=== PATIENT | female | born 1950 | race Caucasian/White ===

== ENCOUNTER → 2019-04-11 13:41 | Outpatient (BNVA) | payer MEDICARE, SELFPAY | PROVIDERS: Family Provider Internal Medicine; PCP Internal Medicine; Visit Provider Internal Medicine Cardiovascular Disease | DX: Z95.2 Presence of prosthetic heart valve (principal); R06.02 Shortness of breath; I50.9 Heart failure, unspecified; I25.10 Atherosclerotic heart disease of native coronary artery without angina pectoris; I11.0 Hypertensive heart disease with heart failure | CPT/HCPCS: 80048; 83880; 85610 ==

== ENCOUNTER → 2019-04-19 13:50 | Outpatient (BNVA) | payer MEDICARE, SELFPAY | PROVIDERS: Family Provider Internal Medicine; PCP Internal Medicine; Visit Provider Nurse Practitioner Family | DX: Z95.2 Presence of prosthetic heart valve (principal); R06.02 Shortness of breath; I50.20 Unspecified systolic (congestive) heart failure | CPT/HCPCS: 80048 ==

== ENCOUNTER 2020-08-15 08:21 | Emergency (ER) | payer MEDICARE, SELFPAY ==
--- NOTE | 2020-08-15 08:29 | ED_ITS ---
HPI - Abdominal Pain General: Chief Complaint: Skin/Abscess/Foreign Body Stated Complaint: LOW ABD PAIN Time Seen by Provider: 08/15/20 08:24 History of Present Illness: HPI narrative: 69-year-old female who is presents complaining of pelvic pain. She has a right swollen labia minora. She has had problems in the past with infectious cyst that she has drained some on her own at home she has another one at the gluteal fold inferior on the left. She denies fever sweats or chills. Associated Symptoms: Denies bloating, chills, coffee ground emesis, constipation, diarrhea, dysuria, fever(s), hematochezia, hematemesis, melena, nausea and vomiting Review of Systems Const: Denies: fever(s), chills, body aches, change in appetite, fatigue or malaise Card: Denies: chest pain, edema, dyspnea on exertion or orthopnea Resp: Denies: dyspnea, productive cough or non-productive cough GI: Denies: abdominal pain, nausea, vomiting, hematemesis, coffee ground emesis, diarrhea, constipation, bloating, hematochezia or melena : Denies: flank pain, difficulty voiding, dysuria, urinary frequency or urinary urgency Skin/Breast: Denies: rash or pruritus PFSH ED PFSH: Medical History CAD (coronary artery disease) stent to mid LAD 11/02/2018 CHF (congestive heart failure) Last echocardiogram 10/06/18: LVEF 35-40% Diabetes mellitus diagnosed in 2017 HTN (hypertension) with goal to be determined Hypothyroidism Osteoporosis Surgical History Mitral valve replaced S/P cholecystectomy S/P hysterectomy S/P mitral valve replacement [place] valve by Dr. Wilder [place] 2006 Family History Father CAD (coronary artery disease) Stroke Mother CAD (coronary artery disease) Diabetes Hypertension Sister CAD (coronary artery disease) Hypertension Lung disease Psychiatric illness Son Lung disease Denies family history of Clotting disorder Dementia Hyperlipidemia Chronic kidney disease (CKD) Suicide Anesthesia complication Bleeding disorder Family history of premature coronary artery disease Cancer Social History (Reviewed 08/15/20 @ 11:07 by SERGIO Urbina Smoking and tobacco status: never smoked Second hand smoke exposure: Yes Alcohol intake: never Physical Exam Const: COMMON NORMALS: no acute distress GENERAL APPEARANCE: cooperative and comfortable ORIENTATION/CONSCIOUSNESS: Yes awake, Yes oriented to person, Yes oriented to place and Yes oriented to time HENMT: COMMON NORMALS: normocephalic, atraumatic, hearing grossly normal bilaterally and external ears normal HEAD & SCALP: normocephalic and atraumatic EXTERNAL EAR: Yes external ears normal Neck/C-Spine: COMMON NORMALS: no JVD Resp: COMMON NORMALS: normal respiratory effort, No retractions, No use of accessory muscles and clear to auscultation bilaterally AUSCULTATION: clear to auscultation bilaterally Cardio: COMMON NORMALS: no JVD, regular rate, regular rhythm and No murmurs present (Cardio) RATE: regular rate RHYTHM: regular rhythm GI: COMMON NORMALS: Soft to palpation and No hepatosplenomegaly present AUSCULTATION: Yes normoactive bowel sounds PALPATION: Yes Soft to palpation, No Tenderness to palpation present (GI), No Guarding due to palpation present (GI) and Yes No hepatosplenomegaly present Extremity: COMMON NORMALS: normal to inspection, capillary refill normal, no clubbing, cyanosis or edema, no calf tenderness and no pedal edema Neuro: SENSORIUM/ORIENTATION: Yes oriented to person, Yes oriented to place and Yes oriented to time Skin: COMMON NORMALS: no rashes or lesions noted GENERAL SKIN EXAM: no rashes or lesions noted Procedures Abscess I/D Side (if applicable): left (Gluteal fold) and right (Labia minora) Sedation/analgesia: other (Morphine) Local Anesthetic: lidocaine 1% Amount of anesthesia used (mL): 7 Technique: incised with #11 blade Amount of fluid expressed (mL): 3 Irrigation: No Packing used?: none Course Vital Signs: Vital signs: Vital Signs Temperature 98.0 F 08/15/20 08:36 Pulse Rate 80 08/15/20 10:20 Respiratory Rate 18 08/15/20 08:36 Blood Pressure 146/87 08/15/20 08:36 Pulse Oximetry 96 08/15/20 10:20 MDM - Abdominal Pain MDM Narrative: Medical decision making narrative: Incision and drainage of the abscesses on the right labia minora and a smaller abscess in the left gluteal fold. Both were anesthetized with 1% lidocaine locally and then incised with an 11 blade expressed fluid and debris from both. The left gluteal fold abscess was removed in its entirety with a capsule intact. The right labial minora lesion was expressed a small amount of purulent fluid which was cultured. There is a large amount of swelling but the abscess itself is actually quite small not amenable to any packing. I did probe with a cotton swab to break up any septations. Overall patient tolerated well discharge home on clindamycin since she is alrea dy on Coumadin, Bactrim would exacerbate her INRs. Follow-up with her primary care doctor early next week return if has problems did advise the patient to expect some oozing from the incision sites due to her Coumadin. Lab Data: Labs: Lab Results 08/15/20 08/15/20 08/15/20 Range/Units 08:50 08:50 08:50 WBC 9.5 (4.0-10.0) 10^3/ uL RBC 4.15 (4.1-5.3) 10^6/u L Hgb 13.8 (11.5-15.3) g/dL Hct 39.8 (37.0-47.0) % MCV 95.9 (81-99) fL MCH 33.3 (28.0-34.0) pg MCHC 34.7 (30.0-36.0) g/dL RDW 11.4 L (12.1-15.1) % Plt Count 219 (130-400) 10^3/c mm MPV 9.6 (7.4-10.4) fL Neut % (Auto) 65.2 % Lymph % (Auto) 23.1 % Stanley % (Auto) 8.0 % Eos % (Auto) 3.1 % Baso % (Auto) 0.4 % Neut # (Auto) 6.17 (1.8-7.7) 10^3/u L Lymph # (Auto) 2.2 (0.8-4.8) 10^3/u L Stanley # (Auto) 0.8 (0.2-0.9) 10^3/u L Eos # (Auto) 0.3 (0.0-0.8) 10^3/u L Baso # (Auto) 0.0 (0.0-0.1) 10^3/u L Nucleated RBC % (a uto) 0 % Nucleated RBCs # 0.0 /100WBC PT 30.40 H (12.1-14.9) SECO NDS INR 2.85 H (0.8-1.2) Sodium 141 (136-145) mmol/L Potassium 4.4 (3.5-5.1) mmol/L Chloride 101 (98-107) mmol/L Carbon Dioxide 30 H (22-29) mmol/L Anion Gap 14.4 (5-19) BUN 18 (8-23) mg/dL Creatinine 0.8 (0.5-0.9) mg/dL GFR Calculation 70.9 L (90-130) mL/min Glucose 121 H (65-115) mg/dL Calculated Osmolal ity 295 (285-295) mOsm/k g Calcium 9.5 (8.5-10.5) mg/dL Total Bilirubin 0.6 (0.15-1.2) mg/dL AST 21 (0-32) U/L ALT 14 (0-33) U/L Alkaline Phosphata se 96 (35-105) IU/L Total Protein 8.0 (6.6-8.7) g/dL Albumin 4.9 (3.5-5.2) g/dL Globulin 3.1 (1.3-4.6) g/dL Discharge Plan Discharge Patient Disposition: Home Clinical Impression: Abscess of skin or subcutaneous tissue Condition: Stable Prescriptions: New clindamycin HCl 300 mg capsule 300 mg PO Q8H 7 Days Qty: 21 RF: 0 No Action clonidine HCl 0.1 mg tablet 0.1 mg PO Q6H PRNRF: 0 multivitamin Tablet 1 tab PO QAM RF: 0 acetaminophen [Tylenol] 325 mg tablet 325 mg PO ONCE PRNRF: 0 albuterol sulfate [Ventolin HFA] 90 mcg/actuation HFA aerosol inhaler 2 puff INHALATION Q6H PRNRF: 0 cholecalciferol (vitamin D3) 2,000 unit tablet 2,000 unit PO QDAY RF: 0 tizanidine 4 mg tablet 4 mg PO DAILY PRN (Reason: muscle spasticity) RF: 0 rosuvastatin 20 mg tablet 20 mg PO DAILY RF: 0 lorazepam 0.5 mg tablet 0.5 mg PO .hs RF: 0 spironolactone 25 mg tablet 25 mg PO DAILY Qty: 90 RF: 3 furosemide 40 mg tablet 40 mg PO DAILY RF: 0 potassium chloride 20 mEq tablet extended release 20 meq PO DAILY RF: 0 pantoprazole 40 mg tablet,delayed release (DR/EC) 40 mg PO DAILY RF: 0 trazodone 50 mg tablet 50 mg PO DAILY RF: 0 warfarin 10 mg tablet 5 mg PO DAILY RF: 0 metoprolol succinate [Toprol XL] 100 mg tablet extended release 24 hr 100 mg PO QDAY Qty: 90 RF: 3 warfarin 10 mg tablet 10 mg PO DIRECTED Qty: 90 RF: 1 warfarin 2 mg tablet 2 mg PO DIRECTED Qty: 90 RF: 1 nitroglycerin [Nitrostat] 0.4 mg tablet, sublingual 0.4 mg SUBLINGUAL DIRECTED Qty: 1 RF: 3 lisinopril 40 mg tablet 40 mg PO DAILY Qty: 90 RF: 3 clopidogrel [Plavix] 75 mg tablet 75 mg PO QDAY Qty: 90 RF: 3 Discharge Orders: Discharge ED (Routine); Ordered 08/15/20 Ordered By: Lalo Ribera Referrals: Amador Cherry DO [Primary Care Provider] - Discharge Diet: Usual diet Discharge Activity: Resume usual activity Patient Instructions: Opioid Safety Activity Restrictions/Additional Instructions: Follow-up with your primary care doctor in the next 3 to 4 days return to the ER if you have further problems Coding Level of Care Code ED Cigarette Making Machine Catcher for Kaila Fwd Exam Comprehensive
[2020-08-15 08:36] VITALS: BP 146/87; PULSE 63; RESP 18; TEMP 36.7; O2SAT 96; BMI 26.1
[2020-08-15 08:44] VITALS: O2SAT 97
[2020-08-15 09:08] LABS: Basophils % 0.4 %; Eosinophils # 0.3 10^3/uL (0.0-0.8); Eosinophils % 3.1 %; Hematocrit 39.8 % (37.0-47.0); Hemoglobin 13.8 g/dL (11.5-15.3); Lymphocytes # 2.2 10^3/uL (0.8-4.8); Lymphocytes % 23.1 %; Mean Corpuscular HGB Conc 34.7 g/dL (30.0-36.0); Mean Corpuscular Hemoglobin 33.3 pg (28.0-34.0); Mean Corpuscular Volume 95.9 fL (81-99); Mean Platelet Volume 9.6 fL (7.4-10.4); Monocytes # 0.8 10^3/uL (0.2-0.9); Neutrophils # 6.17 10^3/uL (1.8-7.7); Neutrophils % 65.2 %; Nucleated Red Blood Cells % 0 %; Platelet Count 219 10^3/cmm (130-400); Red Blood Count 4.15 10^6/uL (4.1-5.3); Red Cell Distribution Width 11.4 % (12.1-15.1); White Blood Count 9.5 10^3/uL (4.0-10.0)
[2020-08-15] MEDS: lidocaine 1% INJ 20 mL INJECTION (09:17)
[2020-08-15] MEDS: morphine 4 mg/mL SDV 1 mL IVP (09:17)
[2020-08-15] MEDS: sodium chloride 0.9% 500 ML 999 ML IV (09:17)
[2020-08-15 09:24] LABS: INR 2.85 (0.8-1.2)
[2020-08-15 09:28] LABS: Alanine Aminotransferase 14 U/L (0-33); Albumin Level 4.9 g/dL (3.5-5.2); Alkaline Phosphatase 96 IU/L (35-105); Anion Gap 14.4 (5-19); Aspartate Amino Transferase 21 U/L (0-32); Blood Urea Nitrogen 18 mg/dL (8-23); Calcium 9.5 mg/dL (8.5-10.5); Carbon Dioxide 30 mmol/L (22-29); Chloride 101 mmol/L (98-107); Creatinine Clr Calc Pharmacy 62.3907; Globulin 3.1 g/dL (1.3-4.6); Glomerular Filtration Rate 70.9 mL/min (90-130); Glucose 121 mg/dL (65-115); Osmolality Calculated 295 mOsm/kg (285-295); Potassium 4.4 mmol/L (3.5-5.1); Sodium 141 mmol/L (136-145); Total Bilirubin 0.6 mg/dL (0.15-1.2)
[2020-08-15 10:20] VITALS: PULSE 80; O2SAT 96
== END 2020-08-15 10:25 | disposition home or self-care (01) ==
PROVIDERS: Emergency Provider Family Medicine; PCP Internal Medicine
DX: N76.4 Abscess of vulva (principal); L02.31 Cutaneous abscess of buttock; Z79.01 Long term (current) use of anticoagulants; Z79.02 Long term (current) use of antithrombotics/antiplatelets; I25.10 Atherosclerotic heart disease of native coronary artery without angina pectoris; I11.0 Hypertensive heart disease with heart failure; I50.9 Heart failure, unspecified; E11.9 Type 2 diabetes mellitus without complications; Z77.22 Contact with and (suspected) exposure to environmental tobacco smoke (acute) (chronic)
CPT/HCPCS: 10060; 56405; 80053; 85025; 85610; 87070; 87075; 87205; 96374; 99284; J2270; J7040

== ENCOUNTER 2021-01-19 12:57 | Outpatient (CLI) | payer MEDICARE, SELFPAY ==
--- NOTE | 2021-01-19 13:11 | MM_ITS ---
WS: [id number] BILATERAL SCREENING DIGITAL MAMMOGRAM WITH CAD HISTORY: SCREENING COMPARISON: 12/22/2017 and 12/21/2016 Bilateral CC and MLO views submitted. Computer aided detection analyzed. Breast composition: There are scattered areas of fibroglandular density. No suspicious masses, microc alcifications or architectural distortion. Benign vascular calcifications. MM/[place] [id number] IMPRESSION: BI-RADS: 2-Benign FOLLOW UP: 1 Year Follow-up
--- NOTE | 2021-01-19 13:34 | XR_ITS ---
WS: [id number] SCREENING DEXA SCAN [employer] CLINICAL INFORMATION: POSTMENOPAUSAL COMPARISON: December 22, 2017 FINDINGS: The L1-L4 bone mineral density measures 0.856 g/cm2. This corresponds to a T score score of -2.7 and Z score of -1.1. Left femoral neck bone mineral density measures 0.965 g/cm2. This corresponds to a T score of -0.3 an d Z score of 1.1. Right femoral neck bone mineral density measures 0.965 g/cm2. This corresponds to a T score -0.3of an d Z score of 1.1. Mean femoral neck bone mineral density measures 0.965 g/cm2. This corresponds to a T score of -0.3 an d Z score of 1.1. XR/XR DEXA axial skeleton* [id number] IMPRESSION: Osteoporosis lumbar spine. Normal bone mineralization femoral necks. Patient's FRAX calculated 10 year probability for major osteoporotic fracture i s 14.1 % and osteoporotic hip fracture is 1.4%.
== END 2021-01-19 12:58 | disposition home or self-care (01) ==
LOC: RADSHAW 13:00
PROVIDERS: PCP Internal Medicine; Visit Provider Nurse Practitioner
DX: Z12.31 Encounter for screening mammogram for malignant neoplasm of breast (principal); Z78.0 Asymptomatic menopausal state; M81.0 Age-related osteoporosis without current pathological fracture
CPT/HCPCS: 77067; 77080

== ENCOUNTER → 2021-05-21 09:07 | Outpatient (BNVA) | payer MEDICARE, SELFPAY | PROVIDERS: PCP Internal Medicine; Visit Provider Internal Medicine Cardiovascular Disease | DX: Z79.01 Long term (current) use of anticoagulants (principal) ==

== ENCOUNTER → 2021-05-27 13:07 | Outpatient (BNVA) | payer MEDICARE, SELFPAY | PROVIDERS: PCP Internal Medicine; Visit Provider Internal Medicine Cardiovascular Disease | DX: Z79.01 Long term (current) use of anticoagulants (principal) ==

== ENCOUNTER → 2021-06-05 08:55 | Outpatient (BNVA) | payer MEDICARE, SELFPAY | PROVIDERS: PCP Internal Medicine; Visit Provider Internal Medicine Cardiovascular Disease | DX: Z79.01 Long term (current) use of anticoagulants (principal) ==

== ENCOUNTER → 2021-06-12 13:23 | Outpatient (BNVA) | payer MEDICARE, SELFPAY | PROVIDERS: PCP Internal Medicine; Visit Provider Internal Medicine Cardiovascular Disease | DX: I35.9 Nonrheumatic aortic valve disorder, unspecified (principal); Z95.2 Presence of prosthetic heart valve; Z79.01 Long term (current) use of anticoagulants ==

== ENCOUNTER → 2021-06-19 11:01 | Outpatient (BNVA) | payer MEDICARE, SELFPAY | PROVIDERS: PCP Internal Medicine; Visit Provider Internal Medicine Cardiovascular Disease | DX: I11.0 Hypertensive heart disease with heart failure (principal); I50.22 Chronic systolic (congestive) heart failure; I25.10 Atherosclerotic heart disease of native coronary artery without angina pectoris; Z95.2 Presence of prosthetic heart valve; E11.9 Type 2 diabetes mellitus without complications | CPT/HCPCS: 99214 ==

== ENCOUNTER → 2021-06-26 13:22 | Outpatient (BNVA) | payer MEDICARE, SELFPAY | PROVIDERS: PCP Internal Medicine; Visit Provider Internal Medicine Cardiovascular Disease | DX: Z79.01 Long term (current) use of anticoagulants (principal) ==

== ENCOUNTER → 2021-07-01 12:43 | Outpatient (BNVA) | payer MEDICARE, SELFPAY | PROVIDERS: PCP Internal Medicine; Visit Provider Internal Medicine Cardiovascular Disease | DX: Z79.01 Long term (current) use of anticoagulants (principal) ==

== ENCOUNTER 2021-07-05 22:01 | Emergency (ER) | payer MEDICARE, SELFPAY ==
[2021-07-05 22:16] VITALS: BP 136/80; PULSE 97; RESP 16; TEMP 36.9; O2SAT 96
[2021-07-05 22:17] VITALS: BMI 26.1
--- NOTE | 2021-07-05 22:37 | ECG_ITS ---
[facility] Test Date: 2021-07-05 Pat Name: Jocelin Mcginnis Department: Room: Gender: Female [employer]: : 1950 Requested By: Jose Ortiz Order Number: [id number] Jyoti MD: Jacques Parks M.D. Measurements Intervals Bowman Rate: 96 P: 79 MN: 139 QRS: 43 QRSD: 118 T: 157 QT: 363 QTc: 461 Interpretive Statements SINUS RHYTHM SEPTAL MYOCARDIAL INFARCTION , OF INDETERMINATE AGE [40+ ms Q WAVE IN V1/V2] MODERATE T-WAVE ABNORMALITY, CONSIDER LATERAL ISCHEMIA [-0.1+ mV T-WAVE IN I/aVL/V5/V6] Compared to ECG 01/08/2019 12:38:45 No significant changes Electronically Signed On 07-06-2021 22:10:16 CDT by Jacques Parks M.D. [id number]
--- NOTE | 2021-07-05 22:41 | ED_ITS ---
Documented by User: KIM Granados 07/06/21 00:25 HPI - Nausea/Vomiting/Diarrhea General: Chief complaint: Nausea/Vomiting/Diarrhea Stated complaint: N/V Time Seen by Provider: 07/05/21 22:36 History of Present Illness: She states she got sick about 8:00 tonight. This was after eating some redd mushrooms that her cousin picked. Patient denies any chest pain shortness of breath. Has felt nauseated this evening. She said maybe last 2 to 3 days she has been feeling good either. Denies any fever or chills. Associated nausea: Yes (Sick after eating some redd mushrooms tonight) Associated symtoms: Reports nausea (Sick after eating some redd mushrooms tonight); Denies chest pain or headache(s) Review of Systems Const: Denies: fever(s), chills or body aches Eyes: Denies: eye discomfort ENMT: Denies: throat pain Card: Denies: chest pain Resp: Denies: dyspnea GI: Reports: nausea (Sick after eating some redd mushrooms tonight) and vomiting; Denies: abdominal pain or diarrhea Skin/Breast: Denies: rash Neuro: Denies: headache(s) Psych: Denies: depression or suicidal ideation PFS ED PFSH: Medical History (Updated 07/05/21 @ 23:51 by KIM Granados) CAD (coronary artery disease) stent to mid LAD 11/02/2018 CHF (congestive heart failure) Last echocardiogram 10/06/18: LVEF 35-40% Diabetes mellitus diagnosed in 2017 HTN (hypertension) with goal to be determined Hypothyroidism Osteoporosis Surgical History Mitral valve replaced S/P cholecystectomy S/P hysterectomy S/P mitral valve replacement [facility] [place] valve by Dr. Wilder [place] 2006 Family History Father CAD (coronary artery disease) Stroke Mother CAD (coronary artery disease) Diabetes Hypertension Sister CAD (coronary artery disease) Hypertension Lung disease Psychiatric illness Son Lung disease Denies family history of Clotting disorder Dementia Hyperlipidemia Chronic kidney disease (CKD) Suicide Anesthesia complication Bleeding disorder Family history of premature coronary artery disease Cancer Social History Smoking and tobacco status: never smoked Second hand smoke exposure: Yes Alcohol intake: never Physical Exam Const: COMMON NORMALS: no acute distress, patient oriented x3 and alert HENMT: COMMON NORMALS: normocephalic and external ears normal HEAD & SCALP: normocephalic EXTERNAL EAR: Yes external ears normal Eye: COMMON NORMALS: EOMs intact bilaterally Neck/C-Spine: COMMON NORMALS: no JVD Resp: COMMON NORMALS: normal respiratory effort and No use of accessory muscles Cardio: COMMON NORMALS: no JVD GI: INSPECTION: Yes normal to inspection Extremity: COMMON NORMALS: normal to inspection and full ROM Neuro: COMMON NORMALS: patient oriented x3 SENSORIUM/ORIENTATION: Yes alert Psych: COMMON NORMALS: mental status grossly normal Skin: COMMON NORMALS: no rashes or lesions noted GENERAL SKIN EXAM: no kathy hes or lesions noted Course Vital Signs: Vital signs: Vital Signs Temperature 98.4 F 07/05/21 23:48 Pulse Rate 92 07/06/21 00:06 Respiratory Rate 16 07/06/21 00:06 Blood Pressure 114/74 07/06/21 00:06 Pulse Oximetry 95 07/06/21 00:06 MDM - Nausea/Vomiting/Diarrhea Medical Decision Making Patient presents with nausea and vomiting after eating redd mushroom this evening. Patient was given Zofran and that calmed her down remarkably. Laboratory studies are negative except slightly elevated LDH. White count 11.7. No fever chills no diarrhea. Patient without any abdominal pain or cramping. Patient encouraged away from redd mushrooms prescription was provided to her and to follow-up here or primary care if any worsening symptoms. Lab Data : 07/05/21 22:40 07/05/21 22:40 Laboratory Results WBC 11.7 10^3/uL (4.0-10.0) H 07/05/21 22:40 RBC 4.21 10^6/uL (4.1-5.3) 07/05/21 22:40 Hgb 14.1 g/dL (11.5-15.3) 07/05/21 22:40 Hct 39.5 % (37.0-47.0) 07/05/21 22:40 MCV 93.8 fl (81-99) 07/05/21 22:40 MCH 33.5 pg (28.0-34.0) 07/05/21 22:40 MCHC 35.7 g/dL (30.0-36.0) 07/05/21 22:40 RDW 11.6 % (12.1-15.1) L 07/05/21 22:40 Plt Count 227 10^3/cmm (130-400) 07/05/21 22:40 MPV 9.2 fL (7.4-10.4) 07/05/21 22:40 Neut % (Auto) 88.3 % 07/05/21 22:40 Lymph % (Auto) 5.6 % 07/05/21 22:40 [place] % (Auto) 5.2 % 07/05/21 22:40 Eos % (Auto) 0.3 % 07/05/21 22:40 Baso % (Auto) 0.3 % 07/05/21 22:40 Neut # (Auto) 10.31 10^3/uL (1.8-7.7) H 07/05/21 22:40 Lymph # (Auto) 0.7 10^3/uL (0.8-4.8) L 07/05/21 22:40 [place] # (Auto) 0.6 10^3/uL (0.2-0.9) 07/05/21 22:40 Eos # (Auto) 0.0 10^3/uL (0.0-0.8) 07/05/21 22:40 Baso # (Auto) 0.0 10^3/uL (0.0-0.1) 07/05/21 22:40 Nucleated RBC % (auto) 0 % 07/05/21 22:40 Nucleated RBCs # 0.0 /100WBC 07/05/21 22:40 Sodium 139 mmol/L (136-145) 07/05/21 22:40 Potassium 3.6 mmol/L (3.5-5.1) 07/05/21 22:40 Chloride 97 mmol/L (98-107) L 07/05/21 22:40 Carbon Dioxide 27 mmol/L (22-29) 07/05/21 22:40 Anion Gap 18.6 (5-19) 07/05/21 22:40 BUN 22 mg/dL (8-23) 07/05/21 22:40 Creatinine 1.1 mg/dL (0.5-0.9) H 07/05/21 22:40 GFR Calculation Not Reportable 07/05/21 22:40 Glucose 136 mg/dL (65-115) H 07/05/21 22:40 Calculated Osmolality 293 mOsm/kg (285-295) 07/05/21 22:40 Calcium 9.1 mg/dL (8.5-10.5) 07/05/21 22:40 GGT 36 U/L (5-36) 07/05/21 22:40 AST 26 U/L (0-32) 07/05/21 22:40 ALT < 5 U/L (0-33) 07/05/21 22:40 Lactate Dehydrogenase 368 U/L (135-214) H 07/05/21 22:40 Discharge Plan Discharge Patient Disposition: Home Clinical Impression: Mushrooms causing toxic effect, Elevated LDH Condition: Stable Prescriptions: New ondansetron HCl 4 mg tablet 4 mg PO TID PRN (Reason: nausea and vomiting) 3 Days Qty: 9 0RF No Action clonidine HCl 0.1 mg tablet 0.1 mg PO Q6H PRN0RF acetaminophen [Tylenol] 325 mg tablet 325 mg PO ONCE PRN0RF albuterol sulfate [Ventolin HFA] 90 mcg/actuation HFA aerosol inhaler 2 puff INHALATION Q6H PRN0RF cholecalciferol (vitamin D3) 2,000 unit tablet 2,000 unit PO QDAY 0RF tizanidine 4 mg tablet 4 mg PO DAILY PRN (Reason: muscle spasticity) 0RF rosuvastatin 20 mg tablet 20 mg PO DAILY 0RF metoprolol succinate 50 mg tablet extended release 24 hr 50 mg PO QDAY Qty: 90 3RF Rx Instructions: Strength change spironolactone 50 mg tablet 50 mg PO DAILY Qty: 90 3RF Rx Instructions: Dose change potassium chloride 20 mEq tablet extended release 20 meq PO DAILY Qty: 90 3RF trazodone 50 mg tablet 50 mg PO DAILY 0RF omeprazole 20 mg capsule,delayed release(DR/EC) 20 mg PO DAILY 0RF warfarin 10 mg tablet 5 mg PO DAILY 0RF Protocol: Dose Management Condition: Tuesday Dose/Route: 4 mg Instruction: 2 x 2 mg tablets Condition: Tuesday Dose/Route: 5 mg Instruction: 1 x 1 mg tablet, 2 x 2 mg tablets Condition: Tuesday Dose/Route: 0 mg Instruction: 0 tablets Condition: Tuesday Dose/Route: 4 mg Instruction: 2 x 2 mg tablets Condition: Dose/Route: 4 mg Instruction: 2 x 2 mg tablets Condition: Tuesday Dose/Route: 4 mg Instruction: 2 x 2 mg tablets Condition: Tuesday Dose/Route: 4 mg Instruction: 2 x 2 mg tablets Protocol Text: Adjustment Start Date: Tuesday07/01/21 INR Value: 4.5 INR Date: 06/30/21 Recheck Date: 07/08/21 nitroglycerin [Nitrostat] 0.4 mg tablet, sublingual 0.4 mg SUBLINGUAL DIRECTED Qty: 1 3RF clopidogrel [Plavix] 75 mg tablet 75 mg PO QDAY Qty: 90 3RF warfarin 1 mg tablet 1 mg PO DIRECTED 0RF Protocol: Dose Management Condition: Tuesday Dose/Route: 4 mg Instruction: 2 x 2 mg tablets Condition: Tuesday Dose/Route: 5 mg Instruction: 1 x 1 mg tablet, 2 x 2 mg tablets Condition: Tuesday Dose/Route: 0 mg Instruction: 0 tablets Condition: Tuesday Dose/Route: 4 mg Instruction: 2 x 2 mg tablets Condition: Dose/Route: 4 mg Instruction: 2 x 2 mg tablets Condition: Tuesday Dose/Route: 4 mg Instruction: 2 x 2 mg tablets Condition: Tuesday Dose/Route: 4 mg Instruction: 2 x 2 mg tablets Protocol Text: Adjustment Start Date: Tuesday07/01/21 INR Value: 4.5 INR Date: 06/30/21 Recheck Date: 07/08/21 warfarin 10 mg tablet 10 mg PO DIRECTED Qty: 90 1RF Protocol: Dose Management Condition: Tuesday Dose/Route: 4 mg Instruction: 2 x 2 mg tablets Condition: Tuesday Dose/Route: 5 mg Instruction: 1 x 1 mg tablet, 2 x 2 mg tablets Condition: Tuesday Dose/Route: 0 mg Instruction: 0 tablets Condition: Tuesday Dose/Route: 4 mg Instruction: 2 x 2 mg tablets Condition: Dose/Route: 4 mg Instruction: 2 x 2 mg tablets Condition: Tuesday Dose/Route: 4 mg Instruction: 2 x 2 mg tablets Condition: Tuesday Dose/Route: 4 mg Instruction: 2 x 2 mg tablets Protocol Text: Adjustment Start Date: Tuesday07/01/21 INR Value: 4.5 INR Date: 06/30/21 Recheck Date: 07/08/21 Rx Instructions: Take 1 tablet by mouth as directed; based on INR results furosemide 40 mg tablet 40 mg PO BID Qty: 180 3RF warfarin 2 mg tablet 2 mg PO DIRECTED Qty: 90 1RF Protocol: Dose Management Condition: Tuesday Dose/Route: 4 mg Instruction: 2 x 2 mg tablets Condition: Tuesday Dose/Route: 5 mg Instruction: 1 x 1 mg tablet, 2 x 2 mg tablets Condition: Tuesday Dose/Route: 0 mg Instruction: 0 tablets Condition: Tuesday Dose/Route: 4 mg Instruction: 2 x 2 mg tablets Condition: Dose/Route: 4 mg Instruction: 2 x 2 mg tablets Condition: Tuesday Dose/Route: 4 mg Instruction: 2 x 2 mg tablets Condition: Tuesday Dose/Route: 4 mg Instruction: 2 x 2 mg tablets Protocol Text: Adjustment Start Date: Tuesday07/01/21 INR Value: 4.5 INR Date: 06/30/21 Recheck Date: 07/08/21 Rx Instructions: Take 1 tablet by mouth as directed; based on INR results Discharge Orders: Discharge ED (Routine); Ordered 07/05/21 Ordered By: Jose Ortiz Referrals: Amador Cherry DO [Primary Care Provider] - Discharge Diet: As Directed Discharge Activity: Increase activity as tolerated Patient Instructions: Vomiting - Adult Activity Restrictions/Additional Instructions: Take medication as directed. Return here to the ER or follow-up your primary care provider if symptoms do not improve. Clear liquids next 24 hours. Coding Level of Care Code ED Robot Designer for Chg Fwd Exam Comprehensive Documented by User: Jefe Perdomo DO 07/06/21 01:26 HPI - Nausea/Vomiting/Diarrhea General: Chief complaint: Nausea/Vomiting/Diarrhea Stated complaint: N/V Time Seen by Provider: 07/05/21 22:36 PFSH ED PFSH: Medical History (Updated 07/05/21 @ 23:51 by KIM Granados) CAD (coronary artery disease) stent to mid LAD 11/02/2018 CHF (congestive heart failure) Last echocardiogram 10/06/18: LVEF 35-40% Diabetes mellitus diagnosed in 2017 HTN (hypertension) with goal to be determined Hypothyroidism Osteoporosis Surgical History Mitral valve replaced S/P cholecystectomy S/P hysterectomy S/[facility] Family [facility] Father CAD (coronary artery disease) Stroke Mother CAD (coronary artery disease) Diabetes Hypertension Sister CAD (coronary artery disease) Hypertension Lung disease Psychiatric illness Son Lung disease Denies family history of Clotting disorder Dementia Hyperlipidemia Chronic kidney disease (CKD) Suicide Anesthesia complication Bleeding disorder Family history of premature coronary artery disease Cancer Social History Smoking and tobacco status: never smoked Second hand smoke exposure: Yes Alcohol intake: never Course Vital Signs: Vital signs: Vital Signs Temperature 98.4 F 07/05/21 23:48 Pulse Rate 92 07/06/21 00:06 Respiratory Rate 16 07/06/21 00:06 Blood Pressure 114/74 07/06/21 00:06 Pulse Oximetry 95 07/06/21 00:06 MDM - Nausea/Vomiting/Diarrhea Medical Decision Making Patient presents with nausea and vomiting after eating redd mushroom this evening. Patient was given Zofran and that calmed her down remarkably. Laboratory studies are negative except slightly elevated LDH. White count 11.7. No fever chills no diarrhea. Patient without any abdominal pain or cramping. Patient encouraged away from redd mushrooms prescription was provided to her and to follow-up here or primary care if any worsening symptoms. This patient was originally seen by KIM Roman.? I agree with his history, evaluation, and treatment. Lab Data : 07/05/21 22:40 07/05/21 22:40 Laboratory Results WBC 11.7 10^3/uL (4.0-10.0) H 07/05/21 22:40 RBC 4.21 10^6/uL (4.1-5.3) 07/05/21 22:40 Hgb 14.1 g/dL (11.5-15.3) 07/05/21 22:40 Hct 39.5 % (37.0-47.0) 07/05/21 22:40 MCV 93.8 fl (81-99) 07/05/21 22:40 MCH 33.5 pg (28.0-34.0) 07/05/21:40 MCHC 35.7 g/dL (30.0-36.0) 07/05/21 22:40 RDW 11.6 % (12.1-15.1) L 07/05/21:40 Plt Count 227 10^3/cmm (130-400) 07/05/21:40 MPV 9.2 fL (7.4-10.4) 07/05/21 22:40 Neut % (Auto) 88.3 % 07/05/21 22:40 Lymph % (Auto) 5.6 % 07/05/21:40 [place] % (Auto) 5.2 % 07/05/21 22:40 Eos % (Auto) 0.3 % 07/05/21 22:40 Baso % (Auto) 0.3 % 07/05/21:40 Neut # (Auto) 10.31 10^3/uL (1.8-7.7) H 07/05/21:40 Lymph # (Auto) 0.7 10^3/uL (0.8-4.8) L 07/05/21:40 [place] # (Auto) 0.6 10^3/uL (0.2-0.9) 07/05/21 22:40 Eos # (Auto) 0.0 10^3/uL (0.0-0.8) 07/05/21 22:40 Baso # (Auto) 0.0 10^3/uL (0.0-0.1) 07/05/21:40 Nucleated RBC % (auto) 0 % 07/05/21:40 Nucleated RBCs # 0.0 /100WBC 07/05/21 22:40 Sodium 139 mmol/L (136-145) 07/05/21 22:40 Potassium 3.6 mmol/L (3.5-5.1) 07/05/21 22:40 Chloride 97 mmol/L (98-107) L 07/05/21 22:40 Carbon Dioxide 27 mmol/L (22-29) 07/05/21 22:40 Anion Gap 18.6 (5-19) 07/05/21 22:40 BUN 22 mg/dL (8-23) 07/05/21 22:40 Creatinine 1.1 mg/dL (0.5-0.9) H 07/05/21 22:40 GFR Calculation Not Reportable 07/05/21 22:40 Glucose 136 mg/dL (65-115) H 07/05/21 22:40 Calculated Osmolality 293 mOsm/kg (285-295) 07/05/21 22:40 Calcium 9.1 mg/dL (8.5-10.5) 07/05/21 22:40 GGT 36 U/L (5-36) 07/05/21 22:40 AST 26 U/L (0-32) 07/05/21 22:40 ALT < 5 U/L (0-33) 07/05/21 22:40 Lactate Dehydrogenase 368 U/L (135-214) H 07/05/21 22:40 Discharge Plan Discharge Patient Disposition: Home Clinical Impression: Mushrooms causing toxic effect, Elevated LDH Condition: Stable Prescriptions: New ondansetron HCl 4 mg tablet 4 mg PO TID PRN (Reason: nausea and vomiting) 3 Days Qty: 9 0RF No Action clonidine HCl 0.1 mg tablet 0.1 mg PO Q6H PRN0RF acetaminophen [Tylenol] 325 mg tablet 325 mg PO ONCE PRN0RF albuterol sulfate [Ventolin HFA] 90 mcg/actuation HFA aerosol inhaler 2 puff INHALATION Q6H PRN0RF cholecalciferol (vitamin D3) 2,000 unit tablet 2,000 unit PO QDAY 0RF tizanidine 4 mg tablet 4 mg PO DAILY PRN (Reason: muscle spasticity) 0RF rosuvastatin 20 mg tablet 20 mg PO DAILY 0RF metoprolol succinate 50 mg tablet extended release 24 hr 50 mg PO QDAY Qty: 90 3RF Rx Instructions: Strength change spironolactone 50 mg tablet 50 mg PO DAILY Qty: 90 3RF Rx Instructions: Dose change potassium chloride 20 mEq tablet extended release 20 meq PO DAILY Qty: 90 3RF trazodone 50 mg tablet 50 mg PO DAILY 0RF omeprazole 20 mg capsule,delayed release(DR/EC) 20 mg PO DAILY 0RF warfarin 10 mg tablet 5 mg PO DAILY 0RF Protocol: Dose Management Condition: Tuesday Dose/Route: 4 mg Instruction: 2 x 2 mg tablets Condition: Tuesday Dose/Route: 5 mg Instruction: 1 x 1 mg tablet, 2 x 2 mg tablets Condition: Tuesday Dose/Route: 0 mg Instruction: 0 tablets Condition: Tuesday Dose/Route: 4 mg Instruction: 2 x 2 mg tablets Condition: Dose/Route: 4 mg Instruction: 2 x 2 mg tablets Condition: Tuesday Dose/Route: 4 mg Instruction: 2 x 2 mg tablets Condition: Tuesday Dose/Route: 4 mg Instruction: 2 x 2 mg tablets Protocol Text: Adjustment Start Date: Tuesday07/01/21 INR Value: 4.5 INR Date: 06/30/21 Recheck Date: 07/08/21 nitroglycerin [Nitrostat] 0.4 mg tablet, sublingual 0.4 mg SUBLINGUAL DIRECTED Qty: 1 3RF clopidogrel [Plavix] 75 mg tablet 75 mg PO QDAY Qty: 90 3RF warfarin 1 mg tablet 1 mg PO DIRECTED 0RF Protocol: Dose Management Condition: Tuesday Dose/Route: 4 mg Instruction: 2 x 2 mg tablets Condition: Tuesday Dose/Route: 5 mg Instruction: 1 x 1 mg tablet, 2 x 2 mg tablets Condition: Tuesday Dose/Route: 0 mg Instruction: 0 tablets Condition: Tuesday Dose/Route: 4 mg Instruction: 2 x 2 mg tablets Condition: Dose/Route: 4 mg Instruction: 2 x 2 mg tablets Condition: Tuesday Dose/Route: 4 mg Instruction: 2 x 2 mg tablets Condition: Tuesday Dose/Route: 4 mg Instruction: 2 x 2 mg tablets Protocol Text: Adjustment Start Date: Tuesday07/01/21 INR Value: 4.5 INR Date: 06/30/21 Recheck Date: 07/08/21 warfarin 10 mg tablet 10 mg PO DIRECTED Qty: 90 1RF Protocol: Dose Management Condition: Tuesday Dose/Route: 4 mg Instruction: 2 x 2 mg tablets Condition: Tuesday Dose/Route: 5 mg Instruction: 1 x 1 mg tablet, 2 x 2 mg tablets Condition: Tuesday Dose/Route: 0 mg Instruction: 0 tablets Condition: Tuesday Dose/Route: 4 mg Instruction: 2 x 2 mg tablets Condition: Dose/Route: 4 mg Instruction: 2 x 2 mg tablets Condition: Tuesday Dose/Route: 4 mg Instruction: 2 x 2 mg tablets Condition: Tuesday Dose/Route: 4 mg Instruction: 2 x 2 mg tablets Protocol Text: Adjustment Start Date: Tuesday07/01/21 INR Value: 4.5 INR Date: 06/30/21 Recheck Date: 07/08/21 Rx Instructions: Take 1 tablet by mouth as directed; based on INR results furosemide 40 mg tablet 40 mg PO BID Qty: 180 3RF warfarin 2 mg tablet 2 mg PO DIRECTED Qty: 90 1RF Protocol: Dose Management Condition: Tuesday Dose/Route: 4 mg Instruction: 2 x 2 mg tablets Condition: Tuesday Dose/Route: 5 mg Instruction: 1 x 1 mg tablet, 2 x 2 mg tablets Condition: Tuesday Dose/Route: 0 mg Instruction: 0 tablets Condition: Tuesday Dose/Route: 4 mg Instruction: 2 x 2 mg tablets Condition: Dose/Route: 4 mg Instruction: 2 x 2 mg tablets Condition: Tuesday Dose/Route: 4 mg Instruction: 2 x 2 mg tablets Condition: Tuesday Dose/Route: 4 mg Instruction: 2 x 2 mg tablets Protocol Text: Adjustment Start Date: Tuesday07/01/21 INR Value: 4.5 INR Date: 06/30/21 Recheck Date: 07/08/21 Rx Instructions: Take 1 tablet by mouth as directed; based on INR results Discharge Orders: Discharge ED (Routine); Ordered 07/05/21 Ordered By: Jose Ortiz Referrals: Amador Cherry DO [Primary Care Provider] - Discharge Diet: As Directed Discharge Activity: Increase activity as tolerated Patient Instructions: Vomiting - Adult Activity Restrictions/Additional Instructions: Take medication as directed. Return here to the ER or follow-up your primary care provider if symptoms do not improve. Clear liquids next 24 hours. Coding Level of Care Code ED Robot Designer for Kaila Fwd Exam Comprehensive
[2021-07-05 22:45] LABS: Basophils % 0.3 %; Eosinophils % 0.3 %; Hematocrit 39.5 % (37.0-47.0); Hemoglobin 14.1 g/dL (11.5-15.3); Lymphocytes # 0.7 10^3/uL (0.8-4.8); Lymphocytes % 5.6 %; Mean Corpuscular HGB Conc 35.7 g/dL (30.0-36.0); Mean Corpuscular Hemoglobin 33.5 pg (28.0-34.0); Mean Corpuscular Volume 93.8 fl (81-99); Mean Platelet Volume 9.2 fL (7.4-10.4); Monocytes # 0.6 10^3/uL (0.2-0.9); Monocytes % 5.2 %; Neutrophils # 10.31 10^3/uL (1.8-7.7); Neutrophils % 88.3 %; Nucleated Red Blood Cells % 0 %; Platelet Count 227 10^3/cmm (130-400); Red Blood Count 4.21 10^6/uL (4.1-5.3); Red Cell Distribution Width 11.6 % (12.1-15.1); White Blood Count 11.7 10^3/uL (4.0-10.0)
[2021-07-05 23:01] LABS: Alanine Aminotransferase < 5 U/L (0-33); Anion Gap 18.6 (5-19); Aspartate Amino Transferase 26 U/L (0-32); Blood Urea Nitrogen 22 mg/dL (8-23); Calcium 9.1 mg/dL (8.5-10.5); Carbon Dioxide 27 mmol/L (22-29); Chloride 97 mmol/L (98-107); Glucose 136 mg/dL (65-115); Lactate Dehydrogenase 368 U/L (135-214); Osmolality Calculated 293 mOsm/kg (285-295); Potassium 3.6 mmol/L (3.5-5.1); Sodium 139 mmol/L (136-145)
[2021-07-05] MEDS: ondansetron 2 mg/ML SDV 2 mL 4 MG IVP (23:25)
[2021-07-05 23:38] LABS: Gamma Glutamyl Transferase 36 U/L (5-36)
[2021-07-05 23:48] VITALS: BP 111/72; PULSE 85; RESP 16; TEMP 36.9; O2SAT 95
[2021-07-06 00:06] VITALS: BP 114/74; PULSE 92; RESP 16; O2SAT 95
[2021-07-06] MEDS: ondansetron 4 MG Tablet PO (00:06)
== END 2021-07-06 00:09 | disposition home or self-care (01) ==
PROVIDERS: Emergency Provider Nurse Practitioner Family; PCP Internal Medicine
DX: T62.0X1A Toxic effect of ingested mushrooms, accidental (unintentional), initial encounter (principal); R11.2 Nausea with vomiting, unspecified; R74.02 Elevation of levels of lactic acid dehydrogenase [LDH]; Z79.51 Long term (current) use of inhaled steroids; Z79.01 Long term (current) use of anticoagulants; Z79.891 Long term (current) use of opiate analgesic
CPT/HCPCS: 80048; 82977; 83615; 84450; 84460; 85025; 93005; 96374; 99283; J2405; Q0162

== ENCOUNTER → 2021-07-09 16:02 | Outpatient (BNVA) | payer MEDICARE, SELFPAY | PROVIDERS: PCP Internal Medicine; Visit Provider Internal Medicine Cardiovascular Disease | DX: Z79.01 Long term (current) use of anticoagulants (principal) ==

== ENCOUNTER → 2021-07-17 10:58 | Outpatient (BNVA) | payer MEDICARE, SELFPAY | PROVIDERS: PCP Internal Medicine; Visit Provider Internal Medicine Cardiovascular Disease | DX: Z79.01 Long term (current) use of anticoagulants (principal) ==

== ENCOUNTER → 2021-07-24 13:03 | Outpatient (BNVA) | payer MEDICARE, SELFPAY | PROVIDERS: PCP Internal Medicine; Visit Provider Internal Medicine Cardiovascular Disease | DX: Z79.01 Long term (current) use of anticoagulants (principal) ==

== ENCOUNTER → 2021-08-06 15:41 | Outpatient (BNVA) | payer MEDICARE, SELFPAY | PROVIDERS: PCP Internal Medicine; Visit Provider Internal Medicine Cardiovascular Disease | DX: Z79.01 Long term (current) use of anticoagulants (principal) ==

== ENCOUNTER → 2021-08-14 10:25 | Outpatient (BNVA) | payer MEDICARE, SELFPAY | PROVIDERS: PCP Internal Medicine; Visit Provider Internal Medicine Cardiovascular Disease | DX: Z79.01 Long term (current) use of anticoagulants (principal) ==

== ENCOUNTER → 2021-08-21 11:22 | Outpatient (BNVA) | payer MEDICARE, SELFPAY | PROVIDERS: PCP Internal Medicine; Visit Provider Internal Medicine Cardiovascular Disease | DX: Z79.01 Long term (current) use of anticoagulants (principal) ==

== ENCOUNTER → 2021-08-27 09:09 | Outpatient (BNVA) | payer MEDICARE, SELFPAY | PROVIDERS: PCP Internal Medicine; Visit Provider Internal Medicine Cardiovascular Disease | DX: Z79.01 Long term (current) use of anticoagulants (principal) ==

== ENCOUNTER 2021-09-11 07:44 | Outpatient (CLI) | payer MEDICARE, SELFPAY ==
--- NOTE | 2021-09-11 08:00 | USCV_ITS ---
Jocelin Mcginnis Age: 71 Gender: F : 1950 Exam Date: 09/11/2021 07:57 Ordering Phys: Sarahi Montes MD ([email or web address]) Technologist: Exam Location: [facility] – [place] Indication: mitral valve prostisis BP: 130 / 90 HR: 79 Rhythm: Sinus Technical Quality: Adequate MEASUREMENTS (Male / Female) Normal Values 2D ECHO LV Diastolic Diameter PLAX 4.6 cm 4.2 - 5.9 / 3.9 - 5.3 cm LV Systolic Diameter PLAX 3.3 cm IVS Diastolic Thickness 1.1 cm 0.6 - 1.0 / 0.6 - 0.9 cm IVS Systolic Thickness 1.2 cm LVPW Diastolic Thickness 1.3 cm 0.6 - 1.0 / 0.6 - 0.9 cm LVPW Systolic Thickness 1.1 cm LVOT Diameter 2.0 cm LV Ejection Fraction 2D Teich 54.4 % LA Diameter 3.5 cm IVC Diameter 1.2 cm M-MODE Aortic Annulus Diameter 3.0 cm LA Ao Ratio MM 1.2 DOPPLER AV Peak Velocity 147.0 cm/s LVOT Peak Velocity 103.0 cm/s AV Area Cont Eq vti 2.2 cm squared AV Area Cont Eq pk 2.3 cm squared MV Area PHT 5.0 cm squared Mitral E to A Ratio 1.0 MV E' Velocity 94.0 cm/s Mitral E to MV E' Ratio 20.6 Mitral E to LV E' Lateral Ratio 16.0 Mitral E to LV E' Septal Ratio 29.5 TR Peak Velocity 345.0 cm/s TR Peak Gradient 47.6 mmHg TV Peak E Velocity 187.0 cm/s Right Atrial Pressure 3.0 mmHg Pulmonary Artery Systolic Pressu 50.6 mmHg PV Peak Velocity 80.0 cm/s FINDINGS Left Ventricle Mildly increased left ventricular cavity size. Moderately to severely decreased left ventricular systolic function. Left ventricular ejection fraction is estimated at 30 %. Severe global hypokinesis. Abnormal diastolic function. Abnormal (paradoxical) septal motion consistent with postoperative status. Right Ventricle Normal right ventricular size and systolic function. Right ventricular systolic pressure 50.6 mmHg. Right Atrium Normal right atrial size. Left Atrium Left atrium not well visualized. Moderately increased left atrial size. Mitral Valve Mechanical mitral valve well seated and normally functioning. Mitral valve mean gradient 4 mm Hg. Mild mitral valve regurgitation. Aortic Valve Aortic valve not well visualized. Tricuspid Valve Structurally normal tricuspid valve. No tricuspid valve stenosis. Mild tricuspid valve regurgitation. Pulmonic Valve Pulmonic valve not well visualized. Pericardium No pericardial effusion. Aorta Normal size aortic root and proximal ascending aorta. IVC Normal IVC dimension with >50% respiratory change of the inferior vena cava. CONCLUSIONS 1. Mildly increased left ventricular cavity size. Moderately to severely decreased left ventricular systolic function. Left ventricular ejection fraction is estimated at 30 %. Severe global hypokinesis. Abnormal diastolic function. 2. Mechanical mitral valve well seated and normally functioning. Mitral valve mean gradient 4 mm Hg. Mild mitral valve regurgitation. 3. When compared to study dated 10/06/2018, left ventricular systolic function may have decreased slightly. Sarahi Montes MD (Electronically Signed) Final Date: 15 September 2021 10:19 S
== END 2021-09-11 07:45 | disposition home or self-care (01) ==
LOC: RAD 07:46
PROVIDERS: PCP Internal Medicine; Visit Provider Internal Medicine Cardiovascular Disease
DX: I50.22 Chronic systolic (congestive) heart failure (principal); Z95.2 Presence of prosthetic heart valve
CPT/HCPCS: C8929

== ENCOUNTER → 2021-10-01 10:08 | Outpatient (BNVA) | payer MEDICARE, SELFPAY | PROVIDERS: PCP Internal Medicine; Visit Provider Internal Medicine Cardiovascular Disease | DX: Z79.01 Long term (current) use of anticoagulants (principal) ==

== ENCOUNTER → 2021-10-06 10:12 | Outpatient (BNVA) | payer MEDICARE, SELFPAY | PROVIDERS: PCP Internal Medicine; Visit Provider Internal Medicine Cardiovascular Disease | DX: Z79.01 Long term (current) use of anticoagulants (principal) ==

== ENCOUNTER 2021-10-12 10:26 | Outpatient (CLI) | payer MEDICARE, SELFPAY ==
[2021-10-12 10:54] LABS: Basophils % 0.5 %; Eosinophils # 0.1 10^3/uL (0.0-0.8); Eosinophils % 2.5 %; Hematocrit 36.3 % (37.0-47.0); Hemoglobin 12.6 g/dL (11.5-15.3); Lymphocytes # 1.5 10^3/uL (0.8-4.8); Lymphocytes % 27.6 %; Mean Corpuscular HGB Conc 34.7 g/dL (30.0-36.0); Mean Platelet Volume 9.1 fL (7.4-10.4); Monocytes # 0.4 10^3/uL (0.2-0.9); Monocytes % 7.9 %; Neutrophils # 3.39 10^3/uL (1.8-7.7); Neutrophils % 61.3 %; Nucleated Red Blood Cells % 0 %; Platelet Count 195 10^3/cmm (130-400); Red Blood Count 3.82 10^6/uL (4.1-5.3); Red Cell Distribution Width 12.8 % (12.1-15.1); White Blood Count 5.5 10^3/uL (4.0-10.0)
[2021-10-12 11:25] LABS: Alanine Aminotransferase 36 U/L (0-33); Albumin Level 4.9 g/dL (3.5-5.2); Alkaline Phosphatase 113 IU/L (35-105); Aspartate Amino Transferase 27 U/L (0-32); Blood Urea Nitrogen 12 mg/dL (8-23); Calcium 9.8 mg/dL (8.5-10.5); Carbon Dioxide 29 mmol/L (22-29); Chloride 102 mmol/L (98-107); Chol HDL Ratio 2.19 mg/dL (0.0-4.40); Cholesterol 125 mg/dL (0-200); Globulin 2.7 g/dL (1.3-4.6); Glucose 124 mg/dL (65-115); HDL Cholesterol 57 mg/dL (60-100); LDL Cholesterol Calculated 29 mg/dL (50-129); LDL HDL Ratio 0.51 RATIO (0.00-3.22); Magnesium 2.1 mg/dL (1.7-2.3); NT Pro B Type Natriuretic Pept 1714 pg/mL (0-125); Osmolality Calculated 289 mOsm/kg (285-295); Sodium 139 mmol/L (136-145); Total Bilirubin 0.7 mg/dL (0.15-1.2); Total Protein 7.6 g/dL (6.6-8.7); Triglycerides 196 mg/dL (0-150)
[2021-10-12 11:46] LABS: Estmated Average Glucose 105; Hemoglobin A1C 5.3 % (4.0-6.0)
== END 2021-10-12 10:27 | disposition home or self-care (01) ==
LOC: LAB 10:28
PROVIDERS: PCP Internal Medicine; Visit Provider Internal Medicine Cardiovascular Disease
DX: E11.9 Type 2 diabetes mellitus without complications (principal); I10 Essential (primary) hypertension; I25.10 Atherosclerotic heart disease of native coronary artery without angina pectoris; I50.22 Chronic systolic (congestive) heart failure
CPT/HCPCS: 36415; 80053; 80061; 83036; 83735; 83880; 85025

== ENCOUNTER → 2021-12-21 15:06 | Outpatient (BNVA) | payer MEDICARE, SELFPAY | PROVIDERS: PCP Internal Medicine; Visit Provider Internal Medicine Cardiovascular Disease | DX: I48.91 Unspecified atrial fibrillation (principal); Z79.01 Long term (current) use of anticoagulants; I11.0 Hypertensive heart disease with heart failure; I50.22 Chronic systolic (congestive) heart failure; Z95.2 Presence of prosthetic heart valve; I25.10 Atherosclerotic heart disease of native coronary artery without angina pectoris; E11.9 Type 2 diabetes mellitus without complications; Z79.84 Long term (current) use of oral hypoglycemic drugs; R94.31 Abnormal electrocardiogram [ECG] [EKG] | CPT/HCPCS: 93005; 99214 ==

== ENCOUNTER 2021-12-29 10:34 | Outpatient (CLI) | payer MEDICARE, SELFPAY ==
[2021-12-29 11:59] LABS: Blood Urea Nitrogen 16 mg/dL (8-23); Calcium 10.3 mg/dL (8.5-10.5); Carbon Dioxide 28 mmol/L (22-29); Chloride 98 mmol/L (98-107); Glucose 96 mg/dL (65-115); Magnesium 2.2 mg/dL (1.7-2.3); NT Pro B Type Natriuretic Pept 1450 pg/mL (0-125); Osmolality Calculated 283 mOsm/kg (285-295); Sodium 136 mmol/L (136-145)
== END 2021-12-29 10:35 | disposition home or self-care (01) ==
PROVIDERS: PCP Internal Medicine; Visit Provider Internal Medicine Cardiovascular Disease
DX: I25.10 Atherosclerotic heart disease of native coronary artery without angina pectoris (principal); I50.22 Chronic systolic (congestive) heart failure
CPT/HCPCS: 36415; 80048; 83735; 83880

== ENCOUNTER → 2022-02-03 13:20 | Outpatient (BNVA) | payer MEDICARE, SELFPAY | PROVIDERS: PCP Internal Medicine; Visit Provider Nurse Practitioner Family | DX: I25.10 Atherosclerotic heart disease of native coronary artery without angina pectoris (principal); I11.0 Hypertensive heart disease with heart failure; I50.22 Chronic systolic (congestive) heart failure; I48.91 Unspecified atrial fibrillation; Z79.01 Long term (current) use of anticoagulants | CPT/HCPCS: 99214 ==

== ENCOUNTER 2022-03-21 09:12 | Inpatient (IN) | payer MEDICARE, SELFPAY ==
[2022-03-21] VITALS (15 sets, daily range): BP systolic 113–140; BP diastolic 62–91; PULSE 81–103; RESP 16–31; TEMP 36.8–39.1; O2SAT 95–98; BMI 24.9
--- NOTE | 2022-03-21 09:15 | ED_ITS ---
HPI - Arrhythmia/Palpitations General: Chief Complaint: Shortness of Breath/Dyspnea Stated Complaint: Afib Time Seen by Provider: 03/21/22 09:14 Source: patient Mode of arrival: ambulatory History of Present Illness: 69-year-old female presents emergency room with complaint of rapid heart rate. Patient has a known history of atrial fibrillation is currently on Coumadin as well as metoprolol 75 p.o. daily recently increased to the 75 it seemed to be doing well with last couple of days heart rates been racing is getting worse now. Patient has a prosthetic mitral valve, mechanical [place] valve. She has some mild chest discomfort and shortness of breath has not noted any swelling. MD complaint: rapid heart beat and heart racing Onset (ago): day(s) Duration: constant Severity: moderate Context: occurred during rest Arrhythmia history: atrial fibrillation Associated symptoms: Reports anxiety, diaphoresis, nausea and short of breath; Deny cough, muscle cramps, paresthesias, pre-syncope, sense of impending doom, syncope or vomiting Treatments prior to arrival: beta-roosevelt Review of Systems Const: Reports: fatigue, malaise and diaphoresis; Denies: fever(s) or chills ENMT: Denies: throat pain, ear or mastoid pain, nasal discharge or nasal congestion Card: Reports: chest pain, palpitations, irregular heart rhythm, dyspnea on exertion and orthopnea; Denies: edema, swelling of feet/ankles, syncope or pre-syncope Resp: Denies: dyspnea, productive cough or non-productive cough GI: Reports: nausea; Denies: abdominal pain or vomiting : Denies: flank pain, difficulty voiding, dysuria, urinary frequency or urinary urgency Musc: Denies: muscle cramps Skin/Breast: Denies: rash or pruritus Psych: Reports: anxiety PFSH ED PFSH: Medical History (Updated 03/21/22 @ 13:15 by Lalo Ribera DO) CAD (coronary artery disease) stent to mid LAD 11/02/2018 CHF (congestive heart failure) Last echocardiogram 10/06/18: LVEF 35-40% Diabetes mellitus diagnosed in 2017 HTN (hypertension) with goal to be determined Hypothyroidism Osteoporosis Surgical History (Updated 03/21/22 @ 13:15 by Lalo iRbera DO) Mitral valve replaced S/P cholecystectomy S/P hysterectomy S/P mitral valve replacement [place] Eran valve by Dr. Wilder [place] 2006 Family History Father CAD (coronary artery disease) Stroke Mother CAD (coronary artery disease) Diabetes Hypertension Sister CAD (coronary artery disease) Hypertension Lung disease Psychiatric illness Son Lung disease Denies family history of Clotting disorder Dementia Hyperlipidemia Chronic kidney disease (CKD) Suicide Anesthesia complication Bleeding disorder Family history of premature coronary artery disease Cancer Social History Smoking and tobacco status: never smoked Second hand smoke exposure: Yes Alcohol intake: never Physical Exam Const: GENERAL APPEARANCE: cooperative and comfortable ORIENTATION/CONSCIOUSNESS: Yes awake, Yes oriented to person, Yes oriented to place and Yes oriented to time HENMT: COMMON NORMALS: normocephalic and atraumatic HEAD & SCALP: normocephalic and atraumatic Resp: COMMON NORMALS: normal respiratory effort, No retractions, No use of accessory muscles and clear to auscultation bilaterally AUSCULTATION: clear to auscultation bilaterally Cardio: RATE: tachycardic RHYTHM: abnormal rhythm irregularly irregular HEART SOUNDS: Murmur heart sound present diastolic (Mechanical diastolic murmur heard at the apex) GI: COMMON NORMALS: Soft to palpation and No hepatosplenomegaly present AUSCULTATION: Yes normoactive bowel sounds PALPATION: Yes Soft to palpation, No Tenderness to palpation present (GI), No Guarding due to palpation present (GI) and Yes No hepatosplenomegaly present Extremity: COMMON NORMALS: normal to inspection, capillary refill normal, no clubbing, cyanosis or edema, no calf tenderness and no pedal edema Neuro: SENSORIUM/ORIENTATION: Yes oriented to person, Yes oriented to place and Yes oriented to time Skin: COMMON NORMALS: no rashes or lesions noted GENERAL SKIN EXAM: no rashes or lesions noted Course Vital Signs: Vital signs: Vital Signs Temperature 98.3 F 03/21/22 12:35 Pulse Rate 83 03/21/22 13:30 Respiratory Rate 16 03/21/22 13:30 Blood Pressure 132/79 03/21/22 13:30 Pulse Oximetry 98 03/21/22 13:30 Oxygen Delivery Me thod 03/21/22 13:30 MDM - Arrhythmia/Palpitations Medical Decision Making Initial EKG showed A. fib with RVR there are some lateral ST wave inversion and ST depression was thought to be rate related compared to old EKGs this was new she had lateral ST depression previously but not the T wave inversion when her rate was controlled repeat EKG was done continues to show an intraventricular conduction delay with T wave inversion that is new from June 2021. Previous echocardiogram showed ischemic cardiomyopathy with an EF of 30% in September 2021. Despite nitro and correction of rate she continues to have chest discomfort discussed Dr. Blank she recommends observation and reevaluation of her cardiomyopathy. She had been scheduled for a cardiac stress test later this month. She may require angiography again. Medical Records I reviewed the patient's medical records. Lab Data I reviewed the patient's lab results. 03/21/22 09:35 03/21/22 09:35 Radiology Impressions Chest X-Ray 03/21/22 12:56 IMPRESSION: 1. Hazy opacity at the medial aspect of the left lung base is nonspecific. Differential includes pneumonia. 2. Cardiomegaly. 3. Nodular densities at the left perihilar region appear mildly more prominent when compared to the prior study. Laboratory Results WBC 14.3 10^3/uL (4.0-10.0) H 03/21/22 09:35 RBC 2.93 10^6/uL (4.1-5.3) L 03/21/22 09:35 Hgb 9.8 g/dL (11.5-15.3) L 03/21/22 09:35 Hct 29.3 % (37.0-47.0) L 03/21/22 09:35 MCV 100.0 fl (81-99) H 03/21/22 09:35 MCH 33.4 pg (28.0-34.0) 03/21/22 09:35 MCHC 33.4 g/dL (30.0-36.0) 03/21/22 09:35 RDW 13.3 % (12.1-15.1) 03/21/22 09:35 Plt Count 259 10^3/cmm (130-400) 03/21/22 09:35 MPV 9.4 fL (7.4-10.4) 03/21/22 09:35 Neut % (Auto) 87.2 % 03/21/22 09:35 Lymph % (Auto) 6.2 % 03/21/22 09:35 [place] % (Auto) 5.6 % 03/21/22 09:35 Eos % (Auto) 0.3 % 03/21/22 09:35 Baso % (Auto) 0.3 % 03/21/22 09:35 Neut # (Auto) 12.44 10^3/uL (1.8-7.7) H 03/21/22 09:35 Lymph # (Auto) 0.9 10^3/uL (0.8-4.8) 03/21/22 09:35 [place] # (Auto) 0.8 10^3/uL (0.2-0.9) 03/21/22 09:35 Eos # (Auto) 0.0 10^3/uL (0.0-0.8) 03/21/22 09:35 Baso # (Auto) 0.0 10^3/uL (0.0-0.1) 03/21/22 09:35 Nucleated RBC % (auto) 0 % 03/21/22 09:35 Nucleated RBCs # 0.0 /100WBC 03/21/22 09:35 Sodium 135 mmol/L (136-145) L 03/21/22 09:35 Potassium 4.1 mmol/L (3.5-5.1) 03/21/22 09:35 Chloride 103 mmol/L (98-107) 03/21/22 09:35 Carbon Dioxide 20 mmol/L (22-29) L 03/21/22 09:35 Anion Gap 16.1 (5-19) 03/21/22 09:35 BUN 15 mg/dL (8-23) 03/21/22 09:35 Creatinine 0.9 mg/dL (0.5-0.9) 03/21/22 09:35 GFR Calculation Not Reportable 03/21/22 09:35 Glucose 158 mg/dL (65-115) H 03/21/22 09:35 Calculated Osmolality 284 mOsm/kg (285-295) L 03/21/22 09:35 Calcium 8.9 mg/dL (8.5-10.5) 03/21/22 09:35 Total Bilirubin 0.9 mg/dL (0.15-1.2) 03/21/22 09:35 AST 20 U/L (0-32) 03/21/22 09:35 ALT 17 U/L (0-33) 03/21/22 09:35 Alkaline Phosphatase 81 U/L (35-105) 03/21/22 09:35 Troponin T Baseline 24 ng/L (0-10) H 03/21/22 09:35 Troponin T 120 Minute 20.56 ng/L (0-10) H 03/21/22 11:42 Delta Troponin T -3.44 ABS# (0-10) L 03/21/22 11:42 Total Protein 7.4 g/dL (6.6-8.7) 03/21/22 09:35 Albumin 4.7 g/dL (3.5-5.2) 03/21/22 09:35 Globulin 2.7 g/dL (1.3-4.6) 03/21/22 09:35 Discharge Plan Discharge Patient Disposition: Placed in Observation Admit Provider: Michael Quintana Clinical Impression: Atrial fibrillation, S/P mitral valve replacement, CAD (coronary artery disease), CHF (congestive heart failure), Cardiomyopathy, ischemic, Acute electrocardiogram changes Coding Level of Care Code ED Bookkeeping Machine Mechanic for Tarshag Fwd Exam Detailed
--- NOTE | 2022-03-21 09:24 | ECG_ITS ---
[facility] Test Date: 2022-03-21 Pat Name: Jocelin Mcginnis Department: Room: Gender: Female Utility Arborist: : 1950 Requested By: Lalo Hughes Order Number: [id number] Jyoti MD: Trent Blank M.D. Measurements Intervals [place] Rate: 109 P: 0 IA: 0 QRS: 66 QRSD: 117 T: 202 QT: 326 QTc: 440 Interpretive Statements ATRIAL FIBRILLATION WITH RAPID VENTRICULAR RESPONSE WITH ABERRANT CONDUCTION OR VENTRICULAR PREMATURE COMPLEXES MODERATE INTRAVENTRICULAR CONDUCTION DELAY [105+ ms QRS DURATION, 80+ ms Q/S IN V1/V2, NO Q AND 60+ ms R IN I/aVL/V5/V6] ST DEVIATION AND MODERATE T-WAVE ABNORMALITY, CONSIDER LATERAL ISCHEMIA [-0.1+ mV T-WAVE IN I/aVL/V5/V6] ST DEVIATION AND MODERATE T-WAVE ABNORMALITY, CONSIDER INFERIOR ISCHEMIA [-0.1+ mV T-WAVE IN II/aVF] Compared to ECG 07/05/2021 22:25:10 Aberrant conduction of supraventricular beat(s) now present.Ventricular premature complex(es) now present.Intraventricular conduction delay now present Sinus rhythm no longer present.Myocardial infarct finding no longer present T-wave abnormality still present.Possible ischemia still present Electronically Signed On 03-21-2022 20:03:19 NEEDLE PROCESS FELT GOODS SUPERVISOR by Trent Blank M.D. [id number]
[2022-03-21] MEDS: metoprolol succinate ER (24 HR) 50 mg Tablet 75 MG PO (09:41)
[2022-03-21] MEDS: metoprolol tartrate 1 mg/1 mL SDV 5 mL 2.5 MG IVP (09:42)
[2022-03-21 09:44] LABS: Basophils % 0.3 %; Eosinophils % 0.3 %; Hematocrit 29.3 % (37.0-47.0); Hemoglobin 9.8 g/dL (11.5-15.3); Lymphocytes # 0.9 10^3/uL (0.8-4.8); Lymphocytes % 6.2 %; Mean Corpuscular HGB Conc 33.4 g/dL (30.0-36.0); Mean Corpuscular Hemoglobin 33.4 pg (28.0-34.0); Mean Platelet Volume 9.4 fL (7.4-10.4); Monocytes # 0.8 10^3/uL (0.2-0.9); Monocytes % 5.6 %; Neutrophils # 12.44 10^3/uL (1.8-7.7); Neutrophils % 87.2 %; Nucleated Red Blood Cells % 0 %; Platelet Count 259 10^3/cmm (130-400); Red Blood Count 2.93 10^6/uL (4.1-5.3); Red Cell Distribution Width 13.3 % (12.1-15.1); White Blood Count 14.3 10^3/uL (4.0-10.0)
[2022-03-21 10:07] LABS: Alanine Aminotransferase 17 U/L (0-33); Albumin Level 4.7 g/dL (3.5-5.2); Alkaline Phosphatase 81 U/L (35-105); Anion Gap 16.1 (5-19); Aspartate Amino Transferase 20 U/L (0-32); Blood Urea Nitrogen 15 mg/dL (8-23); Calcium 8.9 mg/dL (8.5-10.5); Carbon Dioxide 20 mmol/L (22-29); Chloride 103 mmol/L (98-107); Globulin 2.7 g/dL (1.3-4.6); Glucose 158 mg/dL (65-115); Osmolality Calculated 284 mOsm/kg (285-295); Potassium 4.1 mmol/L (3.5-5.1); Sodium 135 mmol/L (136-145); Total Bilirubin 0.9 mg/dL (0.15-1.2); Total Protein 7.4 g/dL (6.6-8.7)
--- NOTE | 2022-03-21 10:37 | ECG_ITS ---
[facility] Test Date: 2022-03-21 Pat Name: Jocelin Mcginnis Department: Room: Gender: Female Emergency Care Attendant: : 1950 Requested By: Lalo Hughes Order Number: [id number] Jyoti MD: Trent Blank M.D. Measurements Intervals [place] Rate: 88 P: 0 NC: 0 QRS: 68 QRSD: 117 T: 189 QT: 387 QTc: 469 Interpretive Statements ATRIAL FIBRILLATION MODERATE INTRAVENTRICULAR CONDUCTION DELAY [105+ ms QRS DURATION, 80+ ms Q/S IN V1/V2, NO Q AND 60+ ms R IN I/aVL/V5/V6] ST DEVIATION AND MODERATE T-WAVE ABNORMALITY, CONSIDER LATERAL ISCHEMIA [-0.1+ mV T-WAVE IN I/aVL/V5/V6] Compared to ECG 03/21/2022 09:24:18 Aberrant conduction of supraventricular beat(s) no longer present Ventricular premature complex(es) no longer present T-wave abnormality still present Possible ischemia still present Electronically Signed On 03-21-2022 20:03:31 MANAGER OF SECURITY by Trent Blank M.D. [id number]
[2022-03-21] MEDS: nitroglycerin 1 gm/inch oint Pkt 1 INCH TOPICAL (11:01)
[2022-03-21 11:12] LABS: Troponin(5th) Baseline 24 ng/L (0-10)
[2022-03-21 12:21] LABS: Troponin 5 2HR 20.56 ng/L (0-10)
[2022-03-21 12:31] LABS: Troponin 5 2HR Delta -3.44 ABS# (0-10)
--- NOTE | 2022-03-21 12:46 | ECG_ITS ---
[facility] Test Date: 2022-03-21 Pat Name: Jocelin Mcginnis Department: Room: Gender: Female Media Specialist: : 1950 Requested By: Lalo Hughes Order Number: [id number] Jyoti MD: Trent Blank M.D. Measurements Intervals [place] Rate: 86 P: 0 ME: 0 QRS: 69 QRSD: 117 T: 160 QT: 391 QTc: 468 Interpretive Statements ATRIAL FIBRILLATION MODERATE INTRAVENTRICULAR CONDUCTION DELAY [105+ ms QRS DURATION, 80+ ms Q/S IN V1/V2, NO Q AND 60+ ms R IN I/aVL/V5/V6] ST DEVIATION AND MODERATE T-WAVE ABNORMALITY, CONSIDER LATERAL ISCHEMIA [-0.1+ mV T-WAVE IN I/aVL/V5/V6] Compared to ECG 03/21/2022 10:37:08 No significant changes Electronically Signed On 03-21-2022 20:23:17 OFFICE LEAD by Trent Blank M.D. [id number]
--- NOTE | 2022-03-21 12:56 | XRR_ITS ---
PROCEDURE INFORMATION: Exam: XR Chest Exam date and time: 03/21/2022 12:59 PM Age: 71 years old Clinical indication: Cough and dyspnea; Prior surgery; Additional info: Dyspnea/cough TECHNIQUE: Imaging protocol: Radiologic exam of the chest. Views: 1 view. COMPARISON: CR XR chest 2V* [id number] 06/12/2020 11:58 AM FINDINGS: Lungs: There are nodular densities at the left perihilar region appear mildly more prominent when compared to the prior study. There is hazy opacity at the medial aspect of the left lung base. Pleural spaces: Unremarkable. No pleural effusion. No pneumothorax. Heart/Mediastinum: Cardiomegaly. Bones/joints: Unremarkable. Other findings: There are post-sternotomy changes and postoperative changes overlying the mediastinum. XR/XR chest 1V portable [id number] IMPRESSION: 1. Hazy opacity at the medial aspect of the left lung base is nonspecific. Differential includes pneumonia. 2. Cardiomegaly. 3. Nodular densities at the left perihilar region appear mildly more prominent when compared to the prior study.
--- NOTE | 2022-03-21 14:35 | P.HP_ITS ---
Providers/Chief Complaint Admitting Physician: Michael Quintana MD Primary Care Provider: Amador Cherry DO Chief Complaint: Afib History of Present Illness Jocelin Mcginnis is a 71 year old female with past medical history of coronary artery status post PCI, atrial fibrillation, mechanical mitral valve, on warfarin at home, HFReF , came in with chief complaint of generalized we akness, she was also complaining of palpitation going on for quite some time which bothers her a lot, whenever she has these episodes, she feels a lot of anxiety ,weakness, today she came in after experiencing similar episodes, of palpitations, but today it was also accompanied with left-sided chest pain pressure-like radiating to the neck, upon arrival in the ER she was found to be in A. fib with RVR, she responded well to metoprolol IV as well as p.o. metoprolol, heart rate is better controlled, but still continued to complain of chest tightness, radiating to her neck. Putting imaging study done in the ER: Has shown X-ray chest: Hazy opacity at the medial aspect of the left lung base, suspicious for pneumonia. Labs: WBC 14.3, H&H 9.8/ , PLT : 259 , serum sodium 135 , serum potassium 4.1 , BUN and serum creatinine 15 and 0.9, troponin trend: Cardiology was consulted by ER, for possible stress test//CAG , Nitropaste was also applied in the ER Review of Systems General: Reports: 10 or more systems reviewed and unremarkable except in HPI and below Const: Denies: fever(s), chills, body aches, change in appetite or diaphoresis Card: Reports: palpitations; Denies: edema, swelling of feet/ankles or dyspnea on exertion Resp: Reports: dyspnea; Denies: productive cough, wheezing or pain on inspiration GI: Denies: abdominal pain, nausea, vomiting, diarrhea or constipation : Denies: flank pain Musc: Denies: back pain, extremity pain or extremity swelling Neuro: Denies: headache(s), difficulty walking or confusion Medications/Allergies Home Medications Medication Instructions Recorded Confirmed Last Taken Type warfarin 10 mg tablet 5 mg PO DAILY 03/19/19 03/19/22 Unknown History acetaminophen 325 mg tablet 325 mg PO ONCE PRN 04/11/19 02/03/22 Unknown History (Tylenol) cholecalciferol (vitamin D3) 50 2,000 unit PO QDAY 04/11/19 02/03/22 Unknown History mcg (2,000 unit) tablet clonidine HCl 0.1 mg tablet 0.1 mg PO Q6H PRN 04/11/19 02/03/22 Unknown History rosuvastatin 20 mg tablet 20 mg PO DAILY 10/09/19 02/03/22 Unknown History tizanidine 4 mg tablet 4 mg PO DAILY PRN muscle spasticity 10/09/19 02/03/22 Unknown History trazodone 50 mg tablet 50 mg PO DAILY 05/15/20 02/03/22 Unknown History nitroglycerin 0.4 mg sublingual 0.4 mg sublingual DIRECTED #1 06/13/20 02/03/22 Unknown Rx tablet (Nitrostat) pkg omeprazole 20 mg capsule,delayed 20 mg PO DAILY 11/20/20 02/03/22 Unknown History release warfarin 2 mg tablet 2 mg PO DIRECTED #90 tabs 05/11/21 03/19/22 Unknown Rx warfarin 1 mg tablet 1 mg PO DIRECTED #30 tabs 09/03/21 03/19/22 Unknown Rx clopidogrel 75 mg tablet (Plavix) 75 mg PO QDAY #90 tabs 09/10/21 02/03/22 Unknown Rx furosemide 40 mg tablet 40 mg PO DAILY #90 tabs 10/06/21 02/03/22 Unknown Rx valsartan 160 mg tablet 160 mg PO DAILY #90 tabs 10/06/21 02/03/22 Unknown Rx warfarin 10 mg tablet 10 mg PO DIRECTED #90 tabs 12/11/21 03/19/22 Unknown Rx spironolactone 50 mg tablet 50 mg PO DAILY #90 tabs 02/01/22 02/03/22 Unknown Rx lisinopril 40 mg tablet 40 mg PO DAILY 02/03/22 02/03/22 Unknown History metoprolol succinate 50 mg 75 mg PO QDAY #135 tabs 02/12/22 Unknown Rx tablet,extended release 24 hr Allergies Allergy/AdvReac Type Severity Reaction Status Date / Time Iodine and Iodide Containing Allergy rash Verified 02/03/22 12:50 Produc latex Allergy rash Verified 02/03/22 12:50 PFSH Acute PFSH: Medical History (Updated 03/21/22 @ 20:39 by Michael Quintana MD) CAD (coronary artery disease) stent to mid LAD 11/02/2018 CHF (congestive heart failure) Last echocardiogram 10/06/18: LVEF 35-40% Diabetes mellitus diagnosed in 2017 HTN (hypertension) with goal to be determined Hypothyroidism Osteoporosis Surgical History Mitral valve replaced S/P cholecystectomy S/P hysterectomy S/P mitral valve replacement [place] Eran valve by Dr. Wilder [place] 2006 Family History Father CAD (coronary artery disease) Stroke Mother CAD (coronary artery disease) Diabetes Hypertension Sister CAD (coronary artery disease) Hypertension Lung disease Psychiatric illness Son Lung disease Denies family history of Clotting disorder Dementia Hyperlipidemia Chronic kidney disease (CKD) Suicide Anesthesia complication Bleeding disorder Family history of premature coronary artery disease Cancer Social History Smoking and tobacco status: never smoked Second hand smoke exposure: Yes Alcohol intake: never Vitals/I&O/Wt Last Vital Signs Temp 98.3 F 03/21/22 12:35 Pulse 83 03/21/22 13:30 Resp 16 03/21/22 13:30 BP 132/79 03/21/22 13:30 Pulse Ox 98 03/21/22 13:30 O2 Del Method 03/21/22 13:30 Weight last 48 hrs Weight 65.771 kg Physical Exam Const: COMMON NORMALS: patient oriented x3 Resp: COMMON NORMALS: clear to auscultation bilaterally EFFORT & INSPECTION: Yes symmetric chest movement AUSCULTATION: clear to auscultation bilaterally Cardio: COMMON NORMALS: Peripheral pulses 2+ throughout PERIPHERAL PULSES: Peripheral pulses 2+ throughout OTHER: Irregularly irregular rhythm, S1-S2 variable intensity GI: COMMON NORMALS: Normal to inspection, nondistended, normoactive bowel sounds present, Soft to palpation, non-tender, No hepatosplenomegaly present and no masses AUSCULTATION: Yes normoactive bowel sounds PALPATION: Yes Soft to palpation and Yes No hepatosplenomegaly present RECTAL EXAM: deferred Extremity: COMMON NORMALS: no clubbing, cyanosis or edema and no pedal edema Neuro: COMMON NORMALS: patient oriented x3 Data 03/21/22 09:35 03/21/22 09:35 A&P Assessment and plan (1) Atrial fibrillation: (2) HTN (hypertension) with goal to be determined: (3) CHF (congestive heart failure): (4) CAD (coronary artery disease): (5) S/P mitral valve replacement: (6) Chest pain: (7) Fever: (8) Pneumonia: Plan 71 year old female with past medical history of coronary artery status post PCI, atrial fibrillation, mechanical mitral valve, on warfarin at home, HFReF , came in with chief complaint of generalized weakness, she was also complaining of palpitation going on for quite some time which bothers her a lot, whenever she has these episodes, she feels a lot of anxiety ,weakness, today she came in after experiencing similar episodes, of palpitations, but today it was also accompanied with left-sided chest pain pressure-like radiating to the neck, upon arrival in the ER she was found to be in A. fib with RVR, she responded well to metoprolol IV as well as p.o. metoprolol, heart rate is better controlled, but still continued to complain of chest tightness, radiating to her neck. Assessment: Atrial fibrillation with RVR Chest pain Fever Possible pneumonia Coronary artery disease s/p PCI S/p mechanical mitral valve Heart failure with reduced ejection fraction Plan: 2D echo done in September/2021: Has shown: Mildly increased left ventricular cavity size.? Moderately to ?severely decreased left ventricular systolic function. Left ?ventricular ejection fraction is estimated at 30 %. Severe ?global hypokinesis. Abnormal diastolic function. Follow blood culture Urine culture Sputum gram stain and culture Respiratory viral panel Continue metoprolol Lasix 40 IV daily Continue Plavix, statin Continue lisinopril: Cardiology intent to switch to Entresto: Will have to wait for lisinopril washout.period, if stopped. Can be done as outpatient Continue spironolactone On therapeutic anticoagulation Monitor intake output charting Monitor daily weight Cardiology on board: For nuclear stress test possible coronary angiogram Continue ceftriaxone azithromycin for now CODE STATUS: Full Code DVT prophylaxis not needed on therapeutic anticoagulation Attestations Medical Necessity Statement*: Patient needs to be in hospital for management of A. fib with RVR , fever. Anticipated length of stay greater than 2 midnights Time Spent in Patient Care: Greater than 35 minutes (>than 50% of time spent in counselling and/or direct pt care on unit) . Coding Level of Care Code Acute Extractor Puller for Chg Fwd Diagnoses Atrial fibrillation I48.91 HTN (hypertension) with goal to be determined I10 CHF (congestive heart failure) I50.9 CAD (coronary artery disease) I25.10 S/P mitral valve replacement Z95.2 Chest pain R07.9 Fever R50.9 Pneumonia J18.9
[2022-03-21] MEDS: clopidogrel 75 mg Tablet PO (15:14)
[2022-03-21 15:59] LABS: Troponin 5 6HR 22.79 ng/L (0-10)
[2022-03-21 16:00] LABS: Troponin 5 6HR Delta -1.21 ng/L (0-12)
--- NOTE | 2022-03-21 16:46 | ECG_ITS ---
[facility] Test Date: 2022-03-21 Pat Name: Jocelin Mcginnis Department: Room: 105 Gender: Female Tromper: : 1950 Requested By: Lalo Hughes Order Number: [id number] Jyoti MD: Trent Blank M.D. Measurements Intervals [place] Rate: 110 P: 0 TN: 0 QRS: 71 QRSD: 114 T: 205 QT: 343 QTc: 465 Interpretive Statements ATRIAL FIBRILLATION WITH RAPID VENTRICULAR RESPONSE MODERATE INTRAVENTRICULAR CONDUCTION DELAY [105+ ms QRS DURATION, 80+ ms Q/S IN V1/V2, NO Q AND 60+ ms R IN I/aVL/V5/V6] ST DEVIATION AND MODERATE T-WAVE ABNORMALITY, CONSIDER LATERAL ISCHEMIA [-0.1+ mV T-WAVE IN I/aVL/V5/V6] Compared to ECG 03/21/2022 12:33:28 No significant changes Electronically Signed On 03-21-2022 20:23:38 SPORTS ACTIVITIES FOUL JUDGE by Trent Blank M.D. [id number]
--- NOTE | 2022-03-21 18:12 | P.CONIM_ITS ---
Providers/Reason For Consult Consulting Physician/Specialty*: HAWK Blank MD/cardiology Reason for Consult*: Patient with chest pain/new EKG changes/atrial fibrillation Requesting Physician: Dr. Quintana Attending Physician: Michael Quintana MD Primary Care Provider: Amador Cherry DO History of Present Illness History of Present Illness Jocelin Mcginnis is a 71 year old female, is admitted to the hospital through the emergency room where she presented with complaints of increasing shortness of breath, generalized weakness, palpitations and chest pain. Patient is known to have coronary artery disease, previous PCI, mitral valve replacement, intermittent atrial fibrillation and multiple other medical problems. She apparently has a baseline history of shortness of breath. Her for the last week or so, this has been getting worse. She has been noticing some swelling of the lower extremities. She also has been having palpitations for the last 2 days. It was making her uncomfortable to lie down in the night. This morning, she had a prolonged episode of palpitation with left-sided chest pain. She describes the pain as crushing type in the left inframammary region, radiating to the back and also to the shoulder blades. Intensity of the pain was moderate. She had associated shortness of breath. No palpitations, dizziness, nausea or vomiting. No other associated symptoms or radiation of pain. The initial episode might have lasted for half an hour or so. She has been having some chest discomfort with the palpitations. But the chest endings are more severe today. She came to the hospital because of the worsening of the symptoms. No fever, chills or cough. No other specific complaints. Patient is being followed by Dr. Montes at the cardiology clinic. She has a history of mitral valve disease and underwent mitral valve repair by Dr. Carmine Rodriguez in [place] in 2002.? Apparently the surgery was unsuccessful and she had to undergo mitral valve replacement with a mechanical valve at the [facility] in [facility] in 2006. She had a cardiac catheterization followed by PCI of the left anterior descending artery in [address] Phillip. She is known to have intermittent atrial fibrillation and is on long-term oral anticoagulation. She also is known to have cardiomyopathy with an LV ejection fraction of 30% based on echocardiogram in September of last year. There were some discussion about defibrillator but there was no final decision on this. She is scheduled for a Myocardial perfusion imaging on the 17th of this month. She also is known to have high blood pressure, type 2 diabetes and dyslipidemia. Review of Systems Narrative: CONSTITUTIONAL: Patient has been having some generalized weakness/fatigue for some time. EYES: No blurring of vision or other visual disturbances lately. ENT: No hoarseness of voice, auditory disturbances or sore throat. CARDIOVASCULAR: As mentioned above. RESPIRATORY: Shortness of breath as mentioned above. GASTROINTESTINAL: Has been having some stomach discomfort recently. GENITOURINARY: No dysuria or hematuria. INTEGUMENTARY: No skin rashes or history of skin cancer. NEURO: No transient ischemic attacks or amaurosis. PSYCHIATRIC: No history of psychosis or major depression. HEMATOLOGIC: No bleeding disorders or significant anemia. ENDOCRINE: No history of polyuria or polydipsia. MUSCULOSKELETAL: No recent joint pain or swelling. ALLERGY/IMMUNOLOGY: As mentioned above. Medications/Allergies Home Medications Medication Instructions Recorded Confirmed Last Taken Type warfarin 10 mg tablet 5 mg PO DAILY 03/19/19 03/19/22 Unknown History acetaminophen 325 mg tablet 325 mg PO ONCE PRN 04/11/19 02/03/22 Unknown History (Tylenol) cholecalciferol (vitamin D3) 50 2,000 unit PO QDAY 04/11/19 02/03/22 Unknown History mcg (2,000 unit) tablet clonidine HCl 0.1 mg tablet 0.1 mg PO Q6H PRN 04/11/19 02/03/22 Unknown History rosuvastatin 20 mg tablet 20 mg PO DAILY 10/09/19 02/03/22 Unknown History tizanidine 4 mg tablet 4 mg PO DAILY PRN muscle spasticity 10/09/19 02/03/22 Unknown History trazodone 50 mg tablet 50 mg PO DAILY 05/15/20 02/03/22 Unknown History nitroglycerin 0.4 mg sublingual 0.4 mg sublingual DIRECTED #1 06/13/20 1 04/05/21 Unknown Rx tablet (Nitrostat) pkg omeprazole 20 mg capsule,delayed 20 mg PO DAILY 11/20/20 02/03/22 Unknown History release warfarin 2 mg tablet 2 mg PO DIRECTED #90 tabs 05/11/21 03/19/22 Unknown Rx warfarin 1 mg tablet 1 mg PO DIRECTED #30 tabs 09/03/21 03/19/22 Unknown Rx clopidogrel 75 mg tablet (Plavix) 75 mg PO QDAY #90 tabs 09/10/21 02/03/22 Unknown Rx furosemide 40 mg tablet 40 mg PO DAILY #90 tabs 10/06/21 02/03/22 Unknown Rx valsartan 160 mg tablet 160 mg PO DAILY #90 tabs 10/06/21 02/03/22 Unknown Rx warfarin 10 mg tablet 10 mg PO DIRECTED #90 tabs 12/11/21 03/19/22 Unknown Rx spironolactone 50 mg tablet 50 mg PO DAILY #90 tabs 02/01/22 02/03/22 Unknown Rx lisinopril 40 mg tablet 40 mg PO DAILY 02/03/22 02/03/22 Unknown History metoprolol succinate 50 mg 75 mg PO QDAY #135 tabs 02/12/22 Unknown Rx tablet,extended release 24 hr Allergies Allergy/AdvReac Type Severity Reaction Status Date / Time Iodine and Iodide Containing Allergy rash Verified 02/03/22 12:50 Produc latex Allergy rash Verified 02/03/22 12:50 Current Medications Generic Name Dose Route Start Last Admin Trade Name Sridhar PRN Reason Stop Dose Admin Clopidogrel Bisulfate 75 mg 03/21/22 14:30 03/21/22 15:14 Clopidogrel 75 Mg Tablet PO 75 mg DAILY ANATOLY Administration Metoprolol Succinate 75 mg 03/21/22 14:30 03/21/22 15:11 Metoprolol Succinate Er (24 Hr) 50 Mg Tablet PO Not Given DAILY ANATOLY PFSH Acute PFSH: Medical History (Updated 03/21/22 @ 19:22 by Trent Blank MD) CAD (coronary artery disease) stent to mid LAD 11/02/2018 CHF (congestive heart failure) Last echocardiogram 10/06/18: LVEF 35-40% Diabetes mellitus diagnosed in 2017 HTN (hypertension) with goal to be determined Hypothyroidism Osteoporosis Surgical History Mitral valve replaced S/P cholecystectomy S/P hysterectomy S/P mitral valve replacement [place] valve by Dr. Wilder [place] 2006 Family History Father CAD (coronary artery disease) Stroke Mother CAD (coronary artery disease) Diabetes Hypertension Sister CAD (coronary artery disease) Hypertension Lung disease Psychiatric illness Son Lung disease Denies family history of Clotting disorder Dementia Hyperlipidemia Chronic kidney disease (CKD) Suicide Anesthesia complication Bleeding disorder Family history of premature coronary artery disease Cancer Social History Smoking and tobacco status: never smoked Second hand smoke exposure: Yes Alcohol intake: never Vitals/I&O/Wt Last Vital Signs Temp 98.3 F 03/21/22 12:35 Pulse 93 03/21/22 15:00 Resp 22 H 03/21/22 15:00 BP 132/71 03/21/22 15:00 Pulse Ox 98 03/21/22 15:00 O2 Del Method 03/21/22 15:00 Weight last 48 hrs Weight 145 lb Physical Exam Narrative: GENERAL: The patient is alert and oriented times three. Not in any acute distress. HEENT: No significant pallor, icterus or lymphadenopathy.Oral cavity: There are no mucous membrane lesions. NECK: Trachea appears to be central. No masses noted. No JVD or thyromegaly appreciated. RESPIRATORY: Chest is symmetrical. No intercostals muscle retraction or any accessory muscle activation. There is no chest wall tenderness. Breath sounds are heard bilaterally. Few fine rales at the bases. The breath sounds are diminished at the bases BREASTS: Deferred. HEART: The first heart sound is variable. Second heart sound is normal. The mitral valve opening and closing sounds are normal. No S3 or S4. Short systolic murmur at the left sternal border. No diastolic murmurs. No pericardial rub ABDOMEN: No vessel pulsations or distention. No tenderness. No organomegaly appreciated. Bowel sounds are normally heard. : Deferred. RECTAL: Deferred. LYMPHATIC: No lymphadenopathy noted in the neck. EXTREMITIES: 1+ edema with no cyanosis. Peripheral pulses are palpable and fairly good volume and amplitude. MUSCULOSKELETAL: No acute joint deformities or swelling SKIN: There are no significant rashes or ecchymosis NEUROPSYCHIATRIC: The patient is alert and oriented x3. Appears to be in a good mood. No tremors or rigidity noted. Data 03/21/22 09:35 03/21/22 09:35 Other Labs: Laboratory Last Values WBC 14.3 10^3/uL (4.0-10.0) H 03/21/22 09:35 RBC 2.93 10^6/uL (4.1-5.3) L 03/21/22 09:35 Hgb 9.8 g/dL (11.5-15.3) L 03/21/22 09:35 Hct 29.3 % (37.0-47.0) L 03/21/22 09:35 MCV 100.0 fl (81-99) H 03/21/22 09:35 MCH 33.4 pg (28.0-34.0) 03/21/22 09:35 MCHC 33.4 g/dL (30.0-36.0) 03/21/22 09:35 RDW 13.3 % (12.1-15.1) 03/21/22 09:35 Plt Count 259 10^3/cmm (130-400) 03/21/22 09:35 MPV 9.4 fL (7.4-10.4) 03/21/22 09:35 Neut % (Auto) 87.2 % 03/21/22 09:35 Lymph % (Auto) 6.2 % 03/21/22 09:35 [place] % (Auto) 5.6 % 03/21/22 09:35 Eos % (Auto) 0.3 % 03/21/22 09:35 Baso % (Auto) 0.3 % 03/21/22 09:35 Neut # (Auto) 12.44 10^3/uL (1.8-7.7) H 03/21/22 09:35 Lymph # (Auto) 0.9 10^3/uL (0.8-4.8) 03/21/22 09:35 [place] # (Auto) 0.8 10^3/uL (0.2-0.9) 03/21/22 09:35 Eos # (Auto) 0.0 10^3/uL (0.0-0.8) 03/21/22 09:35 Baso # (Auto) 0.0 10^3/uL (0.0-0.1) 03/21/22 09:35 Nucleated RBC % (auto) 0 % 03/21/22 09:35 Nucleated RBCs # 0.0 /100WBC 03/21/22 09:35 Sodium 135 mmol/L (136-145) L 03/21/22 09:35 Potassium 4.1 mmol/L (3.5-5.1) 03/21/22 09:35 Chloride 103 mmol/L (98-107) 03/21/22 09:35 Carbon Dioxide 20 mmol/L (22-29) L 03/21/22 09:35 Anion Gap 16.1 (5-19) 03/21/22 09:35 BUN 15 mg/dL (8-23) 03/21/22 09:35 Creatinine 0.9 mg/dL (0.5-0.9) 03/21/22 09:35 GFR Calculation Not Reportable 03/21/22 09:35 Glucose 158 mg/dL (65-115) H 03/21/22 09:35 Calculated Osmolality 284 mOsm/kg (285-295) L 03/21/22 09:35 Calcium 8.9 mg/dL (8.5-10.5) 03/21/22 09:35 Total Bilirubin 0.9 mg/dL (0.15-1.2) 03/21/22 09:35 AST 20 U/L (0-32) 03/21/22 09:35 ALT 17 U/L (0-33) 03/21/22 09:35 Alkaline Phosphatase 81 U/L (35-105) 03/21/22 09:35 Troponin T Baseline 24 ng/L (0-10) H 03/21/22 09:35 Troponin T 120 Minute 20.56 ng/L (0-10) H 03/21/22 11:42 Delta Troponin T -3.44 ABS# (0-10) L 03/21/22 11:42 Troponin T Hi Sens 6Hr 22.79 ng/L (0-10) H 03/21/22 15:13 Troponin T Hi Sens 6Hr Delta -1.21 ng/L (0-12) L 03/21/22 15:13 Total Protein 7.4 g/dL (6.6-8.7) 03/21/22 09:35 Albumin 4.7 g/dL (3.5-5.2) 03/21/22 09:35 Globulin 2.7 g/dL (1.3-4.6) 03/21/22 09:35 Echo: My impression: Echocardiogram in September 2021 ?1. Mildly increased left ventricular cavity size.? Moderately to ?severely decreased left ventricular systolic function. Left ?ventricular ejection fraction is estimated at 30 %. Severe ?global hypokinesis. Abnormal diastolic function. ?2. Mechanical mitral valve well seated and normally functioning. ?Mitral valve mean gradient 4 mm Hg. Mild mitral valve ?regurgitation. ?3. When compared to study dated 10/06/2018, left ventricular ?systolic function may have decreased slightly. EKG 1: My Interpretation: Atrial fibrillation with rapid ventricular rate. Nonspecific ST-T changes in the inferior and anterolateral leads. Nonspecific IVCD. A&P Assessment and plan (1) Atherosclerotic heart disease of [place] coronary artery with other forms of angina pectoris: Patient seems to have chest pain along with atrial fibrillation. Possibility of underlying coronary ischemia causing this is a consideration. For further evaluation of the symptoms, a Myocardial perfusion imaging may be a appropriate. She has no evidence of any medical injury so far. (2) CHF (congestive heart failure): (3) Intermittent atrial fibrillation: The heart rate seems to be under control. I may increase the metoprolol to 100 mg p.o. daily, for better control of the heart rate. (4) Cardiomyopathy, ischemic: LV ejection fraction was around 30% by echocardiogram in September. Patient may benefit from Entresto, if she has not been tried on this. Since she is on lisinopril, we may hold off on this for the time being. (5) S/P mitral valve replacement: The valve function appears to be appropriate. May continue the anticoagulation. (6) Diabetes mellitus: May continue on the current management. (7) HTN (hypertension) with goal to be determined: The blood pressure seems to be fairly under control. May continue on the current medications. Plan The other problems are Generalized weakness, etiology? Anemia Chronic pain ? I may go ahead and schedule her for a Lexiscan/sestamibi/sestamibi stress test in the morning, if there is no evidence of myocardial injury. Based on the results of the above tests and the patient's clinical progress, further recommendations will be made. Thank you for the opportunity to evaluate this patient and make these recommendations Consult Attestations Medical Necessity Statement: Patient requires continued hospital stay for close monitoring and further management Coding Level of Care Code Acute [facility] Facility [employer] for [employer] History Expanded Problem Focused Exam Detailed Medical Decision Making High Complexity Diagnoses Atherosclerotic heart disease of [place] coronary artery with other forms of angina pectoris I25.118 CHF (congestive heart failure) I50.9 Intermittent atrial fibrillation I48.0 Cardiomyopathy, ischemic I25.5 S/P mitral valve replacement Z95.2 Diabetes mellitus E11.9 HTN (hypertension) with goal to be determined I10
[2022-03-21] MEDS: enoxaparin 80 mg/0.8 mL Syringe 70 MG SUBCUT (18:36)
[2022-03-21] MEDS: FUROsemide 10 mg/mL SDV 4mL 40 MG IVP (19:58)
[2022-03-21] MEDS: acetaminophen 325 mg Tablet 650 MG PO (19:58)
--- NOTE | 2022-03-21 20:11 | PC.NURSE ---
Spoke with regarding patient running fever, was being treated for UTI outpt on Macrbid. Dr Ward to put in orders.
[2022-03-21 21:05] LABS: Procalcitonin 0.09 ng/mL (0-0.5)
[2022-03-21] MEDS: azithromycin 500 MG in sodium chloride 0.9% 250 ML 250 MG IV (21:12)
[2022-03-21 21:16] LABS: Glucose Point of Care 168 mg/dL (70-110)
[2022-03-21] MEDS: pneumococcal (23 valent) SDV 0.5 mL IM (21:16)
[2022-03-21 21:20] LABS: Specific Gravity, Urine 1.005 (1.005-1.030); Urine Appearance Clear (CLEAR); Urine Color Yellow (Yellow); pH Urine 7 (5-7)
[2022-03-21 21:21] LABS: Bilirubin Urine Neg (Negative); Blood Urine 3+ (Negative); Glucose Urine UA Trace (Normal); Ketones Urine Negative (Negative); Leukocyte Esterase Urine Trace (Negative); Nitrate Urine Negative (Negative); Protein Urine Neg (Negative); Urobilinogen Urine Neg (Negative)
[2022-03-21 21:25] LABS: RBC Urine 25-40 /hpf (0-2)
[2022-03-21 21:26] LABS: Add Urine Culture? No; Bacteria Urine 1+ /hpf; Mucus Urine TRACE /hpf; Renal Epithelial Cells Urine 0-4 /hpf
[2022-03-21] MEDS: cefTRIAXone 1,000 MG in sodium chloride 0.9% (plus) 50 ML 100 MG IV (22:24)
[2022-03-22] VITALS (161 sets, daily range): BP systolic 76–136; BP diastolic 41–66; PULSE 77–115; RESP 12–39; TEMP 36.8–37.7; O2SAT 89–100
[2022-03-22 04:03] LABS: Basophils # 0.1 10^3/uL (0.0-0.1); Basophils % 0.5 %; Eosinophils # 0.3 10^3/uL (0.0-0.8); Eosinophils % 3.1 %; Hematocrit 28.7 % (37.0-47.0); Hemoglobin 9.5 g/dL (11.5-15.3); Lymphocytes # 1.1 10^3/uL (0.8-4.8); Lymphocytes % 10.6 %; Mean Corpuscular HGB Conc 33.1 g/dL (30.0-36.0); Mean Corpuscular Hemoglobin 33.7 pg (28.0-34.0); Mean Corpuscular Volume 101.8 fl (81-99); Mean Platelet Volume 9.6 fL (7.4-10.4); Monocytes # 0.7 10^3/uL (0.2-0.9); Monocytes % 6.9 %; Neutrophils # 8.08 10^3/uL (1.8-7.7); Neutrophils % 78.5 %; Nucleated Red Blood Cells % 0 %; Platelet Count 203 10^3/cmm (130-400); Red Blood Count 2.82 10^6/uL (4.1-5.3); Red Cell Distribution Width 13.6 % (12.1-15.1); White Blood Count 10.3 10^3/uL (4.0-10.0)
[2022-03-22] MEDS: acetaminophen 325 mg Tablet 650 MG PO (04:10)
[2022-03-22 04:47] LABS: NT Pro B Type Natriuretic Pept 4364 pg/mL (0-125); Procalcitonin 0.13 ng/mL (0-0.5)
[2022-03-22 04:58] LABS: Alanine Aminotransferase 15 U/L (0-33); Albumin Level 4.4 g/dL (3.5-5.2); Alkaline Phosphatase 75 U/L (35-105); Aspartate Amino Transferase 22 U/L (0-32); Blood Urea Nitrogen 13 mg/dL (8-23); Calcium 9.4 mg/dL (8.5-10.5); Carbon Dioxide 24 mmol/L (22-29); Chloride 103 mmol/L (98-107); Globulin 2.5 g/dL (1.3-4.6); Glucose 125 mg/dL (65-115); Osmolality Calculated 290 mOsm/kg (285-295); Sodium 139 mmol/L (136-145); Total Bilirubin 0.9 mg/dL (0.15-1.2); Total Protein 6.9 g/dL (6.6-8.7)
[2022-03-22] MEDS: enoxaparin 80 mg/0.8 mL Syringe 70 MG SUBCUT (05:34)
[2022-03-22 06:27] LABS: Glucose Point of Care 128 mg/dL (70-110)
[2022-03-22 08:07] LABS: Adenovirus Not Detected (NOT DETECT); Chlamydia Pneumoniae Not Detected (NOT DETECT); Coronavirus 229E,HKU1,NL63,OC4 Not Detected (NOT DETECT); Human Metapneumovirus Not Detected (NOT DETECT); Human Rhinovirus/Enterovirus Not Detected (NOT DETECT); Influenza A Not Detected (NOT DETECT); Influenza A H1 Not Detected (NOT DETECT); Influenza A H1-2009 Not Detected (NOT DETECT); Influenza A H3 Not Detected (NOT DETECT); Influenza B Not Detected (NOT DETECT); Mycoplasma Pneumoniae Not Detected (NOT DETECT); Parainfluenza Virus Type 1 Not Detected (NOT DETECT); Parainfluenza Virus Type 2 Not Detected (NOT DETECT); Parainfluenza Virus Type 3 Not Detected (NOT DETECT); Parainfluenza Virus Type 4 Not Detected (NOT DETECT); Respiratory Syncytial Virus A Not Detected (NOT DETECT); Respiratory Syncytial Virus B Not Detected (NOT DETECT); SARS-COV-2 Not Detected (NOT DETECT)
--- NOTE | 2022-03-22 09:05 | P.PN_ITS ---
Subjective Subjective: Patient has no more chest pain. Telemetry shows atrial fibrillation with a controlled ventricular response rate. She has a low-grade fever. She was found to have vaginal abscess Medications: Medication Review Details: Current Medications Acetaminophen (Acetaminophen 325 Mg Tablet) 650 mg PO Q6H PRN PRN Reason: Mild/Mod Pain Or Temp >/= 101 Last Admin: 03/22/22 04:10 Dose: 650 mg Atorvastatin Calcium (Atorvastatin 40 Mg Tablet) 80 mg PO DAILY [facility] Bisacodyl (Bisacodyl 5 Mg Tablet) 10 mg PO DAILY PRN; Protocol PRN Reason: Constipation (see protocol) Clopidogrel Bisulfate (Clopidogrel 75 Mg Tablet) 75 mg PO DAILY [facility] Last Admin: 03/21/22 15:14 Dose: 75 mg Enoxaparin Sodium (Enoxaparin 80 Mg/0.8 Ml Syringe) 70 mg SUBCUT Q12H [facility] Last Admin: 03/22/22 05:34 Dose: 70 mg Furosemide (Furosemide 10 Mg/Ml Sdv 4ml) 40 mg IVP Q24H [facility] Last Admin: 03/21/22 19:58 Dose: 40 mg Ceftriaxone Sodium 1,000 mg/ (Sodium Chloride) 50 mls @ 100 mls/hr IV Q24H [facility]; Protocol Last Infusion: 03/21/22 23:17 Dose: Infused Azithromycin 500 mg/ Sodium (Chloride) 250 mls @ 250 mls/hr IV Q24H [facility]; Protocol Last Infusion: 03/21/22 22:25 Dose: Infused Ipratropium [place] (Ipratropium 0.5 Mg/2.5 Ml Neb) 0.5 mg INHALATION Q6H [facility] Levalbuterol HCl (Levalbuterol 1.25 Mg/3 Ml Neb) 1.25 mg INHALATION Q6H.RESP [facility] Lisinopril (Lisinopril 20 Mg Tablet) 40 mg PO DAILY [facility] Metoprolol Succinate (Metoprolol Succinate Er (24 Hr) 50 Mg Tablet) 75 mg PO DAILY [facility] Last Admin: 03/21/22 15:11 Dose: Not Given Naloxone HCl (Naloxone 0.4 Mg/Ml Sdv) 0.1 mg IVP Q2M PRN PRN Reason: OPIATERV Ondansetron HCl (Ondansetron 2 Mg/Ml Sdv 2 Ml) 4 mg IVP Q8H PRN PRN Reason: vomiting, or N/V if npo Ondansetron HCl (Ondansetron 2 Mg/Ml Sdv 2 Ml) 4 mg IVP Q6H PRN PRN Reason: NAUSEA AND VOMITING Oxycodone/Acetaminophen (Oxycodone-Apap 5-325 Mg Tablet) 1 tab PO Q4H PRN PRN Reason: SEVERE PAIN Pantoprazole Sodium (Pantoprazole Dr 40 Mg Tablet) 40 mg PO DAILY [facility] Spironolactone (Spironolactone 25 Mg Tablet) 50 mg PO DAILY [facility] Temazepam (Temazepam 15 Mg Capsule) 15 mg PO BEDTIME PRN PRN Reason: INSOMNIA Vitals/I&O/Wt Last Vital Signs Temp 99.8 F H 03/22/22 08:00 Pulse 89 03/22/22 08:35 Resp 22 H 03/22/22 08:35 BP 116/65 03/22/22 08:35 Pulse Ox 95 03/22/22 08:35 O2 Del Method 03/21/22 21:13 03/21/22 03/22/22 03/22/22 22:59 06:59 14:59 Intake Total 450 / 450 730 / 1180 Output Total 900 / 900 300 / 1200 Balance -450 / -450 430 / -20 Weight last 48 hrs Weight 155 lb Weight 145 lb Physical Exam Narrative: GENERAL: The patient is alert and oriented times three. Not in any acute distress. HEENT: No significant pallor, icterus or lymphadenopathy.Oral cavity: There are no mucous membrane lesions. NECK: Trachea appears to be central. No masses noted. No JVD or thyromegaly appreciated. RESPIRATORY: Chest is symmetrical. No intercostals muscle retraction or any accessory muscle activation. There is no chest wall tenderness. Breath sounds are heard bilaterally. Few fine rales at the bases. The breath sounds are diminished at the bases BREASTS: Deferred. HEART: The first heart sound is variable. Second heart sound is normal. The mitral valve opening and closing sounds are normal. No S3 or S4. Short systolic murmur at the left sternal border. No diastolic murmurs. No pericardial rub ABDOMEN: No vessel pulsations or distention. No tenderness. No organomegaly appreciated. Bowel sounds are normally heard. : Deferred. RECTAL: Deferred. LYMPHATIC: No lymphadenopathy noted in the neck. EXTREMITIES: Trace edema with no cyanosis MUSCULOSKELETAL: No acute joint deformities or swelling SKIN: There are no significant rashes or ecchymosis NEUROPSYCHIATRIC: The patient is alert and oriented x3. Appears to be in a good mood. No tremors or rigidity noted. Data 03/22/22 03:41 03/22/22 03:41 Other Labs: Laboratory Last Values WBC 10.3 10^3/uL (4.0-10.0) H 03/22/22 03:41 RBC 2.82 10^6/uL (4.1-5.3) L 03/22/22 03:41 Hgb 9.5 g/dL (11.5-15.3) L 03/22/22 03:41 Hct 28.7 % (37.0-47.0) L 03/22/22 03:41 MCV 101.8 fl (81-99) H 03/22/22 03:41 MCH 33.7 pg (28.0-34.0) 03/22/22 03:41 MCHC 33.1 g/dL (30.0-36.0) 03/22/22 03:41 RDW 13.6 % (12.1-15.1) 03/22/22 03:41 Plt Count 203 10^3/cmm (130-400) 03/22/22 03:41 MPV 9.6 fL (7.4-10.4) 03/22/22 03:41 Neut % (Auto) 78.5 % 03/22/22 03:41 Lymph % (Auto) 10.6 % 03/22/22 03:41 [place] % (Auto) 6.9 % 03/22/22 03:41 Eos % (Auto) 3.1 % 03/22/22 03:41 Baso % (Auto) 0.5 % 03/22/22 03:41 Neut # (Auto) 8.08 10^3/uL (1.8-7.7) H 03/22/22 03:41 Lymph # (Auto) 1.1 10^3/uL (0.8-4.8) 03/22/22 03:41 [place] # (Auto) 0.7 10^3/uL (0.2-0.9) 03/22/22 03:41 Eos # (Auto) 0.3 10^3/uL (0.0-0.8) 03/22/22 03:41 Baso # (Auto) 0.1 10^3/uL (0.0-0.1) 03/22/22 03:41 Nucleated RBC % (auto) 0 % 03/22/22 03:41 Nucleated RBCs # 0.0 /100WBC 03/22/22 03:41 Sodium 139 mmol/L (136-145) 03/22/22 03:41 Potassium 4.0 mmol/L (3.5-5.1) 03/22/22 03:41 Chloride 103 mmol/L (98-107) 03/22/22 03:41 Carbon Dioxide 24 mmol/L (22-29) 03/22/22 03:41 Anion Gap 16.0 (5-19) 03/22/22 03:41 BUN 13 mg/dL (8-23) 03/22/22 03:41 Creatinine 0.9 mg/dL (0.5-0.9) 03/22/22 03:41 GFR Calculation Not Reportable 03/22/22 03:41 Glucose 125 mg/dL (65-115) H 03/22/22 03:41 POC Glucose 128 mg/dL (70-110) H 03/22/22 06:18 Calculated Osmolality 290 mOsm/kg (285-295) 03/22/22 03:41 Lactate 1.0 mmol/L (0.5-2.2) 03/22/22 03:41 Calcium 9.4 mg/dL (8.5-10.5) 03/22/22 03:41 Magnesium 2.0 mg/dL (1.7-2.3) 03/22/22 03:41 Total Bilirubin 0.9 mg/dL (0.15-1.2) 03/22/22 03:41 AST 22 U/L (0-32) 03/22/22 03:41 ALT 15 U/L (0-33) 03/22/22 03:41 Alkaline Phosphatase 75 U/L (35-105) 03/22/22 03:41 Troponin T Baseline 24 ng/L (0-10) H 03/21/22 09:35 Troponin T 120 Minute 20.56 ng/L (0-10) H 03/21/22 11:42 Delta Troponin T -3.44 ABS# (0-10) L 03/21/22 11:42 Troponin T Hi Sens 6Hr 22.79 ng/L (0-10) H 03/21/22 15:13 Troponin T Hi Sens 6Hr Delta -1.21 ng/L (0-12) L 03/21/22 15:13 NT-Pro-B Natriuret Pep 4364 pg/mL (0-125) H 03/22/22 03:41 Total Protein 6.9 g/dL (6.6-8.7) 03/22/22 03:41 Albumin 4.4 g/dL (3.5-5.2) 03/22/22 03:41 Globulin 2.5 g/dL (1.3-4.6) 03/22/22 03:41 Procalcitonin 0.13 ng/mL (0-0.5) 03/22/22 03:41 Urine Color Cancelled 03/21/22 20:40 Urine Color Yellow (Yellow) 03/21/22 20:40 Urine Appearance Cancelled 03/21/22 20:40 Urine Appearance Clear (CLEAR) 03/21/22 20:40 Urine pH 7 (5-7) 03/21/22 20:40 Urine pH Cancelled 03/21/22 20:40 Ur Specific [place] 1.005 (1.005-1.030) 03/21/22 20:40 Ur Specific [place] Cancelled 03/21/22 20:40 Urine Protein Cancelled 03/21/22 20:40 Urine Protein Neg (Negative) 03/21/22 20:40 Urine Glucose (UA) Cancelled 03/21/22 20:40 Urine Glucose (UA) Trace (Normal) H 03/21/22 20:40 Urine Ketones Cancelled 03/21/22 20:40 Urine Ketones Negative (Negative) 03/21/22 20:40 Urine Blood 3+ (Negative) H 03/21/22 20:40 Urine Blood Cancelled 03/21/22 20:40 Urine Nitrate Cancelled 03/21/22 20:40 Urine Nitrate Negative (Negative) 03/21/22 20:40 Urine Bilirubin Cancelled 03/21/22 20:40 Urine Bilirubin Neg (Negative) 03/21/22 20:40 Prot Sulfosalicylic Acd Cancelled 03/21/22 20:40 Urine Urobilinogen Cancelled 03/21/22 20:40 Urine Urobilinogen Neg mg/dL (Negative) 03/21/22 20:40 Ur Leukocyte Esterase Cancelled 03/21/22 20:40 Ur Leukocyte Esterase Trace (Negative) H 03/21/22 20:40 Urine RBC 25-40 /hpf (0-2) H 03/21/22 20:40 Urine WBC 10-15 /hpf (0-5) H 03/21/22 20:40 Ur Squamous Epith Cells 5-10 /hpf (0-5) H 03/21/22 20:40 Ur Renal Epithelial Cell 0-4 /hpf 03/21/22 20:40 Amorphous Sediment Not Reportable 03/21/22 20:40 Urine Bacteria 1+ /hpf (NONE) H 03/21/22 20:40 Urine Mucus Trace /hpf 03/21/22 20:40 Nasal Influ A H1 2009 PCR Not detected (NOT DETECT) 03/21/22 05:45 Adenovirus (PCR) Not detected (NOT DETECT) 03/21/22 05:45 C. pneumoniae DNA (PCR) Not detected (NOT DETECT) 03/21/22 05:45 Coronavirus 229E (PCR) Not detected (NOT DETECT) 03/21/22 05:45 Human Metapneumovir PCR Not detected (NOT DETECT) 03/21/22 05:45 Influenza A (H1) PCR Not detected (NOT DETECT) 03/21/22 05:45 Influenza A (H3) PCR Not detected (NOT DETECT) 03/21/22 05:45 Influenza Type A (PCR) Not detected (NOT DETECT) 03/21/22 05:45 Influenza Type B (PCR) Not detected (NOT DETECT) 03/21/22 05:45 M. pneumoniae (PCR) Not detected (NOT DETECT) 03/21/22 05:45 Parainfluenza 1 (PCR) Not detected (NOT DETECT) 03/21/22 05:45 Parainfluenza 2 (PCR) Not detected (NOT DETECT) 03/21/22 05:45 Parainfluenza 3 (PCR) Not detected (NOT DETECT) 03/21/22 05:45 Parainfluenza 4 (PCR) Not detected (NOT DETECT) 03/21/22 05:45 RSV Type A (PCR) Not detected (NOT DETECT) 03/21/22 05:45 RSV Type B (PCR) Not detected (NOT DETECT) 03/21/22 05:45 Entero/Rhino (PCR) Not detected (NOT DETECT) 03/21/22 05:45 SARS-CoV-2 (PCR) Not detected (NOT DETECT) 03/21/22 05:45 Micro: Microbiology 03/21/22 20:40 Legionella Urinary Antigen - Final Urine,Voided Bacterial Antigens - Final 03/21/22 20:44 Blood Culture - Preliminary Blood SPECIMEN COLLECTED 03/21/22 20:49 Blood Culture - Preliminary Blood SPECIMEN COLLECTED A&P Assessment and plan (1) Atherosclerotic heart disease of [place] coronary artery with other forms of angina pectoris: Patient chest pain is currently resolved. We may consider doing a Myocardial p erfusion imaging, once her infection is appropriately treated. (2) CHF (congestive heart failure): IV Lasix on a as needed basis. (3) Intermittent atrial fibrillation: The heart rate seems to be under control. I may increase the metoprolol to 100 mg p.o. daily, for better control of the heart rate. (4) Cardiomyopathy, ischemic: LV ejection fraction was around 30% by echocardiogram in September. Patient may benefit from Entresto, if she has not been tried on this. Since she is on lisinopril, we may hold off on this for the time being. (5) S/P mitral valve replacement: The valve function appears to be appropriate. May continue the anticoagulation. Because of the mechanical valve, she needs to be on IV heparin (6) Diabetes mellitus: May continue on the current management. (7) HTN (hypertension) with goal to be determined: The blood pressure seems to be fairly under control. May continue on the current medications. Plan The other problems are Generalized weakness, etiology? Anemia Chronic pain ? I may hold off on the stress test at this point. Continue on the other current medications. Based on the clinical progress, further recommendations will be made We will do an INR in the morning Attestations Medical Necessity Statement*: Patient requires continued hospital stay for close monitoring and further management Coding Level of Care Code Acute Seo Expert for [place] History Expanded Problem Focused Exam Expanded Problem Focused Medical Decision Making Moderate Complexity Diagnoses Atherosclerotic heart disease of [place] coronary artery with other forms of angina pectoris I25.118 CHF (congestive heart failure) I50.9 Intermittent atrial fibrillation I48.0 Cardiomyopathy, ischemic I25.5 S/P mitral valve replacement Z95.2 Diabetes mellitus E11.9 HTN (hypertension) with goal to be determined I10
[2022-03-22] MEDS: lisinopril 20 mg Tablet 40 MG PO (09:19)
[2022-03-22] MEDS: metoprolol succinate ER (24 HR) 50 mg Tablet 75 MG PO (09:19)
[2022-03-22] MEDS: atorvastatin 40 mg Tablet 80 MG PO (09:19)
[2022-03-22] MEDS: pantoprazole DR 40 mg Tablet PO (09:20)
[2022-03-22] MEDS: clopidogrel 75 mg Tablet PO (09:20)
[2022-03-22] MEDS: spironolactone 25 mg Tablet 50 MG PO (09:20)
--- NOTE | 2022-03-22 09:55 | PC.PHAR ---
pt states she takes care of her own medications-pt states she still takes lasix 40mg qam (ext med history shows last filled 10/22/21 90d/s) lisinopril 40mg qam (ext med history shows last filled 10/19/21 30d/s)-pt states she has clonidine 0.1mg prn but hasnt taken for a long time ext doesnt show when last filled -pt states she hasnt had any trazodone 50mg hs for a while ext med history shows last filled 11/30/21 7d/s-notes are made in the pharmacy comments
[2022-03-22] MEDS: ipratropium 0.5 mg/2.5 mL Neb INHALATION ×3 (10:07→21:17)
[2022-03-22] MEDS: levalbuterol 1.25 mg/3 mL Neb INHALATION ×3 (10:07→21:16)
[2022-03-22 11:21] LABS: Glucose Point of Care 229 mg/dL (70-110)
--- NOTE | 2022-03-22 11:51 | PC.CHAP ---
Pastoral Care Encounter/Spiritual Assessment Type of Contact [] Declined hyperbaric technologist visit [] Patient/Family/Request visit [] Outpatient visit [] Follow-up visit [] Physician referral [] Code/Alert [x] Routine visit [] Staff referral [] Actively dying [] Patient sleeping [] Family support [] [] Out of room [] Palliative care [] [] Receiving care in room [] Pre-surgical visit [] Trauma [] Long length of stay [] ICU visit [] Other: Relational/Emotional Strength [x] Patient feels connected with others/family/visitors/staff [] Distress [] Loneliness/isolation [] Abandonment Spirituality of Patient x] Person of Melinda [] Attends Advent of their Melinda [x] Believes in Prayer [] Reads Bible or Hoahaoism materials [] There are Spiritual issues to be addressed Bed Setter Interventions [x] Prayer [x] Active listening [x] Non-anxious presence [x] Spiritual/emotional support [] Crisis/trauma care [] Spiritual counseling [] Bereavement support [] Provided bereavement packet [] Provided Bible/devotional materials [] Provided toy/stuffed animal, coloring book to patient or family member [] Provided Communion [] Anointing/[place] [] Salvation [x] Completed spiritual assessment [] Other: Impact on Illness or Injury [] Angry [] Fearful [] Anxious [] Often cries [] Exhaustion [] Unable to work [] Unable to attend taoism [] Unable to walk/stand [] Unable to read [] Unable to drive [] Unable to eat/drink [] Unable to sleep [] Unable to be with family [] Patient intubated [] Other: Summary Time spent with patient 10 min
--- NOTE | 2022-03-22 12:41 | CTR_ITS ---
PROCEDURE INFORMATION: Exam: CT Abdomen And Pelvis Without Contrast Exam date and time: 03/22/2022 3:46 PM Age: 71 years old Clinical indication: Fever and other: Chills; Additional info: Pelvic abscess, C/O fever, chills, pus like vaginal discharge, pain at TECHNIQUE: Imaging protocol: Computed tomography of the abdomen and pelvis without contrast. Radiation optimization: All CT scans at this facility use at least one of these dose optimization techniques: automated exposure control; mA and/or kV adjustment per patient size (includes targeted exams where dose is matched to clinical indication); or iterative reconstruction. COMPARISON: US abdomen limited [id number] 01/08/2019 10:42 AM RADIATION DOSE METRICS: Total DLP (mGy-cm): 573.53 FINDINGS: Lungs: Minimal lingular and RML atelectasis or scarring. Heart: There is LV cardiac apex dense calcification, potentially due to old infarction. Diaphragm: Small hiatal hernia. Liver: Unremarkable. No discrete mass. Gallbladder and bile ducts: Absent gallbladder. Pancreas: Unremarkable with no suspicious mass. No ductal dilation. Spleen: The spleen is not enlarged. No suspicious mass is noted. Adrenal glands: Normal. No mass. Kidneys and ureters: A tiny 1 mm right lower kidney stone is possible but not definite. The kidneys show no solid mass or hydronephrosis. Stomach and bowel: Moderate sigmoid diverticulosis. No small bowel obstruction, intraperitoneal abscess or free air. Appendix: No evidence of appendicitis. Intraperitoneal space: See Stomach and bowel finding. Vasculature: Advanced diffuse vascular calcification noted. No evidence of AAA. Lymph nodes: No enlarged lymph nodes. There are small nonspecific mesenteric root and adjacent retroperitoneal nodes present. These are of doubtful significance. These may be followed in 1 year. Urinary bladder: Unremarkable as visualized. Reproductive: The left lateral vaginal wall area on series 3, image 82 shows a possible fluid collection measuring up to about 2.5 cm, rounded. This is difficult to assess without IV contrast and technique. The vaginal wall is full throughout. This could also involve the adjacent anal area. Absent uterus. Bones/joints: No acute fracture. Soft tissues: Small fat umbilical hernia. Right lower quadrant abdominal wall skin thickening and subcutaneous fat stranding with a few air foci. On the left as well. CT/CT abdomen pelvis wo con [id number] IMPRESSION: 1. There is vaginal wall fullness present, and there may be a left lateral vaginal wall 2.5 cm abscess. This could also involve the adjacent anal area. These findings may be due to infection or neoplasm. See details above. 2. Absent uterus with no bladder air present. 3. Right anterior abdominal wall skin thickening and subcutaneous fat stranding. A cellulitis is possible. This is probably at an injection site. This requires correlation. 4. Small hiatal hernia, extensive atherosclerosis, and other chronic findings above.
--- NOTE | 2022-03-22 13:15 | PC.NURSE ---
Spoke with provider with concerns of patients blood pressure instructions to watch patient for 30min if patient remains Asymptomatic hold all meds that may affect blood pressure
--- NOTE | 2022-03-22 13:49 | P.PN_ITS ---
Subjective Subjective: pateint had fever 102F overnight, BP ranging systolic 80s but asymptomatic. C/o vaginal discharge since for which she had visited with her PCP and had script for abx. (macrobid)- states that she was told she has a vaginal abscess Medications: Medication Review Details: Current Medications Acetaminophen (Acetaminophen 325 Mg Tablet) 650 mg PO Q6H PRN PRN Reason: Mild/Mod Pain Or Temp >/= 101 Last Admin: 03/22/22 04:10 Dose: 650 mg Atorvastatin Calcium (Atorvastatin 40 Mg Tablet) 80 mg PO DAILY [facility] Bisacodyl (Bisacodyl 5 Mg Tablet) 10 mg PO DAILY PRN; Protocol PRN Reason: Constipation (see protocol) Clopidogrel Bisulfate (Clopidogrel 75 Mg Tablet) 75 mg PO DAILY [facility] Last Admin: 03/21/22 15:14 Dose: 75 mg Enoxaparin Sodium (Enoxaparin 80 Mg/0.8 Ml Syringe) 70 mg SUBCUT Q12H [facility] Last Admin: 03/22/22 05:34 Dose: 70 mg Furosemide (Furosemide 10 Mg/Ml Sdv 4ml) 40 mg IVP Q24H [facility] Last Admin: 03/21/22 19:58 Dose: 40 mg Ceftriaxone Sodium 1,000 mg/ (Sodium Chloride) 50 mls @ 100 mls/hr IV Q24H [facility]; Protocol Last Infusion: 03/21/22 23:17 Dose: Infused Azithromycin 500 mg/ Sodium (Chloride) 250 mls @ 250 mls/hr IV Q24H [facility]; Protocol Last Infusion: 03/21/22 22:25 Dose: Infused Ipratropium [place] (Ipratropium 0.5 Mg/2.5 Ml Neb) 0.5 mg INHALATION Q6H [facility] Levalbuterol HCl (Levalbuterol 1.25 Mg/3 Ml Neb) 1.25 mg INHALATION Q6H.RESP [facility] Lisinopril (Lisinopril 20 Mg Tablet) 40 mg PO DAILY [facility] Metoprolol Succinate (Metoprolol Succinate Er (24 Hr) 50 Mg Tablet) 75 mg PO DAILY [facility] Last Admin: 03/21/22 15:11 Dose: Not Given Naloxone HCl (Naloxone 0.4 Mg/Ml Sdv) 0.1 mg IVP Q2M PRN PRN Reason: OPIATERV Ondansetron HCl (Ondansetron 2 Mg/Ml Sdv 2 Ml) 4 mg IVP Q8H PRN PRN Reason: vomiting, or N/V if npo Ondansetron HCl (Ondansetron 2 Mg/Ml Sdv 2 Ml) 4 mg IVP Q6H PRN PRN Reason: NAUSEA AND VOMITING Oxycodone/Acetaminophen (Oxycodone-Apap 5-325 Mg Tablet) 1 tab PO Q4H PRN PRN Reason: SEVERE PAIN Pantoprazole Sodium (Pantoprazole Dr 40 Mg Tablet) 40 mg PO DAILY [facility] Spironolactone (Spironolactone 25 Mg Tablet) 50 mg PO DAILY [facility] Temazepam (Temazepam 15 Mg Capsule) 15 mg PO BEDTIME PRN PRN Reason: INSOMNIA Vitals/I&O/Wt Last Vital Signs Temp 98.6 F 03/22/22 12:00 Pulse 80 03/22/22 13:20 Resp 12 03/22/22 13:20 BP 80/52 03/22/22 13:20 Pulse Ox 100 03/22/22 13:20 O2 Del Method 03/22/22 10:15 03/21/22 03/22/22 03/22/22 22:59 06:59 14:59 Intake Total 450 / 450 730 / 1180 356 / 356 Output Total 900 / 900 300 / 1200 200 / 200 Balance -450 / -450 430 / -20 156 / 156 Weight last 48 hrs Weight 70.307 kg Weight 65.771 kg Physical Exam Narrative: General: No acute distress, AO x3 HEENT: PERRLA, pupils bilaterally equal and reactive, pallors not present Chest: Normal vesicular breath sounds, no added sounds, equal good air entry bilaterally CVS: S1-S2 regular, no murmurs, no tachycardia, no gallops, no rubs Abdomen: Soft, nontender, no organomegaly, bowel sounds present Neuro: No focal deficits, no facial deformity, AO x3, power 5/5 in all limbs GENitilia: no abscess extrenally Data 03/22/22 03:41 03/22/22 03:41 Micro: Microbiology 03/21/22 20:40 Legionella Urinary Antigen - Final Urine,Voided Bacterial Antigens - Final 03/21/22 20:44 Blood Culture - Preliminary Blood SPECIMEN COLLECTED 03/21/22 20:49 Blood Culture - Preliminary Blood SPECIMEN COLLECTED A&P Assessment and plan (1) Atrial fibrillation: (2) HTN (hypertension) with goal to be determined: (3) CHF (congestive heart failure): (4) CAD (coronary artery disease): (5) S/P mitral valve replacement: (6) Chest pain: (7) Fever: (8) Pneumonia: Plan 71 year old female with past medical history of coronary artery status post PCI, atrial fibrillation, mechanical mitral valve, on warfarin at home, HFReF , came in with chief complaint of generalized weakness, she was also complaining of palpitation going on for quite some time which bothers her a lot, whenever she has these episodes, she feels a lot of anxiety ,weakness, today she came in aft er experiencing similar episodes, of palpitations, but today it was also accompanied with left-sided chest pain pressure-like radiating to the neck, upon arrival in the ER she was found to be in A. fib with RVR, she responded well to metoprolol IV as well as p.o. metoprolol, heart rate is better controlled, but still continued to complain of chest tightness, radiating to her neck. Assessment: Atrial fibrillation with RVR Chest pain Fever Possible pneumonia Coronary artery disease s/p PCI S/p mechanical mitral valve Heart failure with reduced ejection fraction Plan: 2D echo done in September/2021: Has shown: Mildly increased left ventricular cavity size.? Moderately to ?severely decreased left ventricular systolic function. Left ?ventricular ejection fraction is estimated at 30 %. Severe ?global hypokinesis. Abnormal diastolic function. Follow blood culture Urine culture Sputum gram stain and culture Respiratory viral panel Continue metoprolol Lasix 40 IV daily Continue Plavix, statin Continue lisinopril: Cardiology intent to switch to Entresto: Will have to wait for lisinopril washout.period, if stopped. Can be done as outpatient Continue spironolactone On therapeutic anticoagulation Monitor intake output charting Monitor daily weight Cardiology on board: For nuclear stress test possible coronary angiogram Continue ceftriaxone azithromycin for now CODE STATUS: Full Code DVT prophylaxis not needed on therapeutic anticoagulation Plan for today: Patient with fever up to 102F overnight. Recently diagnosed with vaginal abscess as outpatient. Only on macrobid it seems. This may be the source of her fever. no abscess seen externally. Will obtain CT abd/pelvis to evaluate for pelvic abscess and then likely HUMAN RESOURCE STATISTICIAN exam. D/c CTX and azithromycin. start Zosyn. Likely HUMAN RESOURCE STATISTICIAN consult post CT. Soft systolics today, asymptomatic, hold aldactone. Attestations Medical Necessity Statement*: fever, source evaluation. stress test once fever resolves Coding Level of Care Code Acute Thermal Surfacing Machine Operator for Chg Fwd Diagnoses Atrial fibrillation I48.91 HTN (hypertension) with goal to be determined I10 CHF (congestive heart failure) I50.9 CAD (coronary artery disease) I25.10 S/P mitral valve replacement Z95.2 Chest pain R07.9 Fever R50.9 Pneumonia J18.9
[2022-03-22] MEDS: piperacillin-tazobactam 3.375 GM in sodium chloride 0.9% (plus) 50 ML IV ×2 (14:08→21:44)
[2022-03-22 17:41] LABS: Glucose Point of Care 195 mg/dL (70-110)
[2022-03-22] MEDS: midodrine 5 mg TABLET PO ×2 (17:47→21:44)
--- NOTE | 2022-03-22 18:07 | PC.NURSE ---
Holding lasix dose per MD due to low BP.
--- NOTE | 2022-03-22 18:09 | PC.NURSE ---
Spoke with dr. Rios regarding blood pressure. She said to continue to monitor and she ordered Midodrine. New order for Heparin drip per wt based protocol.
[2022-03-22] MEDS: heparin drip 25,000 UNIT/500 ML PREMIX 20 UNIT IV (18:21)
[2022-03-22] MEDS: vancomycin 1,000 MG in sodium chloride 0.9% 250 ML 250 MG IV (19:18)
[2022-03-23] VITALS (17 sets, daily range): BP systolic 85–118; BP diastolic 50–84; PULSE 79–108; RESP 13–24; TEMP 36.7–37.2; O2SAT 93–99
[2022-03-23 01:05] LABS: Partial Thromboplastin Time 201.7 SECONDS (23.9-36.7)
--- NOTE | 2022-03-23 01:11 | PC.NURSE ---
PTT is 201.7. Informed Dr Colindres received instruction to hold heparin drip for 4 hours and recheck PTT. RBVO
[2022-03-23] MEDS: piperacillin-tazobactam 3.375 GM in sodium chloride 0.9% (plus) 50 ML IV ×3 (04:03→20:36)
[2022-03-23 05:48] LABS: Basophils % 0.4 %; Eosinophils # 0.4 10^3/uL (0.0-0.8); Eosinophils % 3.8 %; Hemoglobin 8.8 g/dL (11.5-15.3); Lymphocytes # 1.6 10^3/uL (0.8-4.8); Lymphocytes % 15.5 %; Mean Corpuscular HGB Conc 32.6 g/dL (30.0-36.0); Mean Corpuscular Hemoglobin 33.7 pg (28.0-34.0); Mean Corpuscular Volume 103.4 fl (81-99); Mean Platelet Volume 9.8 fL (7.4-10.4); Monocytes # 0.7 10^3/uL (0.2-0.9); Monocytes % 6.8 %; Neutrophils # 7.58 10^3/uL (1.8-7.7); Neutrophils % 72.9 %; Nucleated Red Blood Cells % 0 %; Platelet Count 235 10^3/cmm (130-400); Red Blood Count 2.61 10^6/uL (4.1-5.3); White Blood Count 10.4 10^3/uL (4.0-10.0)
[2022-03-23 06:21] LABS: INR 1.47 (0.8-1.2)
[2022-03-23 06:35] LABS: Alanine Aminotransferase 12 U/L (0-33); Albumin Level 3.9 g/dL (3.5-5.2); Alkaline Phosphatase 73 U/L (35-105); Aspartate Amino Transferase 19 U/L (0-32); Blood Urea Nitrogen 15 mg/dL (8-23); Calcium 9.1 mg/dL (8.5-10.5); Carbon Dioxide 22 mmol/L (22-29); Chloride 106 mmol/L (98-107); Globulin 2.7 g/dL (1.3-4.6); Glucose 122 mg/dL (65-115); Osmolality Calculated 290 mOsm/kg (285-295); Sodium 139 mmol/L (136-145); Total Bilirubin 0.7 mg/dL (0.15-1.2); Total Protein 6.6 g/dL (6.6-8.7)
[2022-03-23 06:42] LABS: Partial Thromboplastin Time 47.4 SECONDS (23.9-36.7)
--- NOTE | 2022-03-23 06:48 | PC.NURSE ---
Current PTT is 47.4. Informed Dr Colindres. Received instruction to restart heparin drip at 15ml/hr with NO bolus to be given.
--- NOTE | 2022-03-23 08:34 | PM.PN ---
Subjective Subjective: Patient is feeling okay. The fever is coming down. No chest pain or shortness of breath. The vital signs are stable. She is on IV antibiotics. Medications: Medication Review Details: Current Medications Acetaminophen (Acetaminophen 325 Mg Tablet) 650 mg PO Q6H PRN PRN Reason: Mild/Mod Pain Or Temp >/= 101 Last Admin: 03/22/22 04:10 Dose: 650 mg Atorvastatin Calcium (Atorvastatin 40 Mg Tablet) 80 mg PO DAILY [facility] Last Admin: 03/22/22 09:19 Dose: 80 mg Bisacodyl (Bisacodyl 5 Mg Tablet) 10 mg PO DAILY PRN; Protocol PRN Reason: Constipation (see protocol) Clopidogrel Bisulfate (Clopidogrel 75 Mg Tablet) 75 mg PO DAILY [facility] Last Admin: 03/22/22 09:20 Dose: 75 mg Furosemide (Furosemide 10 Mg/Ml Sdv 4ml) 40 mg IVP Q24H [facility] Last Admin: 03/22/22 18:07 Dose: Not Given Heparin Sodium (Porcine) (Heparin 5,000 Unit/Ml Inj 1 Ml) 0 unit IV PRN PRN; Protocol PRN Reason: Heparin weight-base protocol Piperacillin Sod/Tazobactam (Sod 3.375 gm/ Sodium Chloride) 50 mls @ 12.5 mls/hr IV Q8H [facility]; Protocol Last Admin: 03/23/22 04:03 Dose: 12.5 mls/hr Heparin Sodium/Sodium Chloride (Heparin Drip) 25,000 unit in 500 mls @ 0 mls/hr IV .Q0M [facility]; Protocol Last Titration: 03/23/22 01:10 Dose: 0 unit/kg/hr, 0 mls/hr Vancomycin HCl 1,000 mg/ (Sodium Chloride) 250 mls @ 250 mls/hr IV Q18H [facility] Last Infusion: 03/22/22 21:51 Dose: Infused Ipratropium [place] (Ipratropium 0.5 Mg/2.5 Ml Neb) 0.5 mg INHALATION Q6H.RESP [facility] Last Admin: 03/23/22 02:47 Dose: Not Given Levalbuterol HCl (Levalbuterol 1.25 Mg/3 Ml Neb) 1.25 mg INHALATION Q6H.RESP [facility] Last Admin: 03/23/22 02:48 Dose: Not Given Lisinopril (Lisinopril 20 Mg Tablet) 40 mg PO DAILY [facility] Last Admin: 03/22/22 09:19 Dose: 40 mg Metoprolol Succinate (Metoprolol Succinate Er (24 Hr) 50 Mg Tablet) 75 mg PO DAILY [facility] Last Admin: 03/22/22 09:19 Dose: 75 mg Midodrine (Midodrine 5 Mg Tablet) 5 mg PO TID [facility] Last Admin: 03/22/22 21:44 Dose: 5 mg Naloxone HCl (Naloxone 0.4 Mg/Ml Sdv) 0.1 mg IVP Q2M PRN PRN Reason: OPIATERV Ondansetron HCl (Ondansetron 2 Mg/Ml Sdv 2 Ml) 4 mg IVP Q8H PRN PRN Reason: vomiting, or N/V if npo Ondansetron HCl (Ondansetron 2 Mg/Ml Sdv 2 Ml) 4 mg IVP Q6H PRN PRN Reason: NAUSEA AND VOMITING Oxycodone/Acetaminophen (Oxycodone-Apap 5-325 Mg Tablet) 1 tab PO Q4H PRN PRN Reason: SEVERE PAIN Pantoprazole Sodium (Pantoprazole Dr 40 Mg Tablet) 40 mg PO DAILY [facility] Last Admin: 03/22/22 09:20 Dose: 40 mg Spironolactone (Spironolactone 25 Mg Tablet) 50 mg PO DAILY [facility] Last Admin: 03/22/22 09:20 Dose: 50 mg Temazepam (Temazepam 15 Mg Capsule) 15 mg PO BEDTIME PRN PRN Reason: INSOMNIA Vitals/I&O/Wt Last Vital Signs Temp 98.1 F 03/23/22 04:31 Pulse 82 03/23/22 04:31 Resp 18 03/23/22 04:31 BP 95/50 03/23/22 04:31 Pulse Ox 94 03/23/22 04:31 O2 Del Method 03/22/22 21:22 FiO2 21 03/22/22 14:44 03/22/22 03/23/22 03/23/22 22:59 06:59 14:59 Intake Total 658 / 1014 436.333 / 1450.333 Balance 658 / 814 436.333 / 1250.333 Weight last 48 hrs Weight 154 lb 14.4 oz Weight 155 lb Weight 145 lb Physical Exam Narrative: GENERAL: The patient is alert and oriented times three. Not in any acute distress. HEENT: No significant pallor, icterus or lymphadenopathy.Oral cavity: There are no mucous membrane lesions. NECK: Trachea appears to be central. No masses noted. No JVD or thyromegaly appreciated. RESPIRATORY: Chest is symmetrical. No intercostals muscle retraction or any accessory muscle activation. There is no chest wall tenderness. Breath sounds are heard bilaterally. No rales or rhonchi heard. No evidence of any consolidation. BREASTS: Deferred. HEART: The mitral valve opening and closing sounds are normal. No S3 or S4. Systolic murmur in the left sternal border. No pericardial rub ABDOMEN: No vessel pulsations or distention. No tenderness. No organomegaly appreciated. Bowel sounds are normally heard. : Deferred. RECTAL: Deferred. LYMPHATIC: No lymphadenopathy noted in the neck. EXTREMITIES: No edema or cyanosis. No clubbing. MUSCULOSKELETAL: No acute joint deformities or swelling SKIN: There are no significant rashes or ecchymosis NEUROPSYCHIATRIC: The patient is alert and oriented x3. Appears to be in a good mood. No tremors or rigidity noted. Data 03/23/22 04:38 03/23/22 04:38 Other Labs: Laboratory Last Values WBC 10.4 10^3/uL (4.0-10.0) H 03/23/22 04:38 RBC 2.61 10^6/uL (4.1-5.3) L 03/23/22 04:38 Hgb 8.8 g/dL (11.5-15.3) L 03/23/22 04:38 Hct 27.0 % (37.0-47.0) L 03/23/22 04:38 MCV 103.4 fl (81-99) H 03/23/22 04:38 MCH 33.7 pg (28.0-34.0) 03/23/22 04:38 MCHC 32.6 g/dL (30.0-36.0) 03/23/22 04:38 RDW 14.0 % (12.1-15.1) 03/23/22 04:38 Plt Count 235 10^3/cmm (130-400) 03/23/22 04:38 MPV 9.8 fL (7.4-10.4) 03/23/22 04:38 Neut % (Auto) 72.9 % 03/23/22 04:38 Lymph % (Auto) 15.5 % 03/23/22 04:38 [place] % (Auto) 6.8 % 03/23/22 04:38 Eos % (Auto) 3.8 % 03/23/22 04:38 Baso % (Auto) 0.4 % 03/23/22 04:38 Neut # (Auto) 7.58 10^3/uL (1.8-7.7) 03/23/22 04:38 Lymph # (Auto) 1.6 10^3/uL (0.8-4.8) 03/23/22 04:38 [facility] # (Auto) 0.7 10^3/uL (0.2-0.9) 03/23/22 04:38 Eos # (Auto) 0.4 10^3/uL (0.0-0.8) 03/23/22 04:38 Baso # (Auto) 0.0 10^3/uL (0.0-0.1) 03/23/22 04:38 Nucleated RBC % (auto) 0 % 03/23/22 04:38 Nucleated RBCs # 0.0 /100WBC 03/23/22 04:38 PT 18.10 SECONDS (12.1-14.9) H 03/23/22 04:38 INR 1.47 (0.8-1.2) H 03/23/22 04:38 APTT 47.4 SECONDS (23.9-36.7) H D 03/23/22 04:38 Sodium 139 mmol/L (136-145) 03/23/22 04:38 Potassium 4.0 mmol/L (3.5-5.1) 03/23/22 04:38 Chloride 106 mmol/L (98-107) 03/23/22 04:38 Carbon Dioxide 22 mmol/L (22-29) 03/23/22 04:38 Anion Gap 15.0 (5-19) 03/23/22 04:38 BUN 15 mg/dL (8-23) 03/23/22 04:38 Creatinine 1.1 mg/dL (0.5-0.9) H 03/23/22 04:38 GFR Calculation Not Reportable 03/23/22 04:38 Glucose 122 mg/dL (65-115) H 03/23/22 04:38 POC Glucose 195 mg/dL (70-110) H 03/22/22 16:59 Calculated Osmolality 290 mOsm/kg (285-295) 03/23/22 04:38 Lactate 1.0 mmol/L (0.5-2.2) 03/22/22 03:41 Calcium 9.1 mg/dL (8.5-10.5) 03/23/22 04:38 Magnesium 2.0 mg/dL (1.7-2.3) 03/22/22 03:41 Total Bilirubin 0.7 mg/dL (0.15-1.2) 03/23/22 04:38 AST 19 U/L (0-32) 03/23/22 04:38 ALT 12 U/L (0-33) 03/23/22 04:38 Alkaline Phosphatase 73 U/L (35-105) 03/23/22 04:38 Troponin T Baseline 24 ng/L (0-10) H 03/21/22 09:35 Troponin T 120 Minute 20.56 ng/L (0-10) H 03/21/22 11:42 Delta Troponin T -3.44 ABS# (0-10) L 03/21/22 11:42 Troponin T Hi Sens 6Hr 22.79 ng/L (0-10) H 03/21/22 15:13 Troponin T Hi Sens 6Hr Delta -1.21 ng/L (0-12) L 03/21/22 15:13 NT-Pro-B Natriuret Pep 4364 pg/mL (0-125) H 03/22/22 03:41 Total Protein 6.6 g/dL (6.6-8.7) 03/23/22 04:38 Albumin 3.9 g/dL (3.5-5.2) 03/23/22 04:38 Globulin 2.7 g/dL (1.3-4.6) 03/23/22 04:38 Procalcitonin 0.13 ng/mL (0-0.5) 03/22/22 03:41 Urine Color Cancelled 03/21/22 20:40 Urine Color Yellow (Yellow) 03/21/22 20:40 Urine Appearance Cancelled 03/21/22 20:40 Urine Appearance Clear (CLEAR) 03/21/22 20:40 Urine pH 7 (5-7) 03/21/22 20:40 Urine pH Cancelled 03/21/22 20:40 Ur Specific [place] 1.005 (1.005-1.030) 03/21/22 20:40 Ur Specific [place] Cancelled 03/21/22 20:40 Urine Protein Cancelled 03/21/22 20:40 Urine Protein Neg (Negative) 03/21/22 20:40 Urine Glucose (UA) Cancelled 03/21/22 20:40 Urine Glucose (UA) Trace (Normal) H 03/21/22 20:40 Urine Ketones Cancelled 03/21/22 20:40 Urine Ketones Negative (Negative) 03/21/22 20:40 Urine Blood 3+ (Negative) H 03/21/22 20:40 Urine Blood Cancelled 03/21/22 20:40 Urine Nitrate Cancelled 03/21/22 20:40 Urine Nitrate Negative (Negative) 03/21/22 20:40 Urine Bilirubin Cancelled 03/21/22 20:40 Urine Bilirubin Neg (Negative) 03/21/22 20:40 Prot Sulfosalicylic Acd Cancelled 03/21/22 20:40 Urine Urobilinogen Cancelled 03/21/22 20:40 Urine Urobilinogen Neg mg/dL (Negative) 03/21/22 20:40 Ur Leukocyte Esterase Cancelled 03/21/22 20:40 Ur Leukocyte Esterase Trace (Negative) H 03/21/22 20:40 Urine RBC 25-40 /hpf (0-2) H 03/21/22 20:40 Urine WBC 10-15 /hpf (0-5) H 03/21/22 20:40 Ur Squamous Epith Cells 5-10 /hpf (0-5) H 03/21/22 20:40 Ur Renal Epithelial Cell 0-4 /hpf 03/21/22 20:40 Amorphous Sediment Not Reportable 03/21/22 20:40 Urine Bacteria 1+ /hpf (NONE) H 03/21/22 20:40 Urine Mucus Trace /hpf 03/21/22 20:40 Nasal Influ A H1 2008 PCR Not detected (NOT DETECT) 03/21/22 05:45 Adenovirus (PCR) Not detected (NOT DETECT) 03/21/22 05:45 C. pneumoniae DNA (PCR) Not detected (NOT DETECT) 03/21/22 05:45 Coronavirus 229E (PCR) Not detected (NOT DETECT) 03/21/22 05:45 Human Metapneumovir PCR Not detected (NOT DETECT) 03/21/22 05:45 Influenza A (H1) PCR Not detected (NOT DETECT) 03/21/22 05:45 Influenza A (H3) PCR Not detected (NOT DETECT) 03/21/22 05:45 Influenza Type A (PCR) Not detected (NOT DETECT) 03/21/22 05:45 Influenza Type B (PCR) Not detected (NOT DETECT) 03/21/22 05:45 M. pneumoniae (PCR) Not detected (NOT DETECT) 03/21/22 05:45 Parainfluenza 1 (PCR) Not detected (NOT DETECT) 03/21/22 05:45 Parainfluenza 2 (PCR) Not detected (NOT DETECT) 03/21/22 05:45 Parainfluenza 3 (PCR) Not detected (NOT DETECT) 03/21/22 05:45 Parainfluenza 4 (PCR) Not detected (NOT DETECT) 03/21/22 05:45 RSV Type A (PCR) Not detected (NOT DETECT) 03/21/22 05:45 RSV Type B (PCR) Not detected (NOT DETECT) 03/21/22 05:45 Entero/Rhino (PCR) Not detected (NOT DETECT) 03/21/22 05:45 SARS-CoV-2 (PCR) Not detected (NOT DETECT) 03/21/22 05:45 Micro: Microbiology 03/21/22 20:44 Blood Culture - Preliminary Blood NEGATIVE TO DATE 03/21/22 20:49 Blood Culture - Preliminary Blood NEGATIVE TO DATE 03/21/22 20:40 Legionella Urinary Antigen - Final Urine,Voided Bacterial Antigens - Final A&P Assessment and plan (1) Atherosclerotic heart disease of [place] coronary artery with other forms of angina pectoris: Patient chest pain is currently resolved. Since she is afebrile, we may go ahead and schedule for the Myocardial perfusion imaging tomorrow. Based on the results, further recommendations will be made (2) CHF (congestive heart failure): IV Lasix on a as needed basis. Continue other symptomatic measures. (3) Intermittent atrial fibrillation: The heart rate seems to be under control. I may increase the metoprolol to 100 mg p.o. daily, for better control of the heart rate. (4) Cardiomyopathy, ischemic: LV ejection fraction was around 30% by echocardiogram in September. Patient may benefit from Entresto, if she has not been tried on this. Since she is on lisinopril, we may hold off on this for the time being. (5) S/P mitral valve replacement: The valve function appears to be appropriate. May continue the anticoagulation. Because of the mechanical valve, she needs to be on IV heparin (6) Diabetes mellitus: May continue on the current management. (7) HTN (hypertension) with goal to be determined: The blood pressure seems to be fairly under control. May continue on the current medications. Plan The other problems are Generalized weakness, etiology? Anemia Chronic pain ? Myocardial perfusion imaging tomorrow. Based on the results, further management decisions will be made. Continue on the current treatment measures for the time being. Attestations Medical Necessity Statement*: Patient requires continued hospital stay for close monitoring and further management Coding Level of Care Code Acute Racehorse Trainer for Tarshag Fwd History Expanded Problem Focused Exam Detailed Medical Decision Making Moderate Complexity Diagnoses Atherosclerotic heart disease of [place] coronary artery with other forms of angina pectoris I25.118 CHF (congestive heart failure) I50.9 Intermittent atrial fibrillation I48.0 Cardiomyopathy, ischemic I25.5 S/P mitral valve replacement Z95.2 Diabetes mellitus E11.9 HTN (hypertension) with goal to be determined I10
[2022-03-23] MEDS: levalbuterol 1.25 mg/3 mL Neb INHALATION ×3 (09:03→20:02)
[2022-03-23] MEDS: ipratropium 0.5 mg/2.5 mL Neb INHALATION ×3 (09:03→20:02)
[2022-03-23] MEDS: metoprolol succinate ER (24 HR) 50 mg Tablet 75 MG PO (09:31)
[2022-03-23] MEDS: clopidogrel 75 mg Tablet PO (09:31)
[2022-03-23] MEDS: atorvastatin 40 mg Tablet 80 MG PO (09:31)
[2022-03-23] MEDS: midodrine 5 mg TABLET PO ×3 (09:31→20:34)
[2022-03-23] MEDS: pantoprazole DR 40 mg Tablet PO (09:32)
[2022-03-23 11:30] LABS: Glucose Point of Care 171 mg/dL (70-110)
[2022-03-23 13:48] LABS: Partial Thromboplastin Time 81.8 SECONDS (23.9-36.7)
[2022-03-23] MEDS: vancomycin 1,000 MG in sodium chloride 0.9% 250 ML 250 MG IV (13:58)
--- NOTE | 2022-03-23 18:11 | P.PN_ITS ---
Subjective Subjective: Afebrile today. Noted to have vaginal abscess 2.[address] scan of the abdomen and pelvis performed yesterday. Findings were discussed with PI/SENIOR RESEARCH ASSOCIATE on-call Dr. Schroeder, recommended to continue IV antibiotics since otherwise clinically improving with fever curve improving and leukocytosis resolving. No indication for surgical drainage at this point. We will proceed with stress test tomorrow. Medications: Reviewed: Yes Medication Review Details: Current Medications Acetaminophen (Acetaminophen 325 Mg Tablet) 650 mg PO Q6H PRN PRN Reason: Mild/Mod Pain Or Temp >/= 101 Last Admin: 03/22/22 04:10 Dose: 650 mg Atorvastatin Calcium (Atorvastatin 40 Mg Tablet) 80 mg PO DAILY [facility] Last Admin: 03/22/22 09:19 Dose: 80 mg Bisacodyl (Bisacodyl 5 Mg Tablet) 10 mg PO DAILY PRN; Protocol PRN Reason: Constipation (see protocol) Clopidogrel Bisulfate (Clopidogrel 75 Mg Tablet) 75 mg PO DAILY [facility] Last Admin: 03/22/22 09:20 Dose: 75 mg Furosemide (Furosemide 10 Mg/Ml Sdv 4ml) 40 mg IVP Q24H [facility] Last Admin: 03/22/22 18:07 Dose: Not Given Heparin Sodium (Porcine) (Heparin 5,000 Unit/Ml Inj 1 Ml) 0 unit IV PRN PRN; Protocol PRN Reason: Heparin weight-base protocol Piperacillin Sod/Tazobactam (Sod 3.375 gm/ Sodium Chloride) 50 mls @ 12.5 mls/hr IV Q8H [facility]; Protocol Last Admin: 03/23/22 04:03 Dose: 12.5 mls/hr Heparin Sodium/Sodium Chloride (Heparin Drip) 25,000 unit in 500 mls @ 0 mls/hr IV .Q0M [facility]; Protocol Last Titration: 03/23/22 01:10 Dose: 0 unit/kg/hr, 0 mls/hr Vancomycin HCl 1,000 mg/ (Sodium Chloride) 250 mls @ 250 mls/hr IV Q18H [facility] Last Infusion: 03/22/22 21:51 Dose: Infused Ipratropium [place] (Ipratropium 0.5 Mg/2.5 Ml Neb) 0.5 mg INHALATION Q6H.RESP [facility] Last Admin: 03/23/22 02:47 Dose: Not Given Levalbuterol HCl (Levalbuterol 1.25 Mg/3 Ml Neb) 1.25 mg INHALATION Q6H.RESP [facility] Last Admin: 03/23/22 02:48 Dose: Not Given Lisinopril (Lisinopril 20 Mg Tablet) 40 mg PO DAILY [facility] Last Admin: 03/22/22 09:19 Dose: 40 mg Metoprolol Succinate (Metoprolol Succinate Er (24 Hr) 50 Mg Tablet) 75 mg PO DAILY [facility] Last Admin: 03/22/22 09:19 Dose: 75 mg Midodrine (Midodrine 5 Mg Tablet) 5 mg PO TID [facility] Last Admin: 03/22/22 21:44 Dose: 5 mg Naloxone HCl (Naloxone 0.4 Mg/Ml Sdv) 0.1 mg IVP Q2M PRN PRN Reason: OPIATERV Ondansetron HCl (Ondansetron 2 Mg/Ml Sdv 2 Ml) 4 mg IVP Q8H PRN PRN Reason: vomiting, or N/V if npo Ondansetron HCl (Ondansetron 2 Mg/Ml Sdv 2 Ml) 4 mg IVP Q6H PRN PRN Reason: NAUSEA AND VOMITING Oxycodone/Acetaminophen (Oxycodone-Apap 5-325 Mg Tablet) 1 tab PO Q4H PRN PRN Reason: SEVERE PAIN Pantoprazole Sodium (Pantoprazole Dr 40 Mg Tablet) 40 mg PO DAILY [facility] Last Admin: 03/22/22 09:20 Dose: 40 mg Spironolactone (Spironolactone 25 Mg Tablet) 50 mg PO DAILY [facility] Last Admin: 03/22/22 09:20 Dose: 50 mg Temazepam (Temazepam 15 Mg Capsule) 15 mg PO BEDTIME PRN PRN Reason: INSOMNIA Vitals/I&O/Wt Last Vital Signs Temp 98.0 F 03/23/22 15:57 Pulse 79 03/23/22 17:16 Resp 19 H 03/23/22 17:16 BP 85/69 03/23/22 17:16 Pulse Ox 96 03/23/22 17:16 O2 Del Method 03/23/22 13:30 FiO2 21 03/23/22 08:00 03/23/22 03/23/22 03/23/22 06:59 14:59 22:59 Intake Total 436.333 / 1450.333 650 / 650 240 / 890 Balance 436.333 / 1250.333 650 / 650 240 / 890 Weight last 48 hrs Weight 70.261 kg Weight 70.307 kg Physical Exam Narrative: General: No acute distress, AO x3 HEENT: PERRLA, pupils bilaterally equal and reactive, pallors not present Chest: Normal vesicular breath sounds, no added sounds, equal good air entry bilaterally CVS: S1-S2 regular, no murmurs, no tachycardia, no gallops, no rubs Abdomen: Soft, nontender, no organomegaly, bowel sounds present Neuro: No focal deficits, no facial deformity, AO x3, power 5/5 in all limbs GENitilia: no abscess extrenally Data 03/23/22 04:38 03/23/22 04:38 Micro: Microbiology 03/21/22 20:40 Urine Culture - Final Urine,Clean Catch Strep agalactiae - (group b) 03/21/22 20:40 Legionella Urinary Antigen - Final Urine,Voided Urine Culture - Final Strep agalactiae - (group b) Bacterial Antigens - Final 03/21/22 20:44 Blood Culture - Preliminary Blood NEGATIVE TO DATE 03/21/22 20:49 Blood Culture - Preliminary Blood NEGATIVE TO DATE A&P Assessment and plan (1) Atrial fibrillation: (2) HTN (hypertension) with goal to be determined: (3) CHF (congestive heart failure): (4) CAD (coronary artery disease): (5) S/P mitral valve replacement: (6) Chest pain: (7) Fever: (8) Pneumonia: Plan 71 year old female with past medical history of coronary artery status post PCI, atrial fibrillation, mechanical mitral valve, on warfarin at home, HFReF , came in with chief complaint of generalized weakness, she was also complaining of palpitation going on for quite some time which bothers her a lot, whenever she has these episodes, she feels a lot of anxiety ,weakness, today she came in after experiencing similar episodes, of palpitations, but today it was also accompanied with left-sided chest pain pressure-like radiating to the neck, upon arrival in the ER she was found to be in A. fib with RVR, she responded well to metoprolol IV as well as p.o. metoprolol, heart rate is better controlled, but still continued to complain of chest tightness, radiating to her neck. Assessment: Atrial fibrillation with RVR Vaginal Abscess Chest pain Fever Possible pneumonia Coronary artery disease s/p PCI S/p mechanical mitral valve Heart failure with reduced ejection fraction Plan: 2D echo done in September/2021: Has shown: Mildly increased left ventricular cavity size.? Moderately to ?severely decreased left ventricular systolic function. Left ?ventricular ejection fraction is estimated at 30 %. Severe ?global hypokinesis. Abnormal diastolic function. Follow blood culture Urine culture Sputum gram stain and culture Respiratory viral panel Continue metoprolol Lasix 40 IV daily Continue Plavix, statin Continue lisinopril: Cardiology intent to switch to Entresto: Will have to wait for lisinopril washout.period, if stopped. Can be done as outpatient Continue spironolactone On therapeutic anticoagulation Monitor intake output charting Monitor daily weight Cardiology on board: For nuclear stress test possible coronary angiogram Continue ceftriaxone azithromycin for now CODE STATUS: Full Code DVT prophylaxis not needed on therapeutic anticoagulation Plan for today: Source of fever and leukocytosis is likely the vaginal abscess that was discovered on CT of the abdomen and pelvis yesterday. Improving with IV antibiotics. We will continue same. Discussed with PI/SENIOR RESEARCH ASSOCIATE con call that no current indication for surgical intervention. Plan to repeat abdominal imaging with 1 week of IV antibiotic course. Can proceed with stress test tomorrow since clinically stable. Attestations Medical Necessity Statement*: Plan stress test tomorrow. Coding Level of Care Code Acute Well Logger for Chg Fwd Diagnoses Atrial fibrillation I48.91 HTN (hypertension) with goal to be determined I10 CHF (congestive heart failure) I50.9 CAD (coronary artery disease) I25.10 S/P mitral valve replacement Z95.2 Chest pain R07.9 Fever R50.9 Pneumonia J18.9
--- NOTE | 2022-03-23 18:13 | ECG_ITS ---
[facility] Test Date: 2022-03-24 Pat Name: Jocelin Mcginnis Department: Room: 105 Gender: Female Alternative Education Teacher: : 1950 Requested By: Karen Rios Order Number: [id number] Jyoti MD: Trent Blank M.D. Interpretive Statements NAME OF STUDY: LEXISCAN SESTAMIBI STRESS TEST INDICATION: Chest Pain, PROCEDURE: At the baseline, the EKG revealed atrial fibrillation with a ventricular rate of [address]-T changes. The baseline heart was 79 bpm with a blood pressue of 107/61 mm of Hg Lexiscan was infused over a period of 20 seconds. A total of 0.4 milligrams of Lexiscan was infused. The stress phase was continued for a total of 5 minutes. Heart rate at the end of the stress phase was 100 bpm with a blood pressure 129/69 mm of Hg. The EKG at the peak infusion revealed more prominent ST-T changes. Sestamibi was injected 20 seconds after the Lexiscan infusion. Heart rate at the end of the recovery phase was 89 bpm with a blood pressure of 133/61 mm of Hg. CONCLUSION: 1. No significant EKG changes with the LexiScan infusion 2. No LexiScan induced chest pain or cardiac arrhythmia 3. Normal blood pressure and heart rate response 4. Sestamibi/sestamibi perfusion scan pending; see separate report. Electronically Signed On 03-26-2022 11:46:13 MUSHROOM PACKER by Trent Blank M.D. [id number]
[2022-03-23] MEDS: FUROsemide 10 mg/mL SDV 4mL 40 MG IVP (20:34)
[2022-03-23 21:19] LABS: Partial Thromboplastin Time 68.1 SECONDS (23.9-36.7)
[2022-03-23] MEDS: acetaminophen 325 mg Tablet 650 MG PO (21:53)
[2022-03-24] VITALS (16 sets, daily range): BP systolic 99–133; BP diastolic 61–84; PULSE 78–105; RESP 14–24; TEMP 36.8–37.3; O2SAT 95–99
[2022-03-24] MEDS: levalbuterol 1.25 mg/3 mL Neb INHALATION ×4 (02:30→19:58)
[2022-03-24] MEDS: ipratropium 0.5 mg/2.5 mL Neb INHALATION ×4 (02:30→19:58)
[2022-03-24 04:02] LABS: Basophils % 0.3 %; Eosinophils # 0.5 10^3/uL (0.0-0.8); Eosinophils % 5.8 %; Hematocrit 26.9 % (37.0-47.0); Hemoglobin 8.7 g/dL (11.5-15.3); Lymphocytes # 2.4 10^3/uL (0.8-4.8); Lymphocytes % 25.9 %; Mean Corpuscular HGB Conc 32.3 g/dL (30.0-36.0); Mean Corpuscular Hemoglobin 33.2 pg (28.0-34.0); Mean Corpuscular Volume 102.7 fl (81-99); Mean Platelet Volume 9.8 fL (7.4-10.4); Monocytes # 0.8 10^3/uL (0.2-0.9); Monocytes % 8.5 %; Neutrophils # 5.42 10^3/uL (1.8-7.7); Neutrophils % 59.1 %; Nucleated Red Blood Cells % 0 %; Platelet Count 259 10^3/cmm (130-400); Red Blood Count 2.62 10^6/uL (4.1-5.3); Red Cell Distribution Width 14.1 % (12.1-15.1); White Blood Count 9.2 10^3/uL (4.0-10.0)
[2022-03-24 04:22] LABS: Partial Thromboplastin Time 72.3 SECONDS (23.9-36.7)
[2022-03-24 04:28] LABS: Alanine Aminotransferase 12 U/L (0-33); Albumin Level 4.2 g/dL (3.5-5.2); Alkaline Phosphatase 66 U/L (35-105); Aspartate Amino Transferase 16 U/L (0-32); Blood Urea Nitrogen 19 mg/dL (8-23); Calcium 9.2 mg/dL (8.5-10.5); Carbon Dioxide 24 mmol/L (22-29); Chloride 106 mmol/L (98-107); Globulin 2.8 g/dL (1.3-4.6); Glucose 136 mg/dL (65-115); Osmolality Calculated 296 mOsm/kg (285-295); Sodium 141 mmol/L (136-145); Total Bilirubin 0.6 mg/dL (0.15-1.2)
[2022-03-24] MEDS: piperacillin-tazobactam 3.375 GM in sodium chloride 0.9% (plus) 50 ML IV ×3 (04:30→20:51)
[2022-03-24] MEDS: vancomycin 1,000 MG in sodium chloride 0.9% 250 ML 250 MG IV (05:58)
--- NOTE | 2022-03-24 06:15 | PC.NURSE ---
Spoke with Dr. Colindres regarding Heparin drip held while having a stress test. Order received to hold for procedure but to resume immediately after completed.
[2022-03-24] MEDS: regadenoson 0.4 Mg/5 ml Syringe IVP (07:17)
[2022-03-24] MEDS: pantoprazole DR 40 mg Tablet PO (08:46)
[2022-03-24] MEDS: metoprolol succinate ER (24 HR) 50 mg Tablet 75 MG PO (08:47)
[2022-03-24] MEDS: midodrine 5 mg TABLET PO ×3 (08:47→20:51)
[2022-03-24] MEDS: clopidogrel 75 mg Tablet PO (08:48)
[2022-03-24] MEDS: atorvastatin 40 mg Tablet 80 MG PO (08:48)
--- NOTE | 2022-03-24 09:22 | PC.NURSE ---
had cardiac stress test this morning.tolerated well.
[2022-03-24] MEDS: heparin drip 25,000 UNIT/500 ML PREMIX 19.69 UNIT IV (09:57)
[2022-03-24 16:29] LABS: Partial Thromboplastin Time 56.2 SECONDS (23.9-36.7)
--- NOTE | 2022-03-24 18:13 | NMCV_ITS ---
NM vega perf SPECT r/s* [id number] Jocelin Mcginnis Age: 71 Gender: F : 1950 Exam Date: 03/24/2022 06:45 Ordering Phys: Trent Blank MD ([email or web address]) Technologist: KOURTNEY Gutierrez Exam Location: [facility] Indications: SOB STRESS TEST [facility] IMAGE PROTOCOL Rest/Stress 1 Lexiscan Day Radiopharmaceutical Dose (mCi) Administration Site Administered by Rest: Tc-99m 10.9 IV KOURTNEY Gtuierrez Sestamibi Stress:Tc-99m 32.5 IV KOURTNEY Gutierrez Sestamibi Rest: 24-Mar-2022 60 Discovery 630 Stress: 24-Mar-2022 30 Discovery 630 0.4mg Lexiscan. Images obtained in supine and prone position. SPECT RESULTS Technical Quality: Excellent Raw Data Analysis: Normal Image Corrections: No attenuation or motion correction applied Summed Stress Score: 2 Summed Rest Score: 2 Summed Difference Score: 0 PERFUSION FINDINGS Small area of moderately decreased tracer uptake was noted in the apical lateral region. No reversibility was noted in the area FUNCTIONAL RESULTS (calculated via Gated SPECT) Stress Image LV EF (%): 40 Stress EDV (mL):122 TID: 0.96 Stress ESV (mL):73 FUNCTIONAL FINDINGS: Segmental wall motion analysis revealing diffuse hypokinesia of the left ventricle. Mildly dilated LV cavity. IMPRESSIONS 1. Myocardial perfusion imaging revealing small area of persistent decreased tracer uptake in the apical lateral region suggestive of myocardial scarring versus attenuation artifact 2. Diminished LV ejection fraction of 40%. 3. LV wall motion analysis revealing diffuse hypokinesia of the left ventricle. 4. Mildly dilated LV cavity. 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 (Electronically Signed) Final Date: 24 March 2022 09:12 S
--- NOTE | 2022-03-24 18:37 | PM.PN ---
Subjective Subjective: Stress test has been completed today. Review per cardiology note. Diminished EF of 40%. No cardiac cath planned for now. Fevers are resolved. Leukocytosis has resolved. Started on coumadin today Medications: Reviewed: Yes Medication Review Details: Current Medications Acetaminophen (Acetaminophen 325 Mg Tablet) 650 mg PO Q6H PRN PRN Reason: Mild/Mod Pain Or Temp >/= 101 Last Admin: 03/22/22 04:10 Dose: 650 mg Atorvastatin Calcium (Atorvastatin 40 Mg Tablet) 80 mg PO DAILY [facility] Last Admin: 03/22/22 09:19 Dose: 80 mg Bisacodyl (Bisacodyl 5 Mg Tablet) 10 mg PO DAILY PRN; Protocol PRN Reason: Constipation (see protocol) Clopidogrel Bisulfate (Clopidogrel 75 Mg Tablet) 75 mg PO DAILY [facility] Last Admin: 03/22/22 09:20 Dose: 75 mg Furosemide (Furosemide 10 Mg/Ml Sdv 4ml) 40 mg IVP Q24H [facility] Last Admin: 03/22/22 18:07 Dose: Not Given Heparin Sodium (Porcine) (Heparin 5,000 Unit/Ml Inj 1 Ml) 0 unit IV PRN PRN; Protocol PRN Reason: Heparin weight-base protocol Piperacillin Sod/Tazobactam (Sod 3.375 gm/ Sodium Chloride) 50 mls @ 12.5 mls/hr IV Q8H [facility]; Protocol Last Admin: 03/23/22 04:03 Dose: 12.5 mls/hr Heparin Sodium/Sodium Chloride (Heparin Drip) 25,000 unit in 500 mls @ 0 mls/hr IV .Q0M [facility]; Protocol Last Titration: 03/23/22 01:10 Dose: 0 unit/kg/hr, 0 mls/hr Vancomycin HCl 1,000 mg/ (Sodium Chloride) 250 mls @ 250 mls/hr IV Q18H [facility] Last Infusion: 03/22/22 21:51 Dose: Infused Ipratropium [place] (Ipratropium 0.5 Mg/2.5 Ml Neb) 0.5 mg INHALATION Q6H.RESP [facility] Last Admin: 03/23/22 02:47 Dose: Not Given Levalbuterol HCl (Levalbuterol 1.25 Mg/3 Ml Neb) 1.25 mg INHALATION Q6H.RESP [facility] Last Admin: 03/23/22 02:48 Dose: Not Given Lisinopril (Lisinopril 20 Mg Tablet) 40 mg PO DAILY [facility] Last Admin: 03/22/22 09:19 Dose: 40 mg Metoprolol Succinate (Metoprolol Succinate Er (24 Hr) 50 Mg Tablet) 75 mg PO DAILY [facility] Last Admin: 03/22/22 09:19 Dose: 75 mg Midodrine (Midodrine 5 Mg Tablet) 5 mg PO TID [facility] Last Admin: 03/22/22 21:44 Dose: 5 mg Naloxone HCl (Naloxone 0.4 Mg/Ml Sdv) 0.1 mg IVP Q2M PRN PRN Reason: OPIATERV Ondansetron HCl (Ondansetron 2 Mg/Ml Sdv 2 Ml) 4 mg IVP Q8H PRN PRN Reason: vomiting, or N/V if npo Ondansetron HCl (Ondansetron 2 Mg/Ml Sdv 2 Ml) 4 mg IVP Q6H PRN PRN Reason: NAUSEA AND VOMITING Oxycodone/Acetaminophen (Oxycodone-Apap 5-325 Mg Tablet) 1 tab PO Q4H PRN PRN Reason: SEVERE PAIN Pantoprazole Sodium (Pantoprazole Dr 40 Mg Tablet) 40 mg PO DAILY [facility] Last Admin: 03/22/22 09:20 Dose: 40 mg Spironolactone (Spironolactone 25 Mg Tablet) 50 mg PO DAILY [facility] Last Admin: 03/22/22 09:20 Dose: 50 mg Temazepam (Temazepam 15 Mg Capsule) 15 mg PO BEDTIME PRN PRN Reason: INSOMNIA Vitals/I&O/Wt Last Vital Signs Temp 99.2 F 03/24/22 15:45 Pulse 105 H 03/24/22 15:45 Resp 22 H 03/24/22 15:45 BP 99/67 03/24/22 15:45 Pulse Ox 95 03/24/22 15:45 O2 Del Method 03/24/22 15:45 FiO2 21 03/24/22 08:00 03/24/22 03/24/22 03/24/22 06:59 14:59 22:59 Intake Total 50 / 1240 1523.667 / 1523.667 290 / 1813.667 Output Total 1400 / 1400 Balance 50 / 1240 123.667 / 123.667 290 / 413.667 Weight last 48 hrs Weight 70.261 kg Physical Exam Narrative: General: No acute distress, AO x3 HEENT: PERRLA, pupils bilaterally equal and reactive, pallors not present Chest: Normal vesicular breath sounds, no added sounds, equal good air entry bilaterally CVS: S1-S2 regular, no murmurs, no tachycardia, no gallops, no rubs Abdomen: Soft, nontender, no organomegaly, bowel sounds present Neuro: No focal deficits, no facial deformity, AO x3, power 5/5 in all limbs GENitilia: no abscess extrenally Data 03/24/22 03:03 03/24/22 03:03 Micro: Microbiology 03/21/22 20:40 Urine Culture - Final Urine,Clean Catch Strep agalactiae - (group b) 03/21/22 20:40 Legionella Urinary Antigen - Final Urine,Voided Urine Culture - Final Strep agalactiae - (group b) Bacterial Antigens - Final A&P Assessment and plan (1) Atrial fibrillation: (2) HTN (hypertension) with goal to be determined: (3) CHF (congestive heart failure): (4) CAD (coronary artery disease): (5) S/P mitral valve replacement: (6) Chest pain: (7) Fever: (8) Pneumonia: Plan 71 year old female with past medical history of coronary artery status post PCI, atrial fibrillation, mechanical mitral valve, on warfarin at home, HFReF , came in with chief complaint of generalized weakness, she was also complaining of palpitation going on for quite some time which bothers her a lot, whenever she has these episodes, she feels a lot of anxiety ,weakness, today she came in after experiencing similar episodes, of palpitations, but today it was also accompanied with left-sided chest pain pressure-like radiating to the neck, upon arrival in the ER she was found to be in A. fib with RVR, she responded well to metoprolol IV as well as p.o. metoprolol, heart rate is better controlled, but still continued to complain of chest tightness, radiating to her neck. Assessment: Atrial fibrillation with RVR Currently HR ranging 90-110 on metoprolol 75mg daily Resumed coumadin today due to A fib and prosthetic mitral valve. BRidge with heparin currently, will switch bridging to lovenox in anticipation of discharge in the upcoming 24 to 48 hours. Unable to titrate metoprolol further currently due to low blood pressure. Midodrine 5 mg 3 times daily was added on March 22, 2022 after which her systolic blood pressure is better in the 90-1 05 range. # Vaginal Abscess Currently on empiric treatment with piperacillin tazobactam and vancomycin. Patient's fevers have resolved after initiation of IV antibiotics. Leukocytosis additionally resolved. Discussed case with NAVIGATION OFFICER on-call, no current indication for surgery. Repeat imaging suggested in 1 week. # Coronary artery disease s/p PCI Stress test obtained today. Please see cardiology assessment. No current plans for cardiac cath. S/p mechanical mitral valve Continue anticoagulation. Heart failure with reduced ejection fraction Currently on Lasix 40 mg IV every 24, currently patient is euvolemic. Will change to Lasix 40 mg p.o. daily in anticipation of discharge in the upcoming 24 to 48 hours. Unable to add Entresto due to low blood pressure. Spironolactone had been added at 50 mg daily earlier, however needed to be discontinued as patient dropped her blood pressure down to 70-80 systolics. Attestations Medical Necessity Statement*: Change IV to p.o. diuretics, added warfarin today, INR check in a.m. Bridging anticoagulation. Coding Level of Care Code Acute Stave Block Splitter for g Fwd Diagnoses Atrial fibrillation I48.91 HTN (hypertension) with goal to be determined I10 CHF (congestive heart failure) I50.9 CAD (coronary artery disease) I25.10 S/P mitral valve replacement Z95.2 Chest pain R07.9 Fever R50.9 Pneumonia J18.9
[2022-03-24] MEDS: oxyCODONE-APAP 5-325 mg Tablet 1 TAB PO (19:07)
[2022-03-24] MEDS: enoxaparin 80 mg/0.8 mL Syringe 70 MG SUBCUT (19:08)
--- NOTE | 2022-03-24 19:11 | PM.PN ---
Subjective Subjective: Patient had a Myocardial perfusion imaging today. She was found to have no evidence of ischemia. Medications: Medication Review Details: Current Medications Acetaminophen (Acetaminophen 325 Mg Tablet) 650 mg PO Q6H PRN PRN Reason: Mild/Mod Pain Or Temp >/= 101 Last Admin: 03/23/22 21:53 Dose: 650 mg Aminophylline (Aminophylline 25 Mg/Ml Sdv 10 Ml) 25 mg IVP Q2M PRN PRN Reason: see dose instructions Stop: 03/25/22 06:49 Atorvastatin Calcium (Atorvastatin 40 Mg Tablet) 80 mg PO DAILY [facility] Last Admin: 03/24/22 08:48 Dose: 80 mg Bisacodyl (Bisacodyl 5 Mg Tablet) 10 mg PO DAILY PRN; Protocol PRN Reason: Constipation (see protocol) Clopidogrel Bisulfate (Clopidogrel 75 Mg Tablet) 75 mg PO DAILY [facility] Last Admin: 03/24/22 08:48 Dose: 75 mg Enoxaparin Sodium (Enoxaparin 80 Mg/0.8 Ml Syringe) 70 mg SUBCUT Q12H [facility] Last Admin: 03/24/22 19:08 Dose: 70 mg Furosemide (Furosemide 40 Mg Tablet) 40 mg PO DAILY@0800 [facility] Piperacillin Sod/Tazobactam (Sod 3.375 gm/ Sodium Chloride) 50 mls @ 12.5 mls/hr IV Q8H [facility]; Protocol Last Infusion: 03/24/22 17:59 Dose: Infused Vancomycin HCl 1,000 mg/ (Sodium Chloride) 250 mls @ 250 mls/hr IV Q18H [facility] Last Infusion: 03/24/22 09:15 Dose: Infused Ipratropium [place] (Ipratropium 0.5 Mg/2.5 Ml Neb) 0.5 mg INHALATION Q6H.RESP [facility] Last Admin: 03/24/22 13:15 Dose: 0.5 mg Levalbuterol HCl (Levalbuterol 1.25 Mg/3 Ml Neb) 1.25 mg INHALATION Q6H.RESP [facility] Last Admin: 03/24/22 13:15 Dose: 1.25 mg Lisinopril (Lisinopril 20 Mg Tablet) 40 mg PO DAILY [facility] Last Admin: 03/24/22 08:49 Dose: Not Given Metoprolol Succinate (Metoprolol Succinate Er (24 Hr) 50 Mg Tablet) 75 mg PO DAILY [facility] Last Admin: 03/24/22 08:47 Dose: 75 mg Midodrine (Midodrine 5 Mg Tablet) 5 mg PO TID [facility] Last Admin: 03/24/22 14:48 Dose: 5 mg Naloxone HCl (Naloxone 0.4 Mg/Ml Sdv) 0.1 mg IVP Q2M PRN PRN Reason: OPIATERV Nitroglycerin (Nitroglycerin 0.4 Mg Sublingual Tablet) 0.4 mg SUBLINGUAL Q5M PRN PRN Reason: CHEST PAIN Stop: 03/25/22 06:49 Ondansetron HCl (Ondansetron 2 Mg/Ml Sdv 2 Ml) 4 mg IVP Q8H PRN PRN Reason: vomiting, or N/V if npo Ondansetron HCl (Ondansetron 2 Mg/Ml Sdv 2 Ml) 4 mg IVP Q6H PRN PRN Reason: NAUSEA AND VOMITING Ondansetron HCl (Ondansetron 2 Mg/Ml Sdv 2 Ml) 4 mg IVP Q2M PRN PRN Reason: NAUSEA Oxycodone/Acetaminophen (Oxycodone-Apap 5-325 Mg Tablet) 1 tab PO Q4H PRN PRN Reason: SEVERE PAIN Last Admin: 03/24/22 19:07 Dose: 1 tab Pantoprazole Sodium (Pantoprazole Dr 40 Mg Tablet) 40 mg PO DAILY [facility] Last Admin: 03/24/22 08:46 Dose: 40 mg Spironolactone (Spironolactone 25 Mg Tablet) 50 mg PO DAILY [facility] Last Admin: 03/22/22 09:20 Dose: 50 mg Temazepam (Temazepam 15 Mg Capsule) 15 mg PO BEDTIME PRN PRN Reason: INSOMNIA Vitals/I&O/Wt Last Vital Signs Temp 99.2 F 03/24/22 15:45 Pulse 105 H 03/24/22 15:45 Resp 18 03/24/22 19:07 BP 99/67 03/24/22 15:45 Pulse Ox 96 03/24/22 19:07 O2 Del Method 03/24/22 15:45 FiO2 21 03/24/22 08:00 03/24/22 03/24/22 03/24/22 06:59 14:59 22:59 Intake Total 50 / 1240 1523.667 / 1523.667 466.226 / 1989.893 Output Total 1400 / 1400 Balance 50 / 1240 123.667 / 123.667 466.226 / 589.893 Weight last 48 hrs Weight 154 lb 14.4 oz Physical Exam Narrative: GENERAL: The patient is alert and oriented times three. Not in any acute distress. HEENT: No significant pallor, icterus or lymphadenopathy.Oral cavity: There are no mucous membrane lesions. NECK: Trachea appears to be central. No masses noted. No JVD or thyromegaly appreciated. RESPIRATORY: Chest is symmetrical. No intercostals muscle retraction or any accessory muscle activation. There is no chest wall tenderness. Breath sounds are heard bilaterally. No rales or rhonchi heard. No evidence of any consolidation. BREASTS: Deferred. HEART: The mitral valve opening and closing sounds are normal. No S3 or S4. Systolic murmur in the left sternal border. No pericardial rub ABDOMEN: No vessel pulsations or distention. No tenderness. No organomegaly appreciated. Bowel sounds are normally heard. : Deferred. RECTAL: Deferred. LYMPHATIC: No lymphadenopathy noted in the neck. EXTREMITIES: No edema or cyanosis. No clubbing. MUSCULOSKELETAL: No acute joint deformities or swelling SKIN: There are no significant rashes or ecchymosis NEUROPSYCHIATRIC: The patient is alert and oriented x3. Appears to be in a good mood. No tremors or rigidity noted. Data 03/24/22 03:03 03/24/22 03:03 Micro: Microbiology 03/21/22 20:40 Urine Culture - Final Urine,Clean Catch Strep agalactiae - (group b) 03/21/22 20:40 Legionella Urinary Antigen - Final Urine,Voided Urine Culture - Final Strep agalactiae - (group b) Bacterial Antigens - Final A&P Assessment and plan (1) Atherosclerotic heart disease of [place] coronary artery with other forms of angina pectoris: Patient chest pain is currently resolved. The result of the Myocardial perfusion imaging was discussed with the patient. At this point, she may not require any further intervention. Currently on the current treatment measures. The IV heparin may be discontinued. Coumadin may be restarted (2) CHF (congestive heart failure): IV Lasix on a as needed basis. Continue other symptomatic measures. (3) Intermittent atrial fibrillation: The heart rate seems to be under control. I may increase the metoprolol to 100 mg p.o. daily, for better control of the heart rate. Coumadin is restarted. Repeat INR in the morning. (4) Cardiomyopathy, ischemic: We will do a limited 2D echocardiogram in the morning-to decide on LifeVest/defibrillator (5) S/P mitral valve replacement: The valve function appears to be appropriate. May continue the anticoagulation. Repeat INR in the morning (6) Diabetes mellitus: May continue on the current management. (7) HTN (hypertension) with goal to be determined: The blood pressure seems to be fairly under control. May continue on the current medications. Plan Repeat INR in the morning. May be continued. His INR is subtherapeutic, need to consider bridging with Lovenox Attestations Medical Necessity Statement*: Disposition as per the primary Coding Level of Care Code Acute Bilingual Social Worker for Kaila Miller History Expanded Problem Focused Exam Expanded Problem Focused Medical Decision Making Moderate Complexity Diagnoses Atherosclerotic heart disease of [place] coronary artery with other forms of angina pectoris I25.118 CHF (congestive heart failure) I50.9 Intermittent atrial fibrillation I48.0 Cardiomyopathy, ischemic I25.5 S/P mitral valve replacement Z95.2 Diabetes mellitus E11.9 HTN (hypertension) with goal to be determined I10
[2022-03-25] VITALS (11 sets, daily range): BP systolic 121–145; BP diastolic 55–81; PULSE 76–106; RESP 14–25; TEMP 36.4–36.9; O2SAT 88–98
[2022-03-25] MEDS: vancomycin 1,000 MG in sodium chloride 0.9% 250 ML 250 MG IV (00:10)
[2022-03-25] MEDS: acetaminophen 325 mg Tablet 650 MG PO (01:26)
[2022-03-25] MEDS: piperacillin-tazobactam 3.375 GM in sodium chloride 0.9% (plus) 50 ML IV ×2 (04:28→12:40)
[2022-03-25 05:23] LABS: Basophils % 0.6 %; Eosinophils # 0.4 10^3/uL (0.0-0.8); Eosinophils % 5.9 %; Hematocrit 25.5 % (37.0-47.0); Hemoglobin 8.1 g/dL (11.5-15.3); Lymphocytes # 1.5 10^3/uL (0.8-4.8); Lymphocytes % 22.1 %; Mean Corpuscular HGB Conc 31.8 g/dL (30.0-36.0); Mean Corpuscular Hemoglobin 32.9 pg (28.0-34.0); Mean Corpuscular Volume 103.7 fl (81-99); Mean Platelet Volume 9.1 fL (7.4-10.4); Monocytes # 0.4 10^3/uL (0.2-0.9); Monocytes % 6.3 %; Neutrophils # 4.53 10^3/uL (1.8-7.7); Neutrophils % 64.8 %; Nucleated Red Blood Cells % 0 %; Platelet Count 218 10^3/cmm (130-400); Red Blood Count 2.46 10^6/uL (4.1-5.3); Red Cell Distribution Width 13.8 % (12.1-15.1)
[2022-03-25 05:39] LABS: INR 1.15 (0.8-1.2)
[2022-03-25 05:46] LABS: Alanine Aminotransferase 11 U/L (0-33); Albumin Level 3.9 g/dL (3.5-5.2); Alkaline Phosphatase 58 U/L (35-105); Anion Gap 14.2 (5-19); Aspartate Amino Transferase 14 U/L (0-32); Blood Urea Nitrogen 12 mg/dL (8-23); Calcium 8.7 mg/dL (8.5-10.5); Carbon Dioxide 23 mmol/L (22-29); Chloride 105 mmol/L (98-107); Globulin 2.6 g/dL (1.3-4.6); Glucose 125 mg/dL (65-115); Osmolality Calculated 287 mOsm/kg (285-295); Potassium 4.2 mmol/L (3.5-5.1); Sodium 138 mmol/L (136-145); Total Bilirubin 0.4 mg/dL (0.15-1.2); Total Protein 6.5 g/dL (6.6-8.7)
[2022-03-25] MEDS: enoxaparin 80 mg/0.8 mL Syringe 70 MG SUBCUT (06:51)
[2022-03-25] MEDS: levalbuterol 1.25 mg/3 mL Neb INHALATION ×2 (07:44→13:16)
[2022-03-25] MEDS: ipratropium 0.5 mg/2.5 mL Neb INHALATION ×2 (07:44→13:16)
--- NOTE | 2022-03-25 09:30 | USCV_ITS ---
Jocelin Mcginnis Age: 71 Gender: F : 1950 Exam Date: 03/25/2022 09:55 Ordering Phys: Trent Blank MD Technologist: Domenic Saenz Exam Location: [facility] [place] Indication: ef BP: 121 / 59 HR: 93 Rhythm: Sinus Technical Quality: Adequate MEASUREMENTS (Male / Female) Normal Values 2D ECHO LV Diastolic Diameter PLAX 3.8 cm 4.2 - 5.9 / 3.9 - 5.3 cm LV Systolic Diameter PLAX 2.6 cm IVS Diastolic Thickness 1.3 cm 0.6 - 1.0 / 0.6 - 0.9 cm IVS Systolic Thickness 1.6 cm LVPW Diastolic Thickness 1.3 cm 0.6 - 1.0 / 0.6 - 0.9 cm LVPW Systolic Thickness 1.3 cm LVOT Diameter 2.0 cm LV Ejection Fraction 2D Teich 59.6 % LV Ejection Fraction MOD 2C 42.6 % LV Ejection Fraction 2C AL 42.4 % LA Diameter 3.6 cm FINDINGS Left Ventricle Diffuse hypokinesia of the left ventricle with an ejection fraction of 45%. Echodensity in the LV apex may suggest organized thrombus. Mildly dilated LV cavity Right Ventricle Might have nuclear appears to be normal size and ejection fraction. Right Atrium Mildly increased right atrial size. Left Atrium Moderately increased left atrial size. Mitral Valve The prosthetic valve in the mitral position appears to be well- seated. The leaflets cannot be visualized well. Aortic Valve Thickened aortic valve. Leaflets cannot be visualized well. Tricuspid Valve Tricuspid valve not well visualized. Pulmonic Valve Pulmonic valve not well visualized. Pericardium No pericardial effusion. Aorta Normal aortic annulus size. IVC Normal inferior vena cava. CONCLUSIONS Diffuse hypokinesia of the left ventricle with an ejection fraction of 45%. Echodensity in the LV apex may suggest organized thrombus. Mildly dilated LV cavity. Mildly increased right atrial size. Moderately increased left atrial size. The prosthetic valve in the mitral position appears to be well- seated. The leaflets cannot be visualized well. Thickened aortic valve. Leaflets cannot be visualized well. There is no pericardial effusion. Technically very difficult study Dr Trent Blank MD [facility] (Electronically Signed) Final Date: 25 March 2022 20:13 S
--- NOTE | 2022-03-25 09:31 | PM.PN ---
Subjective Subjective: The patient is feeling okay. Continues to remain afebrile. No chest pain. No cough or shortness of breath. Vitals are stable. Medications: Medication Review Details: Current Medications Acetaminophen (Acetaminophen 325 Mg Tablet) 650 mg PO Q6H PRN PRN Reason: Mild/Mod Pain Or Temp >/= 101 Last Admin: 03/25/22 01:26 Dose: 650 mg Atorvastatin Calcium (Atorvastatin 40 Mg Tablet) 80 mg PO DAILY [facility] Last Admin: 03/24/22 08:48 Dose: 80 mg Bisacodyl (Bisacodyl 5 Mg Tablet) 10 mg PO DAILY PRN; Protocol PRN Reason: Constipation (see protocol) Clopidogrel Bisulfate (Clopidogrel 75 Mg Tablet) 75 mg PO DAILY [facility] Last Admin: 03/24/22 08:48 Dose: 75 mg Enoxaparin Sodium (Enoxaparin 80 Mg/0.8 Ml Syringe) 70 mg SUBCUT Q12H [facility] Last Admin: 03/25/22 06:51 Dose: 70 mg Furosemide (Furosemide 40 Mg Tablet) 40 mg PO DAILY@0800 [facility] Piperacillin Sod/Tazobactam (Sod 3.375 gm/ Sodium Chloride) 50 mls @ 12.5 mls/hr IV Q8H [facility]; Protocol Last Infusion: 03/25/22 08:34 Dose: Infused Vancomycin HCl 1,000 mg/ (Sodium Chloride) 250 mls @ 250 mls/hr IV Q18H [facility] Last Infusion: 03/25/22 01:14 Dose: Infused Ipratropium [place] (Ipratropium 0.5 Mg/2.5 Ml Neb) 0.5 mg INHALATION Q6H.RESP [facility] Last Admin: 03/25/22 07:44 Dose: 0.5 mg Levalbuterol HCl (Levalbuterol 1.25 Mg/3 Ml Neb) 1.25 mg INHALATION Q6H.RESP [facility] Last Admin: 03/25/22 07:44 Dose: 1.25 mg Lisinopril (Lisinopril 20 Mg Tablet) 40 mg PO DAILY [facility] Last Admin: 03/24/22 08:49 Dose: Not Given Metoprolol Succinate (Metoprolol Succinate Er (24 Hr) 50 Mg Tablet) 75 mg PO DAILY [facility] Last Admin: 03/24/22 08:47 Dose: 75 mg Midodrine (Midodrine 5 Mg Tablet) 5 mg PO TID [facility] Last Admin: 03/24/22 20:51 Dose: 5 mg Naloxone HCl (Naloxone 0.4 Mg/Ml Sdv) 0.1 mg IVP Q2M PRN PRN Reason: OPIATERV Ondansetron HCl (Ondansetron 2 Mg/Ml Sdv 2 Ml) 4 mg IVP Q8H PRN PRN Reason: vomiting, or N/V if npo Ondansetron HCl (Ondansetron 2 Mg/Ml Sdv 2 Ml) 4 mg IVP Q6H PRN PRN Reason: NAUSEA AND VOMITING Ondansetron HCl (Ondansetron 2 Mg/Ml Sdv 2 Ml) 4 mg IVP Q2M PRN PRN Reason: NAUSEA Oxycodone/Acetaminophen (Oxycodone-Apap 5-325 Mg Tablet) 1 tab PO Q4H PRN PRN Reason: SEVERE PAIN Last Admin: 03/24/22 19:07 Dose: 1 tab Pantoprazole Sodium (Pantoprazole Dr 40 Mg Tablet) 40 mg PO DAILY [facility] Last Admin: 03/24/22 08:46 Dose: 40 mg Spironolactone (Spironolactone 25 Mg Tablet) 50 mg PO DAILY [facility] Last Admin: 03/22/22 09:20 Dose: 50 mg Temazepam (Temazepam 15 Mg Capsule) 15 mg PO BEDTIME PRN PRN Reason: INSOMNIA Vitals/I&O/Wt Last Vital Signs Temp 98.4 F 03/25/22 07:46 Pulse 89 03/25/22 08:38 Resp 18 03/25/22 08:38 BP 121/59 03/25/22 08:38 Pulse Ox 98 03/25/22 08:38 O2 Del Method 03/25/22 07:45 FiO2 21 03/24/22 08:00 03/24/22 03/25/22 03/25/22 22:59 06:59 14:59 Intake Total 646.226 / 2169.893 540 / 2709.893 50 / 50 Balance 646.226 / 769.893 540 / 1309.893 50 / 50 Weight last 48 hrs Weight 153 lb 2 oz Weight 157 lb 4 oz Physical Exam Narrative: GENERAL: The patient is alert and oriented times three. Not in any acute distress. HEENT: No significant pallor, icterus or lymphadenopathy.Oral cavity: There are no mucous membrane lesions. NECK: Trachea appears to be central. No masses noted. No JVD or thyromegaly appreciated. RESPIRATORY: Chest is symmetrical. No intercostals muscle retraction or any accessory muscle activation. There is no chest wall tenderness. Breath sounds are heard bilaterally. No rales or rhonchi heard. No evidence of any consolidation. BREASTS: Deferred. HEART: The mitral valve opening and closing sounds are normal. No S3 or S4. Systolic murmur in the left sternal border. No pericardial rub ABDOMEN: No vessel pulsations or distention. No tenderness. No organomegaly appreciated. Bowel sounds are normally heard. : Deferred. RECTAL: Deferred. LYMPHATIC: No lymphadenopathy noted in the neck. EXTREMITIES: No edema or cyanosis. No clubbing. MUSCULOSKELETAL: No acute joint deformities or swelling SKIN: There are no significant rashes or ecchymosis NEUROPSYCHIATRIC: The patient is alert and oriented x3. Appears to be in a good mood. No tremors or rigidity noted. Data 03/25/22 05:00 03/25/22 05:00 Other Labs: Laboratory Last Values WBC 7.0 10^3/uL (4.0-10.0) 03/25/22 05:00 RBC 2.46 10^6/uL (4.1-5.3) L 03/25/22 05:00 Hgb 8.1 g/dL (11.5-15.3) L 03/25/22 05:00 Hct 25.5 % (37.0-47.0) L 03/25/22 05:00 MCV 103.7 fl (81-99) H 03/25/22 05:00 MCH 32.9 pg (28.0-34.0) 03/25/22 05:00 MCHC 31.8 g/dL (30.0-36.0) 03/25/22 05:00 RDW 13.8 % (12.1-15.1) 03/25/22 05:00 Plt Count 218 10^3/cmm (130-400) 03/25/22 05:00 MPV 9.1 fL (7.4-10.4) 03/25/22 05:00 Neut % (Auto) 64.8 % 03/25/22 05:00 Lymph % (Auto) 22.1 % 03/25/22 05:00 [place] % (Auto) 6.3 % 03/25/22 05:00 Eos % (Auto) 5.9 % 03/25/22 05:00 Baso % (Auto) 0.6 % 03/25/22 05:00 Neut # (Auto) 4.53 10^3/uL (1.8-7.7) 03/25/22 05:00 Lymph # (Auto) 1.5 10^3/uL (0.8-4.8) 03/25/22 05:00 [place] # (Auto) 0.4 10^3/uL (0.2-0.9) 03/25/22 05:00 Eos # (Auto) 0.4 10^3/uL (0.0-0.8) 03/25/22 05:00 Baso # (Auto) 0.0 10^3/uL (0.0-0.1) 03/25/22 05:00 Nucleated RBC % (auto) 0 % 03/25/22 05:00 Nucleated RBCs # 0.0 /100WBC 03/25/22 05:00 PT 15.10 SECONDS (12.1-14.9) H 03/25/22 05:00 INR 1.15 (0.8-1.2) 03/25/22 05:00 APTT 56.2 SECONDS (23.9-36.7) H 03/24/22 15:57 Sodium 138 mmol/L (136-145) 03/25/22 05:00 Potassium 4.2 mmol/L (3.5-5.1) 03/25/22 05:00 Chloride 105 mmol/L (98-107) 03/25/22 05:00 Carbon Dioxide 23 mmol/L (22-29) 03/25/22 05:00 Anion Gap 14.2 (5-19) 03/25/22 05:00 BUN 12 mg/dL (8-23) 03/25/22 05:00 Creatinine 0.8 mg/dL (0.5-0.9) 03/25/22 05:00 GFR Calculation Not Reportable 03/25/22 05:00 Glucose 125 mg/dL (65-115) H 03/25/22 05:00 POC Glucose 171 mg/dL (70-110) H 03/23/22 11:24 Calculated Osmolality 287 mOsm/kg (285-295) 03/25/22 05:00 Lactate 1.0 mmol/L (0.5-2.2) 03/22/22 03:41 Calcium 8.7 mg/dL (8.5-10.5) 03/25/22 05:00 Magnesium 2.0 mg/dL (1.7-2.3) 03/22/22 03:41 Total Bilirubin 0.4 mg/dL (0.15-1.2) 03/25/22 05:00 AST 14 U/L (0-32) 03/25/22 05:00 ALT 11 U/L (0-33) 03/25/22 05:00 Alkaline Phosphatase 58 U/L (35-105) 03/25/22 05:00 Troponin T Baseline 24 ng/L (0-10) H 03/21/22 09:35 Troponin T 120 Minute 20.56 ng/L (0-10) H 03/21/22 11:42 Delta Troponin T -3.44 ABS# (0-10) L 03/21/22 11:42 Troponin T Hi Sens 6Hr 22.79 ng/L (0-10) H 03/21/22 15:13 Troponin T Hi Sens 6Hr Delta -1.21 ng/L (0-12) L 03/21/22 15:13 NT-Pro-B Natriuret Pep 4364 pg/mL (0-125) H 03/22/22 03:41 Total Protein 6.5 g/dL (6.6-8.7) L 03/25/22 05:00 Albumin 3.9 g/dL (3.5-5.2) 03/25/22 05:00 Globulin 2.6 g/dL (1.3-4.6) 03/25/22 05:00 Procalcitonin 0.13 ng/mL (0-0.5) 03/22/22 03:41 Urine Color Cancelled 03/21/22 20:40 Urine Color Yellow (Yellow) 03/21/22 20:40 Urine Appearance Cancelled 03/21/22 20:40 Urine Appearance Clear (CLEAR) 03/21/22 20:40 Urine pH 7 (5-7) 03/21/22 20:40 Urine pH Cancelled 03/21/22 20:40 Ur Specific [place] 1.005 (1.005-1.030) 03/21/22 20:40 Ur Specific [place] Cancelled 03/21/22 20:40 Urine Protein Cancelled 03/21/22 20:40 Urine Protein Neg (Negative) 03/21/22 20:40 Urine Glucose (UA) Cancelled 03/21/22 20:40 Urine Glucose (UA) Trace (Normal) H 03/21/22 20:40 Urine Ketones Cancelled 03/21/22 20:40 Urine Ketones Negative (Negative) 03/21/22 20:40 Urine Blood 3+ (Negative) H 03/21/22 20:40 Urine Blood Cancelled 03/21/22 20:40 Urine Nitrate Cancelled 03/21/22 20:40 Urine Nitrate Negative (Negative) 03/21/22 20:40 Urine Bilirubin Cancelled 03/21/22 20:40 Urine Bilirubin Neg (Negative) 03/21/22 20:40 Prot Sulfosalicylic Acd Cancelled 03/21/22 20:40 Urine Urobilinogen Cancelled 03/21/22 20:40 Urine Urobilinogen Neg mg/dL (Negative) 03/21/22 20:40 Ur Leukocyte Esterase Cancelled 03/21/22 20:40 Ur Leukocyte Esterase Trace (Negative) H 03/21/22 20:40 Urine RBC 25-40 /hpf (0-2) H 03/21/22 20:40 Urine WBC 10-15 /hpf (0-5) H 03/21/22 20:40 Ur Squamous Epith Cells 5-10 /hpf (0-5) H 03/21/22 20:40 Ur Renal Epithelial Cell 0-4 /hpf 03/21/22 20:40 Amorphous Sediment Not Reportable 03/21/22 20:40 Urine Bacteria 1+ /hpf (NONE) H 03/21/22 20:40 Urine Mucus Trace /hpf 03/21/22 20:40 Nasal Influ A H1 2008 PCR Not detected (NOT DETECT) 03/21/22 05:45 Adenovirus (PCR) Not detected (NOT DETECT) 03/21/22 05:45 C. pneumoniae DNA (PCR) Not detected (NOT DETECT) 03/21/22 05:45 Coronavirus 229E (PCR) Not detected (NOT DETECT) 03/21/22 05:45 Human Metapneumovir PCR Not detected (NOT DETECT) 03/21/22 05:45 Influenza A (H1) PCR Not detected (NOT DETECT) 03/21/22 05:45 Influenza A (H3) PCR Not detected (NOT DETECT) 03/21/22 05:45 Influenza Type A (PCR) Not detected (NOT DETECT) 03/21/22 05:45 Influenza Type B (PCR) Not detected (NOT DETECT) 03/21/22 05:45 M. pneumoniae (PCR) Not detected (NOT DETECT) 03/21/22 05:45 Parainfluenza 1 (PCR) Not detected (NOT DETECT) 03/21/22 05:45 Parainfluenza 2 (PCR) Not detected (NOT DETECT) 03/21/22 05:45 Parainfluenza 3 (PCR) Not detected (NOT DETECT) 03/21/22 05:45 Parainfluenza 4 (PCR) Not detected (NOT DETECT) 03/21/22 05:45 RSV Type A (PCR) Not detected (NOT DETECT) 03/21/22 05:45 RSV Type B (PCR) Not detected (NOT DETECT) 03/21/22 05:45 Entero/Rhino (PCR) Not detected (NOT DETECT) 03/21/22 05:45 SARS-CoV-2 (PCR) Not detected (NOT DETECT) 03/21/22 05:45 A&P Assessment and plan (1) Atherosclerotic heart disease of [place] coronary artery with other forms of angina pectoris: Patient chest pain is currently resolved. The result of the Myocardial perfusion imaging was discussed with the patient. At this point, she may not require any further intervention. Currently on the current treatment measures. (2) CHF (congestive heart failure): Patient is changed to p.o. Lasix. Continue on the current dose. Adjustments to the dose as outpatient. Also consider Entresto as outpatient. (3) Intermittent atrial fibrillation: Continue on the current dose of the medications. Patient may require bridging anticoagulation. The INR is 1.15 today. (4) Cardiomyopathy, ischemic: Limited 2D echocardiogram today. Based on the ejection fraction, need for LifeVest will be decided (5) S/P mitral valve replacement: The valve function appears to be appropriate. May continue on the current treatment measures. (6) Diabetes mellitus: May continue on the current management. (7) HTN (hypertension) with goal to be determined: The blood pressure seems to be fairly under control. May continue on the current medications. Plan Other problems are Anemia, etiology most Vaginal abscess, or antibiotic Please make an appointment to be seen by nurse practitioner next week. Appointment with the Dr. Montes in 6 weeks Attestations Medical Necessity Statement*: Disposition as per the primary Coding Level of Care Code Acute [employer] for [employer] Fwd History Expanded Problem Focused Exam Expanded Problem Focused Medical Decision Making Moderate Complexity Diagnoses Atherosclerotic heart disease of [place] coronary artery with other forms of angina pectoris I25.118 CHF (congestive heart failure) I50.9 Intermittent atrial fibrillation I48.0 Cardiomyopathy, ischemic I25.5 S/P mitral valve replacement Z95.2 Diabetes mellitus E11.9 HTN (hypertension) with goal to be determined I10
[2022-03-25] MEDS: lisinopril 20 mg Tablet 40 MG PO (10:17)
[2022-03-25] MEDS: FUROsemide 40 mg Tablet PO (10:18)
[2022-03-25] MEDS: metoprolol succinate ER (24 HR) 50 mg Tablet 75 MG PO (10:19)
[2022-03-25] MEDS: atorvastatin 40 mg Tablet 80 MG PO (10:20)
[2022-03-25] MEDS: pantoprazole DR 40 mg Tablet PO (10:20)
[2022-03-25] MEDS: clopidogrel 75 mg Tablet PO (10:45)
--- NOTE | 2022-03-25 14:30 | P.DS_ITS ---
Discharge Providers Date of Admission: 03/21/22 14:26 Date of Discharge: March 25, 2022 Attending Provider at Admission: Michael Quintana MD Attending Provider at Discharge: Karen Rios MD Primary Care Provider: Amador Cherry DO Diagnoses at Discharge Discharge Diagnosis (1) Atherosclerotic heart disease of [place] coronary artery with other forms of angina pectoris: Status: Acute (2) CHF (congestive heart failure): Status: Chronic (3) Intermittent atrial fibrillation: Status: Acute (4) Cardiomyopathy, ischemic: Status: Acute (5) S/P mitral valve replacement: Status: Chronic Permanent problem details: [place] valve by Richard Davey 2006 (6) Diabetes mellitus: Status: Chronic Permanent problem details: diagnosed in 2017 (7) HTN (hypertension) with goal to be determined: Status: Acute Reason for Visit Reason for Visit: Afib Brief History: 71 year old female with past medical history of coronary artery status post PCI, atrial fibrillation, mechanical mitral valve, on warfarin at home, HFReF , came in with chief complaint of generalized weakness, she was also complaining of palpitation going on for quite some time which bothers her a lot, whenever she has these episodes, she feels a lot of anxiety ,weakness, today she came in after experiencing similar episodes, of palpitations, but today it was also accompanied with left-sided chest pain pressure-like radiating to the neck, upon arrival in the ER she was found to be in A. fib with RVR. During hospital course she was also found to have fever 102 F related to vaginal abscess. Hospital course as below: Hospital Course Hospital Course # Atrial fibrillation with RVR Currently HR ranging 90-110 on metoprolol 75mg daily Resumed coumadin on 03/24/21. Earlier in the admission she had been on a heparin drip. Coumadin has now been resumed however with lovenox bridging as INR is 1.5. Her goal is 2.5-3.5. Patient preferred to bridge as outpatient with Lovenox. Unable to titrate metoprolol further currently due to low blood pressure.? Lisinopril and aldactone has been placed on hold at discharge as patient's sytsolic BP was ranging 80s-90s. Entresto has also not been started for this reason. Follow up with cardiology within 4-5 days of discharge. Patient instructed to maintain BP and HR chart # Vaginal Abscess c/o vaginal pus like discharge. Currently on empiric treatment with piperacillin tazobactam and vancomycin. Patient's fevers have resolved after initiation of IV antibiotics.? Leukocytosis additionally resolved. Discussed case with [employer]INE SET UP OPERATOR on-call, no current indication for surgery.? Repeat imaging suggested in 1 week. Follow up with [employer]INE SET UP OPERATOR as outpatient. Repeat imaging ordered with cc to PCP. Concern for pneumonia upon admission given fever and leukocytosis however patient has no cough or respiratory symptoms. This is now excluded Discharged with po AUgmentin and Doxycycline x 7 days # Coronary artery disease s/p PCI Patient presented orginally with chest pain radiating to back Underwent stress test and cardiology assessment.? medical management to continue. # S/p mechanical mitral valve Continue anticoagulation with coumadin # Anemia: No signs of blood loss currently. No hematemesis, na Physical Exam Narrative: General: No acute distress, AO x3 HEENT: PERRLA, pupils bilaterally equal and reactive, pallors not present Chest: Normal vesicular breath sounds, no added sounds, equal good air entry bilaterally CVS: S1-S2 regular, no murmurs, no tachycardia, no gallops, no rubs Abdomen: Soft, nontender, no organomegaly, bowel sounds present Neuro: No focal deficits, no facial deformity, AO x3, power 5/5 in all limbs Discharge Data Studies Completed and Pending Completed Studies During Hospitalization Category Date Time Status CT abdomen pelvis wo con [id number] Routine Cat Scan 03/22/22 12:41 Completed Cardiac Stress Test MIBI [Sestamibi Stress Test Request Exams 03/23/22 18:13 Draft ] Routine XR chest 1V portable [id number] Stat Exams 03/21/22 12:56 Completed NM vega perf SPECT r/s* [id number] Routine Nuc Med 03/24/22 18:13 Completed Pending at discharge Category Date Time Status Blood Culture Stat Lab 03/21/22 20:44 Results Sputum Culture and Gram Stain Stat Lab 03/21/22 20:10 Uncollected Vancomycin Trough Timed Lab 03/25/22 18:00 Ordered CV. echo limited [id number] Routine Ultrasound 03/25/22 09:30 Taken Radiology Impressions Chest X-Ray 03/21/22 12:56 IMPRESSION: 1. Hazy opacity at the medial aspect of the left lung base is nonspecific. Differential includes pneumonia. 2. Cardiomegaly. 3. Nodular densities at the left perihilar region appear mildly more prominent when compared to the prior study. Abdomen/Pelvis CT 03/22/22 12:41 IMPRESSION: 1. There is vaginal wall fullness present, and there may be a left lateral vaginal wall 2.5 cm abscess. This could also involve the adjacent anal area. These findings may be due to infection or neoplasm. See details above. 2. Absent uterus with no bladder air present. 3. Right anterior abdominal wall skin thickening and subcutaneous fat stranding. A cellulitis is possible. This is probably at an injection site. This requires correlation. 4. Small hiatal hernia, extensive atherosclerosis, and other chronic findings above. Laboratory Results WBC 7.0 10^3/uL (4.0-10.0) 03/25/22 05:00 RBC 2.46 10^6/uL (4.1-5.3) L 03/25/22 05:00 Hgb 8.1 g/dL (11.5-15.3) L 03/25/22 05:00 Hct 25.5 % (37.0-47.0) L 03/25/22 05:00 MCV 103.7 fl (81-99) H 03/25/22 05:00 MCH 32.9 pg (28.0-34.0) 03/25/22 05:00 MCHC 31.8 g/dL (30.0-36.0) 03/25/22 05:00 RDW 13.8 % (12.1-15.1) 03/25/22 05:00 Plt Count 218 10^3/cmm (130-400) 03/25/22 05:00 MPV 9.1 fL (7.4-10.4) 03/25/22 05:00 Neut % (Auto) 64.8 % 03/25/22 05:00 Lymph % (Auto) 22.1 % 03/25/22 05:00 [place] % (Auto) 6.3 % 03/25/22 05:00 Eos % (Auto) 5.9 % 03/25/22 05:00 Baso % (Auto) 0.6 % 03/25/22 05:00 Neut # (Auto) 4.53 10^3/uL (1.8-7.7) 03/25/22 05:00 Lymph # (Auto) 1.5 10^3/uL (0.8-4.8) 03/25/22 05:00 [place] # (Auto) 0.4 10^3/uL (0.2-0.9) 03/25/22 05:00 Eos # (Auto) 0.4 10^3/uL (0.0-0.8) 03/25/22 05:00 Baso # (Auto) 0.0 10^3/uL (0.0-0.1) 03/25/22 05:00 Nucleated RBC % (auto) 0 % 03/25/22 05:00 Nucleated RBCs # 0.0 /100WBC 03/25/22 05:00 PT 15.10 SECONDS (12.1-14.9) H 03/25/22 05:00 INR 1.15 (0.8-1.2) 03/25/22 05:00 APTT 56.2 SECONDS (23.9-36.7) H 03/24/22 15:57 Sodium 138 mmol/L (136-145) 03/25/22 05:00 Potassium 4.2 mmol/L (3.5-5.1) 03/25/22 05:00 Chloride 105 mmol/L (98-107) 03/25/22 05:00 Carbon Dioxide 23 mmol/L (22-29) 03/25/22 05:00 Anion Gap 14.2 (5-19) 03/25/22 05:00 BUN 12 mg/dL (8-23) 03/25/22 05:00 Creatinine 0.8 mg/dL (0.5-0.9) 03/25/22 05:00 GFR Calculation Not Reportable 03/25/22 05:00 Glucose 125 mg/dL (65-115) H 03/25/22 05:00 POC Glucose 171 mg/dL (70-110) H 03/23/22 11:24 Calculated Osmolality 287 mOsm/kg (285-295) 03/25/22 05:00 Lactate 1.0 mmol/L (0.5-2.2) 03/22/22 03:41 Calcium 8.7 mg/dL (8.5-10.5) 03/25/22 05:00 Magnesium 2.0 mg/dL (1.7-2.3) 03/22/22 03:41 Total Bilirubin 0.4 mg/dL (0.15-1.2) 03/25/22 05:00 AST 14 U/L (0-32) 03/25/22 05:00 ALT 11 U/L (0-33) 03/25/22 05:00 Alkaline Phosphatase 58 U/L (35-105) 03/25/22 05:00 Troponin T Baseline 24 ng/L (0-10) H 03/21/22 09:35 Troponin T 120 Minute 20.56 ng/L (0-10) H 03/21/22 11:42 Delta Troponin T -3.44 ABS# (0-10) L 03/21/22 11:42 Troponin T Hi Sens 6Hr 22.79 ng/L (0-10) H 03/21/22 15:13 Troponin T Hi Sens 6Hr Delta -1.21 ng/L (0-12) L 03/21/22 15:13 NT-Pro-B Natriuret Pep 4364 pg/mL (0-125) H 03/22/22 03:41 Total Protein 6.5 g/dL (6.6-8.7) L 03/25/22 05:00 Albumin 3.9 g/dL (3.5-5.2) 03/25/22 05:00 Globulin 2.6 g/dL (1.3-4.6) 03/25/22 05:00 Procalcitonin 0.13 ng/mL (0-0.5) 03/22/22 03:41 Urine Color Cancelled 03/21/22 20:40 Urine Color Yellow (Yellow) 03/21/22 20:40 Urine Appearance Cancelled 03/21/22 20:40 Urine Appearance Clear (CLEAR) 03/21/22 20:40 Urine pH 7 (5-7) 03/21/22 20:40 Urine pH Cancelled 03/21/22 20:40 Ur Specific [place] 1.005 (1.005-1.030) 03/21/22 20:40 Ur Specific [place] Cancelled 03/21/22 20:40 Urine Protein Cancelled 03/21/22 20:40 Urine Protein Neg (Negative) 03/21/22 20:40 Urine Glucose (UA) Cancelled 03/21/22 20:40 Urine Glucose (UA) Trace (Normal) H 03/21/22 20:40 Urine Ketones Cancelled 03/21/22 20:40 Urine Ketones Negative (Negative) 03/21/22 20:40 Urine Blood 3+ (Negative) H 03/21/22 20:40 Urine Blood Cancelled 03/21/22 20:40 Urine Nitrate Cancelled 03/21/22 20:40 Urine Nitrate Negative (Negative) 03/21/22 20:40 Urine Bilirubin Cancelled 03/21/22 20:40 Urine Bilirubin Neg (Negative) 03/21/22 20:40 Prot Sulfosalicylic Acd Cancelled 03/21/22 20:40 Urine Urobilinogen Cancelled 03/21/22 20:40 Urine Urobilinogen Neg mg/dL (Negative) 03/21/22 20:40 Ur Leukocyte Esterase Cancelled 03/21/22 20:40 Ur Leukocyte Esterase Trace (Negative) H 03/21/22 20:40 Urine RBC 25-40 /hpf (0-2) H 03/21/22 20:40 Urine WBC 10-15 /hpf (0-5) H 03/21/22 20:40 Ur Squamous Epith Cells 5-10 /hpf (0-5) H 03/21/22 20:40 Ur Renal Epithelial Cell 0-4 /hpf 03/21/22 20:40 Amorphous Sediment Not Reportable 03/21/22 20:40 Urine Bacteria 1+ /hpf (NONE) H 03/21/22 20:40 Urine Mucus Trace /hpf 03/21/22 20:40 Nasal Influ A H1 2008 PCR Not detected (NOT DETECT) 03/21/22 05:45 Adenovirus (PCR) Not detected (NOT DETECT) 03/21/22 05:45 C. pneumoniae DNA (PCR) Not detected (NOT DETECT) 03/21/22 05:45 Coronavirus 229E (PCR) Not detected (NOT DETECT) 03/21/22 05:45 Human Metapneumovir PCR Not detected (NOT DETECT) 03/21/22 05:45 Influenza A (H1) PCR Not detected (NOT DETECT) 03/21/22 05:45 Influenza A (H3) PCR Not detected (NOT DETECT) 03/21/22 05:45 Influenza Type A (PCR) Not detected (NOT DETECT) 03/21/22 05:45 Influenza Type B (PCR) Not detected (NOT DETECT) 03/21/22 05:45 M. pneumoniae (PCR) Not detected (NOT DETECT) 03/21/22 05:45 Parainfluenza 1 (PCR) Not detected (NOT DETECT) 03/21/22 05:45 Parainfluenza 2 (PCR) Not detected (NOT DETECT) 03/21/22 05:45 Parainfluenza 3 (PCR) Not detected (NOT DETECT) 03/21/22 05:45 Parainfluenza 4 (PCR) Not detected (NOT DETECT) 03/21/22 05:45 RSV Type A (PCR) Not detected (NOT DETECT) 03/21/22 05:45 RSV Type B (PCR) Not detected (NOT DETECT) 03/21/22 05:45 Entero/Rhino (PCR) Not detected (NOT DETECT) 03/21/22 05:45 SARS-CoV-2 (PCR) Not detected (NOT DETECT) 03/21/22 05:45 Vitals Last Vital Signs Temp 97.9 F 03/25/22 13:30 Pulse 87 03/25/22 13:30 Resp 16 03/25/22 13:30 BP 145/81 03/25/22 13:30 Pulse Ox 98 03/25/22 13:30 O2 Del Method 03/25/22 13:16 FiO2 21 03/24/22 08:00 Discharge Plan Discharge Patient Disposition: Home Condition: Stable Prescriptions: New Lovenox 80 mg/0.8 mL syringe 70 mg SUBCUT Q12H 5 Days Qty: 7 0RF amoxicillin-pot clavulanate 875-125 mg tablet 1 tab PO BID 7 Days Qty: 14 0RF doxycycline hyclate 100 mg tablet 100 mg PO BID 7 Days Qty: 14 0RF (DME) prothrombin time/INR test metr Misc See Rx Instructions .Route Qty: 1 0RF Rx Instructions: As directed metoprolol tartrate 25 mg tablet 12.5 mg PO DAILY PRN (Reason: heart rate >120) Qty: 30 0RF Rx Instructions: take only if heart rate >120 after taking your regular 75mg metoprolol ferrous sulfate 325 mg (65 mg iron) tablet,delayed release (DR/EC) 325 mg PO DAILY Qty: 30 0RF Continued clonidine HCl 0.1 mg tablet 0.1 mg PO Q6H PRN (Reason: blood pressure over 160/90) tizanidine 4 mg tablet 4 mg PO BID PRN (Reason: muscle spasticity) rosuvastatin 20 mg tablet 20 mg PO QAM omeprazole 20 mg capsule,delayed release(DR/EC) 20 mg PO QAM phenazopyridine 200 mg Tablet 200 mg PO TID PRN (Reason: Bladder Spasms) Rx Instructions: started 03/19/22 metoprolol succinate 50 mg tablet extended release 24 hr 75 mg PO QAM clopidogrel 75 mg tablet 75 mg PO QAM Vitamin C 500 mg Tablet 1,000 mg PO QAM Nitrostat 0.4 mg Tablet, Sublingual 0.4 mg SUBLINGUAL Q5M PRN (Reason: Chest Pain) Rx Instructions: do not exceed 3 doses per episode potassium gluconate 595 mg (99 mg) Tablet 1,190 mg PO QAM Vitamin D3 125 mcg (5,000 unit) Tablet 125 mcg PO QAM furosemide 40 mg tablet 40 mg PO QAM warfarin 2 mg tablet 6 mg PO BEDTIME Protocol: Dose Management Condition: Tuesday Dose/Route: 6 mg Instruction: 3 x 2 mg tablets Condition: Tuesday Dose/Route: 6 mg Instruction: 3 x 2 mg tablets Condition: Tuesday Dose/Route: 6 mg Instruction: 3 x 2 mg tablets Condition: Tuesday Dose/Route: 6 mg Instruction: 3 x 2 mg tablets Condition: Dose/Route: 6 mg Instruction: 3 x 2 mg tablets Condition: Tuesday Dose/Route: 6 mg Instruction: 3 x 2 mg tablets Condition: Tuesday Dose/Route: 6 mg Instruction: 3 x 2 mg tablets Protocol Text: Adjustment Start Date: Tuesday03/19/22 INR Value: 3.1 INR Date: 03/16/22 Recheck Date: 03/26/22 Rx Instructions: as directed; based on INR results Held lisinopril 40 mg tablet 40 mg PO QAM Hold Instructions: Resume on 04/01/22. hold until appt with [facility] spironolactone 50 mg tablet 50 mg PO DAILY Qty: 90 3RF Hold Instructions: Resume on 04/01/22. Hold until APPt with [facility] Discontinued valsartan 160 mg tablet 160 mg PO DAILY Qty: 90 2RF nitrofurantoin monohyd/m-cryst 100 mg capsule 100 mg PO BID Rx Instructions: for 7 days (rx filled 03/19/22) Discharge Orders: Discharge Order (Routine); Ordered 03/25/22 Ordered By: Karen Rios Other Ambulatory Orders: CT pelvis wo con [id number] (Routine) Timeframe: [id number] Facility: [facility] - Location: Radiology [facility] Ordered By: Karen Rios Referrals: Andrew Pace MD [Physician] - (vaginal abscess ) Chapito Malone MD [Physician] - (patient requests PCP ) Roosevelt Golden FNP [Nurse Practitioner] - 1-3 days (hospital admission for A fib RVR. Multiple medications changed. Needs INR check. Bridging anticoagulation ) Discharge Diet: Usual diet Discharge Activity: Resume usual activity Patient Instructions: Opioid Safety Activity Restrictions/Additional Instructions: Please take 6mg of Warfarin at home and have a follow up INR done on Thursday 03/30 at [facility] or at your PCP. Discharge Attestations Time Spent in Discharge Care*: greater than 30 min Quality Metrics Clinical Quality Measures [ No reported AMI, CVA or VTE this stay] Coding Level of Care Code Acute Chg FW DC note Diagnoses Atherosclerotic heart disease of [place] coronary artery with other forms of angina pectoris I25.118 CHF (congestive heart failure) I50.9 Intermittent atrial fibrillation I48.0 Cardiomyopathy, ischemic I25.5 S/P mitral valve replacement Z95.2 Diabetes mellitus E11.9 HTN (hypertension) with goal to be determined I10
--- NOTE | 2022-03-25 15:52 | PC.NURSE ---
Patient was discharged at 1453 today with full discharge instructions and education given. Prescriptions given meds to beds. Patient verbalized full understanding of all instructions. She was wheeled to the main entrance with nurse jacquelyn Berumen
== END 2022-03-25 14:53 | disposition home or self-care (01) | DRG 309 ==
LOC: ER 13:52 → CSU 15:59
PROVIDERS: Family Medicine; Internal Medicine; Internal Medicine Cardiovascular Disease; Admitting Provider Internal Medicine; Emergency Provider Family Medicine; PCP Internal Medicine; Visit Provider Student in an Organized Health Care Education/Training Program
DX: I48.91 Unspecified atrial fibrillation (principal); I50.22 Chronic systolic (congestive) heart failure; I25.118 Atherosclerotic heart disease of native coronary artery with other forms of angina pectoris; I11.0 Hypertensive heart disease with heart failure; N76.0 Acute vaginitis; D64.9 Anemia, unspecified; I25.5 Ischemic cardiomyopathy; E11.9 Type 2 diabetes mellitus without complications; E03.9 Hypothyroidism, unspecified; E78.5 Hyperlipidemia, unspecified; R53.1 Weakness; Z79.01 Long term (current) use of anticoagulants; Z79.02 Long term (current) use of antithrombotics/antiplatelets; Z95.5 Presence of coronary angioplasty implant and graft; Z95.2 Presence of prosthetic heart valve; Z82.49 Family history of ischemic heart disease and other diseases of the circulatory system
CPT/HCPCS: 36415; 36416; 71045; 74176; 78452; 80053; 81001; 82962; 83605; 83735; 83880; 84145; 84484; 85025; 85610; 85730; 86403; 87040; 87086; 87449; 87486; 87581; 87633; 90471; 90732; 93005; 93308; 94640; 96372; 96374; A9500; J0456; J0696; J1644; J1650; J1940; J2543; J2785; J3370; J3490; J7050; J7614; J7644

== ENCOUNTER → 2022-04-05 08:54 | Outpatient (BNVA) | payer MEDICARE, SELFPAY | PROVIDERS: PCP Internal Medicine; Visit Provider Nurse Practitioner Family | DX: I48.91 Unspecified atrial fibrillation (principal); Z79.01 Long term (current) use of anticoagulants; I25.10 Atherosclerotic heart disease of native coronary artery without angina pectoris; I11.0 Hypertensive heart disease with heart failure; I50.9 Heart failure, unspecified | CPT/HCPCS: 99214 ==

== ENCOUNTER 2022-04-06 12:01 | Outpatient (CLI) | payer MEDICARE, SELFPAY ==
--- NOTE | 2022-04-06 12:11 | CT_ITS ---
WS: [id number] CT PELVIS WITHOUT CONTRAST. HISTORY: follow up vaginal abscess TECHNIQUE: Contiguous imaging is performed of the pelvis without contrast. Coronal and sagittal refor mats are reviewed. All CT scans at [facility] use at least one of these dose optimization lona hniques: automated exposure control; mA and/or kV adjustment per patient size (includes targeted exam s where dose is matched to clinical indication); or iterative reconstruction. DLP: 377.72 mGy.cm COMPARISON: 03/22/2022 This examination was performed without IV contrast. Majority of fullness involving the LEFT labia has significantly decreased. There is less bulging of the contour. There is very minimal mixed attenuati on now present. No measurable residual collection is identified. Small injection granulomas in the soft tissue of the abdominal wall. No GI tract obstruction. Medicin al tablets in the colon. No axillary adenopathy. CT/CT pelvis wo con [id number] IMPRESSION: Significant decrease in size and bulging of the contour of the LEFT labia since 03/22/2022. Residual abscess cavity is difficult to measure without IV contrast.
== END 2022-04-06 12:02 | disposition home or self-care (01) ==
PROVIDERS: PCP Internal Medicine; Visit Provider Student in an Organized Health Care Education/Training Program
DX: N76.0 Acute vaginitis (principal)
CPT/HCPCS: 72192

== ENCOUNTER → 2022-07-05 13:53 | Outpatient (BNVA) | payer MEDICARE, SELFPAY | PROVIDERS: PCP Internal Medicine; Visit Provider Specialist | DX: I48.91 Unspecified atrial fibrillation (principal); I25.118 Atherosclerotic heart disease of native coronary artery with other forms of angina pectoris; I25.5 Ischemic cardiomyopathy; Z95.2 Presence of prosthetic heart valve; I11.0 Hypertensive heart disease with heart failure; I50.9 Heart failure, unspecified; Z79.01 Long term (current) use of anticoagulants | CPT/HCPCS: 99214 ==

== ENCOUNTER 2022-07-21 10:02 | Outpatient (CLI) | payer MEDICARE, SELFPAY ==
[2022-07-21 11:25] LABS: Alanine Aminotransferase 22 U/L (0-33); Albumin Level 4.5 g/dL (3.5-5.2); Alkaline Phosphatase 90 U/L (35-105); Aspartate Amino Transferase 34 U/L (0-32); Blood Urea Nitrogen 18 mg/dL (8-23); Calcium 9.9 mg/dL (8.5-10.5); Carbon Dioxide 26 mmol/L (22-29); Chloride 102 mmol/L (98-107); Globulin 2.9 g/dL (1.3-4.6); Glucose 98 mg/dL (65-115); Osmolality Calculated 290 mOsm/kg (285-295); Sodium 139 mmol/L (136-145); Total Bilirubin 0.7 mg/dL (0.15-1.2); Total Protein 7.4 g/dL (6.6-8.7)
== END 2022-07-21 10:03 | disposition home or self-care (01) ==
LOC: LAB 10:08
PROVIDERS: PCP Internal Medicine; Visit Provider Specialist
DX: I25.118 Atherosclerotic heart disease of native coronary artery with other forms of angina pectoris (principal); I25.5 Ischemic cardiomyopathy; I48.91 Unspecified atrial fibrillation
CPT/HCPCS: 36415; 80048; 80076

== ENCOUNTER 2022-09-01 11:18 | Emergency (ER) | payer MEDICARE, SELFPAY ==
[2022-09-01 11:20] VITALS: BP 139/85; PULSE 90; RESP 18; TEMP 37; O2SAT 96
--- NOTE | 2022-09-01 11:38 | W.ED.ARRPALP ---
HPI - Arrhythmia/Palpitations General: Chief Complaint: Arrhythmia/Palpitations Stated Complaint: sent by dr olive villanueva Time Seen by Provider: 09/01/22 11:24 History of Present Illness: Ms. Mcginnis is a 71-year-old lady with history of hypertension, hyperlipidemia, CHF, paroxysmal atrial fibrillation on warfarin presenting to the emergency department for evaluation of A-fib. She notes a fall from a ladder and right foot pain essentially this since that time and reports a history of going into A-fib related to other injuries. She has some associated shortness of breath mostly on exertion. Denies associated chest pain. Intensity symptoms is mild to moderate. No other specific changes in health, exacerbating, or alleviating factors identified. Onset (ago): day(s) Duration: constant Severity: moderate Arrhythmia history: atrial fibrillation Review of Systems General: Reports: 10 or more systems reviewed and unremarkable except in HPI and below PFSH ED PFSH: Medical History (Updated 09/09/22 @ 00:01 by URBANO Bennett) CAD (coronary artery disease) stent to mid LAD 11/02/2018 CHF (congestive heart failure) Diabetes mellitus diagnosed in 2017 HTN (hypertension) with goal to be determined Hypothyroidism Osteoporosis Surgical History Mitral valve replaced S/P cholecystectomy S/P hysterectomy S/P mitral valve replacement [place] valve by Dr. Wilder [place] 2006 Family History Father CAD (coronary artery disease) Stroke Mother CAD (coronary artery disease) Diabetes Hypertension Sister CAD (coronary artery disease) Hypertension Lung disease Psychiatric illness Son Lung disease Denies family history of Clotting disorder Dementia Hyperlipidemia Chronic kidney disease (CKD) Suicide Anesthesia complication Bleeding disorder Family history of premature coronary artery disease Cancer Social History Smoking and tobacco status: never smoked Second hand smoke exposure: Yes Alcohol intake: never Substance/Drug Use: never Physical Exam Const: COMMON NORMALS: alert GENERAL APPEARANCE: cooperative and well developed HENMT: COMMON NORMALS: normocephalic and atraumatic HEAD & SCALP: normocephalic and atraumatic Eye: COMMON NORMALS: conjunctivae normal CONJUNCTIVA: Yes conjunctivae normal SCLERA: sclerae normal Neck/C-Spine: COMMON NORMALS: supple GENERAL: Yes trachea midline Resp: COMMON NORMALS: clear to auscultation bilaterally EFFORT & INSPECTION: Yes able to speak in complete sentences AUSCULTATION: clear to auscultation bilaterally Cardio: COMMON NORMALS: regular rate RATE: regular rate RHYTHM: abnormal rhythm GI: COMMON NORMALS: Soft to palpation PALPATION: Yes Soft to palpation and No Tenderness to palpation present (GI) Extremity: GENERAL: Yes normal exam except as noted and No edema Neuro: COMMON NORMALS: moves all extremities SENSORIUM/ORIENTATION: Yes alert and No Orientation impaired Psych: COMMON NORMALS: mental status grossly normal and Normal thought process present THOUGHT PROCESS: Normal thought process present Course Vital Signs: Vital signs: Vital Signs Temperature 98.6 F 09/01/22 11:20 Pulse Rate 88 09/01/22 15:28 Respiratory Rate 18 09/01/22 15:28 Blood Pressure 142/97 09/01/22 15:28 Pulse Oximetry 97 09/01/22 15:28 Oxygen Delivery Me thod Room Air 09/01/22 14:11 MDM - Arrhythmia/Palpitations Medical Decision Making 72-year-old lady presenting with A-fib. Exam as above. Patient is nontoxic. Rate is controlled. EKG demonstrates atrial fibrillation with moderate interventricular conduction delay, no STEMI. Labs notable for no leukocytosis, normal hematologic panel. Metabolic panel with perhaps some dehydration. Minimal transaminitis which has appeared previously. Negative range 2-hour delta troponin BNP mildly elevated. No convincing UTI given squamous epithelial contamination and absence of symptoms. Chest x-ray with cardiomegaly and nonspecific changes. Negative for fracture. Patient feels improved with fluid bolus. Patient is adequately anticoagulated for atrial fibrillation. Discussed disposition options with patient. She prefers outpatient management. The results of ED evaluation were discussed with the patient including prescriptions and/or symptomatic cares (if applicable) including appropriate and responsible use, followup plan, and return precautions. The patient verbalized understanding and felt safe for discharge. Medical Records I reviewed the patient's medical records. Lab Data I reviewed the patient's lab results. 09/01/22 12:01 09/01/22 12:01 Radiology Impressions Chest X-Ray 09/01/22 11:44 IMPRESSION: 1. Hazy opacity at the medial aspect of the left lung base is nonspecific. Differential includes pneumonia, pooled secretions with bronchiectasis or chronic scarring. 2. Cardiomegaly. 3. Nodular densities at the left perihilar region appear significantly less prominent when compared to the prior study and may have represented adenopathy.. Foot X-Ray 09/01/22 11:44 IMPRESSION: Prominent hallux valgus deformity. Laboratory Results WBC 7.4 10^3/uL (4.0-10.0) 09/01/22 12:01 RBC 4.18 10^6/uL (4.1-5.3) 09/01/22 12:01 Hgb 13.5 g/dL (11.5-15.3) 09/01/22 12:01 Hct 40.2 % (37.0-47.0) 09/01/22 12:01 MCV 96.2 fl (81-99) 09/01/22 12:01 MCH 32.3 pg (28.0-34.0) 09/01/22 12:01 MCHC 33.6 g/dL (30.0-36.0) 09/01/22 12:01 RDW 12.6 % (12.1-15.1) 09/01/22 12:01 Plt Count 227 10^3/cmm (130-400) 09/01/22 12:01 MPV 9.9 fL (7.4-10.4) 09/01/22 12:01 Neut % (Auto) 58.8 % 09/01/22 12:01 Lymph % (Auto) 29.8 % 09/01/22 12:01 [place] % (Auto) 8.0 % 09/01/22 12:01 Eos % (Auto) 2.6 % 09/01/22 12:01 Baso % (Auto) 0.5 % 09/01/22 12:01 Neut # (Auto) 4.33 10^3/uL (1.8-7.7) 09/01/22 12:01 Lymph # (Auto) 2.2 10^3/uL (0.8-4.8) 09/01/22 12:01 [place] # (Auto) 0.6 10^3/uL (0.2-0.9) 09/01/22 12:01 Eos # (Auto) 0.2 10^3/uL (0.0-0.8) 09/01/22 12:01 Baso # (Auto) 0.0 10^3/uL (0.0-0.1) 09/01/22 12:01 Nucleated RBC % (auto) 0 % 09/01/22 12:01 Nucleated RBCs # 0.0 /100WBC 09/01/22 12:01 PT 27.60 SECONDS (12.1-14.9) H 09/01/22 12:01 INR 2.46 (0.8-1.2) H 09/01/22 12:01 APTT 38.8 SECONDS (23.9-36.7) H 09/01/22 12:01 Sodium 135 mmol/L (136-145) L 09/01/22 12:01 Potassium 4.6 mmol/L (3.5-5.1) 09/01/22 12:01 Chloride 98 mmol/L (98-107) 09/01/22 12:01 Carbon Dioxide 22 mmol/L (22-29) 09/01/22 12:01 Anion Gap 19.6 (5-19) H 09/01/22 12:01 BUN 27 mg/dL (8-23) H 09/01/22 12:01 Creatinine 1.9 mg/dL (0.5-0.9) H 09/01/22 12:01 GFR Calculation Not Reportable 09/01/22 12:01 Glucose 101 mg/dL (65-115) 09/01/22 12:01 Calculated Osmolality 285 mOsm/kg (285-295) 09/01/22 12:01 Calcium 10.0 mg/dL (8.5-10.5) 09/01/22 12:01 Magnesium 2.3 mg/dL (1.7-2.3) 09/01/22 12:01 Total Bilirubin 0.4 mg/dL (0.15-1.2) 09/01/22 12:01 AST 34 U/L (0-32) H 09/01/22 12:01 ALT 38 U/L (0-33) H 09/01/22 12:01 Alkaline Phosphatase 105 U/L (35-105) 09/01/22 12:01 Troponin T Baseline 37 ng/L (0-10) H 09/01/22 12:01 Troponin T 120 Minute 29.29 ng/L (0-10) H 09/01/22 14:03 Delta Troponin T -7.71 ABS# (0-10) L 09/01/22 14:03 NT-Pro-B Natriuret Pep 1340 pg/mL (0-125) H 09/01/22 12:01 Total Protein 7.6 g/dL (6.6-8.7) 09/01/22 12:01 Albumin 4.8 g/dL (3.5-5.2) 09/01/22 12:01 Globulin 2.8 g/dL (1.3-4.6) 09/01/22 12:01 Urine Color Yellow (Yellow) 09/01/22 13:09 Urine Appearance Sl hazy (CLEAR) A 09/01/22 13:09 Urine pH 5 (5-7) 09/01/22 13:09 Ur Specific [place] 1.015 (1.005-1.030) 09/01/22 13:09 Urine Protein Neg (Negative) 09/01/22 13:09 Urine Glucose (UA) Norm (Normal) 09/01/22 13:09 Urine Ketones Negative (Negative) 09/01/22 13:09 Urine Blood 3+ (Negative) H 09/01/22 13:09 Urine Nitrate Negative (Negative) 09/01/22 13:09 Urine Bilirubin Neg (Negative) 09/01/22 13:09 Urine Urobilinogen Norm mg/dL (Negative) 09/01/22 13:09 Ur Leukocyte Esterase Negative (Negative) 09/01/22 13:09 Urine RBC 0-4 /hpf (0-2) H 09/01/22 13:09 Urine WBC 5-10 /hpf (0-5) H 09/01/22 13:09 Ur Squamous Epith Cells 5-10 /hpf (0-5) H 09/01/22 13:09 Amorphous Sediment Trace /hpf 09/01/22 13:09 Urine Bacteria 1+ /hpf (NONE) H 09/01/22 13:09 Hyaline Casts 5-10 /lpf H 09/01/22 13:09 Urine Mucus Trace /hpf 09/01/22 13:09 Discharge Plan Discharge Patient Disposition: Home Clinical Impression: Atrial fibrillation, Dehydration, ANNALISE (acute kidney injury), Foot pain, Insomnia Condition: Stable Prescriptions: New trazodone 50 mg tablet 50 mg PO BEDTIME PRN (Reason: insomnia) Qty: 14 0RF No Action clonidine HCl 0.1 mg tablet 0.1 mg PO Q6H PRN (Reason: blood pressure over 160/90) tizanidine 4 mg tablet 4 mg PO BID PRN (Reason: muscle spasticity) rosuvastatin 20 mg tablet 20 mg PO QAM omeprazole 20 mg capsule,delayed release(DR/EC) 20 mg PO QAM diphenhydramine HCl [Benadryl Allergy] 25 mg tablet 50 mg PO .HS spironolactone 50 mg tablet 50 mg PO QAM Hold Instructions: Resume on 04/01/22. Hold until APPt with [facility] valsartan 160 mg tablet 160 mg PO .QPM Qty: 90 2RF acetaminophen 325 mg capsule 325 mg PO QID PRN metoprolol tartrate 25 mg tablet 12.5 mg PO DAILY PRN (Reason: heart rate >120) Qty: 30 0RF Rx Instructions: take only if heart rate >120 after taking your regular 75mg metoprolol warfarin 6 mg tablet 6 mg PO DAILY Qty: 90 2RF Protocol: Dose Management Condition: Tuesday Dose/Route: 6 mg Instruction: 1 x 6 mg tablet Condition: Tuesday Dose/Route: 6 mg Instruction: 1 x 6 mg tablet Condition: Tuesday Dose/Route: 7 mg Instruction: 1 x 1 mg tablet, 1 x 6 mg tablet Condition: Tuesday Dose/Route: 6 mg Instruction: 1 x 6 mg tablet Condition: Dose/Route: 7 mg Instruction: 1 x 1 mg tablet, 1 x 6 mg tablet Condition: Tuesday Dose/Route: 6 mg Instruction: 1 x 6 mg tablet Condition: Tuesday Dose/Route: 6 mg Instruction: 1 x 6 mg tablet Protocol Text: Adjustment Start Date: 09/09/22 INR Value: 2.3 INR Date: 09/07/22 Recheck Date: 09/16/22 Rx Instructions: As directed; based on INR results warfarin 1 mg tablet See Rx Instructions .ROUTE .COMPLEX Qty: 30 0RF Protocol: Dose Management Condition: Tuesday Dose/Route: 6 mg Instruction: 1 x 6 mg tablet Condition: Tuesday Dose/Route: 6 mg Instruction: 1 x 6 mg tablet Condition: Tuesday Dose/Route: 7 mg Instruction: 1 x 1 mg tablet, 1 x 6 mg tablet Condition: Tuesday Dose/Route: 6 mg Instruction: 1 x 6 mg tablet Condition: Dose/Route: 7 mg Instruction: 1 x 1 mg tablet, 1 x 6 mg tablet Condition: Tuesday Dose/Route: 6 mg Instruction: 1 x 6 mg tablet Condition: Tuesday Dose/Route: 6 mg Instruction: 1 x 6 mg tablet Protocol Text: Adjustment Start Date: 09/09/22 INR Value: 2.3 INR Date: 09/07/22 Recheck Date: 09/16/22 Dose Instruction: TAKE DIRECTED Rx Instructions: TAKE DIRECTED clopidogrel 75 mg tablet 75 mg PO QAM Vitamin C 500 mg Tablet 1,000 mg PO QAM Nitrostat 0.4 mg Tablet, Sublingual 0.4 mg SUBLINGUAL Q5M PRN (Reason: Chest Pain) Rx Instructions: do not exceed 3 doses per episode potassium gluconate 595 mg (99 mg) Tablet 1,190 mg PO QAM Vitamin D3 125 mcg (5,000 unit) Tablet 125 mcg PO QAM furosemide 40 mg tablet 40 mg PO QAM (DME) prothrombin time/INR test metr Misc See Rx Instructions .Route Qty: 1 0RF Rx Instructions: As directed metoprolol succinate 50 mg tablet extended release 24 hr 75 mg PO .HS Discharge Orders: Discharge ED (Routine); Ordered 09/01/22 Ordered By: Yaron Drake Referrals: Amador Cherry DO [Primary Care Provider] - Discharge Diet: Usual diet Discharge Activity: Increase activity as tolerated Patient Instructions: A-fib (Atrial Fibrillation) (ED), Dehydration (ED), Insomnia (ED) Activity Restrictions/Additional Instructions: Thank you for visiting the emergency department. You were seen and evaluated for generalized illness, foot pain, and atrial fibrillation. The exact cause of your symptoms is unclear though may be related to dehydration. Please ensure that you are staying hydrated. I will message case management for follow-up with podiatry regarding your foot. Please follow-up with your primary care provider. I recommend repeat kidney function testing within 1 week. Return to the emergency department for worsening symptoms, shortness of breath, chest pain, uncontrolled pain, decreased urine output, or anything else that you are concerned about and feel needs emergency department evaluation. Coding Level of Care Code ED Beater Out Leveling Machine for Kaila Miller
--- NOTE | 2022-09-01 11:44 | XR_ITS ---
WS: [id number] EXAMINATION: XR chest 1V portable [id number] REASON FOR EXAM: sob, afib COMPARISON: 03/21/2022 ORDER DATE: 09/01/2022 11:48 AM TECHNIQUE: A single, portable frontal chest x-ray was obtained. Lungs: There are nodular densities in the left perihilar region appear Significantly smaller compared to the prior study. Bandlike opacities however are similar. Pleural spaces: Unremarkable. No pleural effusion. No pneumothorax. Heart/Mediastinum: Cardiomegaly with minor atherosclerotic aortic change. Bones/joints: Unremarkable. Other findings: There are post-sternotomy changes and postoperative changes overlying the mediastinum. XR/XR chest 1V portable [id number] IMPRESSION: 1. Hazy opacity at the medial aspect of the left lung base is nonspecific. Differential includes pneumonia, pooled secretions with bronchiectasis or chron ic scarring. 2. Cardiomegaly. 3. Nodular densities at the left perihilar region appear significantly less prominent when compared to the prior study and may have represented adenopathy. .
--- NOTE | 2022-09-01 11:44 | XR_ITS ---
WS: [id number] EXAMINATION: XR foot RT min 3V* [id number] REASON FOR EXAM: foot pain post fall, forefoot planter COMPARISON: None available. ORDER DATE: 09/01/2022 11:48 AM TECHNIQUE: 3 views of the right foot were obtained. X-RAY FINDINGS: There are no fractures or dislocations is a prominent bunion deformity of hallux valgus change also i nvolving the toes.. No focal abnormal soft tissue swelling. Joint spaces are preserved. XR/XR foot RT min 3V* [id number] IMPRESSION: Prominent hallux valgus deformity.
--- NOTE | 2022-09-01 11:45 | ECG_ITS ---
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 Measurements Intervals [place] Rate: 78 P: 0 OK: 0 QRS: 59 QRSD: 125 T: 184 QT: 392 QTc: 449 Interpretive Statements ATRIAL FIBRILLATION MODERATE INTRAVENTRICULAR CONDUCTION DELAY [105+ ms QRS DURATION, 80+ ms Q/S IN V1/V2, NO Q AND 60+ ms R IN I/aVL/V5/V6] ST DEVIATION AND MODERATE T-WAVE ABNORMALITY, CONSIDER LATERAL ISCHEMIA [-0.1+ mV T-WAVE IN I/aVL/V5/V6] Compared to ECG 03/21/2022 16:32:14 No significant changes Electronically Signed On 09-01-2022 13:21:13 CDT by Jacques Parks M.D. [id number] f
[2022-09-01 12:11] LABS: Basophils % 0.5 %; Eosinophils # 0.2 10^3/uL (0.0-0.8); Eosinophils % 2.6 %; Hematocrit 40.2 % (37.0-47.0); Hemoglobin 13.5 g/dL (11.5-15.3); Lymphocytes # 2.2 10^3/uL (0.8-4.8); Lymphocytes % 29.8 %; Mean Corpuscular HGB Conc 33.6 g/dL (30.0-36.0); Mean Corpuscular Hemoglobin 32.3 pg (28.0-34.0); Mean Corpuscular Volume 96.2 fl (81-99); Mean Platelet Volume 9.9 fL (7.4-10.4); Monocytes # 0.6 10^3/uL (0.2-0.9); Neutrophils # 4.33 10^3/uL (1.8-7.7); Neutrophils % 58.8 %; Nucleated Red Blood Cells % 0 %; Platelet Count 227 10^3/cmm (130-400); Red Blood Count 4.18 10^6/uL (4.1-5.3); Red Cell Distribution Width 12.6 % (12.1-15.1); White Blood Count 7.4 10^3/uL (4.0-10.0)
[2022-09-01 12:16] VITALS: BP 104/70; PULSE 75; RESP 25; O2SAT 96
[2022-09-01 12:22] LABS: INR 2.46 (0.8-1.2); Partial Thromboplastin Time 38.8 SECONDS (23.9-36.7)
[2022-09-01 12:33] LABS: Troponin(5th) Baseline 37 ng/L (0-10)
[2022-09-01 12:44] LABS: Alanine Aminotransferase 38 U/L (0-33); Albumin Level 4.8 g/dL (3.5-5.2); Alkaline Phosphatase 105 U/L (35-105); Anion Gap 19.6 (5-19); Aspartate Amino Transferase 34 U/L (0-32); Blood Urea Nitrogen 27 mg/dL (8-23); Carbon Dioxide 22 mmol/L (22-29); Chloride 98 mmol/L (98-107); Globulin 2.8 g/dL (1.3-4.6); Glucose 101 mg/dL (65-115); Magnesium 2.3 mg/dL (1.7-2.3); NT Pro B Type Natriuretic Pept 1340 pg/mL (0-125); Osmolality Calculated 285 mOsm/kg (285-295); Potassium 4.6 mmol/L (3.5-5.1); Sodium 135 mmol/L (136-145); Total Bilirubin 0.4 mg/dL (0.15-1.2); Total Protein 7.6 g/dL (6.6-8.7)
[2022-09-01] MEDS: sodium chloride 0.9% 500 ML 999 ML IV (13:04)
[2022-09-01 13:16] VITALS: BP 104/74; PULSE 78; RESP 19; O2SAT 99
[2022-09-01 13:32] LABS: Add Urine Microscopic? YES; Bilirubin Urine Neg (Negative); Blood Urine 3+ (Negative); Glucose Urine UA Norm (Normal); Ketones Urine Negative (Negative); Leukocyte Esterase Urine Negative (Negative); Nitrate Urine Negative (Negative); Protein Urine Neg (Negative); Specific Gravity, Urine 1.015 (1.005-1.030); Urine Appearance SL Hazy (CLEAR); Urine Color Yellow (Yellow); Urobilinogen Urine Norm (Negative); pH Urine 5 (5-7)
--- NOTE | 2022-09-01 13:53 | ECG_ITS ---
[facility] Test Date: 2022-09-01 Pat Name: Jocelin Mcginnis Department: Room: Gender: Female Adjunct Nursing Faculty: : 1950 Requested By: Yaron Drake Order Number: [id number] Jyoti MD: Jacques Parks M.D. Measurements Intervals [place] Rate: 76 P: 0 GA: 0 QRS: 59 QRSD: 117 T: 197 QT: 407 QTc: 460 Interpretive Statements ATRIAL FIBRILLATION MODERATE INTRAVENTRICULAR CONDUCTION DELAY [105+ ms QRS DURATION, 80+ ms Q/S IN V1/V2, NO Q AND 60+ ms R IN I/aVL/V5/V6] ST DEVIATION AND MODERATE T-WAVE ABNORMALITY, CONSIDER LATERAL ISCHEMIA [-0.1+ mV T-WAVE IN I/aVL/V5/V6] ST DEVIATION AND MODERATE T-WAVE ABNORMALITY, CONSIDER INFERIOR ISCHEMIA [-0.1+ mV T-WAVE IN II/aVF] Compared to ECG 09/01/2022 11:27:55 No significant changes Electronically Signed On 09-01-2022 15:02:07 CDT by Jacques Parks M.D. [id number]
[2022-09-01 13:55] VITALS: BP 137/87; PULSE 81; RESP 21; O2SAT 98
[2022-09-01 14:11] VITALS: BP 133/76; PULSE 84; RESP 19; O2SAT 98
[2022-09-01 14:27] LABS: Troponin 5 2HR 29.29 ng/L (0-10)
[2022-09-01 14:35] LABS: Amorphous Sediment Urine TRACE /hpf; Bacteria Urine 1+ /hpf; Mucus Urine TRACE /hpf; RBC Urine 0-4 /hpf (0-2)
[2022-09-01 14:36] LABS: Add Urine Culture? No
[2022-09-01 14:49] LABS: Troponin 5 2HR Delta -7.71 ABS# (0-10)
[2022-09-01 15:28] VITALS: BP 142/97; PULSE 88; RESP 18; O2SAT 97
--- NOTE | 2022-09-02 09:27 | PC.SOCIAL ---
Addendum entered by Cherri Raymond 10/07/22 06:32: Patient had a follow up appointment scheduled with ortho - patient did attend appointment Addendum entered by Cherri Raymond 09/17/22 13:54: Patient has a follow up appointment scheduled for Tuesday, September 20, 2022 at 3:[address] Wright at ortho. Original Note: Podiatry Podiatry referral sent at this time. Clinic to contact patient with appt date/time.
== END 2022-09-01 15:29 | disposition home or self-care (01) ==
PROVIDERS: Emergency Provider Emergency Medicine; PCP Internal Medicine
DX: I48.91 Unspecified atrial fibrillation (principal); Z79.01 Long term (current) use of anticoagulants; E87.6 Hypokalemia; N17.9 Acute kidney failure, unspecified; M79.671 Pain in right foot
CPT/HCPCS: 36415; 71045; 73630; 80053; 81001; 83735; 83880; 84484; 85025; 85610; 85730; 93005; 99285; J7040

== ENCOUNTER → 2022-09-20 15:11 | Outpatient (BNVA) | payer MEDICARE, BC, SELFPAY | PROVIDERS: PCP Internal Medicine; Visit Provider Podiatrist Foot & Ankle Surgery | DX: M20.41 Other hammer toe(s) (acquired), right foot (principal); M21.611 Bunion of right foot; M77.41 Metatarsalgia, right foot; Z46.89 Encounter for fitting and adjustment of other specified devices | CPT/HCPCS: 73630; 97760; 99204; L3031 ==

== ENCOUNTER 2022-09-20 16:16 | Outpatient (CLI) | payer MEDICARE, SELFPAY | END 2022-09-20 16:17 | disposition home or self-care (01) | LOC: SPT 16:17 | PROVIDERS: PCP Internal Medicine; Visit Provider Podiatrist Foot & Ankle Surgery | DX: Z46.89 Encounter for fitting and adjustment of other specified devices (principal); S90.31XD Contusion of right foot, subsequent encounter; X58.XXXD Exposure to other specified factors, subsequent encounter; M20.41 Other hammer toe(s) (acquired), right foot; M21.611 Bunion of right foot; M77.41 Metatarsalgia, right foot | CPT/HCPCS: 97760; 99204; L3031 ==

== ENCOUNTER → 2022-11-10 14:20 | Outpatient (BNVA) | payer MEDICARE, SELFPAY | PROVIDERS: PCP Internal Medicine; Visit Provider Internal Medicine Cardiovascular Disease | DX: I48.91 Unspecified atrial fibrillation (principal); I25.10 Atherosclerotic heart disease of native coronary artery without angina pectoris; I11.0 Hypertensive heart disease with heart failure; I50.9 Heart failure, unspecified; Z95.2 Presence of prosthetic heart valve | CPT/HCPCS: 36415; 80048; 83735; 83880; 93005; 99214 ==

== ENCOUNTER 2022-11-17 12:40 | Outpatient (CLI) | payer MEDICARE, SELFPAY ==
--- NOTE | 2022-11-17 13:15 | USCV_ITS ---
Jocelin Mcginnis Age: 72 Gender: F : 1950 Exam Date: 11/17/2022 13:17 Ordering Phys: Sarahi Montes MD ([email or web address]) Technologist: TAE [place] [facility] [place]ication: SHORTNESS OF BREATH, CHRONIC HEASRT FAILURE, H/O MECHANICAL MITRAL VALVE BP: 145 / 90 HR: 85 Rhythm: Atrial fibrillation Technical Quality: Suboptimal MEASUREMENTS (Male / Female) Normal Values 2D ECHO LVOT Diameter 2.0 cm LV Ejection Fraction MOD 2C 45.2 % LV Ejection Fraction 2C AL 46.4 % LA Diameter 3.2 cm LA Width 3.3 cm LA Height 3.9 cm RA Width 3.3 cm RA Height 4.0 cm Aorta at Sinotubular Diameter 2.2 cm IVC Diameter 1.3 cm M-MODE Aortic Annulus Diameter 2.2 cm LA Ao Ratio MM 1.1 MV E Point Septal Separation 0.9 cm DOPPLER AV Peak Velocity 127.0 cm/s LVOT Peak Velocity 96.0 cm/s AV Area Cont Eq vti 2.2 cm squared AV Area Cont Eq pk 2.4 cm squared MV Peak Velocity 124.0 cm/s MV Area PHT 3.7 cm squared MV E' Velocity 76.5 cm/s Mitral E to MV E' Ratio 15.4 Mitral E to LV E' Lateral Ratio 12.3 Mitral E to LV E' Septal Ratio 20.6 TR Peak Velocity 250.0 cm/s TR Peak Gradient 25.0 mmHg TR Mean Velocity 204.6 cm/s TR Mean Gradient 16.9 mmHg TR Velocity Time Integral 74.2 cm TV Peak E Velocity 69.0 cm/s Right Atrial Pressure 3.0 mmHg Pulmonary Artery Systolic Pressu 28.0 mmHg PV Peak Velocity 88.0 cm/s RV Acceleration Time 0.1 s RV Ejection Time 0.3 s RV AcT/ET 0.2 FINDINGS Left Ventricle Dilated left ventricle. Moderately decreased left ventricular systolic function. Left ventricular ejection fraction is estimated at 40 %. Moderate diffuse hypokinesis. Echodense structure at left ventricular apex likely represents organized calcified thrombus. Right Ventricle Normal right ventricular size and systolic function. Right ventricular systolic pressure 28 mmHg. Right Atrium Normal right atrial size. Left Atrium Moderately increased left atrial size. Mitral Valve Mitral valve mechanical prosthesis well seated and normally functioning. Mitral valve mean gradient of 2 mmHg. Trace mitral valve regurgitation. Aortic Valve Aortic valve not well visualized. No aortic valve stenosis. No aortic valve regurgitation. Tricuspid Valve Structurally normal tricuspid valve. No tricuspid valve stenosis. Mild to moderate tricuspid valve regurgitation. Pulmonic Valve Pulmonic valve not well visualized. Pericardium No pericardial effusion. Aorta Normal size aortic root and proximal ascending aorta. IVC Normal IVC dimension with >50% respiratory change of the inferior vena cava. CONCLUSIONS 1. Dilated left ventricle. Moderately decreased left ventricular systolic function. Left ventricular ejection fraction is estimated at 40 %. Moderate diffuse hypokinesis. Echodense structure at left ventricular apex likely represents organized calcified thrombus. 2. Mitral valve mechanical prosthesis well seated and normally functioning. Mitral valve mean gradient of 2 mmHg. 3. Mild to moderate tricuspid valve regurgitation. 4. There may not have been any significant change when compared to study dated 03/25/2022. Sarahi Montes MD (Electronically Signed) Final Date: 24 November 2022 16:30 S
== END 2022-11-17 12:41 | disposition home or self-care (01) ==
PROVIDERS: PCP Internal Medicine; Visit Provider Internal Medicine Cardiovascular Disease
DX: I50.9 Heart failure, unspecified (principal); R06.02 Shortness of breath; Z95.2 Presence of prosthetic heart valve; I07.1 Rheumatic tricuspid insufficiency
CPT/HCPCS: 93306

== ENCOUNTER → 2022-12-08 12:40 | Outpatient (BNVA) | payer MEDICARE, SELFPAY | PROVIDERS: PCP Internal Medicine; Visit Provider Nurse Practitioner Family | DX: I11.0 Hypertensive heart disease with heart failure (principal); I50.9 Heart failure, unspecified; I25.118 Atherosclerotic heart disease of native coronary artery with other forms of angina pectoris; Z79.01 Long term (current) use of anticoagulants | CPT/HCPCS: 99214 ==

== ENCOUNTER 2022-12-11 19:53 | Emergency (ER) | payer MEDICARE, SELFPAY ==
[2022-12-11 20:05] VITALS: BP 131/93; PULSE 112; RESP 15; TEMP 36.4; O2SAT 99
--- NOTE | 2022-12-11 20:10 | XRR_ITS ---
PROCEDURE INFORMATION: Exam: XR Chest Exam date and time: 12/11/2022 8:32 PM Age: 72 years old Clinical indication: Pain; Angina pectoris; Prior surgery; Surgery date: 6+ months; Surgery type: Mitral valve; Additional info: Cp TECHNIQUE: Imaging protocol: Radiologic exam of the chest. Views: 1 view. COMPARISON: CR XR chest 1V portable [id number] 09/01/2022 11:52 AM FINDINGS: Tubes, catheters and devices: Prosthetic mitral valve. Lungs: Unremarkable. No consolidation. Pleural spaces: Unremarkable. No pleural effusion. No pneumothorax. Heart/Mediastinum: Possible cardiomegaly.Heart size not optimally evaluated with a single AP view of the chest. Vasculature: There is calcified plaque in the aortic knob. Bones/joints: Unremarkable. Other findings: There are post-sternotomy changes and postoperative changes overlying the mediastinum. There are calcifications overlying the left ventricle similar to the prior study. XR/XR chest 1V portable [id number] IMPRESSION: Possible cardiomegaly.Heart size not optimally evaluated with a single AP view of the chest. Prosthetic mitral valve.
--- NOTE | 2022-12-11 20:24 | ECG_ITS ---
[facility] Test Date: 2022-12-11 Pat Name: Jocelin Mcginnis Department: Room: Gender: Female Librarian Assistant: : 1950 Requested By: Jfee Suarez Order Number: [id number] Jyoti MD: Jacques Parks M.D. Measurements Intervals [place] Rate: 98 P: 0 DC: 0 QRS: 52 QRSD: 117 T: 214 QT: 358 QTc: 458 Interpretive Statements ATRIAL FIBRILLATION WITH ABERRANT CONDUCTION OR VENTRICULAR PREMATURE COMPLEXES MODERATE INTRAVENTRICULAR CONDUCTION DELAY [105+ ms QRS DURATION, 80+ ms Q/S IN V1/V2, NO Q AND 60+ ms R IN I/aVL/V5/V6] ST DEVIATION AND MODERATE T-WAVE ABNORMALITY, CONSIDER LATERAL ISCHEMIA [-0.1+ mV T-WAVE IN I/aVL/V5/V6] ST DEVIATION AND MODERATE T-WAVE ABNORMALITY, CONSIDER INFERIOR ISCHEMIA [-0.1+ mV T-WAVE IN II/aVF] Compared to ECG 11/10/2022 14:24:20 Ventricular premature complex(es) now present Aberrant conduction of supraventricular beat(s) now present T-wave abnormality still present Possible ischemia still present Electronically Signed On 12-12-2022 11:10:33 CDT by Jacques Parks M.D. [id number]
[2022-12-11 20:28] LABS: Basophils % 0.3 %; Eosinophils # 0.1 10^3/uL (0.0-0.8); Eosinophils % 0.5 %; Hematocrit 39.7 % (36-47); Lymphocytes # 1.4 10^3/uL (0.8-4.8); Lymphocytes % 12.5 %; Mean Corpuscular HGB Conc 35.3 g/dL (30-55); Mean Corpuscular Hemoglobin 33.4 pg (27-33); Mean Corpuscular Volume 94.7 fl (85-98); Mean Platelet Volume 9.6 fL (7.4-10.4); Monocytes # 0.6 10^3/uL (0.2-0.9); Monocytes % 5.5 %; Neutrophils # 8.85 10^3/uL (1.8-7.7); Neutrophils % 80.9 %; Nucleated Red Blood Cells % 0 %; Platelet Count 253 10^3/cmm (157-399); Red Blood Count 4.19 10^6/uL (3.85-5.65); Red Cell Distribution Width 11.9 % (12.1-15.1); White Blood Count 10.93 10^3/uL (3.29-11.43)
[2022-12-11 20:41] LABS: INR 2.09 (0.8-1.2); Partial Thromboplastin Time 29.7 SECONDS (23.9-36.7)
[2022-12-11 20:50] LABS: Troponin(5th) Baseline 25 ng/L (0-10)
[2022-12-11] MEDS: sodium chloride 0.9% 1,000 ML 999 ML IV (20:51)
[2022-12-11] MEDS: ondansetron 2 mg/ML SDV 2 mL 4 MG IVP (20:51)
[2022-12-11 21:07] LABS: Alanine Aminotransferase 36 U/L (0-33); Albumin Level 5.3 g/dL (3.5-5.2); Alkaline Phosphatase 99 U/L (35-105); Anion Gap 17.3 (5-19); Aspartate Amino Transferase 33 U/L (0-32); Blood Urea Nitrogen 28 mg/dL (8-23); Calcium 9.7 mg/dL (8.5-10.5); Carbon Dioxide 25 mmol/L (22-29); Chloride 103 mmol/L (98-107); Globulin 2.6 g/dL (1.3-4.6); Glucose 152 mg/dL (65-115); Lipase 26 U/L (13-60); NT Pro B Type Natriuretic Pept 1231 pg/mL (0-125); Osmolality Calculated 300 mOsm/kg (285-295); Potassium 4.3 mmol/L (3.5-5.1); Sodium 141 mmol/L (136-145); Total Bilirubin 0.7 mg/dL (0.15-1.2); Total Protein 7.9 g/dL (6.6-8.7)
[2022-12-11 21:15] VITALS: BP 98/66; PULSE 81; O2SAT 98
[2022-12-11 21:47] LABS: Add Urine Culture? Yes; Add Urine Microscopic? YES; Amorphous Sediment Urine 1+ /hpf; Bacteria Urine TRACE /hpf; Bilirubin Urine Neg (Negative); Blood Urine 3+ (Negative); Glucose Urine UA Norm (Normal); Ketones Urine Negative (Negative); Leukocyte Esterase Urine 1+ (Negative); Nitrate Urine Negative (Negative); Protein Urine 1+ (Negative); RBC Urine 0-4 /hpf (0-2); Specific Gravity, Urine 1.025 (1.005-1.030); Urine Appearance Clear (CLEAR); Urine Color Yellow (Yellow); Urobilinogen Urine Neg (Negative); pH Urine 5 (5-7)
[2022-12-11 22:01] VITALS: BP 106/90; PULSE 88; RESP 17; O2SAT 99
--- NOTE | 2022-12-11 22:10 | ECG_ITS ---
[facility] Test Date: 2022-12-11 Pat Name: Jocelin Mcginnis Department: Room: Gender: Female Civil Cad Tech: : 1950 Requested By: Jefe Suarez Order Number: [id number] Jyoti MD: Jacques Parks M.D. Measurements Intervals [place] Rate: 114 P: 0 SC: 0 QRS: 65 QRSD: 115 T: 235 QT: 323 QTc: 445 Interpretive Statements ATRIAL FIBRILLATION WITH RAPID VENTRICULAR RESPONSE SEPTAL MYOCARDIAL INFARCTION , OF INDETERMINATE AGE [40+ ms Q WAVE IN V1/V2] ST DEVIATION AND MODERATE T-WAVE ABNORMALITY, CONSIDER LATERAL ISCHEMIA [-0.1+ mV T-WAVE IN I/aVL/V5/V6] ST DEVIATION AND MODERATE T-WAVE ABNORMALITY, CONSIDER INFERIOR ISCHEMIA [-0.1+ mV T-WAVE IN II/aVF] Compared to ECG 11/10/2022 14:24:20 Myocardial infarct finding now present Intraventricular conduction delay no longer present T-wave abnormality still present Possible ischemia still present Electronically Signed On 12-12-2022 11:12:18 CDT by Jacques Parks M.D. [id number]
[2022-12-11 22:30] VITALS: BP 105/85; PULSE 88; RESP 23; O2SAT 99
--- NOTE | 2022-12-11 22:49 | W.ED.ARRPALP ---
HPI - Arrhythmia/Palpitations General: Chief Complaint: Arrhythmia/Palpitations Stated Complaint: ABD\AFib Time Seen by Provider: 12/11/22 20:09 History of Present Illness: 72-year-old female with a history of atrial fibrillation and coronary disease. She presents with a history of vomiting and diarrhea, and chest heaviness starting around 7 PM this evening. Nausea has improved at this point. No more vomiting. She denies cough or congestion. She denies fever. She feels like she is in A-fib . Symptoms are mostly improved at this point. Denies any recent illness otherwise, or exposure to illnesses. Associated symptoms: Reports nausea and vomiting Review of Systems Const: Denies: fever(s) or chills Eyes: Denies: change in vision ENMT: Denies: throat pain Card: Reports: chest pain and palpitations Resp: Denies: dyspnea, productive cough or non-productive cough GI: Reports: abdominal pain, nausea and vomiting : Denies: flank pain Skin/Breast: Denies: rash Neuro: Denies: headache(s) PFS ED PFSH: Medical History (Updated 12/12/22 @ 00:00 by Jefe Perdomo DO) CAD (coronary artery disease) stent to mid LAD 11/02/2018 CHF (congestive heart failure) Diabetes mellitus diagnosed in 2017 HTN (hypertension) with goal to be determined Hypothyroidism Osteoporosis Surgical History Mitral valve replaced S/P cholecystectomy S/P hysterectomy S/P mitral valve replacement [place] Eran valve by Dr. Wilder [place] 2006 Family History Father CAD (coronary artery disease) Stroke Mother CAD (coronary artery disease) Diabetes Hypertension Sister CAD (coronary artery disease) Hypertension Lung disease Psychiatric illness Son Lung disease Denies family history of Clotting disorder Dementia Hyperlipidemia Chronic kidney disease (CKD) Suicide Anesthesia complication Bleeding disorder Family history of premature coronary artery disease Cancer Social History Smoking and tobacco status: never smoked Second hand smoke exposure: Yes Alcohol intake: never Substance/Drug Use: never Physical Exam Const: COMMON NORMALS: no acute distress GENERAL APPEARANCE: cooperative and frail appearing (Mildly); not ill appearing HENMT: COMMON NORMALS: normocephalic, atraumatic and Normal external nose present HEAD & SCALP: normocephalic and atraumatic FACE & SINUS: normal facial exam and face symmetric NOSE: Normal external nose present Eye: COMMON NORMALS: Equal, round and reactive pupils present and EOMs intact bilaterally PUPIL: Yes Equal, round and reactive pupils present Neck/C-Spine: GENERAL: Yes trachea midline Chest: CHEST: Yes Symmetrical chest wall rise Resp: COMMON NORMALS: normal respiratory effort, No retractions, No use of accessory muscles and clear to auscultation bilaterally AUSCULTATION: clear to auscultation bilaterally Cardio: RATE: tachycardic RHYTHM: abnormal rhythm irregularly irregular GI: COMMON NORMALS: Normal to inspection, nondistended, normoactive bowel sounds present Extremity: COMMON NORMALS: no pedal edema Neuro: MYRIAM COMA SCALE: document GCS findings Myriam coma scale eye opening: Spontaneous Ramona coma scale verbal response: Orientated Myriam coma scale motor response: Obey commands Ramona coma scale total score: 15 SENSORY EXAM: Yes extremities (intact) Psych: COMMON NORMALS: speech normal SPEECH: Yes normal speech Skin: COMMON NORMALS: no rashes or lesions noted GENERAL SKIN EXAM: no rashes or lesions noted Course Vital Signs: Vital signs: Vital Signs Temperature 97.6 F 12/11/22 20:05 Pulse Rate 79 12/12/22 00:45 Respiratory Rate 20 H 12/12/22 00:45 Blood Pressure 115/69 12/12/22 00:45 Pulse Oximetry 96 12/12/22 00:45 Oxygen Delivery Me thod Room Air 12/12/22 00:30 MDM - Arrhythmia/Palpitations Medical Decision Making Heart rate is improved after liter fluid bolus. Blood pressure is 102/63. Saturations are 99%. Pain is gone. The patient also has a prosthetic mitral valve, mechanical. Her INR is 2.09. CBC is normal. Creatinine is mildly elevated at 1.5, although she has been this elevated before. Urinalysis is equivocal/contaminated. BNP is 1200. Chest x-ray shows the mechanical valve and cardiomegaly. She is feeling improved after GI cocktail, IV fluid and antiemetics. She wishes to go home. She will be allowed. Lab Data 12/11/22 20:21 12/11/22 20:21 Radiology Impressions Chest X-Ray 12/11/22 20:10 IMPRESSION: Possible cardiomegaly.Heart size not optimally evaluated with a single AP view of the chest. Prosthetic mitral valve. Laboratory Results WBC 10.93 10^3/uL (3.29-11.43) 12/11/22 20:21 RBC 4.19 10^6/uL (3.85-5.65) 12/11/22 20:21 Hgb 14.00 g/dL (11.27-16.99) 12/11/22 20:21 Hct 39.7 % (36-47) 12/11/22 20:21 MCV 94.7 fl (85-98) 12/11/22 20:21 MCH 33.4 pg (27-33) H 12/11/22 20:21 MCHC 35.3 g/dL (30-55) 12/11/22 20:21 RDW 11.9 % (12.1-15.1) L 12/11/22 20:21 Plt Count 253 10^3/cmm (157-399) 12/11/22 20:21 MPV 9.6 fL (7.4-10.4) 12/11/22 20:21 Neut % (Auto) 80.9 % 12/11/22 20:21 Lymph % (Auto) 12.5 % 12/11/22 20:21 [place] % (Auto) 5.5 % 12/11/22 20:21 Eos % (Auto) 0.5 % 12/11/22 20:21 Baso % (Auto) 0.3 % 12/11/22 20:21 Neut # (Auto) 8.85 10^3/uL (1.8-7.7) H 12/11/22 20:21 Lymph # (Auto) 1.4 10^3/uL (0.8-4.8) 12/11/22 20:21 [place] # (Auto) 0.6 10^3/uL (0.2-0.9) 12/11/22 20:21 Eos # (Auto) 0.1 10^3/uL (0.0-0.8) 12/11/22 20:21 Baso # (Auto) 0.0 10^3/uL (0.0-0.1) 12/11/22 20:21 Nucleated RBC % (auto) 0 % 12/11/22 20:21 Nucleated RBCs # 0.0 /100WBC 12/11/22 20:21 PT 24.30 SECONDS (12.1-14.9) H 12/11/22 20:21 INR 2.09 (0.8-1.2) H 12/11/22 20:21 APTT 29.7 SECONDS (23.9-36.7) 12/11/22 20:21 Sodium 141 mmol/L (136-145) 12/11/22 20:21 Potassium 4.3 mmol/L (3.5-5.1) 12/11/22 20:21 Chloride 103 mmol/L (98-107) 12/11/22 20:21 Carbon Dioxide 25 mmol/L (22-29) 12/11/22 20:21 Anion Gap 17.3 (5-19) 12/11/22 20:21 BUN 28 mg/dL (8-23) H 12/11/22 20:21 Creatinine 1.5 mg/dL (0.5-0.9) H 12/11/22 20:21 GFR Calculation Not Reportable 12/11/22 20:21 Glucose 152 mg/dL (65-115) H 12/11/22 20:21 Calculated Osmolality 300 mOsm/kg (285-295) H 12/11/22 20:21 Calcium 9.7 mg/dL (8.5-10.5) 12/11/22 20:21 Total Bilirubin 0.7 mg/dL (0.15-1.2) 12/11/22 20:21 AST 33 U/L (0-32) H 12/11/22 20:21 ALT 36 U/L (0-33) H 12/11/22 20:21 Alkaline Phosphatase 99 U/L (35-105) 12/11/22 20:21 Troponin T Baseline 25 ng/L (0-10) H 12/11/22 20:21 Troponin T 120 Minute 16.86 ng/L (0-10) H 12/11/22 22:38 Delta Troponin T -8.14 ABS# (0-10) L 12/11/22 22:38 NT-Pro-B Natriuret Pep 1231 pg/mL (0-125) H 12/11/22 20:21 Total Protein 7.9 g/dL (6.6-8.7) 12/11/22 20:21 Albumin 5.3 g/dL (3.5-5.2) H 12/11/22 20:21 Globulin 2.6 g/dL (1.3-4.6) 12/11/22 20:21 Lipase 26 U/L (13-60) 12/11/22 20:21 Urine Color Yellow (Yellow) 12/11/22 20:53 Urine Appearance Clear (CLEAR) 12/11/22 20:53 Urine pH 5 (5-7) 12/11/22 20:53 Ur Specific [place] 1.025 (1.005-1.030) 12/11/22 20:53 Urine Protein 1+ (Negative) H 12/11/22 20:53 Urine Glucose (UA) Norm (Normal) 12/11/22 20:53 Urine Ketones Negative (Negative) 12/11/22 20:53 Urine Blood 3+ (Negative) H 12/11/22 20:53 Urine Nitrate Negative (Negative) 12/11/22 20:53 Urine Bilirubin Neg (Negative) 12/11/22 20:53 Urine Urobilinogen Neg mg/dL (Negative) 12/11/22 20:53 Ur Leukocyte Esterase 1+ (Negative) H 12/11/22 20:53 Urine RBC 0-4 /hpf (0-2) H 12/11/22 20:53 Urine WBC 5-10 /hpf (0-5) H 12/11/22 20:53 Ur Squamous Epith Cells 5-10 /hpf (0-5) H 12/11/22 20:53 Amorphous Sediment 1+ /hpf 12/11/22 20:53 Urine Bacteria Trace /hpf (NONE) 12/11/22 20:53 Hyaline Casts 5-10 /lpf H 12/11/22 20:53 Nasal Influ A H1 2008 PCR Not detected (NOT DETECT) 12/11/22 21:26 Adenovirus (PCR) Not detected (NOT DETECT) 12/11/22 21:26 C. pneumoniae DNA (PCR) Not detected (NOT DETECT) 12/11/22 21:26 Coronavirus 229E (PCR) Not detected (NOT DETECT) 12/11/22 21:26 Human Metapneumovir PCR Not detected (NOT DETECT) 12/11/22 21:26 Influenza A (H1) PCR Not detected (NOT DETECT) 12/11/22 21:26 Influenza A (H3) PCR Not detected (NOT DETECT) 12/11/22 21:26 Influenza Type A (PCR) Not detected (NOT DETECT) 12/11/22 21:26 Influenza Type B (PCR) Not detected (NOT DETECT) 12/11/22 21:26 M. pneumoniae (PCR) Not detected (NOT DETECT) 12/11/22 21:26 Parainfluenza 1 (PCR) Not detected (NOT DETECT) 12/11/22 21:26 Parainfluenza 2 (PCR) Not detected (NOT DETECT) 12/11/22 21:26 Parainfluenza 3 (PCR) Not detected (NOT DETECT) 12/11/22 21:26 Parainfluenza 4 (PCR) Not detected (NOT DETECT) 12/11/22 21:26 RSV Type A (PCR) Not detected (NOT DETECT) 12/11/22 21:26 RSV Type B (PCR) Not detected (NOT DETECT) 12/11/22 21:26 Entero/Rhino (PCR) Not detected (NOT DETECT) 12/11/22 21:26 SARS-CoV-2 (PCR) Not detected (NOT DETECT) 12/11/22 21:26 All radiology interpretation(s) finalized by discharge Discharge Plan Discharge Patient Disposition: Home Clinical Impression: Atrial fibrillation, Vomiting in adult Condition: Stable Prescriptions: No Action clonidine HCl 0.1 mg tablet 0.1 mg PO Q6H PRN (Reason: blood pressure over 160/90) tizanidine 4 mg tablet 4 mg PO BID PRN (Reason: muscle spasticity) rosuvastatin 20 mg tablet 20 mg PO QAM omeprazole 20 mg capsule,delayed release(DR/EC) 20 mg PO QAM furosemide 40 mg tablet 40 mg PO QAM Qty: 90 3RF diphenhydramine HCl [Benadryl Allergy] 25 mg tablet 50 mg PO .HS spironolactone 50 mg tablet 50 mg PO QAM Hold Instructions: Resume on 04/01/22. Hold until APPt with [place] acetaminophen 325 mg capsule 325 mg PO QID PRN metoprolol tartrate 25 mg tablet 12.5 mg PO DAILY PRN (Reason: heart rate >120) Qty: 30 0RF Rx Instructions: take only if heart rate >120 after taking your regular 75mg metoprolol warfarin 6 mg tablet 6 mg PO DAILY Qty: 90 2RF Protocol: Dose Management Condition: Tuesday Dose/Route: 6 mg Instruction: 1 x 6 mg tablet Condition: Tuesday Dose/Route: 6 mg Instruction: 1 x 6 mg tablet Condition: Tuesday Dose/Route: 7 mg Instruction: 1 x 1 mg tablet, 1 x 6 mg tablet Condition: Tuesday Dose/Route: 6 mg Instruction: 1 x 6 mg tablet Condition: Dose/Route: 6 mg Instruction: 1 x 6 mg tablet Condition: Tuesday Dose/Route: 6 mg Instruction: 1 x 6 mg tablet Condition: Tuesday Dose/Route: 6 mg Instruction: 1 x 6 mg tablet Protocol Text: Adjustment Start Date: Tuesday11/19/22 INR Value: 3.2 INR Date: 11/18/22 Recheck Date: 11/26/22 Rx Instructions: As directed; based on INR results (DME) Carbon Fiber Plate to the right See Rx Instructions .Route .MEDSUPPLY Qty: 1 0RF Rx Instructions: As directed sacubitril-valsartan 97-103 mg tablet 1 tab PO BID Qty: 180 3RF warfarin 5 mg tablet 5 mg PO DAILY Qty: 90 3RF Protocol: Dose Management Condition: Tuesday Dose/Route: 6 mg Instruction: 1 x 6 mg tablet Condition: Tuesday Dose/Route: 6 mg Instruction: 1 x 6 mg tablet Condition: Tuesday Dose/Route: 7 mg Instruction: 1 x 1 mg tablet, 1 x 6 mg tablet Condition: Tuesday Dose/Route: 6 mg Instruction: 1 x 6 mg tablet Condition: Dose/Route: 6 mg Instruction: 1 x 6 mg tablet Condition: Tuesday Dose/Route: 6 mg Instruction: 1 x 6 mg tablet Condition: Tuesday Dose/Route: 6 mg Instruction: 1 x 6 mg tablet Protocol Text: Adjustment Start Date: Tuesday11/19/22 INR Value: 3.2 INR Date: 11/18/22 Recheck Date: 11/26/22 warfarin 1 mg tablet See Rx Instructions .ROUTE .COMPLEX Qty: 30 0RF Protocol: Dose Management Condition: Tuesday Dose/Route: 6 mg Instruction: 1 x 6 mg tablet Condition: Tuesday Dose/Route: 6 mg Instruction: 1 x 6 mg tablet Condition: Tuesday Dose/Route: 7 mg Instruction: 1 x 1 mg tablet, 1 x 6 mg tablet Condition: Tuesday Dose/Route: 6 mg Instruction: 1 x 6 mg tablet Condition: Dose/Route: 6 mg Instruction: 1 x 6 mg tablet Condition: Tuesday Dose/Route: 6 mg Instruction: 1 x 6 mg tablet Condition: Tuesday Dose/Route: 6 mg Instruction: 1 x 6 mg tablet Protocol Text: Adjustment Start Date: Tuesday11/19/22 INR Value: 3.2 INR Date: 11/18/22 Recheck Date: 11/26/22 Dose Instruction: TAKE DIRECTED Rx Instructions: TAKE DIRECTED clopidogrel 75 mg tablet 75 mg PO QAM Qty: 90 1RF Vitamin C 500 mg Tablet 1,000 mg PO QAM Nitrostat 0.4 mg Tablet, Sublingual 0.4 mg SUBLINGUAL Q5M PRN (Reason: Chest Pain) Rx Instructions: do not exceed 3 doses per episode potassium gluconate 595 mg (99 mg) Tablet 1,190 mg PO QAM Vitamin D3 125 mcg (5,000 unit) Tablet 125 mcg PO QAM (DME) prothrombin time/INR test metr Misc See Rx Instructions .Route Qty: 1 0RF Rx Instructions: As directed metoprolol succinate 50 mg tablet extended release 24 hr 75 mg PO .HS Discharge Orders: Discharge ED (Routine); Ordered 12/12/22 Ordered By: Jefe Perdomo Referrals: Amador Cherry DO [Primary Care Provider] - 1-3 days Patient Instructions: A-fib (Atrial Fibrillation) (ED), Opioid Safety, Pain Management, Vomiting - Adult Activity Restrictions/Additional Instructions: Return for continued vomiting, worsening pain, shortness of breath, fever, other concerning symptoms. See your doctor next week. Coding Level of Care Code ED Cottonseed Meat Presser for Kaila Miller
[2022-12-11 23:00] VITALS: BP 132/87; PULSE 78; RESP 25; O2SAT 97
[2022-12-11 23:06] LABS: Troponin 5 2HR 16.86 ng/L (0-10)
[2022-12-11 23:07] LABS: Troponin 5 2HR Delta -8.14 ABS# (0-10)
[2022-12-11 23:11] LABS: Adenovirus Not Detected (NOT DETECT); Chlamydia Pneumoniae Not Detected (NOT DETECT); Coronavirus 229E,HKU1,NL63,OC4 Not Detected (NOT DETECT); Human Metapneumovirus Not Detected (NOT DETECT); Human Rhinovirus/Enterovirus Not Detected (NOT DETECT); Influenza A Not Detected (NOT DETECT); Influenza A H1 Not Detected (NOT DETECT); Influenza A H1-2009 Not Detected (NOT DETECT); Influenza A H3 Not Detected (NOT DETECT); Influenza B Not Detected (NOT DETECT); Mycoplasma Pneumoniae Not Detected (NOT DETECT); Parainfluenza Virus Type 1 Not Detected (NOT DETECT); Parainfluenza Virus Type 2 Not Detected (NOT DETECT); Parainfluenza Virus Type 3 Not Detected (NOT DETECT); Parainfluenza Virus Type 4 Not Detected (NOT DETECT); Respiratory Syncytial Virus A Not Detected (NOT DETECT); Respiratory Syncytial Virus B Not Detected (NOT DETECT); SARS-COV-2 Not Detected (NOT DETECT)
[2022-12-11 23:30] VITALS: BP 118/73; PULSE 77; RESP 34; O2SAT 96
[2022-12-12] VITALS: BP 121/73; PULSE 76; RESP 17; O2SAT 97
[2022-12-12] MEDS: lidocaine 2% viscous 15 ML, aluminum-mag hydrox-simethicon 30 ML, sucralfate oral liq 1 GM PO (00:02)
[2022-12-12 00:30] VITALS: BP 109/69; PULSE 76; RESP 20; O2SAT 95
[2022-12-12 00:45] VITALS: BP 115/69; PULSE 79; RESP 20; O2SAT 96
== END 2022-12-12 00:45 | disposition home or self-care (01) ==
PROVIDERS: Emergency Provider Emergency Medicine; PCP Internal Medicine
DX: R11.11 Vomiting without nausea (principal); I48.91 Unspecified atrial fibrillation; Z79.01 Long term (current) use of anticoagulants; Z79.02 Long term (current) use of antithrombotics/antiplatelets; Z11.52 Encounter for screening for COVID-19; Z77.22 Contact with and (suspected) exposure to environmental tobacco smoke (acute) (chronic); I25.10 Atherosclerotic heart disease of native coronary artery without angina pectoris; I11.0 Hypertensive heart disease with heart failure; I50.9 Heart failure, unspecified; E11.9 Type 2 diabetes mellitus without complications
CPT/HCPCS: 36415; 71045; 80053; 81001; 83690; 83880; 84484; 85025; 85610; 85730; 87086; 87486; 87581; 87633; 93005; 99285; J2405; J7030

== ENCOUNTER 2022-12-17 13:16 | Outpatient (CLI) | payer MEDICARE, SELFPAY ==
[2022-12-17 14:12] LABS: Anion Gap 14.5 (5-19); Blood Urea Nitrogen 26 mg/dL (8-23); Calcium 9.3 mg/dL (8.5-10.5); Carbon Dioxide 28 mmol/L (22-29); Chloride 100 mmol/L (98-107); Glucose 100 mg/dL (65-115); NT Pro B Type Natriuretic Pept 974 pg/mL (0-125); Osmolality Calculated 291 mOsm/kg (285-295); Potassium 4.5 mmol/L (3.5-5.1); Sodium 138 mmol/L (136-145)
== END 2022-12-17 13:17 | disposition home or self-care (01) ==
LOC: LAB 13:22
PROVIDERS: Nurse Practitioner Family; PCP Internal Medicine; Visit Provider Internal Medicine
DX: I25.118 Atherosclerotic heart disease of native coronary artery with other forms of angina pectoris (principal); I25.5 Ischemic cardiomyopathy
CPT/HCPCS: 80048; 83880

== ENCOUNTER 2023-01-03 10:10 | Outpatient (CLI) | payer MEDICARE, SELFPAY ==
--- NOTE | 2023-01-03 10:27 | MM_ITS ---
WS: [id number] BILATERAL SCREENING DIGITAL TOMOSYNTHESIS MAMMOGRAM WITH CAD HISTORY: SCREENING COMPARISON: 01/19/2021 and 12/22/2017 and 12/21/2016 Bilateral CC and MLO views with tomosynthesis and synthetic mammography submitted. Computer aided det ection analyzed. Breast composition: There are scattered areas of fibroglandular density. No suspicious masses, microc alcifications or architectural distortion. Asymmetries are stable. Benign breast arterial calcificati ons. IMPRESSION: MM/[place] [id number] BI-RADS: 2-Benign FOLLOW UP: 1 Year Follow-up
== END 2023-01-03 10:11 | disposition home or self-care (01) ==
PROVIDERS: PCP Internal Medicine; Visit Provider Physician Assistant
DX: Z12.31 Encounter for screening mammogram for malignant neoplasm of breast (principal)
CPT/HCPCS: 77063; 77067

== ENCOUNTER → 2023-02-16 11:44 | Outpatient (BNVA) | payer MEDICARE, SELFPAY | PROVIDERS: PCP Internal Medicine; Visit Provider Internal Medicine Cardiovascular Disease | DX: I11.0 Hypertensive heart disease with heart failure (principal); I50.9 Heart failure, unspecified; I48.91 Unspecified atrial fibrillation; Z95.2 Presence of prosthetic heart valve; I25.10 Atherosclerotic heart disease of native coronary artery without angina pectoris; E11.9 Type 2 diabetes mellitus without complications; Z79.01 Long term (current) use of anticoagulants | CPT/HCPCS: 99214 ==

== ENCOUNTER 2023-05-01 21:21 | Inpatient (IN) | payer MEDICARE, SELFPAY ==
--- NOTE | 2023-05-01 21:23 | XRR_ITS ---
PROCEDURE INFORMATION: Exam: XR Chest Exam date and time: 05/01/2023 9:43 PM Age: 72 years old Clinical indication: Angina pectoris; Prior surgery; Surgery date: 6+ months; Surgery type: Cabg, avr; Patient HX: Chest pain; HX cabg, avr TECHNIQUE: Imaging protocol: Radiologic exam of the chest. Views: 1 view. COMPARISON: CR (CHEST, ) 12/11/2022 8:32 PM FINDINGS: Lungs: No focal consolidation. Moderate-severe emphysematous changes. Pleural spaces: No evidence of pneumothorax. No evidence of pleural effusion. Heart/Mediastinum: Postsurgical changes of the mediastinum compatible with prior CABG and mitral valve repair/replacement. Cardiomediastinal silhouette is otherwise within normal limits. Bones/joints: No evidence of acute osseous abnormality. XR/XR chest 1V portable [id number] IMPRESSION: 1. Emphysematous changes without acute cardiopulmonary abnormality.
--- NOTE | 2023-05-01 21:32 | ECG_ITS ---
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 Measurements Intervals [place] Rate: 131 P: 0 MA: 0 QRS: 78 QRSD: 114 T: 256 QT: 309 QTc: 458 Interpretive Statements ATRIAL FIBRILLATION WITH RAPID VENTRICULAR RESPONSE WITH ABERRANT CONDUCTION OR VENTRICULAR PREMATURE COMPLEXES MODERATE INTRAVENTRICULAR CONDUCTION DELAY [105+ ms QRS DURATION, 80+ ms Q/S IN V1/V2, NO Q AND 60+ ms R IN I/aVL/V5/V6] ST DEVIATION AND MODERATE T-WAVE ABNORMALITY, CONSIDER LATERAL ISCHEMIA [-0.1+ mV T-WAVE IN I/aVL/V5/V6] ST DEVIATION AND MODERATE T-WAVE ABNORMALITY, CONSIDER INFERIOR ISCHEMIA [-0.1+ mV T-WAVE IN II/aVF] Compared to ECG 12/11/2022 20:24:36 No significant changes Electronically Signed On 05-01-2023 23:05:45 ARCHITECTURAL WOOD MODEL MAKER by Dirk Monroy M.D. [id number]
[2023-05-01 21:38] VITALS: BP 151/82; PULSE 115; RESP 17; TEMP 37.3; O2SAT 96; BMI 25.7
--- NOTE | 2023-05-01 21:46 | ED_ITS ---
HPI - Arrhythmia/Palpitations 2 General: Chief Complaint: Arrhythmia/Palpitations Stated Complaint: SOB\Heart Feels Tight Time Seen by Provider: 05/01/23 21:25 Source: patient Mode of arrival: ambulatory Limitations: no limitations History of Present Illness: 72-year-old female with a history of A-f ib along with CHF she had valve replacements and stents in the past. States she has not felt well over the last 2 days states she has been feeling short of breath she has had palpitations as well along with chest pain states her pain in the 2 out of 10 she denies any fever denies any vomiting denies any diarrhea. She denies any cough. Associated symptoms: Deny nausea or vomiting Review of Systems 2 Const: Reports: fatigue; Denies: fever(s), chills, body aches or change in appetite ENMT: Denies: throat pain or dental pain Card: Reports: chest pain, palpitations and irregular heart rhythm Resp: Reports: dyspnea GI: Denies: abdominal pain, nausea, vomiting or diarrhea : Denies: dysuria Musc: Denies: neck pain or back pain Skin/Breast: Denies: rash Neuro: Denies: headache(s) PFSH ED 2 PFSH: Medical History (Updated 05/02/23 @ 00:30 by Heladio Amin MD) Osteoporosis Hypothyroidism Diabetes mellitus diagnosed in 2017 HTN (hypertension) with goal to be determined CHF (congestive heart failure) CAD (coronary artery disease) stent to mid LAD 11/02/2018 Surgical History S/P hysterectomy S/P cholecystectomy S/P mitral valve replacement St Eran valve by Dr. Wilder [place] 2006 Mitral valve replaced Family History Father CAD (coronary artery disease) Stroke Mother CAD (coronary artery disease) Diabetes Hypertension Sister CAD (coronary artery disease) Hypertension Lung disease Psychiatric illness Son Lung disease Denies family history of Clotting disorder Dementia Hyperlipidemia Chronic kidney disease (CKD) Suicide Anesthesia complication Bleeding disorder Family history of premature coronary artery disease Cancer Social History Smoking and tobacco/nicotine status: never used tobacco/nicotine Second hand smoke exposure: Yes Alcohol intake: never Substance/Drug Use: never Physical Exam 2 Const: COMMON NORMALS: patient oriented x3 HENMT: COMMON NORMALS: normocephalic and atraumatic HEAD & SCALP: n ormocephalic and atraumatic Eye: COMMON NORMALS: conjunctivae normal CONJUNCTIVA: Yes conjunctivae normal Neck/C-Spine: COMMON NORMALS: full ROM and supple Chest: COMMONS NORMALS: normal inspection of the chest and normal palpation of entire chest wall Resp: COMMON NORMALS: No retractions, No use of accessory muscles and clear to auscultation bilaterally AUSCULTATION: clear to auscultation bilaterally Cardio: COMMON NORMALS: No murmurs present (Cardio) RATE: tachycardic R HYTHM: abnormal rhythm irregularly irregular GI: COMMON NORMALS: Normal to inspection, nondistended, normoactive bowel sounds present, Soft to palpation, non-tender and no masses PALPATION: Yes Soft to palpation Extremity: COMMON NORMALS: normal to inspection and full ROM Neuro: COMMON NORMALS: patient oriented x3, moves all extremities and no focal motor deficits Psych: COMMON NORMALS: mental status grossly normal, Normal thought process present and cooperative THOUGHT PROCESS: Normal thought process present Skin: COMMON NORMALS: no rashes or lesions noted and no wounds GENERAL SKIN EXAM: no rashes or lesions noted Course 2 Vital Signs: Vital signs: Vital Signs Temperature 99.2 F 05/01/23 21:38 Pulse Rate 84 05/02/23 00:00 Respiratory Rate 24 H 05/01/23 22:43 Blood Pressure 125/76 05/02/23 00:00 Pulse Oximetry 95 05/02/23 00:00 Oxygen Delivery Me thod Nasal Cannula 05/01/23 22:43 MDM - Arrhythmia/Palpitations Medical Decision Making Patient presents here with chest pain she is also in A-fib with RVR her heart rate here is improved after Cardizem she did have a positive delta we will start her on Lovenox she could have a slight troponin increase from her A-fib but she has had some pain will admit for ACS rule out Medical Records I reviewed the patient's medical records. Lab Data I reviewed the patient's lab results. 05/01/23 21:46 05/01/23 21:46 Radiology Impressions Chest X-Ray 05/01/23 21:23 IMPRESSION: 1. Emphysematous changes without acute cardiopulmonary abnormality. Laboratory Results WBC 10.96 10^3/uL (3.29-11.43) 05/01/23 21:46 RBC 3.78 10^6/uL (3.85-5.65) L 05/01/23 21:46 Hgb 12.10 g/dL (11.27-16.99) 05/01/23 21:46 Hct 35.7 % (36-47) L 05/01/23 21:46 MCV 94.4 fl (85-98) 05/01/23 21:46 MCH 32.0 pg (27-33) 05/01/23 21:46 MCHC 33.9 g/dL (30-55) 05/01/23 21:46 RDW 13.2 % (12.1-15.1) 05/01/23 21:46 Plt Count 173 10^3/cmm (157-399) 05/01/23 21:46 MPV 9.5 fL (7.4-10.4) 05/01/23 21:46 Neut % (Auto) 87.4 % 05/01/23 21:46 Lymph % (Auto) 6.8 % 05/01/23 21:46 [place] % (Auto) 3.9 % 05/01/23 21:46 Eos % (Auto) 1.2 % 05/01/23 21:46 Baso % (Auto) 0.4 % 05/01/23 21:46 Neut # (Auto) 9.59 10^3/uL (1.8-7.7) H 05/01/23 21:46 Lymph # (Auto) 0.7 10^3/uL (0.8-4.8) L 05/01/23 21:46 [place] # (Auto) 0.4 10^3/uL (0.2-0.9) 05/01/23 21:46 Eos # (Auto) 0.1 10^3/uL (0.0-0.8) 05/01/23 21:46 Baso # (Auto) 0.0 10^3/uL (0.0-0.1) 05/01/23 21:46 Nucleated RBC % (auto) 0 % 05/01/23 21:46 Nucleated RBCs # 0.0 /100WBC 05/01/23 21:46 PT 17.30 SECONDS (12.1-14.9) H 05/01/23 21:46 INR 1.37 (0.8-1.2) H 05/01/23 21:46 D-Dimer 0.28 ug/mLFEU (0-0.59) 05/01/23 21:46 Sodium 140 mmol/L (136-145) 05/01/23 21:46 Potassium 3.8 mmol/L (3.5-5.1) 05/01/23 21:46 Chloride 103 mmol/L (98-107) 05/01/23 21:46 Carbon Dioxide 23 mmol/L (22-29) 05/01/23 21:46 Anion Gap 17.8 (5-19) 05/01/23 21:46 BUN 12 mg/dL (8-23) 05/01/23 21:46 Creatinine 0.8 mg/dL (0.5-0.9) 05/01/23 21:46 GFR Calculation Not Reportable 05/01/23 21:46 Glucose 150 mg/dL (65-115) H 05/01/23 21:46 Calculated Osmolality 293 mOsm/kg (285-295) 05/01/23 21:46 Calcium 9.1 mg/dL (8.5-10.5) 05/01/23 21:46 Total Bilirubin 0.5 mg/dL (0.15-1.2) 05/01/23 21:46 AST 30 U/L (0-32) 05/01/23 21:46 ALT 31 U/L (0-33) 05/01/23 21:46 Alkaline Phosphatase 87 U/L (35-105) 05/01/23 21:46 Troponin T Baseline 26 ng/L (0-10) H 05/01/23 21:46 Troponin T 120 Minute 37.46 ng/L (0-10) H 05/02/23 00:00 Delta Troponin T 11.46 ABS# (0-10) H* 05/02/23 00:00 NT-Pro-B Natriuret Pep 2826 pg/mL (0-125) H 05/01/23 21:46 Total Protein 7.2 g/dL (6.6-8.7) 05/01/23 21:46 Albumin 4.6 g/dL (3.5-5.2) 05/01/23 21:46 Globulin 2.6 g/dL (1.3-4.6) 05/01/23 21:46 Lipase 21 U/L (13-60) 05/01/23 21:46 Influenza Type A Ag Negative (Negative) 05/01/23 22:43 Influenza Type B Ag Negative (Negative) 05/01/23 22:43 SARS-CoV-2 Ag (Rapid) negative (Negative) 05/01/23 22:43 All radiology interpretation(s) finalized by discharge EKG Data EKG 1: I personally reviewed and interpreted this EKG as follows: EKG interpretation date: 05/01/23 EKG interpretation time: 21:32 Interpretation: afib rvr hr [address] elevation qrs 114 qtc 386 Other EKG comments: Chest X-Ray 05/01/23 21:23 IMPRESSION: 1. Emphysematous changes without acute cardiopulmonary abnormality. Discharge Plan Discharge Patient Disposition: Admitted As Inpatient Clinical Impression: Atrial fibrillation, Non-ST elevation [place] (NSTEMI) Condition: Stable Coding Level of Care Code ED Recovery Assistant for Kaila Miller
[2023-05-01] MEDS: dilTIAZem 5 mg/mL SDV 5 mL 15 MG IVP (21:48)
[2023-05-01 21:52] LABS: Basophils % 0.4 %; Eosinophils # 0.1 10^3/uL (0.0-0.8); Eosinophils % 1.2 %; Hematocrit 35.7 % (36-47); Lymphocytes # 0.7 10^3/uL (0.8-4.8); Lymphocytes % 6.8 %; Mean Corpuscular HGB Conc 33.9 g/dL (30-55); Mean Corpuscular Volume 94.4 fl (85-98); Mean Platelet Volume 9.5 fL (7.4-10.4); Monocytes # 0.4 10^3/uL (0.2-0.9); Monocytes % 3.9 %; Neutrophils # 9.59 10^3/uL (1.8-7.7); Neutrophils % 87.4 %; Nucleated Red Blood Cells % 0 %; Platelet Count 173 10^3/cmm (157-399); Red Blood Count 3.78 10^6/uL (3.85-5.65); Red Cell Distribution Width 13.2 % (12.1-15.1); White Blood Count 10.96 10^3/uL (3.29-11.43)
[2023-05-01 22:04] LABS: INR 1.37 (0.8-1.2)
[2023-05-01 22:07] LABS: D Dimer 0.28 ug/mLFEU (0-0.59)
[2023-05-01 22:20] LABS: Alanine Aminotransferase 31 U/L (0-33); Albumin Level 4.6 g/dL (3.5-5.2); Alkaline Phosphatase 87 U/L (35-105); Blood Urea Nitrogen 12 mg/dL (8-23); Calcium 9.1 mg/dL (8.5-10.5); Carbon Dioxide 23 mmol/L (22-29); Chloride 103 mmol/L (98-107); Creatinine Clr Calc Pharmacy 59.3581; Globulin 2.6 g/dL (1.3-4.6); Glucose 150 mg/dL (65-115); Lipase 21 U/L (13-60); NT Pro B Type Natriuretic Pept 2826 pg/mL (0-125); Osmolality Calculated 293 mOsm/kg (285-295); Sodium 140 mmol/L (136-145); Total Bilirubin 0.5 mg/dL (0.15-1.2); Total Protein 7.2 g/dL (6.6-8.7)
[2023-05-01 22:22] LABS: Troponin(5th) Baseline 26 ng/L (0-10)
[2023-05-01 22:24] LABS: Anion Gap 17.8 (5-19); Aspartate Amino Transferase 30 U/L (0-32); Potassium 3.8 mmol/L (3.5-5.1)
[2023-05-01 22:43] VITALS: BP 102/54; PULSE 66; RESP 24; O2SAT 94
[2023-05-01] MEDS: FUROsemide 10 mg/mL SDV 4mL 40 MG IVP (22:46)
[2023-05-01 23:05] LABS: SARS Covid-2 Antigen negative (Negative)
[2023-05-01 23:08] LABS: Influenza A by IFA Negative (Negative); Influenza B by IFA Negative (Negative)
--- NOTE | 2023-05-01 23:24 | ECG_ITS ---
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 Measurements Intervals [place] Rate: 85 P: 0 HI: 0 QRS: 77 QRSD: 114 T: 229 QT: 387 QTc: 461 Interpretive Statements ATRIAL FIBRILLATION WITH ABERRANT CONDUCTION OR VENTRICULAR PREMATURE COMPLEXES MODERATE INTRAVENTRICULAR CONDUCTION DELAY [105+ ms QRS DURATION, 80+ ms Q/S IN V1/V2, NO Q AND 60+ ms R IN I/aVL/V5/V6] ST DEVIATION AND MODERATE T-WAVE ABNORMALITY, CONSIDER LATERAL ISCHEMIA [-0.1+ mV T-WAVE IN I/aVL/V5/V6] ST DEVIATION AND MODERATE T-WAVE ABNORMALITY, CONSIDER INFERIOR ISCHEMIA [-0.1+ mV T-WAVE IN II/aVF] Compared to ECG 05/01/2023 21:32:33 No significant changes Electronically Signed On 05-02-2023 9:50:33 OILER BANDER by Jacques Parks M.D. [id number]
[2023-05-01] MEDS: ketorolac 30 mg/mL INJ 10 MG IVP (23:38)
[2023-05-02] VITALS (64 sets, daily range): BP systolic 90–136; BP diastolic 46–83; PULSE 66–96; RESP 15–33; TEMP 36.4–37.2; O2SAT 28–96; BMI 25.1
--- NOTE | 2023-05-02 | USCV_ITS ---
Jocelin Mcginnis Age: 72 Gender: F : 1950 Exam Date: 05/02/2023 11:39 Ordering Phys: Sai Azul MD Technologist: Exam [place] [facility] [place]: CHF BP: 126 / 65 HR: 0 Rhythm: Sinus Technical Quality: Adequate MEASUREMENTS (Male / Female) Normal Values 2D ECHO LV Diastolic Diameter PLAX 4.6 cm 4.2 - 5.9 / 3.9 - 5.3 cm IVS Diastolic Thickness 1.4 cm 0.6 - 1.0 / 0.6 - 0.9 cm IVS Systolic Thickness 1.7 cm LVPW Diastolic Thickness 1.1 cm 0.6 - 1.0 / 0.6 - 0.9 cm LVPW Systolic Thickness 1.6 cm LVOT Diameter 1.6 cm LV Ejection Fraction 2D Teich 66.1 % LV Ejection Fraction MOD 2C 49.0 % DOPPLER AV Peak Velocity 141.0 cm/s LVOT Peak Velocity 105.0 cm/s AV Area Cont Eq vti 1.6 cm squared AV Area Cont Eq pk 1.5 cm squared MV Area PHT 3.1 cm squared TV Peak Velocity 304.0 cm/s TR Peak Velocity 337.0 cm/s TR Peak Gradient 45.4 mmHg Right Atrial Pressure 3.0 mmHg Pulmonary Artery Systolic Pressu 48.4 mmHg PV Peak Velocity 104.0 cm/s FINDINGS Left Ventricle Left ventricle is normal size. LV systolic function is moderately reduced with EF of 35 to 40%. Moderate global hypokinesis. Apical wall is akinetic. Possible apical thrombus seen. Right Ventricle Grossly hypokinetic Right Atrium Not well visualized Left Atrium Not well-visualized. Mitral Valve Mechanical mitral valve. Not very well-visualized. Normally functioning. Mean gradient across valve of 3.7 mmHg. Aortic Valve Grossly normal. No significant stenosis. Tricuspid Valve Mild tricuspid regurgitation. RVSP is 45 to 50 mmHg. This is consistent with moderate pulmonary hypertension Pulmonic Valve Mild pulmonic regurgitation Pericardium Normal Aorta Normal in size IVC Appears to normal CONCLUSIONS LV surfaces moderately reduced with EF of 35 to 40%. Possible apical thrombus seen. Grossly hypokinetic Mechanical mitral valve. Not very well-visualized. Mean gradient across the valve is 3.7 mmHg. Mild tricuspid regurgitation Moderate pulmonary hypertension Mild pulmonic regurgitation Compared to prior echocardiogram from 2022, no signifcant changes are seen Jacques Parks MD (Electronically Signed) Final Date: 02 May 2023 16:48 S
[2023-05-02 00:24] LABS: Troponin 5 2HR 37.46 ng/L (0-10)
[2023-05-02 00:25] LABS: Troponin 5 2HR Delta 11.46 ABS# (0-10)
[2023-05-02] MEDS: aspirin 81 mg Chew Tablet 324 MG PO (00:40)
[2023-05-02] MEDS: enoxaparin 80 mg/0.8 mL Syringe 70 MG SUBCUT ×2 (00:41→18:10)
--- NOTE | 2023-05-02 01:32 | P.HP_ITS ---
Providers/Chief Complaint 2 Admitting Physician: Sai Azul Primary Care Provider: Amador Cherry DO Chief Complaint: SOB\Heart Feels Tight History of Present Illness Pleasant 72-year-old lady with history of CAD, stent in LAD, atrial fibrillation, LV thrombus, mechanical mitral valve on anticoagulation with warfarin presented to ER due to feeling unwell, chest pain, palpitations, tachycardia, found to be in A-fib with RVR, received a dose of Cardizem, heart rates improved, currently in 80s. Chest pain improved but still about 7/10. In ER finding of positive troponin delta. After Cardizem is also received Lasix, Toradol, aspirin, Lovenox. Review of Systems 2 Const: Denies: fever(s), chills, body aches or malaise ENMT: Denies: throat pain Card: Reports: chest pain; Denies: edema, pre-syncope or dyspnea on exertion Resp: Denies: dyspnea, productive cough, change in phlegm color or hemoptysis GI: Reports: diarrhea (Chronic); Denies: abdominal pain, nausea, vomiting, constipation, hematochezia or melena : Denies: flank pain, urinary frequency or hematuria Musc: Denies: back pain, joint swelling or joint redness Skin/Breast: Denies: rash or new lesions Medications/Allergies Home Medications Medication Instructions Recorded Confirmed Last Taken Type rosuvastatin 20 mg tablet 20 mg PO QAM 10/09/19 12/08/22 Unknown History tizanidine 4 mg tablet 4 mg PO BID PRN muscle spasticity 10/09/19 12/08/22 Unknown History omeprazole 20 mg capsule,delayed 20 mg PO QAM 11/20/20 12/08/22 Unknown History release ascorbic acid (vitamin C) 500 mg 1,000 mg PO QAM 03/22/22 12/08/22 Unknown History tablet (Vitamin C) cholecalciferol (vitamin D3) 125 125 mcg PO QAM 03/22/22 12/08/22 Unknown History mcg (5,000 unit) tablet (Vitamin D3) nitroglycerin 0.4 mg sublingual 0.4 mg sublingual Q5M PRN Chest 03/22/22 12/08/22 Unknown History tablet (Nitrostat) Pain potassium gluconate 595 mg (99 mg) 1,190 mg PO QAM 03/22/22 12/08/22 Unknown History tablet prothrombin time/INR test metr #1 ea 03/25/22 12/08/22 Unknown Rx acetaminophen 325 mg capsule 325 mg PO QID PRN 04/05/22 12/08/22 Unknown History metoprolol tartrate 25 mg tablet 12.5 mg (1/2 x 25 mg) PO DAILY PRN 04/05/22 12/08/22 Unknown Rx heart rate >120 #30 tabs warfarin 6 mg tablet 6 mg PO DAILY #90 tabs 04/05/22 12/08/22 Unknown Rx diphenhydramine HCl 25 mg tablet 50 mg PO .HS 07/05/22 12/08/22 Unknown History (Benadryl Allergy) spironolactone 50 mg tablet 50 mg PO QAM 07/05/22 12/08/22 Unknown History warfarin 1 mg tablet See Rx Instructions .Route 09/15/22 12/08/22 Unknown Rx .COMPLEX #30 tabs warfarin 5 mg tablet 5 mg PO DAILY #90 tabs 09/15/22 12/08/22 Unknown Rx Carbon Fiber Plate to the right #1 ea 09/20/22 12/08/22 Unknown Rx furosemide 40 mg tablet 40 mg PO QAM #90 tabs 11/12/22 12/08/22 Unknown Rx metoprolol succinate 50 mg 75 mg (1.5 x 50 mg) PO .HS #135 02/01/23 Unknown Rx tablet,extended release 24 hr tabs valsartan 40 mg tablet 40 mg PO DAILY #90 tabs 02/16/23 02/16/23 Unknown Rx clopidogrel 75 mg tablet 75 mg PO QAM #90 tabs 03/16/23 Unknown Rx Allergies Allergy/AdvReac Type Severity Reaction Status Date / Time Iodine and Iodide Containing Allergy rash Verified 02/16/23 12:00 Produc latex Allergy rash Verified 02/16/23 12:00 PFSH Acute 2 PFSH: Medical History (Updated 05/02/23 @ 01:41 by Sai Azul MD) Osteoporosis Hypothyroidism Diabetes mellitus diagnosed in 2017 HTN (hypertension) with goal to be determined CHF (congestive heart failure) CAD (coronary artery disease) stent to mid LAD 11/02/2018 Surgical History (Updated 05/02/23 @ 01:41 by Sai Azul MD) S/P hysterectomy S/P cholecystectomy S/P mitral valve replacement [place] Eran valve by Dr. Wilder [place] 2007 Mitral valve replaced Family History Father CAD (coronary artery disease) Stroke Mother CAD (coronary artery disease) Diabetes Hypertension Sister CAD (coronary artery disease) Hypertension Lung disease Psychiatric illness Son Lung disease Denies family history of Clotting disorder Dementia Hyperlipidemia Chronic kidney disease (CKD) Suicide Anesthesia complication Bleeding disorder Family history of premature coronary artery disease Cancer Social History Smoking and tobacco/nicotine status: never used tobacco/nicotine Second hand smoke exposure: Yes Alcohol intake: never Substance/Drug Use: never Vitals/I&O/Wt Last Vital Signs Temp 99.2 F 05/01/23 21:38 Pulse 82 05/02/23 01:26 Resp 28 H 05/02/23 01:26 BP 117/60 05/02/23 01:26 Pulse Ox 28 L 05/02/23 01:26 O2 Del Method Nasal Cannula 05/01/23 22:43 Weight last 48 hrs Weight 68.039 kg Physical Exam 2 Const: COMMON NORMALS: patient oriented x3 and alert GENERAL APPEARANCE: c ooperative ORIENTATION/CONSCIOUSNESS: Yes awake HENMT: COMMON NORMALS: oropharynx normal Neck/C-Spine: COMMON NORMALS: no JVD Resp: COMMON NORMALS: normal respiratory effort and clear to auscultation bilaterally AUSCULTATION: clear to auscultation bilaterally Cardio: COMMON NORMALS: no JVD, regular rhythm, S1 normal heart sound present, S2 normal heart sound present and No murmurs present (Cardio) RHYTHM: regular rhythm HEART SOUNDS: S1 normal heart sound present and S2 normal heart sound present GI: COMMON NORMALS: Normal to inspection, nondistended, normoactive bowel sounds present, Soft to palpation and non-tender PALPATION: Yes Soft to palpation Extremity: COMMON NORMALS: no joint enlargement and no pedal edema Neuro: COMMON NORMALS: patient oriented x3 and moves all extremities S ENSORIUM/ORIENTATION: Yes alert Skin: COMMON NORMALS: no rashes or lesions noted GENERAL SKIN EXAM: no rashes or lesions noted Data 05/01/23 21:46 02/18/24 21:46 A&P Assessment and plan (1) Chest pain: Chest pain on presentation, some improvement with treatment of A-fib with RVR, heart rates now in the 80s, but still having 7/10 pain. Positive troponin delta. History of CAD, stenting of LAD. Blood pressure soft, states that blood pressure does drop below, will avoid additional nitroglycerin for now. Morphine if needed for pain. Reviewed vitals, CBC, INR, D-dimer, CMP, troponin series, NT proBNP, lipase, rapid flu, rapid COVID, EKG, chest x-ray. Reviewed ER note and discussed with ER physician. Discussed with her possible NSTEMI, she has received aspirin, dose of Lovenox. Does have mechanical mitral valve, with reported thrombosis with Lovenox discussed with her heparin drip. Should start 12 hours after Lovenox dose. Monitor for risk of bleeding with anticoagulation, as she also needs to restart warfarin back up to therapeutic dose, monitor PTTs. Monitor for any bleeding. Continue aspirin, Plavix, statin, metoprolol. She did require metoprolol at home tonight. Monitor on telemetry due to risk of arrhythmia. Assess TTE. As she is still symptomatic with positive troponin delta, ST depressions with some improvement after RVR resolved, but persist. Needs cardiology consultation in the morning. (2) Non-ST elevation IN (NSTEMI): As above. (3) Atrial fibrillation: Atrial fibrillation with RVR on presentation rate in 130s. Received Cardizem, heart rate improved. Positive troponin delta, ST depressions. NSTEMI. Continue anticoagulation. Continue metoprolol. Reviewed potassium, recheck level. Check magnesium. Monitor on telemetry. Check TSH. (4) Subtherapeutic international normalized ratio (INR): Bridge warfarin with heparin drip due to mechanical mitral valve. Subtherapeutic INR, target 2.5-2.5. Resume warfarin depending on further workup and treatment as per cardiology. (5) Hx of mitral valve replacement with mechanical valve: On anticoagulation with warfarin. TTE requested as above. (6) Chronic diarrhea: Possibly related to cholecystectomy. Will need additional assessment and follow-up. Plan Hypothyroidism: Check TSH. History of diabetes: She states has been well-controlled with lifestyle modifications HTN: Monitor blood pressures CHF: Not currently decompensated. Other medical problems. Requested to confirm home medications, please review and reconcile once available. Attestations 2 Medical Necessity Statement*: Admission over 2 midnights anticipated for assessment management of NSTEMI, optimization of control of A-fib with paroxysmal RVR, subtherapeutic INR requiring bridging anticoagulation due to underlying mechanical mitral valve. Diagnoses Chest pain R07.9 Non-ST elevation IN (NSTEMI) I21.4 Atrial fibrillation I48.91 Subtherapeutic international normalized ratio (INR) R79.1 Hx of mitral valve replacement with mechanical valve Z95.2 Chronic diarrhea K52.9
--- NOTE | 2023-05-02 03:24 | ECG_ITS ---
[facility] Test Date: 2023-05-02 Pat Name: Jocelin Mcginnis Department: Room: 102 Gender: Female [employer]: : 1950 Requested By: Heladio Amin Order Number: [id number] Jyoti MD: Jacques Parks M.D. Measurements Intervals [place] Rate: 68 P: 0 ID: 0 QRS: 78 QRSD: 108 T: 241 QT: 442 QTc: 471 Interpretive Statements ATRIAL FIBRILLATION MODERATE INTRAVENTRICULAR CONDUCTION DELAY [105+ ms QRS DURATION, 80+ ms Q/S IN V1/V2, NO Q AND 60+ ms R IN I/aVL/V5/V6] ST DEVIATION AND MODERATE T-WAVE ABNORMALITY, CONSIDER LATERAL ISCHEMIA [-0.1+ mV T-WAVE IN I/aVL/V5/V6] ST DEVIATION AND MODERATE T-WAVE ABNORMALITY, CONSIDER INFERIOR ISCHEMIA [-0.1+ mV T-WAVE IN II/aVF] Compared to ECG 05/01/2023 23:36:14 Ventricular premature complex(es) no longer present Aberrant conduction of supraventricular beat(s) no longer present T-wave abnormality still present Possible ischemia still present Electronically Signed On 05-02-2023 9:50:18 [employer]OOK [employer] by Jacques Parks M.D. [id number]
[2023-05-02 04:03] LABS: Basophils % 0.2 %; Eosinophils % 0.2 %; Hematocrit 31.9 % (36-47); Lymphocytes # 0.6 10^3/uL (0.8-4.8); Mean Corpuscular HGB Conc 33.9 g/dL (30-55); Mean Corpuscular Volume 94.4 fl (85-98); Mean Platelet Volume 9.3 fL (7.4-10.4); Monocytes # 0.3 10^3/uL (0.2-0.9); Neutrophils # 9.04 10^3/uL (1.8-7.7); Neutrophils % 90.4 %; Nucleated Red Blood Cells % 0 %; Platelet Count 184 10^3/cmm (157-399); Red Blood Count 3.38 10^6/uL (3.85-5.65); Red Cell Distribution Width 13.5 % (12.1-15.1)
[2023-05-02 04:22] LABS: Troponin 5 6HR 34.14 ng/L (0-10); Troponin 5 6HR Delta 8.14 ng/L (0-12)
[2023-05-02] MEDS: ketorolac 30 mg/mL INJ 10 MG IVP (04:29)
[2023-05-02 04:30] LABS: Anion Gap 15.1 (5-19); Blood Urea Nitrogen 13 mg/dL (8-23); Calcium 8.8 mg/dL (8.5-10.5); Carbon Dioxide 26 mmol/L (22-29); Chloride 106 mmol/L (98-107); Glucose 122 mg/dL (65-115); Magnesium 1.6 mg/dL (1.7-2.3); Osmolality Calculated 297 mOsm/kg (285-295); Potassium 4.1 mmol/L (3.5-5.1); Sodium 143 mmol/L (136-145)
[2023-05-02] MEDS: magnesium sulfate premix 2 GM/50 ML PIGGYBACK IV (05:27)
[2023-05-02] MEDS: morphine 4 mg/mL SDV 1 mL 2 MG IVP (07:03)
[2023-05-02] MEDS: sodium chloride 0.9% 250 ML IV (07:05)
--- NOTE | 2023-05-02 07:49 | P.CONIM_ITS ---
Providers/Reason For Consult 2 Consulting Physician/Specialty*: Jacques Parks MD/ Cardiology Reason for Consult*: Worsening angina Requesting Physician: Dr Azul Attending Physician: Sai Azul Primary Care Provider: Amador Cherry DO History of Present Illness History of Present Illness Jocelin Mcginnis is a 72 year old female with past medical history of mitral valve replacement with mechanical mitral valve, INR of 1.37, CAD with LAD stenting in the past who presented to hospital with feeling unwell, chest pain and palpitations. She is also having significant shortness of breath. She was found to be in A-fib with RVR. Heart rates are controlled. However she still has ST depressions and ongoing chest pain. She rates it at 6 to 7/10 in intensity. Troponin was mildly elevated at 26 at baseline and trended up at 2 hours to 37. Review of Systems 2 Const: Denies: fever(s), chills, body aches or malaise ENMT: Denies: throat pain Card: Reports: chest pain; Denies: edema, pre-syncope or dyspnea on exertion Resp: Denies: dyspnea, productive cough, change in phlegm color or hemoptysis GI: Reports: diarrhea (Chronic); Denies: abdominal pain, nausea, vomiting, constipation, hematochezia or melena : Denies: flank pain, urinary frequency or hematuria Musc: Denies: back pain, joint swelling or joint redness Skin/Breast: Denies: rash or new lesions Medications/Allergies Home Medications Medication Instructions Recorded Confirmed Last Taken Type rosuvastatin 20 mg tablet 20 mg PO QAM 10/09/19 05/02/23 Unknown History tizanidine 4 mg tablet 4 mg PO BID PRN muscle spasticity 10/09/19 05/02/23 Unknown History omeprazole 20 mg capsule,delayed 20 mg PO BID 11/20/20 05/02/23 Unknown History release ascorbic acid (vitamin C) 500 mg 1,000 mg PO QAM 03/22/22 05/02/23 Unknown History tablet (Vitamin C) cholecalciferol (vitamin D3) 125 125 mcg PO QAM 03/22/22 05/02/23 Unknown History mcg (5,000 unit) tablet (Vitamin D3) nitroglycerin 0.4 mg sublingual 0.4 mg sublingual Q5M PRN Chest 03/22/22 05/02/23 Unknown History tablet (Nitrostat) Pain potassium gluconate 595 mg (99 mg) 1,190 mg PO QAM 03/22/22 05/02/23 Unknown History tablet acetaminophen 325 mg capsule 325 mg PO QID PRN Mild Pain (Scale 04/05/22 05/02/23 Unknown History Score 1-4) metoprolol tartrate 25 mg tablet 12.5 mg (1/2 x 25 mg) PO DAILY PRN 04/05/22 05/02/23 Unknown Rx heart rate >120 #30 tabs warfarin 6 mg tablet 6 mg PO DAILY #90 tabs 04/05/22 05/02/23 Unknown Rx diphenhydramine HCl 25 mg tablet 50 mg PO .HS 07/05/22 05/02/23 Unknown History (Benadryl Allergy) spironolactone 50 mg tablet 50 mg PO QAM 07/05/22 05/02/23 Unknown History warfarin 1 mg tablet See Rx Instructions .Route 09/15/22 05/02/23 Unknown Rx .COMPLEX #30 tabs warfarin 5 mg tablet 5 mg PO DAILY #90 tabs 09/15/22 05/02/23 Unknown Rx furosemide 40 mg tablet 40 mg PO QAM #90 tabs 11/12/22 05/02/23 Unknown Rx metoprolol succinate 50 mg 75 mg (1.5 x 50 mg) PO .HS #135 02/01/23 05/02/23 Unknown Rx tablet,extended release 24 hr tabs valsartan 40 mg tablet 40 mg PO DAILY #90 tabs 02/16/23 05/02/23 Unknown Rx clopidogrel 75 mg tablet 75 mg PO QAM #90 tabs 03/16/23 05/02/23 Unknown Rx Allergies Allergy/AdvReac Type Severity Reaction Status Date / Time Iodine and Iodide Containing Allergy rash Verified 02/16/23 12:00 Produc latex Allergy rash Verified 02/16/23 12:00 Current Medications Generic Name Dose Route Start Last Admin Trade Name Freq PRN Reason Stop Dose Admin Morphine Sulfate 2 mg 05/02/23 04:20 05/02/23 07:03 Morphine 4 Mg/Ml Sdv 1 Ml IVP 2 mg Q4H PRN Administration SEVERE PAIN PFSH Acute 2 PFSH: Medical History Osteoporosis Hypothyroidism Diabetes mellitus diagnosed in 2017 HTN (hypertension) with goal to be determined CHF (congestive heart failure) CAD (coronary artery disease) stent to mid LAD 11/02/2018 Surgical History S/P hysterectomy S/P cholecystectomy S/P mitral valve replacement St Eran valve by Dr. Wilder [place] 2006 Mitral valve replaced Family History Father CAD (coronary artery disease) Stroke Mother CAD (coronary artery disease) Diabetes Hypertension Sister CAD (coronary artery disease) Hypertension Lung disease Psychiatric illness Son Lung disease Denies family history of Clotting disorder Dementia Hyperlipidemia Chronic kidney disease (CKD) Suicide Anesthesia complication Bleeding disorder Family history of premature coronary artery disease Cancer Social History Smoking and tobacco/nicotine status: never used tobacco/nicotine Second hand smoke exposure: Yes Alcohol intake: never Substance/Drug Use: never Vitals/I&O/Wt Last Vital Signs Temp 98.7 F 05/02/23 07:11 Pulse 74 05/02/23 07:11 Resp 19 H 05/02/23 07:11 BP 90/47 05/02/23 07:11 Pulse Ox 94 05/02/23 07:11 O2 Del Method Room Air 05/02/23 04:00 05/01/23 05/02/23 05/02/23 22:59 06:59 14:59 Intake Total 50 / 50 Output Total 0 / 0 Balance 50 / 50 Weight last 48 hrs Weight 149 lb 14.629 oz Weight 149 lb 14.629 oz Weight 146 lb 9.718 oz Weight 150 lb Physical Exam 2 Narrative: GENERAL: Patient is alert, awake and oriented x3. [] NECK: No jugular vein distension. [] HEENT: No cyanosis. No icterus. No pallor. [] HEART: Regular S1 and S2. Grade 3/6 diastolic murmur LUNGS: Clear to auscultate bilaterally. [] CENTRAL NERVOUS SYSTEM: Grossly nonfocal. [] EXTREMITIES: Lower extremities with 1+ edema bilaterally. Data 05/02/23 03:40 05/02/23 03:40 A&P Assessment and plan (1) Chest pain: (2) HTN (hypertension) with goal to be determined: (3) CHF (congestive heart failure): (4) CAD (coronary artery disease): (5) S/P mitral valve replacement: (6) Cardiomyopathy, ischemic: (7) Intermittent atrial fibrillation: Plan Patient has presented with chest pain and shortness of breath. Recently CV symptoms have been worsening. Even after rate control, chest pain is ongoing concerning for unstable angina. Troponin elevation also noted. We will proceed with coronary angiogram with possible PCI. Order echocardiogram. Continue anticoagulation as she is subtherapeutic and has mechanical mitral valve. Thank you for involving us with care of this patient. We will continue to follow. Please call with question. Consult Attestations 2 Medical Necessity Statement: Care expected to cross 2 midnights. Coding Level of Care Code Acute Code for [facility] Fwd Diagnoses Chest pain R07.9 HTN (hypertension) with goal to be determined I10 Chronic systolic congestive heart failure I50.9 Coronary artery disease involving [place] coronary artery of [place] heart without angina pectoris I25.10 S/P mitral valve replacement Z95.2 Cardiomyopathy, ischemic I25.5 Intermittent atrial fibrillation I48.0
--- NOTE | 2023-05-02 08:29 | PC.NURSE ---
attempted to call Milka silveira, at 0829am regarding cath procedure. Left voicemail.
[2023-05-02] MEDS: aspirin 325 mg Tablet PO (08:35)
[2023-05-02] MEDS: pantoprazole DR 40 mg Tablet PO (08:35)
[2023-05-02] MEDS: clopidogrel 75 mg Tablet PO (08:35)
--- NOTE | 2023-05-02 08:36 | XACV_ITS ---
Exam Room: [facility] Ht: 163 cm Wt: 66 kg BSA: 1.74 m2 Gender: Female : 1950 Any Known Allergies: Iodine Exam Priority: Routine Procedure(s): Procedure Description: Diagnostic procedure Procedure Description: Miscellaneous Procedure Description: ACT Procedure Description: Coronary Angiography Diagnostic Cath Status: Urgent Diagnostic Findings * Patent prior LAD stent. * No signficant disease noted in the Left Main, Left Anterior Descending, Right, or Circumflex coronary arteries. * Coronary angiography shows left dominance. Conclusions 1. No signficant disease noted in the Left Main, Left Anterior Descending, Right, or Circumflex coronary arteries. 2. Patent prior LAD stent. Recommendations * Chest pain, EKG dynamic changes and troponin elevation related to atrial fibrillation. Aggressive risk factor modification. * Outpatient cardiology follow up in 2-4 weeks. Interventional RX Recommendation: medical therapy and/or counseling Diagnostic RX Recommendation: medical therapy and/or counseling Anticoagulation: Heparin Pressures Phase:Rest AO : 109 / 63 ( 80 ) @ 9:09:00 AM Clinical Evaluation EBL: 5mL-10mL Procedural Details Procedure Consent Obtained. Pre-Procedure Time Out. Identified patient by full name and date of as verbalized by the patient/guarantor. Does the consent match the physician's order: Yes. Accurate & Complete Informed Consent: Yes. Inpatient/Outpatient History & Physical on Chart: Yes. If H&P is completed, is and addenduem needed: Yes; If yes, is the addendum complete: Yes. Visualize and Verify Site with Patient/Guarantor: N/A. Relevant Radiology Images available: N/A. Pre-op teaching completed and patient verbalized understanding. The risks, benefits, and alternatives of sedation and/or procedure were discussed by physician. The patient agrees to continue. Procedure started. [facility] Clinical Fraility Score: 5: Mildly Frail. Check Processor Indications: Worsening Angina. Chest Pain Symptom Assessment: Typical Angina Symptoms. Cardiovascular Instability: Yes, if yes, Persistant Ischemic Symptoms. Correct patient, site and procedure confirmed by cath team. Current diagnosis: NSTEMI. Admit Source: In Patient. PERRLA. Strong, equal hand cherry cutter bilaterally. Lungs clear x 5 lobes. IV Site on Arrival: 20 gauge in the right anticubital. IV Fluids: 0.9% NaCl at KVO. 0 mL infused prior to labor relations director. Pre Procedural Pulses: bilateral dorsalis pedis was 2+. Oxygen started at 2liters/min via nasal canula. right groin was prepped with chloroprep then draped in the usual sterile fashion. left groin was prepped with chloroprep then draped in the usual sterile fashion. Physician notified. Baseline sample Acquired. HR: 82 BPM. Physician arrived. Physician scrubbed in. Immediate Pre-Procedure Time Out. Correct Patient: Yes; Correct Procedure: Yes; Correct Site: Yes; Correct Patient Position: Yes; Correct Supplies: Yes; Dried Flammable Prep: Yes; Blood Products Available: N/A;. Lidocaine 1% infiltrated to the right groin. US used to obtain R femoral access. Arterial access obtained with micropuncture set. A 5 wallisian JL4 catheter in over wire. Multiple views taken of left coronary artery. Catheter removed over the standard wire. A 5 wallisian JR4 catheter in over wire. Multiple views taken of right coronary artery. A Right femoral angiogram was performed to determine safe placement of closure device. Catheter removed over the standard wire. ACT drawn. Results 183 seconds. Therapeutic limits - pre-heparin administration 90-150 seconds and monitoring heparin during a vascular procedure >250 seconds. Physician scrubbed out. Physician review of cine films. Post Procedure: Pulses reassessed and unchanged. PERRLA. Strong, equal hand cherry cutter bilaterally. No VTE prophylaxis required. Medication's Wasted: Other = Versed 1 mg. Medication's Wasted: Other = Fentanyl 75 mcg. Medication's Wasted: Heparin = 1000 u. Total IV fluids: 35 mL. Post-op diagnosis: Non Obstructive CAD, Patent LAD Stent. Complications: none. Estimated blood loss: 5mL-10mL. Responsiveness - Normal response to verbal stimuli; alert and oriented, PERRLA. Airway - Unaffected, no intervention required; spontaneous ventilation. Circulation: W/N/L, pulses unchanged. Nausea/Vomiting: No. A Mechanical Compression was successful obtaining hemostatsis at the Right Femoral artery insertion site. Patient transferred by bed to 1st floor. Vital chart was stopped. Access Site Site: Right Femoral artery Sheath Size: 6 Fr Hemostasis Method: Mechanical Compression Hemostasis Success: Successful Procedure Medications Start: 8:58 AM Stop: 8:58 AM Medication: Solu-Medrol (methylprednisolone) Amount: 125 mg Route: I.V. Start: 8:58 AM Stop: 8:58 AM Medication: Benadryl Amount: 50 mg Route: I.V. Start: 8:59 AM Stop: 8:59 AM Medication: Versed Amount: 1 mg Route: I.V. Start: 8:59 AM Stop: 8:59 AM Medication: Fentanyl Amount: 25 mcg Route: I.V. I, the attending physician, have reviewed and verified all procedure medications. Yes, all medications given per verbal order History/Risk Factors Hypertension: Yes Dyslipidemia: Yes Peripheral Arterial Disease (PAD): No Myocardial Infarction (NV): Yes Obesity: No Renal Disease: No Tobacco Use: Never Prior Interventions PCI: Yes CABG: No Valve Surgery: Yes Date of PCI: 11/02/2018 Report Signatures Finalized by Jacques Parks MD on 05/08/2023 11:25 AM
--- NOTE | 2023-05-02 08:42 | PC.NURSE ---
Patient left floor for label fuser tender 0842. Plavix, aspirin, and protonix given prior to cath.
--- NOTE | 2023-05-02 08:45 | PC.NURSE ---
atttempted to call son, Enrique, at 0845 to inform him his mother was going to blood and plasma laboratory assistant.
--- NOTE | 2023-05-02 08:56 | W.PM.OPSUD ---
Surgery/Procedure H&P Update DATE OF PROCEDURE: May 02, 2023 DATE H&P PERFORMED: 05/02/23 H&P UPDATE INFORMATION: I have reviewed H&P completed within last 30 days, I have examined patient prior to procedure and No changes to prior documentation PREOP DIAGNOSIS: Unstable angina PRIMARY INDICATION FOR PROCEDURE: Unstable angina PLANNED PROCEDURE: Left heart cath with possible percutaneous coronary intervention PATIENT REASSESSED PRIOR TO SEDATION, WITH NO CHANGE NOTED: Yes PHYSICAL EXAM: alert, oriented x 3, clear to auscultation bilaterally and regular rate & rhythm AIRWAY EVAL/ANESTHESIA PLAN: normal airway, ASA III, Local Anesthesia, Risks, benefits & alternatives of sedation and/or procedure discussed and Patient agrees to continue as planned ADDITIONAL INFORMATION: Moderate sedation
--- NOTE | 2023-05-02 09:26 | W.PM.EVENTAC ---
Event Note Event Note: Patient had just received morphine, no active pain however she has been having intermittent chest pain Heart rate in 60s MAP [address] Parks plan for angiogram today: Coronaries are fine, will repeat echo, let her have cardiac diet Patient has history of A-fib mechanical valve Subtherapeutic INR She is from home D-dimer is unremarkable my suspicion for PE will stay low Creatinine is 1.0
[2023-05-02 11:21] LABS: INR 1.73 (0.8-1.2)
[2023-05-02] MEDS: warfarin 2 mg Tablet 6 MG PO (14:27)
[2023-05-02] MEDS: atorvastatin 40 mg Tablet PO (20:26)
[2023-05-02] MEDS: metoprolol succinate ER (24 HR) 50 mg Tablet 75 MG PO (20:26)
[2023-05-03] VITALS (9 sets, daily range): BP systolic 126–136; BP diastolic 61–74; PULSE 67–75; RESP 17–21; TEMP 36.6; O2SAT 95–97
[2023-05-03] MEDS: acetaminophen 325 mg Tablet 650 MG PO ×2 (02:01→13:48)
[2023-05-03] MEDS: trazodone 50 mg Tablet PO (02:33)
[2023-05-03 03:49] LABS: Hematocrit 29.5 % (36-47); Lymphocytes # 0.8 10^3/uL (0.8-4.8); Lymphocytes % 9.9 %; Mean Corpuscular HGB Conc 32.9 g/dL (30-55); Mean Corpuscular Hemoglobin 31.7 pg (27-33); Mean Corpuscular Volume 96.4 fl (85-98); Mean Platelet Volume 9.6 fL (7.4-10.4); Monocytes # 0.5 10^3/uL (0.2-0.9); Monocytes % 6.1 %; Neutrophils # 6.34 10^3/uL (1.8-7.7); Neutrophils % 83.7 %; Nucleated Red Blood Cells % 0 %; Platelet Count 157 10^3/cmm (157-399); Red Blood Count 3.06 10^6/uL (3.85-5.65); Red Cell Distribution Width 13.4 % (12.1-15.1); White Blood Count 7.57 10^3/uL (3.29-11.43)
[2023-05-03 04:03] LABS: INR 2.49 (0.8-1.2)
[2023-05-03 04:09] LABS: Anion Gap 11.3 (5-19); Blood Urea Nitrogen 19 mg/dL (8-23); Calcium 8.7 mg/dL (8.5-10.5); Carbon Dioxide 24 mmol/L (22-29); Chloride 107 mmol/L (98-107); Glucose 130 mg/dL (65-115); Magnesium 2.2 mg/dL (1.7-2.3); Osmolality Calculated 290 mOsm/kg (285-295); Potassium 4.3 mmol/L (3.5-5.1); Sodium 138 mmol/L (136-145)
[2023-05-03] MEDS: enoxaparin 80 mg/0.8 mL Syringe 70 MG SUBCUT (06:37)
--- NOTE | 2023-05-03 08:26 | PM.PN ---
Subjective Subjective: Patient doing well. No chest pain Vitals/I&O/Wt Last Vital Signs Temp 97.8 F 05/03/23 07:18 Pulse 69 05/03/23 07:18 Resp 21 H 05/03/23 07:18 BP 136/74 05/03/23 07:18 Pulse Ox 97 05/03/23 07:18 O2 Del Method Room Air 05/03/23 07:18 O2 Flow Rate 2 05/02/23 18:19 05/02/23 05/03/23 05/03/23 22:59 06:59 14:59 Intake Total 360 / 610 Balance 360 / 610 Weight last 48 hrs Weight 151 lb 0.266 oz Weight 149 lb 14.629 oz Weight 149 lb 14.629 oz Weight 146 lb 9.718 oz Weight 150 lb Physical Exam Narrative: GENERAL: Patient is alert, awake and oriented x3. [] NECK: No jugular vein distension. [] HEENT: No cyanosis. No icterus. No pallor. [] HEART: Regular S1 and S2. Grade 3/6 diastolic murmur LUNGS: Clear to auscultate bilaterally. [] CENTRAL NERVOUS SYSTEM: Grossly nonfocal. [] EXTREMITIES: Lower extremities with 1+ edema bilaterally. Data 05/03/23 03:11 05/03/23 03:11 A&P Assessment and plan (1) Chest pain: (2) HTN (hypertension) with goal to be determined: (3) CHF (congestive heart failure): (4) CAD (coronary artery disease): (5) S/P mitral valve replacement: (6) Cardiomyopathy, ischemic: (7) Intermittent atrial fibrillation: Plan Coronary angiogram did not reveal significant CAD. Patent prior LAD stent. Echo is unchanged from before. Continue medical therapy. Continue anticoagulation with Coumadin. Thank you for involving us with care of this patient. Please call with questions. Attestations Medical Necessity Statement*: Care expected to cross 2 midnights. Coding Level of Care Code Acute Code for [facility] Fwd Diagnoses Chest pain R07.9 HTN (hypertension) with goal to be determined I10 Chronic systolic congestive heart failure I50.9 Coronary artery disease involving [place] coronary artery of [place] heart without angina pectoris I25.10 S/P mitral valve replacement Z95.2 Cardiomyopathy, ischemic I25.5 Intermittent atrial fibrillation I48.0
[2023-05-03] MEDS: clopidogrel 75 mg Tablet PO (08:56)
[2023-05-03] MEDS: pantoprazole DR 40 mg Tablet PO (08:56)
--- NOTE | 2023-05-03 09:17 | P.DS_ITS ---
Discharge Providers Date of Admission: 05/02/23 02:31 Date of Discharge: May 03, 2023 Attending Provider at Admission: Sai Azul Attending Provider at Discharge: Angel Riddle MD Primary Care Provider: Amador Cherry DO Diagnoses at Discharge Discharge Diagnosis (1) Chest pain: Status: Acute (2) HTN (hypertension) with goal to be determined: Status: Acute (3) CHF (congestive heart failure): Status: Chronic (4) CAD (coronary artery disease): Status: Chronic Permanent problem details: stent to mid LAD 11/02/2018 (5) S/P mitral valve replacement: Status: Chronic Permanent problem details: [facility] [place] valve by Richard Davey 2006 (6) Cardiomyopathy, ischemic: Status: Acute (7) Intermittent atrial fibrillation: Status: Acute Reason for Visit Reason for Visit: SOB\Heart Feels Tight Hospital Course Hospital Course 69-year-old female with history of mechanical valve, on Coumadin, left atrial thrombus presented to the hospital with chief complaint of intermittent chest pain, cardiology was consulted for angiogram, coronary angiogram did not show any obstructive disease. Patient did not experience any chest pain during hospitalization, she is describing her discomfort as burning sensation. She is already on omeprazole at home. Echo has not shown new changes. Her hemoglobin seems to be around 9.7-10.8, last year in March she was around 8.1 in case her hemoglobin drops further she will need an endoscopy, she will need to monitor st ool color for now. She will go home on her Coumadin we have kept her on bridging therapy with heparin until her INR was therapeutic. At the time of discharge INR is 2.49 goal is 2.5-3.5. Physical Exam Narrative: GCS 15 Awake and alert Pleasant and cooperative No active chest pain Nonfocal neuroexam S1, S2 Discharge Data Studies Completed and Pending Completed Studies During Hospitalization Category Date Time Status XR chest 1V portable [id number] Stat Exams 05/01/23 21:23 Completed CV. echo limited [id number] Routine Ultrasound 05/02/23 Completed Pending at discharge Category Date Time Status [employer] request for service Routine Exams 05/02/23 08:36 Taken Basic Metabolic Panel AM LABS Lab 05/04/23 04:00 Ordered Basic Metabolic Panel AM LABS Lab 05/05/23 04:00 Ordered Complete Blood Count w/Auto AM LABS Lab 05/04/23 04:00 Ordered Complete Blood Count w/Auto AM LABS Lab 05/05/23 04:00 Ordered Platelet Count Q2D Lab 05/04/23 12:00 Ordered Prothrombin Time INR AM LABS Lab 05/04/23 04:00 Ordered Prothrombin Time INR AM LABS Lab 05/05/23 04:00 Ordered Radiology Impressions Chest X-Ray 05/01/23 21:23 IMPRESSION: 1. Emphysematous changes without acute cardiopulmonary abnormality. Laboratory Results WBC 7.57 10^3/uL (3.29-11.43) 05/03/23 03:11 RBC 3.06 10^6/uL (3.85-5.65) L 05/03/23 03:11 Hgb 9.70 g/dL (11.27-16.99) L 05/03/23 03:11 Hct 29.5 % (36-47) L 05/03/23 03:11 MCV 96.4 fl (85-98) 05/03/23 03:11 MCH 31.7 pg (27-33) 05/03/23 03:11 MCHC 32.9 g/dL (30-55) 05/03/23 03:11 RDW 13.4 % (12.1-15.1) 05/03/23 03:11 Plt Count 157 10^3/cmm (157-399) 05/03/23 03:11 MPV 9.6 fL (7.4-10.4) 05/03/23 03:11 Neut % (Auto) 83.7 % 05/03/23 03:11 Lymph % (Auto) 9.9 % 05/03/23 03:11 [place] % (Auto) 6.1 % 05/03/23 03:11 Eos % (Auto) 0.0 % 05/03/23 03:11 Baso % (Auto) 0.0 % 05/03/23 03:11 Neut # (Auto) 6.34 10^3/uL (1.8-7.7) 05/03/23 03:11 Lymph # (Auto) 0.8 10^3/uL (0.8-4.8) 05/03/23 03:11 [place] # (Auto) 0.5 10^3/uL (0.2-0.9) 05/03/23 03:11 Eos # (Auto) 0.0 10^3/uL (0.0-0.8) 05/03/23 03:11 Baso # (Auto) 0.0 10^3/uL (0.0-0.1) 05/03/23 03:11 Nucleated RBC % (auto) 0 % 05/03/23 03:11 Nucleated RBCs # 0.0 /100WBC 05/03/23 03:11 PT 27.80 SECONDS (12.1-14.9) H D 05/03/23 03:11 INR 2.49 (0.8-1.2) H 05/03/23 03:11 D-Dimer 0.28 ug/mLFEU (0-0.59) 05/01/23 21:46 Sodium 138 mmol/L (136-145) 05/03/23 03:11 Potassium 4.3 mmol/L (3.5-5.1) 05/03/23 03:11 Chloride 107 mmol/L (98-107) 05/03/23 03:11 Carbon Dioxide 24 mmol/L (22-29) 05/03/23 03:11 Anion Gap 11.3 (5-19) 05/03/23 03:11 BUN 19 mg/dL (8-23) 05/03/23 03:11 Creatinine 0.8 mg/dL (0.5-0.9) 05/03/23 03:11 GFR Calculation Not Reportable 05/03/23 03:11 Glucose 130 mg/dL (65-115) H 05/03/23 03:11 Calculated Osmolality 290 mOsm/kg (285-295) 05/03/23 03:11 Calcium 8.7 mg/dL (8.5-10.5) 05/03/23 03:11 Magnesium 2.2 mg/dL (1.7-2.3) 05/03/23 03:11 Total Bilirubin 0.5 mg/dL (0.15-1.2) 05/01/23 21:46 AST 30 U/L (0-32) 05/01/23 21:46 ALT 31 U/L (0-33) 05/01/23 21:46 Alkaline Phosphatase 87 U/L (35-105) 05/01/23 21:46 Troponin T Baseline 26 ng/L (0-10) H 05/01/23 21:46 Troponin T 120 Minute 37.46 ng/L (0-10) H 05/02/23 00:00 Delta Troponin T 11.46 ABS# (0-10) H* 05/02/23 00:00 Troponin T Hi Sens 6Hr 34.14 ng/L (0-10) H 05/02/23 03:40 Troponin T Hi Sens 6Hr Delta 8.14 ng/L (0-12) 05/02/23 03:40 NT-Pro-B Natriuret Pep 2826 pg/mL (0-125) H 05/01/23 21:46 Total Protein 7.2 g/dL (6.6-8.7) 05/01/23 21:46 Albumin 4.6 g/dL (3.5-5.2) 05/01/23 21:46 Globulin 2.6 g/dL (1.3-4.6) 05/01/23 21:46 Lipase 21 U/L (13-60) 05/01/23 21:46 Influenza Type A Ag Negative (Negative) 05/01/23 22:43 Influenza Type B Ag Negative (Negative) 05/01/23 22:43 SARS-CoV-2 Ag (Rapid) negative (Negative) 05/01/23 22:43 Vitals Last Vital Signs Temp 97.8 F 05/03/23 07:18 Pulse 69 05/03/23 07:18 Resp 21 H 05/03/23 07:18 BP 136/74 05/03/23 07:18 Pulse Ox 97 05/03/23 07:18 O2 Del Method Room Air 05/03/23 07:18 O2 Flow Rate 2 05/02/23 18:19 Discharge Plan Discharge Patient Disposition: Home Condition: Stable Prescriptions: New omeprazole 20 mg capsule,delayed release(DR/EC) 20 mg PO BID Qty: 20 0RF sucralfate 1 gram tablet 1 g PO BID Qty: 20 0RF Continued tizanidine 4 mg tablet 4 mg PO BID PRN (Reason: muscle spasticity) rosuvastatin 20 mg tablet 20 mg PO QAM omeprazole 20 mg capsule,delayed release(DR/EC) 20 mg PO BID furosemide 40 mg tablet 40 mg PO QAM Qty: 90 3RF valsartan 40 mg tablet 40 mg PO DAILY Qty: 90 3RF diphenhydramine HCl [Benadryl Allergy] 25 mg tablet 50 mg PO .HS spironolactone 50 mg tablet 50 mg PO QAM Hold Instructions: Resume on 04/01/22. Hold until APPt with [place] acetaminophen 325 mg capsule 325 mg PO QID PRN (Reason: Mild Pain (Scale Score 1-4)) metoprolol tartrate 25 mg tablet 12.5 mg PO DAILY PRN (Reason: heart rate >120) Qty: 30 0RF Rx Instructions: take only if heart rate >120 after taking your regular 75mg metoprolol warfarin 6 mg tablet 6 mg PO DAILY Qty: 90 2RF Protocol: Dose Management Condition: Tuesday Dose/Route: 5 mg Instruction: 1 x 5 mg tablet Condition: Tuesday Dose/Route: 5 mg Instruction: 1 x 5 mg tablet Condition: Tuesday Dose/Route: 7 mg Instruction: 1 x 1 mg tablet, 1 x 6 mg tablet Condition: Tuesday Dose/Route: 5 mg Instruction: 1 x 5 mg tablet Condition: Dose/Route: 7 mg Instruction: 1 x 1 mg tablet, 1 x 6 mg tablet Condition: Tuesday Dose/Route: 5 mg Instruction: 1 x 5 mg tablet Condition: Tuesday Dose/Route: 5 mg Instruction: 1 x 5 mg tablet Protocol Text: Adjustment Start Date: Tuesday04/27/23 INR Value: 3.2 INR Date: 04/27/23 Recheck Date: 05/04/23 Rx Instructions: As directed; based on INR results warfarin 5 mg tablet 5 mg PO DAILY Qty: 90 3RF Protocol: Dose Management Condition: Tuesday Dose/Route: 5 mg Instruction: 1 x 5 mg tablet Condition: Tuesday Dose/Route: 5 mg Instruction: 1 x 5 mg tablet Condition: Tuesday Dose/Route: 7 mg Instruction: 1 x 1 mg tablet, 1 x 6 mg tablet Condition: Tuesday Dose/Route: 5 mg Instruction: 1 x 5 mg tablet Condition: Dose/Route: 7 mg Instruction: 1 x 1 mg tablet, 1 x 6 mg tablet Condition: Tuesday Dose/Route: 5 mg Instruction: 1 x 5 mg tablet Condition: Tuesday Dose/Route: 5 mg Instruction: 1 x 5 mg tablet Protocol Text: Adjustment Start Date: Tuesday04/27/23 INR Value: 3.2 INR Date: 04/27/23 Recheck Date: 05/04/23 warfarin 1 mg tablet See Rx Instructions .ROUTE .COMPLEX Qty: 30 0RF Protocol: Dose Management Condition: Tuesday Dose/Route: 5 mg Instruction: 1 x 5 mg tablet Condition: Tuesday Dose/Route: 5 mg Instruction: 1 x 5 mg tablet Condition: Tuesday Dose/Route: 7 mg Instruction: 1 x 1 mg tablet, 1 x 6 mg tablet Condition: Tuesday Dose/Route: 5 mg Instruction: 1 x 5 mg tablet Condition: Dose/Route: 7 mg Instruction: 1 x 1 mg tablet, 1 x 6 mg tablet Condition: Tuesday Dose/Route: 5 mg Instruction: 1 x 5 mg tablet Condition: Tuesday Dose/Route: 5 mg Instruction: 1 x 5 mg tablet Protocol Text: Adjustment Start Date: Tuesday04/27/23 INR Value: 3.2 INR Date: 04/27/23 Recheck Date: 05/04/23 Dose Instruction: TAKE DIRECTED Rx Instructions: TAKE DIRECTED metoprolol succinate 50 mg tablet extended release 24 hr 75 mg PO .HS Qty: 135 0RF clopidogrel 75 mg tablet 75 mg PO QAM Qty: 90 1RF ascorbic acid (vitamin C) [Vitamin C] 500 mg Tablet 1,000 mg PO QAM nitroglycerin [Nitrostat] 0.4 mg Tablet, Sublingual 0.4 mg SUBLINGUAL Q5M PRN (Reason: Chest Pain) Rx Instructions: do not exceed 3 doses per episode potassium gluconate 595 mg (99 mg) Tablet 1,190 mg PO QAM cholecalciferol (vitamin D3) [Vitamin D3] 125 mcg (5,000 unit) Tablet 125 mcg PO QAM trazodone 50 mg tablet 50 mg PO BEDTIME Discharge Orders: Discharge Order (Routine); Ordered 05/03/23 Ordered By: Angel Riddle Referrals: Amador Cherry DO [Primary Care Provider] - Patient Instructions: Opioid Safety Discharge Attestations Time Spent in Discharge Care*: greater than 30 min Quality Metrics Clinical Quality Measures [ No reported AMI, CVA or VTE this stay] Coding Level of Care Code Acute Code for [facility] Fwd Diagnoses Chest pain R07.9 HTN (hypertension) with goal to be determined I10 Chronic systolic congestive heart failure I50.9 Coronary artery disease involving [place] coronary artery of [place] heart without angina pectoris I25.10 S/P mitral valve replacement Z95.2 Cardiomyopathy, ischemic I25.5 Intermittent atrial fibrillation I48.0
--- NOTE | 2023-05-03 09:29 | PC.CHAP ---
Pastoral Care Encounter/Spiritual Assessment Type of Contact [] Declined rn mds visit [] Patient/Family/Request visit [] Outpatient visit [] Follow-up visit [] Physician referral [] Code/Alert [x] Routine visit [] Staff referral [] Actively dying [] Patient sleeping [] Family support [] [] Out of room [] Palliative care [] [] Receiving care in room [] Pre-surgical visit [] Trauma [] Long length of stay [] ICU visit [] Other: Relational/Emotional Strength [x] Patient feels connected with others/family/visitors/staff [] Distress [] Loneliness/isolation [] Abandonment Spirituality of Patient [x] Person of Melinda [] Attends Spiritism of their Melinda [x] Believes in Prayer [] Reads Bible or Advent materials [] There are Spiritual issues to be addressed [employer] Repairer Interventions [x] Prayer [x] Active listening [] Non-anxious presence [x] Spiritual/emotional support [] Crisis/trauma care [] Spiritual counseling [] Bereavement support [] Provided bereavement packet [] Provided Bible/devotional materials [] Provided toy/stuffed animal, coloring book to patient or family member [] Provided Communion [] Anointing/[place] [] Salvation [x] Completed spiritual assessment [] Other: Impact on Illness or Injury [] Angry [] Fearful [] Anxious [] Often cries [] Exhaustion [] Unable to work [] Unable to attend cheondoism [] Unable to walk/stand [] Unable to read [] Unable to drive [] Unable to eat/drink [] Unable to sleep [] Unable to be with family [] Patient intubated [] Other: Summary Time spent with patient 5 min Pastoral Care Encounter/Spiritual Assessment Type of Contact [] Declined rn mds visit [] Patient/Family/Request visit [] Outpatient visit [] Follow-up visit [] Physician referral [] Code/Alert [] Routine visit [] Staff referral [] Actively dying [] Patient sleeping [] Family support [] [] Out of room [] Palliative care [] [] Receiving care in room [] Pre-surgical visit [] Trauma [] Long length of stay [] ICU visit [] Other: Relational/Emotional Strength [] Patient feels connected with others/family/visitors/staff [] Distress [] Loneliness/isolation [] Abandonment Spirituality of Patient [] Person of Melinda [] Attends Spiritism of their Melinda [] Believes in Prayer [] Reads Bible or Advent materials [] There are Spiritual issues to be addressed Pow[employer] Repairer Interventions [] Prayer [] Active listening [] Non-anxious presence [] Spiritual/emotional support [] Crisis/trauma care [] Spiritual counseling [] Bereavement support [] Provided bereavement packet [] Provided Bible/devotional materials [] Provided toy/stuffed animal, coloring book to patient or family member [] Provided Communion [] Anointing/[place] [] Salvation [] Completed spiritual assessment [] Other: Impact on Illness or Injury [] Angry [] Fearful [] Anxious [] Often cries [] Exhaustion [] Unable to work [] Unable to attend cheondoism [] Unable to walk/stand [] Unable to read [] Unable to drive [] Unable to eat/drink [] Unable to sleep [] Unable to be with family [] Patient intubated [] Other: Summary Time spent with patient
[2023-05-03] MEDS: warfarin 2 mg Tablet 6 MG PO (13:41)
--- NOTE | 2023-05-03 15:25 | PC.NURSE ---
Discharge Note Patient discharged to [home] via [w/c to POV] accompanied by [family]. Discharge instructions reviewed with patient and/or international representative. Mobile pharmacy medications and/or prescriptions provided. Belongings/home medications returned.
== END 2023-05-03 15:25 | disposition home or self-care (01) | DRG 287 ==
LOC: ER 05-02 00:30 → CSU 05-02 01:59
PROVIDERS: Internal Medicine; Admitting Provider Internal Medicine; Emergency Provider Emergency Medicine; PCP Internal Medicine; Visit Provider Internal Medicine
PROC: B2111ZZ Fluoroscopy of Multiple Coronary Arteries using Low Osmolar Contrast (ICD-10-PCS; principal; 2023-05-02 08:30)
DX: R07.89 Other chest pain (principal); R79.1 Abnormal coagulation profile; I25.5 Ischemic cardiomyopathy; I51.3 Intracardiac thrombosis, not elsewhere classified; K52.9 Noninfective gastroenteritis and colitis, unspecified; Z95.3 Presence of xenogenic heart valve; I11.0 Hypertensive heart disease with heart failure; I50.9 Heart failure, unspecified; E11.9 Type 2 diabetes mellitus without complications; E03.9 Hypothyroidism, unspecified; M81.0 Age-related osteoporosis without current pathological fracture; I48.0 Paroxysmal atrial fibrillation; Z79.01 Long term (current) use of anticoagulants
CPT/HCPCS: 36415; 71045; 80048; 80053; 83690; 83735; 83880; 84484; 85025; 85347; 85378; 85610; 87426; 87804; 93005; 93308; 93454; 96372; 96374; 96375; 96376; 99152; 99153; 99285; C1769; C1887; C1894; G0378; J1200; J1644; J1650; J1885; J1940; J2250; J2270; J2930; J3010; J3475; J3490; J7050; Q9967

== ENCOUNTER → 2023-05-17 14:27 | Outpatient (BNVA) | payer MEDICARE, SELFPAY | PROVIDERS: PCP Internal Medicine; Visit Provider Nurse Practitioner Family | DX: I25.118 Atherosclerotic heart disease of native coronary artery with other forms of angina pectoris (principal); I48.91 Unspecified atrial fibrillation | CPT/HCPCS: 36415; 80048; 83880; 85025; 99214 ==

== ENCOUNTER → 2023-06-17 10:12 | Outpatient (BNVA) | payer MEDICARE, SELFPAY | PROVIDERS: PCP Internal Medicine; Visit Provider Nurse Practitioner Family | DX: I48.0 Paroxysmal atrial fibrillation (principal); I25.118 Atherosclerotic heart disease of native coronary artery with other forms of angina pectoris; I11.0 Hypertensive heart disease with heart failure; I50.9 Heart failure, unspecified; Z79.01 Long term (current) use of anticoagulants | CPT/HCPCS: 99214 ==

== ENCOUNTER 2023-06-20 18:07 | Inpatient (IN) | payer MEDICARE, SELFPAY ==
[2023-06-20] VITALS (8 sets, daily range): BP systolic 117–165; BP diastolic 75–89; PULSE 89–115; RESP 16–28; TEMP 36.9–37.3; O2SAT 93–95; BMI 24.2
--- NOTE | 2023-06-20 18:31 | XRR_ITS ---
PROCEDURE INFORMATION: Exam: XR Chest Exam date and time: 06/20/2023 6:34 PM Age: 72 years old Clinical indication: Shortness of breath; Prior surgery; Surgery date: 6+ months; Surgery type: Cabg avr; Additional info: SOA, cough, congestion, tachy TECHNIQUE: Imaging protocol: Radiologic exam of the chest. Views: 1 view. COMPARISON: CR XR chest 1V portable [id number] 05/01/2023 9:43 PM FINDINGS: Lungs: No focal lung consolidation. The lungs are hyperinflated and hyperlucent compatible with chronic obstructive pulmonary disease. Pleural spaces: No pleural effusion. No pneumothorax. Heart/Mediastinum: Mild cardiomegaly. Bones/joints: Median sternotomy. XR/XR chest 1V [id number] IMPRESSION: No focal lung consolidation.
--- NOTE | 2023-06-20 18:38 | ECG_ITS ---
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 Measurements Intervals [place] Rate: 120 P: 0 MA: 0 QRS: 64 QRSD: 114 T: 239 QT: 321 QTc: 455 Interpretive Statements ATRIAL FIBRILLATION WITH RAPID VENTRICULAR RESPONSE WITH ABERRANT CONDUCTION OR VENTRICULAR PREMATURE COMPLEXES MODERATE INTRAVENTRICULAR CONDUCTION DELAY [105+ ms QRS DURATION, 80+ ms Q/S IN V1/V2, NO Q AND 60+ ms R IN I/aVL/V5/V6] ST DEVIATION AND MODERATE T-WAVE ABNORMALITY, CONSIDER LATERAL ISCHEMIA [-0.1+ mV T-WAVE IN I/aVL/V5/V6] ST DEVIATION AND MODERATE T-WAVE ABNORMALITY, CONSIDER INFERIOR ISCHEMIA [-0.1+ mV T-WAVE IN II/aVF] Compared to ECG 05/02/2023 04:08:44 Ventricular premature complex(es) now present Aberrant conduction of supraventricular beat(s) now present T-wave abnormality still present Possible ischemia still present Electronically Signed On 06-20-2023 21:00:51 CDT by Jacques Parks M.D. [id number]
--- NOTE | 2023-06-20 18:44 | ECG_ITS ---
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 Measurements Intervals [place] Rate: 114 P: 0 NC: 0 QRS: 64 QRSD: 125 T: 240 QT: 329 QTc: 454 Interpretive Statements ATRIAL FIBRILLATION WITH RAPID VENTRICULAR RESPONSE WITH ABERRANT CONDUCTION OR VENTRICULAR PREMATURE COMPLEXES MODERATE INTRAVENTRICULAR CONDUCTION DELAY [105+ ms QRS DURATION, 80+ ms Q/S IN V1/V2, NO Q AND 60+ ms R IN I/aVL/V5/V6] ST DEVIATION AND MODERATE T-WAVE ABNORMALITY, CONSIDER LATERAL ISCHEMIA [-0.1+ mV T-WAVE IN I/aVL/V5/V6] ST DEVIATION AND MODERATE T-WAVE ABNORMALITY, CONSIDER INFERIOR ISCHEMIA [-0.1+ mV T-WAVE IN II/aVF] Compared to ECG 06/20/2023 18:46:48 Ventricular premature complex(es) now present Aberrant conduction of supraventricular beat(s) now present T-wave abnormality still present Possible ischemia still present Electronically Signed On 06-20-2023 21:00:24 CDT by Jacques Parks M.D. [email or web address].[email or web address]/store/[id number]
[2023-06-20 18:45] LABS: Basophils % 0.3 %; Eosinophils # 0.1 10^3/uL (0.0-0.8); Eosinophils % 0.7 %; Hematocrit 40.5 % (36-47); Lymphocytes # 1.5 10^3/uL (0.8-4.8); Lymphocytes % 10.1 %; Mean Corpuscular HGB Conc 34.1 g/dL (30-55); Mean Corpuscular Hemoglobin 33.2 pg (27-33); Mean Corpuscular Volume 97.4 fl (85-98); Mean Platelet Volume 9.3 fL (7.4-10.4); Monocytes # 1.1 10^3/uL (0.2-0.9); Monocytes % 7.4 %; Neutrophils # 12.05 10^3/uL (1.8-7.7); Nucleated Red Blood Cells % 0 %; Platelet Count 271 10^3/cmm (157-399); Red Blood Count 4.16 10^6/uL (3.85-5.65); Red Cell Distribution Width 13.3 % (12.1-15.1); White Blood Count 14.88 10^3/uL (3.29-11.43)
--- NOTE | 2023-06-20 18:46 | ECG_ITS ---
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 Measurements Intervals [place] Rate: 124 P: 0 GA: 0 QRS: 60 QRSD: 110 T: 241 QT: 299 QTc: 430 Interpretive Statements ATRIAL FIBRILLATION WITH RAPID VENTRICULAR RESPONSE MODERATE INTRAVENTRICULAR CONDUCTION DELAY [105+ ms QRS DURATION, 80+ ms Q/S IN V1/V2, NO Q AND 60+ ms R IN I/aVL/V5/V6] ST DEVIATION AND MODERATE T-WAVE ABNORMALITY, CONSIDER LATERAL ISCHEMIA [-0.1+ mV T-WAVE IN I/aVL/V5/V6] ST DEVIATION AND MODERATE T-WAVE ABNORMALITY, CONSIDER INFERIOR ISCHEMIA [-0.1+ mV T-WAVE IN II/aVF] Compared to ECG 06/20/2023 18:38:44 Ventricular premature complex(es) no longer present Aberrant conduction of supraventricular beat(s) no longer present T-wave abnormality still present Possible ischemia still present Electronically Signed On 06-20-2023 21:00:55 CDT by Jacques Parks M.D. [id number]
--- NOTE | 2023-06-20 19:00 | W.ED.CHESTPA ---
HPI - Chest Pain General: Chief Complaint: Upper Respiratory Infection Stated Complaint: sob Time Seen by Provider: 06/20/23 18:30 History of Present Illness: 72-year-old female presents to the emergency department for complaints of increased shortness of breath for the previous 4 days. Past medical history includes coronary artery disease, atrial fibrillation, previous left ventricle thrombus, mechanical valve replacement x 2, cardiac stent placement and atrial fibrillation. She states she does have a recent weight gain and has seen her nurse practitioner in the permastone installer office on Tuesday and was advised that she was having excess fluid due to her congestive heart failure. The patient states that on Tuesday she started having some left-sided chest pain that radiated towards her neck and she states she also had increased shortness of breath as well as diaphoresis at that time. She states she did rest and the pain got better. She states that today she started having some 4 out of 10 left-sided chest pain that radiated to the right side of her chest and towards her neck and she became very diaphoretic and nauseated at that time. She states she does feel like her heart is going faster than it normally does. She states she also felt very dizzy and lightheaded this morning when her chest pain started. Associated symptoms: Reports diaphoresis, nausea and palpitations Review of Systems General: Reports: 10 or more systems reviewed and unremarkable except in HPI and below Const: Reports: diaphoresis Card: Reports: chest pain, palpitations, irregular heart rhythm, edema, swelling of feet/ankles, lightheadedness and pre-syncope GI: Reports: nausea [facility] ED PFSH: Medical History (Updated 06/23/23 @ 00:01 by URBANO Bennett) Cyst of left Bartholin's gland Abscess of vagina Fever Atrial fibrillation Chronic diarrhea Subtherapeutic international normalized ratio (INR) Non-ST elevation CO (NSTEMI) Chest pain Intermittent atrial fibrillation Cardiomyopathy, ischemic Osteoporosis Hypothyroidism Diabetes mellitus diagnosed in 2017 HTN (hypertension) with goal to be determined CHF (congestive heart failure) CAD (coronary artery disease) stent to mid LAD 11/02/2018 Surgical History (Updated 06/23/23 @ 00:01 by URBANO Bennett) Hx of mitral valve replacement with mechanical valve S/P hysterectomy S/P cholecystectomy S/P mitral valve replacement St Eran valve by [facility] [place] 2006 Mitral valve replaced Family History Father CAD (coronary artery disease) Stroke Mother CAD (coronary artery disease) Diabetes Hypertension Sister CAD (coronary artery disease) Hypertension Lung disease Psychiatric illness Son Lung disease Denies family history of Clotting disorder Dementia Hyperlipidemia Chronic kidney disease (CKD) Suicide Anesthesia complication Bleeding disorder Family history of premature coronary artery disease Cancer Social History Smoking and tobacco/nicotine status: never used tobacco/nicotine Second hand smoke exposure: Yes Alcohol intake: never Substance/Drug Use: never Physical Exam Narrative: EXAM NARRATIVE: Constitutional: the patient appears well nourished and with normal development. Vital signs reviewed as documented. HENMT: Normocephalic, atraumatic. External ears normal appearance without drainage. Nose without drainage, normal appearance. Mucus membranes moist. Neck is supple, No jugular venous distension, trachea is midline, no appreciable carotid bruits. No lymphadenopathy. No meningeal signs. Flexion, extension and lateral rotation is without pain. Eyes: Pupils are equal, round, reactive to light and accommodation. No scleral icterus. Extra-ocular movement are intact. Thorax is symmetrical and with equal rise and fall with respirations. Resp: Faint expiratory wheezes noted bilaterally she does have faint crackles in the bases bilaterally. At present she does not appear to have increased work of breathing. Cardio: Atrial fibrillation with rapid ventricular response. Positive S1, S2. No appreciable murmurs, rubs or gallops. GI: Abdominal exam reveals normal bowel sounds to all quadrants. No organomegaly. No obvious palpable masses noted. No hepatomegally appreciated. Soft, non-tender to palpation. Extremity: Extremities are non-edematous and both femoral and pedal pulses are 2+ and equal bilaterally. Moves all extremities well, sensation in all extremities. Neuro: Alert and oriented x4, person, place, time and situation. Cranial nerves II through XII are grossly intact, there is no focal neurological deficits that I can appreciate at present. Sensation intact to all extremities. 2-point discrimination intact. Light touch intact to all extremities. Motor strength in the upper and lower extremities are equal and bilateral 5/5. Psych: Cooperative, calm, normal thought process, appropriate judgment. Skin: No lesions, rashes. No gross abnormalities noted. Back: Symmetrical, no obvious deformity, No CVA tenderness Course Vital Signs: Vital signs: Vital Signs Temperature 98.6 F 06/22/23 12:00 Pulse Rate 82 06/22/23 14:00 Respiratory Rate 20 H 06/22/23 12:00 Blood Pressure 104/57 06/22/23 12:00 Pulse Oximetry 94 06/22/23 12:00 Oxygen Delivery Me thod Room Air 06/22/23 12:00 MDM - Chest Pain Medical Decision Making Physical exam completed and documented, I will obtain serial cardiac enzymes, serial twelve-lead EKGs, chest x-ray, CBC, CMP, urinalysis, B-type natriuretic peptide, PT/PTT/INR, and a chest x-ray. I have provided cardiac dose aspirin, reviewed the initial twelve-lead EKG. I will also consider providing loading dose of heparin and possibly a heparin drip as well as evaluate the need for nitroglycerin drip, and reevaluate accordingly. I have reviewed previous and pertinent medical records for assist in obtaining beneficial medical information to improved the care and treatment of the patient. Given the EKG changes from the patient's previous twelve-lead EKG she does appear to have ST elevation in V1 and V2 with inverted T waves in V5 and V6 and I have contacted Dr. Issa the permastone installer to discuss these new findings and he felt that given the patient's atrial fibrillation with a rapid ventricular response of 124 into the 130s that this is most likely secondary to demand ischemia from her atrial fibrillation and not newfound ST elevation. I have provided the patient metoprolol IV to help control the cardiac rate and improve the patient's blood pressure. I will contact the hospitalist and request admission to the hospital for additional evaluation treatment and care. Differential diagnosis includes CHF exacerbation, NSTEMI, STEMI, demand ischemia secondary to uncontrolled atrial fibrillation, electrolyte abnormality, pneumonia, viral illness, Medical Records I reviewed the patient's medical records. Lab Data I reviewed the patient's lab results. 06/22/23 03:54 06/22/23 03:54 Radiology Impressions Chest X-Ray 06/20/23 18:31 IMPRESSION: No focal lung consolidation. Laboratory Results WBC 13.42 10^3/uL (3.29-11.43) H 06/21/23 04:19 RBC 3.60 10^6/uL (3.85-5.65) L 06/21/23 04:19 Hgb 11.60 g/dL (11.27-16.99) 06/21/23 04:19 Hct 34.3 % (36-47) L 06/21/23 04:19 MCV 95.3 fl (85-98) 06/21/23 04:19 MCH 32.2 pg (27-33) 06/21/23 04:19 MCHC 33.8 g/dL (30-55) 06/21/23 04:19 RDW 13.0 % (12.1-15.1) 06/21/23 04:19 Plt Count 219 10^3/cmm (157-399) 06/21/23 04:19 MPV 9.2 fL (7.4-10.4) 06/21/23 04:19 Neut % (Auto) 81.8 % 06/21/23 04:19 Lymph % (Auto) 7.9 % 06/21/23 04:19 [place] % (Auto) 9.5 % 06/21/23 04:19 Eos % (Auto) 0.1 % 06/21/23 04:19 Baso % (Auto) 0.3 % 06/21/23 04:19 Neut # (Auto) 10.97 10^3/uL (1.8-7.7) H 06/21/23 04:19 Lymph # (Auto) 1.1 10^3/uL (0.8-4.8) 06/21/23 04:19 [place] # (Auto) 1.3 10^3/uL (0.2-0.9) H 06/21/23 04:19 Eos # (Auto) 0.0 10^3/uL (0.0-0.8) 06/21/23 04:19 Baso # (Auto) 0.0 10^3/uL (0.0-0.1) 06/21/23 04:19 Nucleated RBC % (auto) 0 % 06/21/23 04:19 Nucleated RBCs # 0.0 /100WBC 06/21/23 04:19 PT 30.90 SECONDS (12.1-14.9) H 06/20/23 18:40 INR 2.84 (0.8-1.2) H 06/20/23 18:40 APTT 61.9 SECONDS (23.9-36.7) H 06/20/23 18:40 Sodium 139 mmol/L (136-145) 06/21/23 04:19 Potassium 4.1 mmol/L (3.5-5.1) 06/21/23 04:19 Chloride 103 mmol/L (98-107) 06/21/23 04:19 Carbon Dioxide 24 mmol/L (22-29) 06/21/23 04:19 Anion Gap 16.1 (5-19) 06/21/23 04:19 BUN 16 mg/dL (8-23) 06/21/23 04:19 Creatinine 0.8 mg/dL (0.5-0.9) 06/21/23 04:19 GFR Calculation Not Reportable 06/21/23 04:19 Glucose 142 mg/dL (65-115) H 06/21/23 04:19 Calculated Osmolality 292 mOsm/kg (285-295) 06/21/23 04:19 Calcium 9.3 mg/dL (8.5-10.5) 06/21/23 04:19 Total Bilirubin 0.5 mg/dL (0.15-1.2) 06/20/23 18:40 AST 20 U/L (0-32) 06/20/23 18:40 ALT 30 U/L (0-33) 06/20/23 18:40 Alkaline Phosphatase 132 U/L (35-105) H 06/20/23 18:40 Troponin T Baseline 24 ng/L (0-10) H 06/20/23 18:40 Troponin T 120 Minute 25.28 ng/L (0-10) H 06/20/23 20:39 Delta Troponin T 1.28 ABS# (0-10) 06/20/23 20:39 Troponin T Hi Sens 6Hr 23.71 ng/L (0-10) H 06/21/23 00:42 Troponin T Hi Sens 6Hr Delta -0.29 ng/L (0-12) L 06/21/23 00:42 C-Reactive Protein 75.1 mg/L (0.0-4.9) H 06/20/23 20:39 NT-Pro-B Natriuret Pep 1362 pg/mL (0-125) H 06/20/23 18:40 Total Protein 8.4 g/dL (6.6-8.7) 06/20/23 18:40 Albumin 5.2 g/dL (3.5-5.2) 06/20/23 18:40 Globulin 3.2 g/dL (1.3-4.6) 06/20/23 18:40 Procalcitonin 0.11 ng/mL (0-0.5) 06/20/23 20:39 TSH 7.32 uIU/mL (0.27-4.20) H 06/20/23 20:39 Urine Color Yellow (Yellow) 06/20/23 20:39 Urine Appearance Sl hazy (CLEAR) A 06/20/23 20:39 Urine pH 6 (5-7) 06/20/23 20:39 Ur Specific [place] 1.015 (1.005-1.030) 06/20/23 20:39 Urine Protein 1+ (Negative) H 06/20/23 20:39 Urine Glucose (UA) Norm (Normal) 06/20/23 20:39 Urine Ketones Negative (Negative) 06/20/23 20:39 Urine Blood 3+ (Negative) H 06/20/23 20:39 Urine Nitrate Negative (Negative) 06/20/23 20:39 Urine Bilirubin Neg (Negative) 06/20/23 20:39 Urine Urobilinogen Neg mg/dL (Negative) 06/20/23 20:39 Ur Leukocyte Esterase Negative (Negative) 06/20/23 20:39 Urine RBC 15-25 /hpf (0-2) H 06/20/23 20:39 Urine WBC 0-4 /hpf (0-5) H 06/20/23 20:39 Ur Squamous Epith Cells 15-25 /hpf (0-5) H 06/20/23 20:39 Amorphous Sediment Not Reportable 06/20/23 20:39 Urine Bacteria Trace /hpf (NONE) 06/20/23 20:39 Urine Mucus 2+ /hpf 06/20/23 20:39 Influenza Type A Ag negative (Negative) 06/20/23 18:58 Influenza Type B Ag negative (Negative) 06/20/23 18:58 SARS-CoV-2 Ag (Rapid) negative (Negative) 06/20/23 18:58 All radiology interpretation(s) finalized by discharge EKG Data EKG 1: Interpretation: Initial twelve-lead EKG obtained at 1838 and reviewed at 1838 demonstrates atrial fibrillation with rapid ventricular response with a ventricular rate of 120, QRS duration 114, QT 321, QTc 393, there is concern for newfound ST elevation in V1, V2 and ST depression in V5 and V6 as well as V4, lead II, lead III, and aVF. There is significant motion artifact and I have requested the EKG be repeated. EKG 2: Interpretation: Repeat twelve-lead EKG obtained at 1846 reviewed at 1846 demonstrates atrial fibrillation with rapid ventricular response with a ventricular rate of 124 bpm, QRS duration is 110, QT 299, QTc 372 ST elevation remains in V1 and V2, patient continues to have inverted T waves and slight ST segment depression in leads V5 and V6. Discharge Plan Discharge Patient Disposition: Placed in Observation Admit Provider: Erick Scherer Clinical Impression: Atrial fibrillation with rapid ventricular response, Acute exacerbation of CHF (congestive heart failure), Hypertension, uncontrolled Discharge Diet: Usual diet Coding Level of Care Code ED Cosmetician Apprentice for Kaila Miller
[2023-06-20 19:09] LABS: Troponin(5th) Baseline 24 ng/L (0-10)
[2023-06-20] MEDS: metoprolol tartrate 1 mg/1 mL SDV 5 mL 5 MG IVP (19:21)
[2023-06-20 19:22] LABS: Influenza A by IFA negative (Negative); Influenza B by IFA negative (Negative); SARS Covid-2 Antigen negative (Negative)
[2023-06-20] MEDS: aspirin 81 mg Chew Tablet 324 MG PO (19:22)
[2023-06-20 19:23] LABS: INR 2.84 (0.8-1.2)
[2023-06-20 19:24] LABS: Partial Thromboplastin Time 61.9 SECONDS (23.9-36.7)
[2023-06-20 19:32] LABS: Alanine Aminotransferase 30 U/L (0-33); Albumin Level 5.2 g/dL (3.5-5.2); Alkaline Phosphatase 132 U/L (35-105); Aspartate Amino Transferase 20 U/L (0-32); Blood Urea Nitrogen 17 mg/dL (8-23); Calcium 10.2 mg/dL (8.5-10.5); Carbon Dioxide 28 mmol/L (22-29); Chloride 99 mmol/L (98-107); Globulin 3.2 g/dL (1.3-4.6); Glucose 192 mg/dL (65-115); NT Pro B Type Natriuretic Pept 1362 pg/mL (0-125); Osmolality Calculated 297 mOsm/kg (285-295); Sodium 140 mmol/L (136-145); Total Bilirubin 0.5 mg/dL (0.15-1.2); Total Protein 8.4 g/dL (6.6-8.7)
[2023-06-20] MEDS: metoprolol tartrate 25 mg Tablet PO (20:37)
[2023-06-20 21:12] LABS: Troponin 5 2HR 25.28 ng/L (0-10); Troponin 5 2HR Delta 1.28 ABS# (0-10)
[2023-06-20 21:23] LABS: Add Urine Microscopic? YES; Bilirubin Urine Neg (Negative); Blood Urine 3+ (Negative); Glucose Urine UA Norm (Normal); Ketones Urine Negative (Negative); Leukocyte Esterase Urine Negative (Negative); Nitrate Urine Negative (Negative); Protein Urine 1+ (Negative); RBC Urine 15-25 /hpf (0-2); Specific Gravity, Urine 1.015 (1.005-1.030); Urine Appearance SL Hazy (CLEAR); Urine Color Yellow (Yellow); Urobilinogen Urine Neg (Negative); WBC Urine 0-4 /hpf (0-5); pH Urine 6 (5-7)
[2023-06-20 21:24] LABS: Add Urine Culture? No; Bacteria Urine TRACE /hpf; Mucus Urine 2+ /hpf; Squamous Epithelial Cell Urine 15-25 /hpf (0-5)
--- NOTE | 2023-06-20 22:27 | P.HP_ITS ---
Providers/Chief Complaint 2 Admitting Physician: Erick Scherer MD Primary Care Provider: Amador Cherry DO Chief Complaint: sob History of Present Illness Jocelin Mcginnis is a 72 year old female with a past medical history significant for mechanical mitral valve, coronary artery disease with prior LAD stent, longstanding persistent atrial fibrillation, heart failure with reduced ejection fraction, LV thrombus, and multiple other comorbidities who presents to the emergency department with chest pain and shortness of breath. She reports onset around Tuesday. Endorses associated fever, productive cough, bilateral shoulder pains, palpitations, dizziness, lightheadedness, and diaphoresis. Exertion worsens symptoms. Rest improves. Patient follows with cardiology. She was last seen in clinic on 06/17/2023. At that time, she was found to be volume overloaded. She was advised to increase her Lasix dosing until weight improved. In the emergency department, patient was found to have atrial fibrillation with rapid ventricular rate. Labs revealed a leukocytosis of 14.8. High sensitive troponin was mildly elevated at 24 ng/L with minimal change in the 2-hour repeat. NT-proBNP was elevated to 1362 ng/L, previously 888 ng/L. Chest x-ray was negative for consolidation. Patient was discussed with cardiology by ED provider. She presents for observation admission. Review of Systems 2 Narrative: A complete review of systems was obtained and is negative except as stated in HPI. Medications/Allergies Home Medications Medication Instructions Recorded Confirmed Last Taken Type rosuvastatin 20 mg tablet 20 mg PO QAM 10/09/19 06/17/23 Unknown History tizanidine 4 mg tablet 4 mg PO BID PRN muscle spasticity 10/09/19 06/17/23 Unknown History omeprazole 20 mg capsule,delayed 20 mg PO BID 11/20/20 06/17/23 Unknown History release ascorbic acid (vitamin C) 500 mg 1,000 mg PO QAM 03/22/22 06/17/23 Unknown History tablet (Vitamin C) cholecalciferol (vitamin D3) 125 125 mcg PO QAM 03/22/22 06/17/23 Unknown History mcg (5,000 unit) tablet (Vitamin D3) nitroglycerin 0.4 mg sublingual 0.4 mg sublingual Q5M PRN Chest 03/22/22 06/17/23 Unknown History tablet (Nitrostat) Pain potassium gluconate 595 mg (99 mg) 1,190 mg PO QAM 03/22/22 06/17/23 Unknown History tablet acetaminophen 325 mg capsule 325 mg PO QID PRN Mild Pain (Scale 04/05/22 06/17/23 Unknown History Score 1-4) metoprolol tartrate 25 mg tablet 12.5 mg (1/2 x 25 mg) PO DAILY PRN 04/05/22 06/17/23 Unknown Rx heart rate >120 #30 tabs warfarin 6 mg tablet 6 mg PO DAILY #90 tabs 04/05/22 06/17/23 Unknown Rx diphenhydramine HCl 25 mg tablet 50 mg PO .HS 07/05/22 06/17/23 Unknown History (Benadryl Allergy) spironolactone 50 mg tablet 50 mg PO QAM 07/05/22 06/17/23 Unknown History warfarin 1 mg tablet See Rx Instructions .Route 09/15/22 06/17/23 Unknown Rx .COMPLEX #30 tabs warfarin 5 mg tablet 5 mg PO DAILY #90 tabs 09/15/22 06/17/23 Unknown Rx furosemide 40 mg tablet 40 mg PO QAM #90 tabs 11/12/22 06/17/23 Unknown Rx valsartan 40 mg tablet 40 mg PO DAILY #90 tabs 02/16/23 06/17/23 Unknown Rx clopidogrel 75 mg tablet 75 mg PO QAM #90 tabs 03/16/23 06/17/23 Unknown Rx omeprazole 20 mg capsule,delayed 20 mg PO BID #20 caps 05/03/23 06/17/23 Unknown Rx release sucralfate 1 gram tablet 1 g PO BID #20 tabs 05/03/23 06/17/23 Unknown Rx trazodone 50 mg tablet 50 mg PO BEDTIME 05/03/23 06/17/23 Unknown History metoprolol succinate 50 mg 50 mg PO .HS #90 tabs 05/17/23 06/17/23 Unknown Rx tablet,extended release 24 hr Allergies Allergy/AdvReac Type Severity Reaction Status Date / Time Iodine and Iodide Containing Allergy rash Verified 06/17/23 10:48 Produc latex Allergy rash Verified 06/17/23 10:48 PFSH Acute 2 PFSH: Medical History (Updated 06/20/23 @ 22:37 by Erick Scherer MD) Cyst of left Bartholin's gland Abscess of vagina Fever Atrial fibrillation Chronic diarrhea Subtherapeutic international normalized ratio (INR) Non-ST elevation IN (NSTEMI) Chest pain Intermittent atrial fibrillation Cardiomyopathy, ischemic Osteoporosis Hypothyroidism Diabetes mellitus diagnosed in 2017 HTN (hypertension) with goal to be determined CHF (congestive heart failure) CAD (coronary artery disease) stent to mid LAD 11/02/2018 Surgical History (Updated 06/20/23 @ 22:37 by Erick Scherer MD) Hx of mitral valve replacement with mechanical valve S/P hysterectomy S/P cholecystectomy S/P [facility] Family History Father CAD (coronary artery disease) Stroke Mother CAD (coronary artery disease) Diabetes Hypertension Sister CAD (coronary artery disease) Hypertension Lung disease Psychiatric illness Son Lung disease Denies family history of Clotting disorder Dementia Hyperlipidemia Chronic kidney disease (CKD) Suicide Anesthesia complication Bleeding disorder Family history of premature coronary artery disease Cancer Social History Smoking and tobacco/nicotine status: never used tobacco/nicotine Second hand smoke exposure: Yes Alcohol intake: never Substance/Drug Use: never Vitals/I&O/Wt Last Vital Signs Temp 98.4 F 06/20/23 18:24 Pulse 96 06/20/23 22:13 Resp 24 H 06/20/23 22:13 BP 120/75 06/20/23 22:13 Pulse Ox 94 06/20/23 22:13 O2 Del Method Room Air 06/20/23 22:13 Weight last 48 hrs Weight 63.957 kg Physical Exam 2 Narrative: General: Patient is awake and alert. Pleasant. Head: Normocephalic. Atraumatic. EOM intact. Neck: No JVD. Cardiovascular: Rhythm is irregularly irregular. No gallops. Mechanical valve noise. 1+ lower extremity edema. Lungs: Tachypneic. No wheezing. Cough present. Skin: No jaundice. No rashes. Abdomen: Normal bowel sounds, abdomen soft and nontender. Genito Urinary: Genital exam not performed since complaints not related. Rectal: Rectal exam not performed since no symptoms indicated blood loss. Extremities: No cyanosis or clubbing. Musculoskeletal: No swollen or erythematous joints. Neurological: Moves all 4 extremities. No myoclonus. Data 06/20/23 18:40 06/20/23 18:40 A&P Assessment and plan (1) Shortness of breath: Suspect symptoms are multifactorial Fever, productive cough, and leukocytosis concerning for bronchitis Check procalcitonin and CRP Start doxycycline Supportive care (2) Atrial fibrillation: Longstanding persistent atrial fibrillation with rapid ventricular rate Treated with IV and p.o. metoprolol in the ED with some improvement in the heart rate Will increase her usual metoprolol succinate to twice daily dosing, monitor for worsening CHF symptoms Continue anticoagulation with warfarin, request pharmacy to dose Qualifiers: Atrial fibrillation type: paroxysmal Qualified Code(s): I48.0 - Paroxysmal atrial fibrillation (3) Acute exacerbation of CHF (congestive heart failure): Acute on chronic heart failure with reduced ejection fraction exacerbation NT-proBNP is elevated and recent weight gain noted Plan for IV Lasix in early a.m. Continue Aldactone Continue beta-[place] Continue ARB Strict I's and O's Daily weights (4) Atherosclerotic heart disease of [place] coronary artery with other forms of angina pectoris: Acute coronary syndrome considered, will rule out with serial troponins, EKG and telemetry CAD with prior stent Cardiac cath from 05/02/2023 reviewed, there was no significant disease noted in the left main LAD right or circumflex coronaries Continue Plavix Continue statin (5) Hx of mitral valve replacement with mechanical valve: Continue warfarin, pharmacy to dose (6) GERD (gastroesophageal reflux disease): Continue formulary PPI Continue Carafate Plan DVT prophylaxis: Warfarin CODE STATUS: Full code Attestations 2 Medical Necessity Statement*: Patient presents with chest pain, shortness of breath, fever, productive cough, bilateral shoulder pains, palpitations, dizziness, lightheadedness, diaphoresis, and weight gain, found to have atrial fibrillation with rapid ventricular rate, acute on chronic heart failure exacerbation, and suspected bronchitis with expected hospitalization not to cross 2 midnights for arrhythmia management, diuresis, antibiotics, and supportive care. Coding Level of Care Code Acute Code for Chg Fwd Diagnoses Shortness of breath R06.02 Paroxysmal atrial fibrillation I48.0 Atrial fibrillation type: paroxysmal Acute exacerbation of CHF (congestive heart failure) I50.9 Atherosclerotic heart disease of [place] coronary artery with other forms of angina pectoris I25.118 Hx of mitral valve replacement with mechanical valve Z95.2 GERD (gastroesophageal reflux disease) K21.9
[2023-06-20 22:51] LABS: C Reactive Protein 75.1 mg/L (0.0-4.9)
[2023-06-20 22:58] LABS: Procalcitonin 0.11 ng/mL (0-0.5)
[2023-06-20 23:21] LABS: Thyroid Stimulating Hormone 7.32 uIU/mL (0.27-4.20)
[2023-06-20] MEDS: doxycycline 100 mg Tablet PO (23:59)
[2023-06-20] MEDS: diphenhydrAMINE 50 mg Capsule PO (23:59)
[2023-06-21] VITALS (120 sets, daily range): BP systolic 142–146; BP diastolic 72–88; PULSE 69–132; RESP 16–32; TEMP 36.6–37.2; O2SAT 89–97; BMI 24.2
--- NOTE | 2023-06-21 00:33 | ECG_ITS ---
[facility] Test Date: 2023-06-21 Pat Name: Jocelin Mcginnis Department: Room: ICU04 Gender: Female [employer] Principal: : 1950 Requested By: Queta Blas Order Number: [id number] Jyoti MD: Trent Blank M.D. Measurements Intervals [place] Rate: 97 P: 0 NV: 0 QRS: 45 QRSD: 114 T: 192 QT: 369 QTc: 470 Interpretive Statements ATRIAL FIBRILLATION MODERATE INTRAVENTRICULAR CONDUCTION DELAY [105+ ms QRS DURATION, 80+ ms Q/S IN V1/V2, NO Q AND 60+ ms R IN I/aVL/V5/V6] ST DEVIATION AND MODERATE T-WAVE ABNORMALITY, CONSIDER LATERAL ISCHEMIA [-0.1+ mV T-WAVE IN I/aVL/V5/V6] ST DEVIATION AND MODERATE T-WAVE ABNORMALITY, CONSIDER INFERIOR ISCHEMIA [-0.1+ mV T-WAVE IN II/aVF] Compared to ECG 06/20/2023 20:13:20 Aberrant conduction of supraventricular beat(s) no longer present Ventricular premature complex(es) no longer present T-wave abnormality still present.Possible ischemia still present Electronically Signed On 06-21-2023 21:26:02 CDT by Trent Blank M.D. [email or web address]
[2023-06-21 01:10] LABS: Troponin 5 6HR 23.71 ng/L (0-10)
[2023-06-21 01:26] LABS: Troponin 5 6HR Delta -0.29 ng/L (0-12)
[2023-06-21 04:31] LABS: Basophils % 0.3 %; Eosinophils % 0.1 %; Hematocrit 34.3 % (36-47); Lymphocytes # 1.1 10^3/uL (0.8-4.8); Lymphocytes % 7.9 %; Mean Corpuscular HGB Conc 33.8 g/dL (30-55); Mean Corpuscular Hemoglobin 32.2 pg (27-33); Mean Corpuscular Volume 95.3 fl (85-98); Mean Platelet Volume 9.2 fL (7.4-10.4); Monocytes # 1.3 10^3/uL (0.2-0.9); Monocytes % 9.5 %; Neutrophils # 10.97 10^3/uL (1.8-7.7); Neutrophils % 81.8 %; Nucleated Red Blood Cells % 0 %; Platelet Count 219 10^3/cmm (157-399); White Blood Count 13.42 10^3/uL (3.29-11.43)
[2023-06-21 04:51] LABS: Anion Gap 16.1 (5-19); Blood Urea Nitrogen 16 mg/dL (8-23); Calcium 9.3 mg/dL (8.5-10.5); Carbon Dioxide 24 mmol/L (22-29); Chloride 103 mmol/L (98-107); Creatinine Clr Calc Pharmacy 57.7437; Glucose 142 mg/dL (65-115); Osmolality Calculated 292 mOsm/kg (285-295); Potassium 4.1 mmol/L (3.5-5.1); Sodium 139 mmol/L (136-145)
[2023-06-21] MEDS: atorvastatin 40 mg Tablet 80 MG PO (05:00)
[2023-06-21] MEDS: lanolin oint 7 gm 1 APPLIC TOPICAL (05:00)
[2023-06-21] MEDS: FUROsemide 10 mg/mL SDV 4mL 40 MG IVP (05:00)
[2023-06-21] MEDS: tizanidine 4 mg Tablet PO ×2 (05:00→19:47)
[2023-06-21] MEDS: clopidogrel 75 mg Tablet PO (05:00)
--- NOTE | 2023-06-21 07:36 | P.PN_ITS ---
Subjective 2 Subjective: seen at bedside tis AM. IV line in place no NC overnignt no events. tolerated diuresis this AM. states she is suffering from a tremendous cough. denies CP or palpitations. Admits to difficulty with keeping fluid off, decreased PO intake and muscle cramps in feet. Denies CP, palpitations, SOB, cough, N/V/D/C, abd pain, BELTRAN, vision changes, loss of sensation or strength in extremities Medications: Reviewed: Yes Vitals/I&O/Wt Last Vital Signs Temp 99.0 F 06/21/23 00:25 Pulse 114 H 06/21/23 05:24 Resp 28 H 06/21/23 04:17 BP 146/88 06/21/23 04:17 Pulse Ox 93 06/21/23 04:17 O2 Del Method Room Air 06/20/23 23:28 Weight last 48 hrs Weight 141 lb Weight 141 lb Weight 141 lb Physical Exam 2 Narrative: General: AOx3, no acute distress, well developed, psych: appropriate mood and affect. good judgment and insight. Head: atraumatic, normocephalic, no mass/lesions Ears: clear external auditory canals, Hearing intact Eyes: conjunctiva clear w/o exudate or hemorrhage. non-icteric, EOM intact, PERRLA. no signs of nystagmus Nose: nasal mucosa pink, septum midline Oropharynx: good dentition, Chest: atraumatic, symmetrical CVD: irr irr, normal S1 and S2, no S3, no M/R/G. 2+ pulse x 4 extremities, no JVD, no carotid bruit, no lower extremity edema Lungs: clear lung sounds in [place], decreased lung sounds, no rhonchi, wheezing, rales. Abdomen: NT, ND, soft, NABS. No hepatosplenomegaly, no mass. umbilicus midline w/o herniation Extremities: FROM and 5/5 strength in BUE and BLE. Neuro: CNII-XII grossly intact. No atrophy, weakness, no sensory abnormalities. Skin:? no rash, vesicles, lesions. Data 06/21/23 04:19 06/21/23 04:19 A&P Assessment and plan (1) Shortness of breath: Suspect multifactorial possible bronchitis will give tessalon pearls for cough negative CRP and procal, swabs negative Doxy started empirically supportive care currently stable on RA (2) Atrial fibrillation: Longstanding persistent atrial fibrillation with rapid ventricular rate Treated with IV and p.o. metoprolol in the ED with some improvement in the heart rate Toprol XL was initially increased to 50mg BID, i have since adjusted it to reflect Toprol XL 100mg qAM which is an increase from the 50mg qhs prior to hospitalization held lopressor 12.5mg monitor for worsening CHF symptoms Continue anticoagulation with warfarin, request pharmacy to dose Qualifiers: Atrial fibrillation type: paroxysmal Qualified Code(s): I48.0 - Paroxysmal atrial fibrillation (3) Acute exacerbation of CHF (congestive heart failure): Acute on chronic heart failure with reduced ejection fraction exacerbation NT-proBNP is elevated and recent weight gain noted to have IV lasix 40mg this AM, monitor output Continue Aldactone Continue beta-roosevelt Continue ARB Strict I's and O's Daily weights (4) Atherosclerotic heart disease of [place] coronary artery with other forms of angina pectoris: Acute coronary syndrome considered, will rule out with serial troponins, EKG and telemetry CAD with prior stent Cardiac cath from 05/02/2023 reviewed, there was no significant disease noted in the left main LAD right or circumflex coronaries Continue Plavix Continue statin (5) Hx of mitral valve replacement with mechanical valve: Continue warfarin, pharmacy to dose (6) GERD (gastroesophageal reflux disease): Continue formulary PPI Continue Carafate Plan Plan -gentle diuresis -adjust Torpol XL dosage -empiric doxy -ICU admit due to no room in the cardiac step down unit. -DVT prophylaxis: Warfarin -CODE STATUS: Full code -anticipate discharge in 24hrs once HR stabilizes on increased dosage Attestations 2 Medical Necessity Statement*: will require 2 overnight stays for ICU management Coding Level of Care Code 96174 Diagnoses Shortness of breath R06.02 Paroxysmal atrial fibrillation I48.0 Atrial fibrillation type: paroxysmal Acute exacerbation of CHF (congestive heart failure) I50.9 Atherosclerotic heart disease of [place] coronary artery with other forms of angina pectoris I25.118 Hx of mitral valve replacement with mechanical valve Z95.2 GERD (gastroesophageal reflux disease) K21.9
[2023-06-21] MEDS: sucralfate 1 gm/10 mL Oral Liq UDC PO ×2 (08:18→16:56)
[2023-06-21] MEDS: losartan 50 mg Tablet 25 MG PO (08:19)
[2023-06-21] MEDS: spironolactone 25 mg Tablet 50 MG PO (08:20)
[2023-06-21] MEDS: pantoprazole DR 40 mg Tablet PO ×2 (08:20→16:56)
[2023-06-21] MEDS: metoprolol succinate ER (24 HR) 50 mg Tablet 100 MG PO (08:21)
[2023-06-21] MEDS: doxycycline 100 mg Tablet PO ×2 (10:18→21:32)
[2023-06-21] MEDS: warfarin 5 mg Tablet PO (16:09)
[2023-06-21] MEDS: acetaminophen 325 mg Tablet 650 MG PO (19:47)
[2023-06-21] MEDS: trazodone 50 mg Tablet PO (21:32)
[2023-06-21] MEDS: benzonatate 100 mg Capsule 200 MG PO (21:32)
[2023-06-21] MEDS: diphenhydrAMINE 50 mg Capsule PO (21:33)
[2023-06-22] VITALS (57 sets, daily range): BP systolic 98–142; BP diastolic 57–87; PULSE 68–107; RESP 14–30; TEMP 36.8–37; O2SAT 91–96
[2023-06-22] MEDS: acetaminophen 325 mg Tablet 650 MG PO ×2 (03:57→11:17)
[2023-06-22 04:42] LABS: Basophils % 0.5 %; Eosinophils # 0.2 10^3/uL (0.0-0.8); Eosinophils % 2.6 %; Hematocrit 35.8 % (36-47); Lymphocytes # 1.8 10^3/uL (0.8-4.8); Lymphocytes % 20.8 %; Mean Corpuscular Hemoglobin 32.5 pg (27-33); Mean Corpuscular Volume 98.6 fl (85-98); Mean Platelet Volume 9.5 fL (7.4-10.4); Monocytes # 0.9 10^3/uL (0.2-0.9); Monocytes % 11.2 %; Neutrophils # 5.43 10^3/uL (1.8-7.7); Neutrophils % 64.5 %; Nucleated Red Blood Cells % 0 %; Platelet Count 229 10^3/cmm (157-399); Red Blood Count 3.63 10^6/uL (3.85-5.65); Red Cell Distribution Width 12.9 % (12.1-15.1); White Blood Count 8.41 10^3/uL (3.29-11.43)
[2023-06-22 04:54] LABS: INR 1.63 (0.8-1.2)
[2023-06-22 05:05] LABS: Alanine Aminotransferase 18 U/L (0-33); Albumin Level 3.8 g/dL (3.5-5.2); Alkaline Phosphatase 93 U/L (35-105); Aspartate Amino Transferase 18 U/L (0-32); Blood Urea Nitrogen 21 mg/dL (8-23); Calcium 9.2 mg/dL (8.5-10.5); Carbon Dioxide 26 mmol/L (22-29); Chloride 102 mmol/L (98-107); Creatinine Clr Calc Pharmacy 51.3278; Globulin 3.2 g/dL (1.3-4.6); Glucose 119 mg/dL (65-115); Osmolality Calculated 288 mOsm/kg (285-295); Sodium 137 mmol/L (136-145); Total Bilirubin 0.6 mg/dL (0.15-1.2)
[2023-06-22] MEDS: FUROsemide 10 mg/mL SDV 4mL 40 MG IVP (06:03)
[2023-06-22] MEDS: atorvastatin 40 mg Tablet 80 MG PO (06:03)
[2023-06-22] MEDS: clopidogrel 75 mg Tablet PO (06:03)
--- NOTE | 2023-06-22 07:14 | PM.PN ---
Subjective Medications: Reviewed: Yes Vitals/I&O/Wt Last Vital Signs Temp 98.4 F 06/22/23 04:00 Pulse 71 06/22/23 06:00 Resp 22 H 06/22/23 04:00 BP 101/86 06/22/23 04:00 Pulse Ox 94 06/22/23 04:00 O2 Del Method Room Air 06/22/23 04:00 06/21/23 06/22/23 06/22/23 22:59 06:59 14:59 Intake Total 360 / 720 200 / 920 Balance 360 / 720 200 / 920 Weight last 48 hrs Weight 65.136 kg Weight 63.957 kg Weight 63.957 kg Weight 63.957 kg Data 06/22/23 03:54 06/22/23 03:54 A&P Assessment and plan (1) Shortness of breath: Suspect multifactorial possible bronchitis will give tessalon pearls for cough negative CRP and procal, swabs negative Doxy started empirically supportive care currently stable on RA (2) Atrial fibrillation: Longstanding persistent atrial fibrillation with rapid ventricular rate Treated with IV and p.o. metoprolol in the ED with some improvement in the heart rate Toprol XL was initially increased to 50mg BID, i have since adjusted it to reflect Toprol XL 100mg qAM which is an increase from the 50mg qhs prior to hospitalization held lopressor 12.5mg monitor for worsening CHF symptoms Continue anticoagulation with warfarin, request pharmacy to dose Qualifiers: Atrial fibrillation type: paroxysmal Qualified Code(s): I48.0 - Paroxysmal atrial fibrillation (3) Acute exacerbation of CHF (congestive heart failure): Acute on chronic heart failure with reduced ejection fraction exacerbation NT-proBNP is elevated and recent weight gain noted to have IV lasix 40mg this AM, monitor output Continue Aldactone Continue beta-roosevelt Continue ARB Strict I's and O's Daily weights (4) Atherosclerotic heart disease of [place] coronary artery with other forms of angina pectoris: Acute coronary syndrome considered, will rule out with serial troponins, EKG and telemetry CAD with prior stent Cardiac cath from 05/02/2023 reviewed, there was no significant disease noted in the left main LAD right or circumflex coronaries Continue Plavix Continue statin (5) Hx of mitral valve replacement with mechanical valve: Continue warfarin, pharmacy to dose (6) GERD (gastroesophageal reflux disease): Continue formulary PPI Continue Carafate Plan Plan -gentle diuresis -adjust Torpol XL dosage -empiric doxy -ICU admit due to no room in the cardiac step down unit. -DVT prophylaxis: Warfarin -CODE STATUS: Full code -anticipate discharge in 24hrs once HR stabilizes on increased dosage Coding Level of Care Code Acute Code for Chg Fwd Diagnoses Shortness of breath R06.02 Paroxysmal atrial fibrillation I48.0 Atrial fibrillation type: paroxysmal Acute exacerbation of CHF (congestive heart failure) I50.9 Atherosclerotic heart disease of [place] coronary artery with other forms of angina pectoris I25.118 Hx of mitral valve replacement with mechanical valve Z95.2 GERD (gastroesophageal reflux disease) K21.9
[2023-06-22] MEDS: benzonatate 100 mg Capsule 200 MG PO (07:36)
[2023-06-22] MEDS: sucralfate 1 gm/10 mL Oral Liq UDC PO (08:12)
[2023-06-22] MEDS: metoprolol succinate ER (24 HR) 50 mg Tablet 100 MG PO (08:12)
[2023-06-22] MEDS: pantoprazole DR 40 mg Tablet PO (08:12)
[2023-06-22] MEDS: spironolactone 25 mg Tablet 50 MG PO (08:12)
[2023-06-22] MEDS: losartan 50 mg Tablet 25 MG PO (08:13)
--- NOTE | 2023-06-22 11:13 | PC.NURSE ---
This nurse assumed care of pt at 1100 from [facility] Rose.
[2023-06-22] MEDS: doxycycline 100 mg Tablet PO (11:17)
[2023-06-22] MEDS: warfarin 1 mg Tablet PO (13:42)
[2023-06-22] MEDS: warfarin 5 mg Tablet PO (13:42)
--- NOTE | 2023-06-22 14:08 | PC.NURSE ---
This nurse called pharmacy to confirm one time order of 3mg warfarin as this nurse just administered 6mg PO Warfarin. [place] confirmed this to be correct.
[2023-06-22] MEDS: warfarin 1 mg Tablet 3 MG PO (14:14)
--- NOTE | 2023-06-22 15:01 | PM.DCS ---
Discharge Providers Date of Admission: 06/21/23 09:06 Date of Discharge: June 22, 2023 Attending Provider at Admission: Erick Scherer MD Attending Provider at Discharge: Christopher Meléndez MD Primary Care Provider: Amador Cherry DO Diagnoses at Discharge Discharge Diagnosis (1) Shortness of breath: Status: Acute (2) Atrial fibrillation: Status: Acute Qualifiers: Atrial fibrillation type: paroxysmal Qualified Code(s): I48.0 - Paroxysmal atrial fibrillation (3) Acute exacerbation of CHF (congestive heart failure): Status: Acute (4) Atherosclerotic heart disease of [place] coronary artery with other forms of angina pectoris: Status: Acute (5) Hx of mitral valve replacement with mechanical valve: Status: Acute (6) GERD (gastroesophageal reflux disease): Status: Acute Reason for Visit Reason for Visit: sob Hospital Course Hospital Course Ms Jocelin Mcginnis is a 72 year old female with a past medical history significant for mechanical mitral valve, coronary artery disease with prior LAD stent, longstanding persistent atrial fibrillation, heart failure with reduced ejection fraction, LV thrombus, who presented for further evaluation of chest pain and shortness of breath with associated fever and productive cough. In the ER, Labs revealed a leukocytosis of 14.8. High sensitive troponin was mildly elevated at 24 ng/L with minimal change in the 2-hour repeat. NT-proBNP was elevated to 1362 ng/L, previously 888 ng/L. Chest x-ray was negative for consolidation. She was admitted for further evaluation and management. Shortness of breath was multifactorial due to bronchitis, CHF exacerbation, atrial fibrillation with RVR. She did not have evidence of pneumonia on chest x-ray. Patient was managed with IV Lasix and doxycycline. She had improvement in her symptoms. Dose of metoprolol was increased to 100 mg daily with improvement in patient's heart rate. She will continue goal-directed medical therapy with beta-roosevelt, Aldactone, ARB and follow with her vp hr diversity outpatient. She will continue warfarin for her mechanical valve. . Physical Exam Const: COMMON NORMALS: no acute distress, patient oriented x3 and alert HENMT: COMMON NORMALS: normocephalic, atraumatic, external ears normal, Normal external nose present, moist oral mucous membranes and oropharynx normal HEAD & SCALP: normocephalic and atraumatic NOSE: Normal external nose present EXTERNAL EAR: Yes external ears normal Eye: COMMON NORMALS: Equal, round and reactive pupils present, EOMs intact bilaterally, conjunctivae normal and no scleral icterus CONJUNCTIVA: Yes conjunctivae normal PUPIL: Yes Equal, round and reactive pupils present Neck/C-Spine: COMMON NORMALS: full ROM, no lymphadenopathy and no JVD Chest: COMMONS NORMALS: normal inspection of the chest Resp: COMMON NORMALS: normal respiratory effort and clear to auscultation bilaterally AUSCULTATION: clear to auscultation bilaterally OTHER: No wheezes or crcakles Cardio: COMMON NORMALS: no JVD, S1 normal heart sound present (irregular rate, rhythm ) and S2 normal heart sound present HEART SOUNDS: S1 normal heart sound present (irregular rate, rhythm ) and S2 normal heart sound present GI: COMMON NORMALS: Normal to inspection, nondistended, normoactive bowel sounds present, Soft to palpation and non-tender PALPATION: Yes Soft to palpation Extremity: COMMON NORMALS: normal to inspection and no pedal edema Neuro: COMMON NORMALS: patient oriented x3 SENSORIUM/ORIENTATION: Yes alert OTHER: No gross focal deficits Discharge Data Studies Completed and Pending Completed Studies During Hospitalization Category Date Time Status XR chest 1V [id number] Stat Exams 06/20/23 18:31 Completed Pending at discharge Category Date Time Status Prothrombin Time INR AM LABS Lab 06/23/23 04:00 Ordered Prothrombin Time INR AM LABS Lab 06/24/23 04:00 Ordered Sputum Culture Routine Lab 06/22/23 08:19 Uncollected Radiology Impressions Chest X-Ray 06/20/23 18:31 IMPRESSION: No focal lung consolidation. Laboratory Results WBC 8.41 10^3/uL (3.29-11.43) 06/22/23 03:54 RBC 3.63 10^6/uL (3.85-5.65) L 06/22/23 03:54 Hgb 11.80 g/dL (11.27-16.99) 06/22/23 03:54 Hct 35.8 % (36-47) L 06/22/23 03:54 MCV 98.6 fl (85-98) H 06/22/23 03:54 MCH 32.5 pg (27-33) 06/22/23 03:54 MCHC 33.0 g/dL (30-55) 06/22/23 03:54 RDW 12.9 % (12.1-15.1) 06/22/23 03:54 Plt Count 229 10^3/cmm (157-399) 06/22/23 03:54 MPV 9.5 fL (7.4-10.4) 06/22/23 03:54 Neut % (Auto) 64.5 % 06/22/23 03:54 Lymph % (Auto) 20.8 % 06/22/23 03:54 [place] % (Auto) 11.2 % 06/22/23 03:54 Eos % (Auto) 2.6 % 06/22/23 03:54 Baso % (Auto) 0.5 % 06/22/23 03:54 Neut # (Auto) 5.43 10^3/uL (1.8-7.7) 06/22/23 03:54 Lymph # (Auto) 1.8 10^3/uL (0.8-4.8) 06/22/23 03:54 [place] # (Auto) 0.9 10^3/uL (0.2-0.9) 06/22/23 03:54 Eos # (Auto) 0.2 10^3/uL (0.0-0.8) 06/22/23 03:54 Baso # (Auto) 0.0 10^3/uL (0.0-0.1) 06/22/23 03:54 Nucleated RBC % (auto) 0 % 06/22/23 03:54 Nucleated RBCs # 0.0 /100WBC 06/22/23 03:54 PT 19.90 SECONDS (12.1-14.9) H 06/22/23 03:54 INR 1.63 (0.8-1.2) H 06/22/23 03:54 APTT 61.9 SECONDS (23.9-36.7) H 06/20/23 18:40 Sodium 137 mmol/L (136-145) 06/22/23 03:54 Potassium 4.0 mmol/L (3.5-5.1) 06/22/23 03:54 Chloride 102 mmol/L (98-107) 06/22/23 03:54 Carbon Dioxide 26 mmol/L (22-29) 06/22/23 03:54 Anion Gap 13.0 (5-19) 06/22/23 03:54 BUN 21 mg/dL (8-23) 06/22/23 03:54 Creatinine 0.9 mg/dL (0.5-0.9) 06/22/23 03:54 GFR Calculation Not Reportable 06/22/23 03:54 Glucose 119 mg/dL (65-115) H 06/22/23 03:54 Calculated Osmolality 288 mOsm/kg (285-295) 06/22/23 03:54 Calcium 9.2 mg/dL (8.5-10.5) 06/22/23 03:54 Total Bilirubin 0.6 mg/dL (0.15-1.2) 06/22/23 03:54 AST 18 U/L (0-32) 06/22/23 03:54 ALT 18 U/L (0-33) 06/22/23 03:54 Alkaline Phosphatase 93 U/L (35-105) 06/22/23 03:54 Troponin T Baseline 24 ng/L (0-10) H 06/20/23 18:40 Troponin T 120 Minute 25.28 ng/L (0-10) H 06/20/23 20:39 Delta Troponin T 1.28 ABS# (0-10) 06/20/23 20:39 Troponin T Hi Sens 6Hr 23.71 ng/L (0-10) H 06/21/23 00:42 Troponin T Hi Sens 6Hr Delta -0.29 ng/L (0-12) L 06/21/23 00:42 C-Reactive Protein 75.1 mg/L (0.0-4.9) H 06/20/23 20:39 NT-Pro-B Natriuret Pep 1362 pg/mL (0-125) H 06/20/23 18:40 Total Protein 7.0 g/dL (6.6-8.7) 06/22/23 03:54 Albumin 3.8 g/dL (3.5-5.2) 06/22/23 03:54 Globulin 3.2 g/dL (1.3-4.6) 06/22/23 03:54 Procalcitonin 0.11 ng/mL (0-0.5) 06/20/23 20:39 TSH 7.32 uIU/mL (0.27-4.20) H 06/20/23 20:39 Urine Color Yellow (Yellow) 06/20/23 20:39 Urine Appearance Sl hazy (CLEAR) A 06/20/23 20:39 Urine pH 6 (5-7) 06/20/23 20:39 Ur Specific [place] 1.015 (1.005-1.030) 06/20/23 20:39 Urine Protein 1+ (Negative) H 06/20/23 20:39 Urine Glucose (UA) Norm (Normal) 06/20/23 20:39 Urine Ketones Negative (Negative) 06/20/23 20:39 Urine Blood 3+ (Negative) H 06/20/23 20:39 Urine Nitrate Negative (Negative) 06/20/23 20:39 Urine Bilirubin Neg (Negative) 06/20/23 20:39 Urine Urobilinogen Neg mg/dL (Negative) 06/20/23 20:39 Ur Leukocyte Esterase Negative (Negative) 06/20/23 20:39 Urine RBC 15-25 /hpf (0-2) H 06/20/23 20:39 Urine WBC 0-4 /hpf (0-5) H 06/20/23 20:39 Ur Squamous Epith Cells 15-25 /hpf (0-5) H 06/20/23 20:39 Amorphous Sediment Not Reportable 06/20/23 20:39 Urine Bacteria Trace /hpf (NONE) 06/20/23 20:39 Urine Mucus 2+ /hpf 06/20/23 20:39 Influenza Type A Ag negative (Negative) 06/20/23 18:58 Influenza Type B Ag negative (Negative) 06/20/23 18:58 SARS-CoV-2 Ag (Rapid) negative (Negative) 06/20/23 18:58 Vitals Last Vital Signs Temp 98.6 F 06/22/23 12:00 Pulse 82 06/22/23 14:00 Resp 20 H 06/22/23 12:00 BP 104/57 06/22/23 12:00 Pulse Ox 94 06/22/23 12:00 O2 Del Method Room Air 06/22/23 12:00 Discharge Plan Discharge Patient Disposition: Home Condition: Stable Prescriptions: New metoprolol succinate 50 mg Tablet Extended Release 24 Hr 100 mg PO DAILY 30 Days Qty: 30 1RF doxycycline monohydrate 100 mg Tablet 100 mg PO Q12H 5 Days Qty: 10 0RF Continued tizanidine 4 mg tablet 4 mg PO BID PRN (Reason: muscle spasticity) rosuvastatin 20 mg tablet 20 mg PO QAM furosemide 40 mg tablet 40 mg PO QAM Qty: 90 3RF valsartan 40 mg tablet 40 mg PO DAILY Qty: 90 3RF diphenhydramine HCl [Benadryl Allergy] 25 mg tablet 50 mg PO .HS spironolactone 50 mg tablet 50 mg PO QAM Hold Instructions: Resume on 04/01/22. Hold until APPt with [place] acetaminophen 325 mg capsule 325 mg PO QID PRN (Reason: Mild Pain (Scale Score 1-4)) metoprolol tartrate 25 mg tablet 12.5 mg PO DAILY PRN (Reason: heart rate >120) Qty: 30 0RF Rx Instructions: take only if heart rate >120 after taking your regular 75mg metoprolol warfarin 6 mg tablet 6 mg PO DAILY Qty: 90 2RF Protocol: Dose Management Condition: Tuesday Dose/Route: 5 mg Instruction: 1 x 5 mg tablet Condition: Tuesday Dose/Route: 6 mg Instruction: 1 x 6 mg tablet Condition: Tuesday Dose/Route: 5 mg Instruction: 1 x 5 mg tablet Condition: Tuesday Dose/Route: 6 mg Instruction: 1 x 6 mg tablet Condition: Dose/Route: 5 mg Instruction: 1 x 5 mg tablet Condition: Tuesday Dose/Route: 5 mg Instruction: 1 x 5 mg tablet Condition: Tuesday Dose/Route: 5 mg Instruction: 1 x 5 mg tablet Protocol Text: Adjustment Start Date: Tuesday06/15/23 INR Value: 3.3 INR Date: 06/13/23 Recheck Date: 06/22/23 Rx Instructions: As directed; based on INR results warfarin 5 mg tablet 5 mg PO DAILY Qty: 90 3RF Protocol: Dose Management Condition: Tuesday Dose/Route: 5 mg Instruction: 1 x 5 mg tablet Condition: Tuesday Dose/Route: 6 mg Instruction: 1 x 6 mg tablet Condition: Tuesday Dose/Route: 5 mg Instruction: 1 x 5 mg tablet Condition: Tuesday Dose/Route: 6 mg Instruction: 1 x 6 mg tablet Condition: Dose/Route: 5 mg Instruction: 1 x 5 mg tablet Condition: Tuesday Dose/Route: 5 mg Instruction: 1 x 5 mg tablet Condition: Tuesday Dose/Route: 5 mg Instruction: 1 x 5 mg tablet Protocol Text: Adjustment Start Date: Tuesday06/15/23 INR Value: 3.3 INR Date: 06/13/23 Recheck Date: 06/22/23 warfarin 1 mg tablet See Rx Instructions .ROUTE .COMPLEX Qty: 30 0RF Protocol: Dose Management Condition: Tuesday Dose/Route: 5 mg Instruction: 1 x 5 mg tablet Condition: Tuesday Dose/Route: 6 mg Instruction: 1 x 6 mg tablet Condition: Tuesday Dose/Route: 5 mg Instruction: 1 x 5 mg tablet Condition: Tuesday Dose/Route: 6 mg Instruction: 1 x 6 mg tablet Condition: Dose/Route: 5 mg Instruction: 1 x 5 mg tablet Condition: Tuesday Dose/Route: 5 mg Instruction: 1 x 5 mg tablet Condition: Tuesday Dose/Route: 5 mg Instruction: 1 x 5 mg tablet Protocol Text: Adjustment Start Date: Tuesday06/15/23 INR Value: 3.3 INR Date: 06/13/23 Recheck Date: 06/22/23 Dose Instruction: TAKE DIRECTED Rx Instructions: TAKE DIRECTED clopidogrel 75 mg tablet 75 mg PO QAM Qty: 90 1RF ascorbic acid (vitamin C) [Vitamin C] 500 mg Tablet 1,000 mg PO QAM nitroglycerin [Nitrostat] 0.4 mg Tablet, Sublingual 0.4 mg SUBLINGUAL Q5M PRN (Reason: Chest Pain) Rx Instructions: do not exceed 3 doses per episode potassium gluconate 595 mg (99 mg) Tablet 1,190 mg PO QAM cholecalciferol (vitamin D3) [Vitamin D3] 125 mcg (5,000 unit) Tablet 125 mcg PO QAM trazodone 50 mg tablet 50 mg PO BEDTIME omeprazole 20 mg capsule,delayed release(DR/EC) 20 mg PO BID Qty: 20 0RF sucralfate 1 gram tablet 1 g PO BID Qty: 20 0RF Discontinued metoprolol succinate 50 mg tablet extended release 24 hr 50 mg PO .HS Qty: 90 3RF Discharge Orders: Discharge Order (Routine); Ordered 06/22/23 Ordered By: Christopher Meléndez Referrals: Amador Cherry DO [Primary Care Provider] - Discharge Diet: Usual diet Patient Instructions: Opioid Safety Activity Restrictions/Additional Instructions: #Dose of metoprolol increased #Follow with your vp hr diversity within 2 weeks Discharge Attestations Time Spent in Discharge Care*: less than 30 min Quality Metrics Clinical Quality Measures [ No reported AMI, CVA or VTE this stay] Coding Level of Care Code Acute Code for Chg Fwd Diagnoses Shortness of breath R06.02 Paroxysmal atrial fibrillation I48.0 Atrial fibrillation type: paroxysmal Acute exacerbation of CHF (congestive heart failure) I50.9 Atherosclerotic heart disease of [place] coronary artery with other forms of angina pectoris I25.118 Hx of mitral valve replacement with mechanical valve Z95.2 GERD (gastroesophageal reflux disease) K21.9
--- NOTE | 2023-06-22 15:23 | PC.NURSE ---
D/C pending meds to beds.
== END 2023-06-22 15:47 | disposition home or self-care (01) | DRG 291 ==
LOC: ER 22:00 → ICU 22:22
PROVIDERS: Family Medicine; Physician Assistant; Admitting Provider Internal Medicine; Emergency Provider Internal Medicine; PCP Internal Medicine; Visit Provider Student in an Organized Health Care Education/Training Program
DX: I11.0 Hypertensive heart disease with heart failure (principal); I50.23 Acute on chronic systolic (congestive) heart failure; I48.20 Chronic atrial fibrillation, unspecified; Z79.01 Long term (current) use of anticoagulants; J40 Bronchitis, not specified as acute or chronic; I25.118 Atherosclerotic heart disease of native coronary artery with other forms of angina pectoris; K21.9 Gastro-esophageal reflux disease without esophagitis; Z79.02 Long term (current) use of antithrombotics/antiplatelets; Z95.4 Presence of other heart-valve replacement
CPT/HCPCS: 12345; 36415; 71045; 80048; 80053; 81001; 83880; 84145; 84443; 84484; 85025; 85610; 85730; 86140; 87426; 87804; 93005; 96374; 99285; G0378; J1940; J3490; Q0163

== ENCOUNTER → 2023-07-14 10:49 | Outpatient (BNVA) | payer MEDICARE, SELFPAY | PROVIDERS: PCP Internal Medicine; Visit Provider Nurse Practitioner Family | DX: I48.0 Paroxysmal atrial fibrillation (principal); Z79.01 Long term (current) use of anticoagulants | CPT/HCPCS: 99213 ==

== ENCOUNTER 2023-09-12 14:06 | Emergency (ER) | payer MEDICARE, SELFPAY ==
[2023-09-12 14:37] LABS: Basophils % 0.4 %; Eosinophils # 0.2 10^3/uL (0.0-0.8); Eosinophils % 3.2 %; Hematocrit 35.4 % (36-47); Lymphocytes # 1.3 10^3/uL (0.8-4.8); Lymphocytes % 25.9 %; Mean Corpuscular Hemoglobin 33.8 pg (27-33); Mean Corpuscular Volume 96.5 fl (85-98); Mean Platelet Volume 8.8 fL (7.4-10.4); Monocytes # 0.3 10^3/uL (0.2-0.9); Monocytes % 6.5 %; Neutrophils # 3.22 10^3/uL (1.8-7.7); Neutrophils % 63.8 %; Nucleated Red Blood Cells % 0 %; Platelet Count 161 10^3/cmm (157-399); Red Blood Count 3.67 10^6/uL (3.85-5.65); Red Cell Distribution Width 12.8 % (12.1-15.1); White Blood Count 5.05 10^3/uL (3.29-11.43)
[2023-09-12 14:40] VITALS: BP 131/70; PULSE 86; RESP 14; TEMP 36.6; O2SAT 97
[2023-09-12 14:45] VITALS: BP 160/86; PULSE 73; RESP 16; O2SAT 97
--- NOTE | 2023-09-12 14:46 | ECG_ITS ---
[facility] Test Date: 2023-09-12 Pat Name: Jocelin Mcginnis Department: Room: Gender: Female [employer]her: : 1950 Requested By: Isabela Hughes Order Number: [id number] Jyoti MD: Trent Blank M.D. Measurements Intervals [place] Rate: 79 P: 0 CA: 0 QRS: 65 QRSD: 118 T: 222 QT: 386 QTc: 443 Interpretive Statements ATRIAL FIBRILLATION MODERATE INTRAVENTRICULAR CONDUCTION DELAY [105+ ms QRS DURATION, 80+ ms Q/S IN V1/V2, NO Q AND 60+ ms R IN I/aVL/V5/V6] ST DEVIATION AND MODERATE T-WAVE ABNORMALITY, CONSIDER LATERAL ISCHEMIA [-0.1+ mV T-WAVE IN I/aVL/V5/V6] ST DEVIATION AND MODERATE T-WAVE ABNORMALITY, CONSIDER INFERIOR ISCHEMIA [-0.1+ mV T-WAVE IN II/aVF] Compared to ECG 06/21/2023 08:28:35 No significant changes Electronically Signed On 09-13-2023 21:52:18 CDT by Trent Blank M.D. [email or web address]
[2023-09-12 14:56] LABS: INR 4.75 (0.8-1.2)
[2023-09-12 14:58] LABS: Alanine Aminotransferase 36 U/L (0-33); Albumin Level 4.7 g/dL (3.5-5.2); Alkaline Phosphatase 100 U/L (35-105); Anion Gap 12.5 (5-19); Aspartate Amino Transferase 30 U/L (0-32); Blood Urea Nitrogen 17 mg/dL (8-23); Calcium 9.5 mg/dL (8.5-10.5); Carbon Dioxide 28 mmol/L (22-29); Chloride 104 mmol/L (98-107); Creatinine Clr Calc Pharmacy 45.5055; Globulin 2.8 g/dL (1.3-4.6); Glucose 156 mg/dL (65-115); Osmolality Calculated 295 mOsm/kg (285-295); Potassium 4.5 mmol/L (3.5-5.1); Sodium 140 mmol/L (136-145); Total Bilirubin 0.4 mg/dL (0.15-1.2); Total Protein 7.5 g/dL (6.6-8.7)
[2023-09-12 16:45] VITALS: BP 160/86; PULSE 91; RESP 14; O2SAT 97
--- NOTE | 2023-09-12 16:55 | ED_ITS ---
Documented by User: Lalo Ribera DO 09/13/23 07:13 HPI - Weakness 2 General: Chief complaint: Weakness Stated complaint: rectal bleeding--Dr. weldon over Time Seen by Provider: 09/12/23 16:31 Source: patient Mode of arrival: ambulatory History of Present Illness: 73-year-old female presents to the emerg ency room with complaint of rectal bleeding. She is on Coumadin for a prosthetic mitral valve and had an INR of 6.2 today to help monitoring test. Couple days ago she had a ground-level mechanical fall while dressing herself she did not strike her head she did not lose consciousness. She had 1 large bloody bowel movement today. She states that a few years ago she had some bleeding and had an EGD and colonoscopy and was told she had ulcers. She has also reportedly had diverticuli but no diverticulitis. MD Complaint: generalized weakness Associated symptoms: Denies chest pain, chills, confusion, melena, decreased appetite, diaphoresis, dysuria, easy bruising, fever(s), headache(s), myalgias, nausea, rash, short of breath, syncope or vomiting Review of Systems 2 Const: Denies: fever(s), chills or diaphoresis Card: Denies: chest pain or syncope Resp: Denies: dyspnea GI: Reports: hematochezia; Denies: abdominal pain, nausea, vomiting or melena : Denies: dysuria Musc: Denies: neck pain or back pain Skin/Breast: Denies: rash Neuro: Denies: headache(s) or confusion Winston/Lymph: Denies: easy bruising PFSH ED 2 PFSH: Medical History Cyst of left Bartholin's gland Abscess of vagina Fever Atrial fibrillation Chronic diarrhea Subtherapeutic international normalized ratio (INR) Non-ST elevation IN (NSTEMI) Chest pain Intermittent atrial fibrillation Cardiomyopathy, ischemic Osteoporosis Hypothyroidism Diabetes mellitus diagnosed in 2017 HTN (hypertension) with goal to be determined CHF (congestive heart failure) CAD (coronary artery disease) stent to mid LAD 11/02/2018 Surgical History Hx of mitral valve replacement with mechanical valve S/P hysterectomy S/P cholecystectomy S/P mitral valve replacement [facility] Eran valve by Dr. Wilder Harrison 2006 Mitral valve replaced Family History Father CAD (coronary artery disease) Stroke Mother CAD (coronary artery disease) Diabetes Hypertension Sister CAD (coronary artery disease) Hypertension Lung disease Psychiatric illness Son Lung disease Denies family history of Clotting disorder Dementia Hyperlipidemia Chronic kidney disease (CKD) Suicide Anesthesia complication Bleeding disorder Family history of premature coronary artery disease Cancer Social History Smoking and tobacco/nicotine status: never used tobacco/nicotine Second hand smoke exposure: Yes Alcohol intake: never Substance/Drug Use: never Physical Exam 2 Const: COMMON NORMALS: no acute distress GENERAL APPEARANCE: cooperative and comfortable ORIENTATION/CONSCIOUSNESS: Yes awake, Yes oriented to person, Yes oriented to place and Yes oriented to time HENMT: COMMON NORMALS: normocephalic, atraumatic and hearing grossly normal bilaterally HEAD & SCALP: normocephalic and atraumatic Resp: COMMON NORMALS: normal respiratory effort, No retractions, No use of accessory muscles and clear to auscultation bilaterally AUSCULTATION: clear to auscultation bilaterally Cardio: COMMON NORMALS: regular rate, regular rhythm and No murmurs present (Cardio) RATE: regular rate RHYTHM: regular rhythm GI: COMMON NORMALS: Soft to palpation and No hepatosplenomegaly present A USCULTATION: Yes normoactive bowel sounds PALPATION: Yes Soft to palpation, No Tenderness to palpation present (GI), No Guarding due to palpation present (GI) and Yes No hepatosplenomegaly present Extremity: COMMON NORMALS: normal to inspection, capillary refill normal, no clubbing, cyanosis or edema, no calf tenderness and no pedal edema Neuro: SENSORIUM/ORIENTATION: Yes oriented to person, Yes oriented to place and Yes oriented to time Skin: COMMON NORMALS: no rashes or lesions noted GENERAL SKIN EXAM: no rashes or lesions noted Course 2 Vital Signs: Vital signs: Vital Signs Temperature 97.9 F 09/12/23 14:40 Pulse Rate 87 09/12/23 19:30 Respiratory Rate 18 09/12/23 19:30 Blood Pressure 160/84 09/12/23 19:30 Pulse Oximetry 98 09/12/23 19:30 Oxygen Delivery Me thod Room Air 07/01/24 16:45 MDM - Weakness Medical Decision Making CT pending. Care signed out to Dr. Amin at change of shift. See final notes for diagnosis and disposition. Patient presents here with some rectal bleeding a bit of bright red blood she is concerned because her INR been elevated at the clinic her INR here was improved from that her hemoglobin here has been stable last time was 13.4 she has no signs of any major GI bleed CT of her abdomen is normal she has had normal vital signs she is stable for discharge informed she is to follow-up with her PCP in 2 to 4 days she needs to have her INR rechecked if her bleeding worsen she is to return she understands agrees to plan Lab Data 09/12/23 18:03 09/12/23 14:31 Radiology Impressions Abdomen/Pelvis CT 09/12/23 17:02 IMPRESSION: 1. No acute findings in the abdomen or pelvis 2. Mild fatty liver COMMENTS: Consistent with the [employer]'s Incidental Findings Committee white paper (J Am Marlena Radiol 2018): Any incidental renal lesion less than 1 cm or classified as too small to characterize, or any incidental cystic renal lesion characterized as simple-appearing, is likely benign. No follow-up imaging is recommended for these lesions per consensus recommendations based on imaging criteria. Chest X-Ray 09/12/23 17:02 IMPRESSION: No acute infiltrate. Laboratory Results WBC 8.09 10^3/uL (3.29-11.43) 09/12/23 18:03 RBC 4.04 10^6/uL (3.85-5.65) 09/12/23 18:03 Hgb 13.40 g/dL (11.27-16.99) 09/12/23 18:03 Hct 38.8 % (36-47) 09/12/23 18:03 MCV 96.0 fl (85-98) 09/12/23 18:03 MCH 33.2 pg (27-33) H 09/12/23 18:03 MCHC 34.5 g/dL (30-55) 09/12/23 18:03 RDW 12.7 % (12.1-15.1) 09/12/23 18:03 Plt Count 200 10^3/cmm (157-399) 09/12/23 18:03 MPV 9.6 fL (7.4-10.4) 09/12/23 18:03 Neut % (Auto) 64.0 % 09/12/23 18:03 Lymph % (Auto) 25.0 % 09/12/23 18:03 [place] % (Auto) 7.5 % 09/12/23 18:03 Eos % (Auto) 2.8 % 09/12/23 18:03 Baso % (Auto) 0.5 % 09/12/23 18:03 Neut # (Auto) 5.17 10^3/uL (1.8-7.7) 09/12/23 18:03 Lymph # (Auto) 2.0 10^3/uL (0.8-4.8) 09/12/23 18:03 [place] # (Auto) 0.6 10^3/uL (0.2-0.9) 09/12/23 18:03 Eos # (Auto) 0.2 10^3/uL (0.0-0.8) 09/12/23 18:03 Baso # (Auto) 0.0 10^3/uL (0.0-0.1) 09/12/23 18:03 Nucleated RBC % (auto) 0 % 09/12/23 18:03 Nucleated RBCs # 0.0 /100WBC 09/12/23 18:03 PT 46.50 SECONDS (12.1-14.9) H 09/12/23 14:31 INR 4.75 (0.8-1.2) H 09/12/23 14:31 APTT 45.0 SECONDS (23.9-36.7) H 09/12/23 14:31 Sodium 140 mmol/L (136-145) 09/12/23 14:31 Potassium 4.5 mmol/L (3.5-5.1) 09/12/23 14:31 Chloride 104 mmol/L (98-107) 09/12/23 14:31 Carbon Dioxide 28 mmol/L (22-29) 09/12/23 14:31 Anion Gap 12.5 (5-19) 09/12/23 14:31 BUN 17 mg/dL (8-23) 09/12/23 14:31 Creatinine 1.0 mg/dL (0.5-0.9) H 09/12/23 14:31 GFR Calculation Not Reportable 09/12/23 14:31 Glucose 156 mg/dL (65-115) H 09/12/23 14:31 Calculated Osmolality 295 mOsm/kg (285-295) 09/12/23 14:31 Calcium 9.5 mg/dL (8.5-10.5) 09/12/23 14:31 Total Bilirubin 0.4 mg/dL (0.15-1.2) 09/12/23 14:31 AST 30 U/L (0-32) 09/12/23 14:31 ALT 36 U/L (0-33) H 09/12/23 14:31 Alkaline Phosphatase 100 U/L (35-105) 09/12/23 14:31 Total Protein 7.5 g/dL (6.6-8.7) 09/12/23 14:31 Albumin 4.7 g/dL (3.5-5.2) 09/12/23 14:31 Globulin 2.8 g/dL (1.3-4.6) 09/12/23 14:31 Discharge Plan Discharge Patient Disposition: Home Clinical Impression: Rectal bleeding Condition: Stable Prescriptions: No Action tizanidine 4 mg tablet 4 mg PO BID PRN (Reason: muscle spasticity) furosemide 40 mg tablet 40 mg PO QAM Qty: 90 3RF nitroglycerin [Nitrostat] 0.4 mg tablet, sublingual 0.4 mg SUBLINGUAL Q5M PRN (Reason: Chest Pain) Qty: 30 4RF Rx Instructions: do not exceed 3 doses per episode clopidogrel 75 mg tablet 75 mg PO QAM Qty: 90 1RF spironolactone 50 mg tablet 50 mg PO QAM Qty: 90 3RF Hold Instructions: Resume on 04/01/22. Hold until APPt with [facility] rosuvastatin 20 mg tablet 20 mg PO DAILY Qty: 90 1RF metoprolol succinate 50 mg tablet extended release 24 hr 50 mg PO DAILY Qty: 90 1RF valsartan 40 mg tablet 20 mg PO DAILY Qty: 90 3RF diphenhydramine HCl [Benadryl Allergy] 25 mg tablet 50 mg PO .HS acetaminophen 325 mg capsule 325 mg PO QID PRN (Reason: Mild Pain (Scale Score 1-4)) metoprolol tartrate 25 mg tablet 12.5 mg PO DAILY PRN (Reason: heart rate >120) Qty: 30 0RF Rx Instructions: take only if heart rate >120 after taking your regular 75mg metoprolol warfarin 6 mg tablet 6 mg PO DAILY Qty: 90 2RF Protocol: Dose Management Condition: Tuesday Dose/Route: 5 mg Instruction: 1 x 5 mg tablet Condition: Tuesday Dose/Route: 5 mg Instruction: 1 x 5 mg tablet Condition: Tuesday Dose/Route: 5 mg Instruction: 1 x 5 mg tablet Condition: Tuesday Dose/Route: 5 mg Instruction: 1 x 5 mg tablet Condition: Dose/Route: 5 mg Instruction: 1 x 5 mg tablet Condition: Tuesday Dose/Route: 5 mg Instruction: 1 x 5 mg tablet Condition: Tuesday Dose/Route: 5 mg Instruction: 1 x 5 mg tablet Protocol Text: Adjustment Start Date: Tuesday09/07/23 INR Value: 1.7 INR Date: 09/06/23 Recheck Date: 09/14/23 Rx Instructions: As directed; based on INR results warfarin 1 mg tablet See Rx Instructions .ROUTE .COMPLEX Qty: 30 0RF Protocol: Dose Management Condition: Tuesday Dose/Route: 5 mg Instruction: 1 x 5 mg tablet Condition: Tuesday Dose/Route: 5 mg Instruction: 1 x 5 mg tablet Condition: Tuesday Dose/Route: 5 mg Instruction: 1 x 5 mg tablet Condition: Tuesday Dose/Route: 5 mg Instruction: 1 x 5 mg tablet Condition: Dose/Route: 5 mg Instruction: 1 x 5 mg tablet Condition: Tuesday Dose/Route: 5 mg Instruction: 1 x 5 mg tablet Condition: Tuesday Dose/Route: 5 mg Instruction: 1 x 5 mg tablet Protocol Text: Adjustment Start Date: Tuesday09/07/23 INR Value: 1.7 INR Date: 09/06/23 Recheck Date: 09/14/23 Dose Instruction: TAKE DIRECTED Rx Instructions: TAKE DIRECTED warfarin 2 mg tablet 2 mg PO DAILY Qty: 90 1RF Protocol: Dose Management Condition: Tuesday Dose/Route: 5 mg Instruction: 1 x 5 mg tablet Condition: Tuesday Dose/Route: 5 mg Instruction: 1 x 5 mg tablet Condition: Tuesday Dose/Route: 5 mg Instruction: 1 x 5 mg tablet Condition: Tuesday Dose/Route: 5 mg Instruction: 1 x 5 mg tablet Condition: Dose/Route: 5 mg Instruction: 1 x 5 mg tablet Condition: Tuesday Dose/Route: 5 mg Instruction: 1 x 5 mg tablet Condition: Tuesday Dose/Route: 5 mg Instruction: 1 x 5 mg tablet Protocol Text: Adjustment Start Date: Tuesday09/07/23 INR Value: 1.7 INR Date: 09/06/23 Recheck Date: 09/14/23 warfarin 1 mg tablet 1 mg PO DAILY Qty: 90 1RF Protocol: Dose Management Condition: Tuesday Dose/Route: 5 mg Instruction: 1 x 5 mg tablet Condition: Tuesday Dose/Route: 5 mg Instruction: 1 x 5 mg tablet Condition: Tuesday Dose/Route: 5 mg Instruction: 1 x 5 mg tablet Condition: Tuesday Dose/Route: 5 mg Instruction: 1 x 5 mg tablet Condition: Dose/Route: 5 mg Instruction: 1 x 5 mg tablet Condition: Tuesday Dose/Route: 5 mg Instruction: 1 x 5 mg tablet Condition: Tuesday Dose/Route: 5 mg Instruction: 1 x 5 mg tablet Protocol Text: Adjustment Start Date: Tuesday09/07/23 INR Value: 1.7 INR Date: 09/06/23 Recheck Date: 09/14/23 warfarin 5 mg tablet 5 mg PO DAILY Qty: 90 3RF Protocol: Dose Management Condition: Tuesday Dose/Route: 5 mg Instruction: 1 x 5 mg tablet Condition: Tuesday Dose/Route: 5 mg Instruction: 1 x 5 mg tablet Condition: Tuesday Dose/Route: 5 mg Instruction: 1 x 5 mg tablet Condition: Tuesday Dose/Route: 5 mg Instruction: 1 x 5 mg tablet Condition: Dose/Route: 5 mg Instruction: 1 x 5 mg tablet Condition: Tuesday Dose/Route: 5 mg Instruction: 1 x 5 mg tablet Condition: Tuesday Dose/Route: 5 mg Instruction: 1 x 5 mg tablet Protocol Text: Adjustment Start Date: Tuesday09/07/23 INR Value: 1.7 INR Date: 09/06/23 Recheck Date: 09/14/23 ascorbic acid (vitamin C) [Vitamin C] 500 mg Tablet 1,000 mg PO QAM potassium gluconate 595 mg (99 mg) Tablet 1,190 mg PO QAM cholecalciferol (vitamin D3) [Vitamin D3] 125 mcg (5,000 unit) Tablet 125 mcg PO QAM trazodone 50 mg tablet 50 mg PO BEDTIME omeprazole 20 mg capsule,delayed release(DR/EC) 20 mg PO BID Qty: 20 0RF sucralfate 1 gram tablet 1 g PO BID Qty: 20 0RF Discharge Orders: Discharge ED (Routine); Ordered 09/12/23 Ordered By: Heladio Amin Referrals: Amador Cherry DO [Primary Care Provider] - 4-7 days Discharge Diet: Advance as tolerated Discharge Activity: Resume usual activity Patient Instructions: Rectal Bleeding (ED) Coding Level of Care Code ED Wheel Truing Machine Tender for Chg Fwd Documented by User: Heladio Amin MD 09/12/23 19:21 HPI - Weakness 2 General: Chief complaint: Weakness Stated complaint: rectal bleeding-- sent over Time Seen by Provider: 09/12/23 16:31 PFSH ED 2 PFSH: Medical History Cyst of left Bartholin's gland Abscess of vagina Fever Atrial fibrillation Chronic diarrhea Subtherapeutic international normalized ratio (INR) Non-ST elevation IN (NSTEMI) Chest pain Intermittent atrial fibrillation Cardiomyopathy, ischemic Osteoporosis Hypothyroidism Diabetes mellitus diagnosed in 2017 HTN (hypertension) with goal to be determined CHF (congestive heart failure) CAD (coronary artery disease) stent to mid LAD 11/02/2018 Surgical History Hx of mitral valve replacement with mechanical valve S/P hysterectomy S/P cholecystectomy S/P mitral valve replacement St Eran valve by Richard Davey 2006 Mitral valve replaced Family History Father CAD (coronary artery disease) Stroke Mother CAD (coronary artery disease) Diabetes Hypertension Sister CAD (coronary artery disease) Hypertension Lung disease Psychiatric illness Son Lung disease Denies family history of Clotting disorder Dementia Hyperlipidemia Chronic kidney disease (CKD) Suicide Anesthesia complication Bleeding disorder Family history of premature coronary artery disease Cancer Social History Smoking and tobacco/nicotine status: never used tobacco/nicotine Second hand smoke exposure: Yes Alcohol intake: never Substance/Drug Use: never Course 2 Vital Signs: Vital signs: Vital Signs Temperature 97.9 F 09/12/23 14:40 Pulse Rate 87 09/12/23 19:30 Respiratory Rate 18 09/12/23 19:30 Blood Pressure 160/84 09/12/23 19:30 Pulse Oximetry 98 09/12/23 19:30 Oxygen Delivery Me thod Room Air 09/12/23 16:45 MDM - Weakness Medical Decision Making Patient presents here with some rectal bleeding a bit of bright red blood she is concerned because her INR been elevated at the clinic her INR here was improved from that her hemoglobin here has been stable last time was 13.4 she has no signs of any major GI bleed CT of her abdomen is normal she has had normal vital signs she is stable for discharge informed she is to follow-up with her PCP in 2 to 4 days she needs to have her INR rechecked if her bleeding worsen she is to return she understands agrees to plan Medical Records I reviewed the patient's medical records. Lab Data I reviewed the patient's lab results. 09/12/23 18:03 09/12/23 14:31 Radiology Impressions Abdomen/Pelvis CT 09/12/23 17:02 IMPRESSION: 1. No acute findings in the abdomen or pelvis 2. Mild fatty liver COMMENTS: Consistent with the [employer]'s Incidental Findings Committee white paper (J Am Marlena Radiol 2018): Any incidental renal lesion less than 1 cm or classified as too small to characterize, or any incidental cystic renal lesion characterized as simple-appearing, is likely benign. No follow-up imaging is recommended for these lesions per consensus recommendations based on imaging criteria. Chest X-Ray 09/12/23 17:02 IMPRESSION: No acute infiltrate. Laboratory Results WBC 8.09 10^3/uL (3.29-11.43) 09/12/23 18:03 RBC 4.04 10^6/uL (3.85-5.65) 09/12/23 18:03 Hgb 13.40 g/dL (11.27-16.99) 09/12/23 18:03 Hct 38.8 % (36-47) 09/12/23 18:03 MCV 96.0 fl (85-98) 09/12/23 18:03 MCH 33.2 pg (27-33) H 09/12/23 18:03 MCHC 34.5 g/dL (30-55) 09/12/23 18:03 RDW 12.7 % (12.1-15.1) 09/12/23 18:03 Plt Count 200 10^3/cmm (157-399) 09/12/23 18:03 MPV 9.6 fL (7.4-10.4) 09/12/23 18:03 Neut % (Auto) 64.0 % 09/12/23 18:03 Lymph % (Auto) 25.0 % 09/12/23 18:03 [place] % (Auto) 7.5 % 09/12/23 18:03 Eos % (Auto) 2.8 % 09/12/23 18:03 Baso % (Auto) 0.5 % 09/12/23 18:03 Neut # (Auto) 5.17 10^3/uL (1.8-7.7) 09/12/23 18:03 Lymph # (Auto) 2.0 10^3/uL (0.8-4.8) 09/12/23 18:03 [place] # (Auto) 0.6 10^3/uL (0.2-0.9) 09/12/23 18:03 Eos # (Auto) 0.2 10^3/uL (0.0-0.8) 09/12/23 18:03 Baso # (Auto) 0.0 10^3/uL (0.0-0.1) 09/12/23 18:03 Nucleated RBC % (auto) 0 % 09/12/23 18: Nucleated RBCs # 0.0 /100WBC 09/12/23 18:03 PT 46.50 SECONDS (12.1-14.9) H 09/12/23 14:31 INR 4.75 (0.8-1.2) H 09/12/23 14:31 APTT 45.0 SECONDS (23.9-36.7) H 09/12/23 14:31 Sodium 140 mmol/L (136-145) 09/12/23 14:31 Potassium 4.5 mmol/L (3.5-5.1) 09/12/23 14:31 Chloride 104 mmol/L (98-107) 09/12/23 14:31 Carbon Dioxide 28 mmol/L (22-29) 09/12/23 14:31 Anion Gap 12.5 (5-19) 09/12/23 14:31 BUN 17 mg/dL (8-23) 09/12/23 14:31 Creatinine 1.0 mg/dL (0.5-0.9) H 09/12/23 14:31 GFR Calculation Not Reportable 09/12/23 14:31 Glucose 156 mg/dL (65-115) H 09/12/23 14:31 Calculated Osmolality 295 mOsm/kg (285-295) 09/12/23 14:31 Calcium 9.5 mg/dL (8.5-10.5) 09/12/23 14:31 Total Bilirubin 0.4 mg/dL (0.15-1.2) 09/12/23 14:31 AST 30 U/L (0-32) 09/12/23 14:31 ALT 36 U/L (0-33) H 09/12/23 14:31 Alkaline Phosphatase 100 U/L (35-105) 09/12/23 14:31 Total Protein 7.5 g/dL (6.6-8.7) 09/12/23 14:31 Albumin 4.7 g/dL (3.5-5.2) 09/12/23 14:31 Globulin 2.8 g/dL (1.3-4.6) 09/12/23 14:31 All radiology interpretation(s) finalized by discharge Discharge Plan Discharge Patient Disposition: Home Clinical Impression: Rectal bleeding Condition: Stable Prescriptions: No Action tizanidine 4 mg tablet 4 mg PO BID PRN (Reason: muscle spasticity) furosemide 40 mg tablet 40 mg PO QAM Qty: 90 3RF nitroglycerin [Nitrostat] 0.4 mg tablet, sublingual 0.4 mg SUBLINGUAL Q5M PRN (Reason: Chest Pain) Qty: 30 4RF Rx Instructions: do not exceed 3 doses per episode clopidogrel 75 mg tablet 75 mg PO QAM Qty: 90 1RF spironolactone 50 mg tablet 50 mg PO QAM Qty: 90 3RF Hold Instructions: Resume on 04/01/22. Hold until APPt with [facility] rosuvastatin 20 mg tablet 20 mg PO DAILY Qty: 90 1RF metoprolol succinate 50 mg tablet extended release 24 hr 50 mg PO DAILY Qty: 90 1RF valsartan 40 mg tablet 20 mg PO DAILY Qty: 90 3RF diphenhydramine HCl [Benadryl Allergy] 25 mg tablet 50 mg PO .HS acetaminophen 325 mg capsule 325 mg PO QID PRN (Reason: Mild Pain (Scale Score 1-4)) metoprolol tartrate 25 mg tablet 12.5 mg PO DAILY PRN (Reason: heart rate >120) Qty: 30 0RF Rx Instructions: take only if heart rate >120 after taking your regular 75mg metoprolol warfarin 6 mg tablet 6 mg PO DAILY Qty: 90 2RF Protocol: Dose Management Condition: Tuesday Dose/Route: 5 mg Instruction: 1 x 5 mg tablet Condition: Tuesday Dose/Route: 5 mg Instruction: 1 x 5 mg tablet Condition: Tuesday Dose/Route: 5 mg Instruction: 1 x 5 mg tablet Condition: Tuesday Dose/Route: 5 mg Instruction: 1 x 5 mg tablet Condition: Dose/Route: 5 mg Instruction: 1 x 5 mg tablet Condition: Tuesday Dose/Route: 5 mg Instruction: 1 x 5 mg tablet Condition: Tuesday Dose/Route: 5 mg Instruction: 1 x 5 mg tablet Protocol Text: Adjustment Start Date: Tuesday09/07/23 INR Value: 1.7 INR Date: 09/06/23 Recheck Date: 09/14/23 Rx Instructions: As directed; based on INR results warfarin 1 mg tablet See Rx Instructions .ROUTE .COMPLEX Qty: 30 0RF Protocol: Dose Management Condition: Tuesday Dose/Route: 5 mg Instruction: 1 x 5 mg tablet Condition: Tuesday Dose/Route: 5 mg Instruction: 1 x 5 mg tablet Condition: Tuesday Dose/Route: 5 mg Instruction: 1 x 5 mg tablet Condition: Tuesday Dose/Route: 5 mg Instruction: 1 x 5 mg tablet Condition: Dose/Route: 5 mg Instruction: 1 x 5 mg tablet Condition: Tuesday Dose/Route: 5 mg Instruction: 1 x 5 mg tablet Condition: Tuesday Dose/Route: 5 mg Instruction: 1 x 5 mg tablet Protocol Text: Adjustment Start Date: Tuesday09/07/23 INR Value: 1.7 INR Date: 09/06/23 Recheck Date: 09/14/23 Dose Instruction: TAKE DIRECTED Rx Instructions: TAKE DIRECTED warfarin 2 mg tablet 2 mg PO DAILY Qty: 90 1RF Protocol: Dose Management Condition: Tuesday Dose/Route: 5 mg Instruction: 1 x 5 mg tablet Condition: Tuesday Dose/Route: 5 mg Instruction: 1 x 5 mg tablet Condition: Tuesday Dose/Route: 5 mg Instruction: 1 x 5 mg tablet Condition: Tuesday Dose/Route: 5 mg Instruction: 1 x 5 mg tablet Condition: Dose/Route: 5 mg Instruction: 1 x 5 mg tablet Condition: Tuesday Dose/Route: 5 mg Instruction: 1 x 5 mg tablet Condition: Tuesday Dose/Route: 5 mg Instruction: 1 x 5 mg tablet Protocol Text: Adjustment Start Date: Tuesday09/07/23 INR Value: 1.7 INR Date: 09/06/23 Recheck Date: 09/14/23 warfarin 1 mg tablet 1 mg PO DAILY Qty: 90 1RF Protocol: Dose Management Condition: Tuesday Dose/Route: 5 mg Instruction: 1 x 5 mg tablet Condition: Tuesday Dose/Route: 5 mg Instruction: 1 x 5 mg tablet Condition: Tuesday Dose/Route: 5 mg Instruction: 1 x 5 mg tablet Condition: Tuesday Dose/Route: 5 mg Instruction: 1 x 5 mg tablet Condition: Dose/Route: 5 mg Instruction: 1 x 5 mg tablet Condition: Tuesday Dose/Route: 5 mg Instruction: 1 x 5 mg tablet Condition: Tuesday Dose/Route: 5 mg Instruction: 1 x 5 mg tablet Protocol Text: Adjustment Start Date: Tuesday09/07/23 INR Value: 1.7 INR Date: 09/06/23 Recheck Date: 09/14/23 warfarin 5 mg tablet 5 mg PO DAILY Qty: 90 3RF Protocol: Dose Management Condition: Tuesday Dose/Route: 5 mg Instruction: 1 x 5 mg tablet Condition: Tuesday Dose/Route: 5 mg Instruction: 1 x 5 mg tablet Condition: Tuesday Dose/Route: 5 mg Instruction: 1 x 5 mg tablet Condition: Tuesday Dose/Route: 5 mg Instruction: 1 x 5 mg tablet Condition: Dose/Route: 5 mg Instruction: 1 x 5 mg tablet Condition: Tuesday Dose/Route: 5 mg Instruction: 1 x 5 mg tablet Condition: Tuesday Dose/Route: 5 mg Instruction: 1 x 5 mg tablet Protocol Text: Adjustment Start Date: Tuesday09/07/23 INR Value: 1.7 INR Date: 09/06/23 Recheck Date: 09/14/23 ascorbic acid (vitamin C) [Vitamin C] 500 mg Tablet 1,000 mg PO QAM potassium gluconate 595 mg (99 mg) Tablet 1,190 mg PO QAM cholecalciferol (vitamin D3) [Vitamin D3] 125 mcg (5,000 unit) Tablet 125 mcg PO QAM trazodone 50 mg tablet 50 mg PO BEDTIME omeprazole 20 mg capsule,delayed release(DR/EC) 20 mg PO BID Qty: 20 0RF sucralfate 1 gram tablet 1 g PO BID Qty: 20 0RF Discharge Orders: Discharge ED (Routine); Ordered 09/12/23 Ordered By: Heladio Amin Referrals: Amador Cherry DO [Primary Care Provider] - 4-7 days Discharge Diet: Advance as tolerated Discharge Activity: Resume usual activity Patient Instructions: Rectal Bleeding (ED) Coding Level of Care Code ED Wheel Truing Machine Tender for Kaila Miller
--- NOTE | 2023-09-12 17:02 | XRR_ITS ---
PROCEDURE INFORMATION: Exam: XR Chest Exam date and time: 09/12/2023 5:19 PM Age: 73 years old Clinical indication: Cough; Prior surgery; Surgery date: 6+ months; Surgery type: Cabg; Additional info: Dyspnea/cough TECHNIQUE: Imaging protocol: Radiologic exam of the chest. Views: 1 view. COMPARISON: CR XR chest 1V [id number] 06/20/2023 6:34 PM FINDINGS: Lungs: Visualized portions of the lungs are clear. Pleural spaces: Unremarkable. No pleural effusion. No pneumothorax. Heart/Mediastinum: There are findings of median sternotomy and mitral valve replacement. Heart is within normal limits of size. Calcification is again seen overlying the heart. Bones/joints: Mild scoliosis thoracic spine XR/XR chest 1V portable [id number] IMPRESSION: No acute infiltrate.
--- NOTE | 2023-09-12 17:02 | CTR_ITS ---
PROCEDURE INFORMATION: Exam: CT Abdomen And Pelvis With Contrast Exam date and time: 09/12/2023 6:21 PM Age: 73 years old Clinical indication: Other: Rectal bleeding; Prior surgery; Surgery date: 6+ months; Surgery type: Hyst; Additional info: Abd pain TECHNIQUE: Imaging protocol: Computed tomography of the abdomen and pelvis with contrast. Radiation optimization: All CT scans at this facility use at least one of these dose optimization techniques: automated exposure control; mA and/or kV adjustment per patient size (includes targeted exams where dose is matched to clinical indication); or iterative reconstruction. Contrast material: OMNI 350; Contrast volume: 134 ml; Contrast route: INTRAVENOUS (IV); COMPARISON: 1. CT pelvis wo con [id number] 04/06/2022 12:[address] abdomen pelvis wo con [id number] 03/22/2022 3:46 PM RADIATION DOSE METRICS: Total DLP (mGy-cm): 450 FINDINGS: Lungs: There is some focal subsegmental atelectasis or scarring in the middle lobe not fully imaged on this study. Heart: There is calcification at the left ventricle apex. The heart is not fully imaged on this exam. Diaphragm: There is a small hiatal hernia. Liver: There is a 5 mm benign-appearing cyst in the left lobe of the liver too small to definitively characterize by CT scanning. There is a diffuse decrease in hepatic parenchymal density, consistent with mild fatty infiltration. Gallbladder and biliary ducts: There has been a cholecystectomy. There is no common bile duct dilation. Pancreas: The pancreas is normal. Spleen: The spleen is normal. Adrenal glands: The adrenal glands are normal. Kidneys and ureters: There are few small benign-appearing cortical cysts of the right kidney, too small to definitively characterize by this CT scan. There is no evidence of hydronephrosis. Stomach and bowel: Mild diverticulosis is present in the distal colon. There is no evidence of colitis/diverticulitis. There is no evidence of intestinal obstruction. Appendix: Not identified Intraperitoneal space: There is no evidence of free intraperitoneal fluid. Vasculature: A retroaortic left renal vein is incidentally noted. The aorta demonstrates mild atherosclerotic calcification. There is no evidence of an abdominal aortic aneurysm. Lymph nodes: There is no evidence of lymphadenopathy. Urinary bladder: Unremarkable as visualized. Reproductive: There has been a hysterectomy. Bones/joints: There is mild lumbar scoliosis concave to the right. The lumbar spine demonstrates mild degenerative changes at multiple levels. Soft tissues: Unremarkable. CT/CT abdomen pelvis w con* [id number] IMPRESSION: 1. No acute findings in the abdomen or pelvis 2. Mild fatty liver COMMENTS: Consistent with the [place] [employer]'s Incidental Findings Committee white paper (J Am Marlena Radiol 2018): Any incidental renal lesion less than 1 cm or classified as too small to characterize, or any incidental cystic renal lesion characterized as simple-appearing, is likely benign. No follow-up imaging is recommended for these lesions per consensus recommendations based on imaging criteria.
[2023-09-12] MEDS: methylPREDNISolone sod succ 40 mg/mL INJ IVP (17:34)
[2023-09-12] MEDS: diphenhydrAMINE 50 mg/mL SDV 1mL IVP (17:35)
[2023-09-12 18:16] LABS: Basophils % 0.5 %; Eosinophils # 0.2 10^3/uL (0.0-0.8); Eosinophils % 2.8 %; Hematocrit 38.8 % (36-47); Mean Corpuscular HGB Conc 34.5 g/dL (30-55); Mean Corpuscular Hemoglobin 33.2 pg (27-33); Mean Platelet Volume 9.6 fL (7.4-10.4); Monocytes # 0.6 10^3/uL (0.2-0.9); Monocytes % 7.5 %; Neutrophils # 5.17 10^3/uL (1.8-7.7); Nucleated Red Blood Cells % 0 %; Platelet Count 200 10^3/cmm (157-399); Red Blood Count 4.04 10^6/uL (3.85-5.65); Red Cell Distribution Width 12.7 % (12.1-15.1); White Blood Count 8.09 10^3/uL (3.29-11.43)
[2023-09-12] MEDS: iohexol 350 mg/mL 500 mL Btl (per mL) IV (18:19)
--- NOTE | 2023-09-12 18:38 | PC.NURSE ---
iv inflitration in left arm- patients arm wrapped in hot towel. please monitor arm and patient pain.
[2023-09-12 19:30] VITALS: BP 160/84; PULSE 87; RESP 18; O2SAT 98
== END 2023-09-12 19:31 | disposition home or self-care (01) ==
PROVIDERS: Family Medicine; Physician Assistant; Emergency Provider Emergency Medicine; PCP Internal Medicine
DX: K62.5 Hemorrhage of anus and rectum (principal); Z79.02 Long term (current) use of antithrombotics/antiplatelets; Z79.01 Long term (current) use of anticoagulants; Z77.22 Contact with and (suspected) exposure to environmental tobacco smoke (acute) (chronic); Z95.2 Presence of prosthetic heart valve; I25.2 Old myocardial infarction; E11.9 Type 2 diabetes mellitus without complications; I11.0 Hypertensive heart disease with heart failure; I50.9 Heart failure, unspecified; I25.10 Atherosclerotic heart disease of native coronary artery without angina pectoris
CPT/HCPCS: 36415; 71045; 74177; 80053; 85025; 85610; 85730; 93005; 96374; 96375; 99285; J1200; J2919; Q9967

== ENCOUNTER 2023-10-25 10:36 | Outpatient (CLI) | payer MEDICARE, SELFPAY ==
[2023-10-25 11:22] LABS: INR 2.96 (0.83-1.21); Prothrombin Time (Patient) 31.9 Seconds (12.0-15.1)
== END 2023-10-25 10:37 | disposition home or self-care (01) ==
LOC: LAB 10:37
PROVIDERS: PCP Internal Medicine; Visit Provider Internal Medicine
DX: Z95.2 Presence of prosthetic heart valve (principal)
CPT/HCPCS: 36415; 85610

== ENCOUNTER 2023-11-03 11:18 | Outpatient (CLI) | payer MEDICARE, SELFPAY ==
[2023-11-03 11:45] LABS: INR 2.25 (0.83-1.21); Prothrombin Time (Patient) 25.7 Seconds (12.0-15.1)
== END 2023-11-03 11:19 | disposition home or self-care (01) ==
LOC: LAB 11:19
PROVIDERS: PCP Internal Medicine; Visit Provider Internal Medicine
DX: Z95.2 Presence of prosthetic heart valve (principal)
CPT/HCPCS: 36415; 85610

== ENCOUNTER 2023-11-15 10:13 | Outpatient (CLI) | payer MEDICARE, SELFPAY ==
[2023-11-15 11:22] LABS: Prothrombin Time (Patient) 25.2 Seconds (12.0-15.1)
== END 2023-11-15 10:14 | disposition home or self-care (01) ==
LOC: LAB 10:14
PROVIDERS: PCP Internal Medicine; Visit Provider Internal Medicine Cardiovascular Disease
DX: Z95.2 Presence of prosthetic heart valve (principal)
CPT/HCPCS: 36415; 85610

== ENCOUNTER 2023-11-28 12:38 | Outpatient (CLI) | payer MEDICARE, SELFPAY ==
[2023-11-28 14:03] LABS: INR 3.07 (0.83-1.21); Prothrombin Time (Patient) 32.9 Seconds (12.0-15.1)
== END 2023-11-28 12:39 | disposition home or self-care (01) ==
LOC: LAB 12:40
PROVIDERS: PCP Internal Medicine; Visit Provider Internal Medicine Cardiovascular Disease
DX: Z95.2 Presence of prosthetic heart valve (principal)
CPT/HCPCS: 36415; 85610

== ENCOUNTER 2023-12-13 09:55 | Outpatient (CLI) | payer MEDICARE, SELFPAY ==
[2023-12-13 10:33] LABS: INR 1.96 (0.83-1.21)
== END 2023-12-13 09:56 | disposition home or self-care (01) ==
LOC: LAB 10:06
PROVIDERS: PCP Internal Medicine; Visit Provider Internal Medicine
DX: I48.0 Paroxysmal atrial fibrillation (principal)
CPT/HCPCS: 36415; 85610

== ENCOUNTER → 2023-12-26 13:48 | Outpatient (BNVA) | payer MEDICARE, SELFPAY | PROVIDERS: PCP Internal Medicine; Visit Provider Internal Medicine | DX: I11.0 Hypertensive heart disease with heart failure (principal); I50.9 Heart failure, unspecified; Z95.2 Presence of prosthetic heart valve; I48.0 Paroxysmal atrial fibrillation; Z79.01 Long term (current) use of anticoagulants; I25.10 Atherosclerotic heart disease of native coronary artery without angina pectoris; E11.9 Type 2 diabetes mellitus without complications | CPT/HCPCS: 85610; 99214 ==

== ENCOUNTER 2024-01-06 12:52 | Outpatient (CLI) | payer MEDICARE, SELFPAY ==
--- NOTE | 2024-01-06 12:54 | MM_ITS ---
WS: [id number] BILATERAL 3D TOMOSYNTHESIS DIGITAL SCREENING MAMMOGRAPHY WITH CAD CLINICAL INFORMATION: SCREENING HISTORY: Screening mammogram. No current complaints. COMPARISON: None. TECHNIQUE: Bilateral CC and MLO views. FINDINGS: The breasts are composed of heterogeneous fibroglandular density tissue, which can limit the detectio n of small underlying mass lesions. No suspicious mass, asymmetry, calcifications, or architectural d istortion. No evidence of malignancy. Vascular calcifications. A few incidental punctate calcificatio ns. MM/MM [facility] tomosynthesis [id number] IMPRESSION: DENSITY:The breasts are heterogeneously dense, which may obscure small masses. BI-RADS: 2 - Benign FOLLOW UP: 1 Year Follow-up Recommend return to annual screening mammography.
== END 2024-01-06 12:53 | disposition home or self-care (01) ==
LOC: RAD 12:53
PROVIDERS: PCP Internal Medicine; Visit Provider Internal Medicine
DX: Z12.31 Encounter for screening mammogram for malignant neoplasm of breast (principal); R92.323 Mammographic fibroglandular density, bilateral breasts; R92.1 Mammographic calcification found on diagnostic imaging of breast
CPT/HCPCS: 77063; 77067

== ENCOUNTER → 2024-06-25 08:39 | Outpatient (BNVA) | payer MEDICARE, SELFPAY | PROVIDERS: PCP Internal Medicine; Visit Provider Nurse Practitioner Family | DX: I48.0 Paroxysmal atrial fibrillation (principal); Z79.01 Long term (current) use of anticoagulants; Z79.82 Long term (current) use of aspirin; I25.10 Atherosclerotic heart disease of native coronary artery without angina pectoris; Z95.5 Presence of coronary angioplasty implant and graft; Z95.2 Presence of prosthetic heart valve | CPT/HCPCS: 99214 ==

== ENCOUNTER 2024-07-03 10:42 | Emergency (ER) | payer MEDICARE, SELFPAY ==
[2024-07-03] VITALS (11 sets, daily range): BP systolic 69–144; BP diastolic 45–86; PULSE 56–84; RESP 16; TEMP 36.7; O2SAT 94–97
--- NOTE | 2024-07-03 10:46 | USCV_ITS ---
Jocelin Mcginnis Age: 73 Gender: F : 1950 Exam Date: 07/03/2024 10:58 Ordering Phys: Lalo Ribera DO Technologist: VAMSHI [place] [facility] [place]: RLE pain and swelling HISTORY: Lower extremity swelling. Lower extremity pain. PROCEDURES: Venous duplex imaging was performed in only the right lower extremity. The following venous structures were evaluated: common femoral vein, profunda vein, proximal portion of the greater saphenous vein, superficial femoral vein, and the popliteal vein. In addition, the posterior tibial and peroneal trunk were evaluated. Serial compression, augmentation maneuvers, and spectral Doppler flow evaluation were performed. FINDINGS: No evidence of DVT seen in any vessel visualized at this time. ?Complex cesar's cyst CONCLUSIONS No evidence of right lower extremity DVT. Complex Bakers cyst measuring 3.8 x 2.4cm Gene Barger MD (Electronically Signed) Final Date: 03 July 2024 15:49 S
--- NOTE | 2024-07-03 11:05 | W.ED.EXTPRO ---
HPI - Extremity Problem General: Chief complaint: Extremity Injury, Lower Stated complaint: Chela de oliveira leg swelling Time Seen by Provider: 07/03/24 11:02 History of Present Illness: 73-year-old female past medical history of A-fib, mechanical valve on Coumadin patient was sent over for right lower extremity swelling concerning for DVT. Patient states has been sick for the past week with diarrhea and was started on Cipro and Flagyl by her doctor. She has had some generalized weakness and fatigue. Denies any chest pain or shortness of breath no fever no vomiting no abdominal pain at this time. She has been having this right lower extremity swelling and was sent here to evaluate for DVT. She denies any trauma or injury bleeding. She felt like her diarrhea has been dark. Associated symptoms: Deny chest pain or fever(s) Related Data Home Medications ?Medication ?Instructions ?Recorded ?Confirmed tizanidine 4 mg tablet 4 mg PO BID PRN muscle spasticity 10/09/19 07/03/24 cholecalciferol (vitamin D3) 125 125 mcg PO QAM 03/22/22 07/03/24 mcg (5,000 unit) tablet (Vitamin D3) potassium gluconate 595 mg (99 mg) 1,190 mg PO QAM 03/22/22 07/03/24 tablet acetaminophen 325 mg capsule 325 mg PO QID PRN Mild Pain (Scale 04/05/22 07/03/24 Score 1-4) trazodone 50 mg tablet 50 mg PO BEDTIME 05/03/23 07/03/24 Previous Rx's ?Medication ?Instructions ?Recorded warfarin 6 mg tablet 6 mg PO DAILY #90 tabs 04/05/22 omeprazole 20 mg capsule,delayed 20 mg PO BID #20 caps 05/03/23 release nitroglycerin 0.4 mg sublingual 0.4 mg sublingual Q5M PRN Chest 07/14/23 tablet (Nitrostat) Pain #30 tabs rosuvastatin 20 mg tablet 20 mg PO DAILY #90 tabs 07/14/23 spironolactone 50 mg tablet 50 mg PO QAM #90 tabs 07/14/23 valsartan 40 mg tablet 20 mg (1/2 x 40 mg) PO DAILY #90 07/14/23 tabs aspirin 81 mg tablet,delayed 81 mg PO DAILY #90 tabs 12/26/23 release (Adult Aspirin Regimen) warfarin 1 mg tablet See Rx Instructions .Route 12/26/23 .COMPLEX #30 tabs warfarin 2 mg tablet 2 mg PO DAILY #90 tabs 12/26/23 warfarin 5 mg tablet 5 mg PO DAILY #90 tabs 12/26/23 furosemide 40 mg tablet 40 mg PO QAM #90 tabs 01/12/24 metoprolol succinate 100 mg 100 mg PO DAILY #90 tabs 05/22/24 tablet,extended release 24 hr Allergies Allergy/AdvReac Type Severity Reaction Status Date / Time Iodine and Iodide Containing Allergy rash Verified 06/25/24 08:48 Produc latex Allergy rash Verified 06/25/24 08:48 Review of Systems Const: Reports: malaise; Denies: fever(s) or chills Eyes: Denies: change in vision ENMT: Denies: throat pain Card: Denies: chest pain, palpitations, irregular heart rhythm, edema, syncope, pre-syncope or dyspnea on exertion Resp: Denies: dyspnea, productive cough or non-productive cough GI: Reports: diarrhea; Denies: abdominal pain, nausea or vomiting : Denies: flank pain, difficulty voiding or dysuria Musc: Reports: extremity swelling; Denies: neck pain or back pain Neuro: Denies: headache(s) PFSH ED PFSH: Medical History Cyst of left Bartholin's gland Abscess of vagina Fever Atrial fibrillation Chronic diarrhea Subtherapeutic international normalized ratio (INR) Non-ST elevation IN (NSTEMI) Chest pain Intermittent atrial fibrillation Cardiomyopathy, ischemic Osteoporosis Hypothyroidism Diabetes mellitus diagnosed in 2017 HTN (hypertension) with goal to be determined CHF (congestive heart failure) CAD (coronary artery disease) stent to mid LAD 11/02/2018 Surgical History Hx of mitral valve replacement with mechanical valve S/P hysterectomy S/P cholecystectomy S/P mitral valve replacement [place] valve by Dr. Wilder Ringold 2006 Mitral valve replaced Family History Father CAD (coronary artery disease) Stroke Mother CAD (coronary artery disease) Diabetes Hypertension Sister CAD (coronary artery disease) Hypertension Lung disease Psychiatric illness Son Lung disease Denies family history of Clotting disorder Dementia Hyperlipidemia Chronic kidney disease (CKD) Suicide Anesthesia complication Bleeding disorder Family history of premature coronary artery disease Cancer Social History Smoking and tobacco/nicotine status: never used tobacco/nicotine Second hand smoke exposure: Yes Alcohol intake: never Substance/Drug Use: never Physical Exam Const: COMMON NORMALS: no acute distress and patient oriented x3 HENMT: COMMON NORMALS: normocephalic HEAD & SCALP: normocephalic Eye: COMMON NORMALS: Equal, round and reactive pupils present, EOMs intact bilaterally and conjunctivae normal CONJUNCTIVA: Yes conjunctivae normal PUPIL: Yes Equal, round and reactive pupils present Neck/C-Spine: COMMON NORMALS: full ROM, supple and no JVD Lymph: LYMPHATIC: no lymphadenopathy noted Chest: COMMONS NORMALS: normal inspection of the chest CHEST: Yes Symmetrical chest wall rise Resp: COMMON NORMALS: normal respiratory effort, No use of accessory muscles and clear to auscultation bilaterally AUSCULTATION: clear to auscultation bilaterally, no crackles, no rales, no rhonchi and no wheezes Cardio: COMMON NORMALS: no JVD, regular rate, regular rhythm, S1 normal heart sound present, S2 normal heart sound present and No gallops present (Cardio) RATE: regular rate RHYTHM: regular rhythm HEART SOUNDS: S1 normal heart sound present and S2 normal heart sound present GI: COMMON NORMALS: Normal to inspection, nondistended, normoactive bowel sounds present, Soft to palpation and non-tender PALPATION: Yes Soft to palpation : COMMON NORMALS: Yes no CVA tenderness BLADDER/KIDNEY EXAM: Yes no CVA tenderness Back/Pelvis: COMMON NORMALS: no CVA tenderness Extremity: NARRATIVE EXTREMITY EXAM: Mild right lower extremity tenderness posterior to the knee otherwise distally neurovascular intact no obvious ecchymosis DP PT pulses are normal sensation is intact Neuro: COMMON NORMALS: patient oriented x3 Course Vital Signs: Vital signs: Vital Signs Temperature 98.0 F 07/03/24 10:47 Pulse Rate 57 L 07/03/24 15:30 Respiratory Rate 16 07/03/24 11:16 Blood Pressure 130/75 07/03/24 15:30 Pulse Oximetry 94 07/03/24 15:30 Oxygen Delivery Me thod Room Air 07/03/24 15:30 MDM - Extremity (Nontraumatic) Medical Decision Making Patient was evaluated with a DVT ultrasound that is negative for DVT of the right lower extremity. She was noted to be hypotensive although she did take her blood pressure medications and I suspect this is the cause for her generalized weakness. She was given IV fluid she feels markedly improved that she orthostatic negative on repeat vital signs. Her blood work demonstrates no significant anemia and H&H is in line with her previous values. No abnormality on cardiac enzymes which are essentially lateral within normal delta Trope. She does feel improved she does not not require inpatient admission at this time. I spoke she was dehydrated and thus her blood pressure was low we have rehydrated her however she is otherwise stable for discharge at this time. Follow-up with PCP Lab Data 07/03/24 11:17 07/03/24 11:17 Laboratory Results WBC 6.37 10^3/uL (3.29-11.43) 07/03/24 11:17 RBC 3.42 10^6/uL (3.85-5.65) L 07/03/24 11:17 Hgb 11.40 g/dL (11.27-16.99) 07/03/24 11:17 Hct 33.3 % (36-47) L 07/03/24 11:17 MCV 97.4 fl (85-98) 07/03/24 11:17 MCH 33.3 pg (27-33) H 07/03/24 11:17 MCHC 34.2 g/dL (30-55) 07/03/24 11:17 RDW 12.4 % (12.1-15.1) 07/03/24 11:17 Plt Count 210 10^3/cmm (157-399) 07/03/24 11:17 MPV 8.5 fL (7.4-10.4) 07/03/24 11:17 Neut % (Auto) 72.4 % 07/03/24 11:17 Lymph % (Auto) 17.4 % 07/03/24 11:17 Hudson % (Auto) 7.8 % 07/03/24 11:17 Eos % (Auto) 1.7 % 07/03/24 11:17 Baso % (Auto) 0.5 % 07/03/24 11:17 Neut # (Auto) 4.61 10^3/uL (1.8-7.7) 07/03/24 11:17 Lymph # (Auto) 1.1 10^3/uL (0.8-4.8) 07/03/24 11:17 Hudson # (Auto) 0.5 10^3/uL (0.2-0.9) 07/03/24 11:17 Eos # (Auto) 0.1 10^3/uL (0.0-0.8) 07/03/24 11:17 Baso # (Auto) 0.0 10^3/uL (0.0-0.1) 07/03/24 11:17 Nucleated RBC % (auto) 0 % 07/03/24 11:17 Nucleated RBCs # 0.0 /100WBC 07/03/24 11:17 PT 37.80 SECONDS (12.1-14.9) H 07/03/24 11:17 INR 3.60 (0.8-1.2) H 07/03/24 11:17 APTT 46.9 SECONDS (23.9-36.7) H 07/03/24 11:17 Sodium 143 mmol/L (136-145) 07/03/24 11:17 Potassium 4.3 mmol/L (3.5-5.1) 07/03/24 11:17 Chloride 106 mmol/L (98-107) 07/03/24 11:17 Carbon Dioxide 27 mmol/L (22-29) 07/03/24 11:17 Anion Gap 14.3 (5-19) 07/03/24 11:17 BUN 10 mg/dL (8-23) 07/03/24 11:17 Creatinine 0.9 mg/dL (0.5-0.9) 07/03/24 11:17 GFR Calculation Not Reportable 07/03/24 11:17 Glucose 125 mg/dL (65-115) H 07/03/24 11:17 Calculated Osmolality 297 mOsm/kg (285-295) H 07/03/24 11:17 Calcium 8.9 mg/dL (8.5-10.5) 07/03/24 11:17 Total Bilirubin 0.5 mg/dL (0.15-1.2) 07/03/24 11:17 AST 27 U/L (0-32) 07/03/24 11:17 ALT 21 U/L (0-33) 07/03/24 11:17 Alkaline Phosphatase 80 U/L (35-105) 07/03/24 11:17 Troponin T Baseline 30 ng/L (0-10) H 07/03/24 11:17 Troponin T 120 Minute 23.74 ng/L (0-10) H 07/03/24 13:18 Delta Troponin T -6.26 ABS# (0-10) L 07/03/24 13:18 Total Protein 6.2 g/dL (6.6-8.7) L 07/03/24 11:17 Albumin 4.3 g/dL (3.5-5.2) 07/03/24 11:17 Globulin 1.9 g/dL (1.3-4.6) 07/03/24 11:17 Urine Color Yellow (Yellow) 07/03/24 12:56 Urine Appearance Clear (CLEAR) 07/03/24 12:56 Urine pH 7.5 (5-7) 07/03/24 12:56 Ur Specific Hamilton 1.006 (1.005-1.030) 07/03/24 12:56 Urine Protein Negative (Negative) 07/03/24 12:56 Urine Glucose (UA) Negative (Normal) 07/03/24 12:56 Urine Ketones Negative (Negative) 07/03/24 12:56 Urine Blood Negative (Negative) 07/03/24 12:56 Urine Nitrate Negative (Negative) 07/03/24 12:56 Urine Bilirubin Negative (Negative) 07/03/24 12:56 Urine Urobilinogen 0.2 mg/dL (Negative) 07/03/24 12:56 Ur Leukocyte Esterase Negative (Negative) 07/03/24 12:56 Urine RBC 0-2 /hpf (0-2) 07/03/24 12:56 Urine WBC 0-5 /hpf (0-5) 07/03/24 12:56 Ur Squamous Epith Cells 0-5 /hpf (0-5) 07/03/24 12:56 Amorphous Sediment Not Reportable 07/03/24 12:56 Urine Bacteria None seen /hpf (NONE) 07/03/24 12:56 Hyaline Casts 3.71 /lpf 07/03/24 12:56 Blood Type O Positive 07/03/24 11:26 Rho(D) Type Rh positive 04/22/25 11:26 Antibody Screen Negative 07/03/24 11:26 All radiology interpretation(s) finalized by discharge Discharge Plan Discharge Patient Disposition: Home Clinical Impression: Acute dehydration, Tellez's cyst of knee Condition: Stable Prescriptions: No Action tizanidine 4 mg tablet 4 mg PO BID PRN (Reason: muscle spasticity) aspirin [Adult Aspirin Regimen] 81 mg tablet,delayed release (DR/EC) 81 mg PO DAILY Qty: 90 3RF warfarin 1 mg tablet See Rx Instructions .ROUTE .COMPLEX Qty: 30 0RF Protocol: Dose Management Condition: Tuesday Dose/Route: 5 mg Instruction: 1 x 5 mg tablet Condition: Tuesday Dose/Route: 5 mg Instruction: 1 x 5 mg tablet Condition: Tuesday Dose/Route: 5 mg Instruction: 1 x 5 mg tablet Condition: Tuesday Dose/Route: 5 mg Instruction: 1 x 5 mg tablet Condition: Dose/Route: 3 mg Instruction: 1 x 1 mg tablet, 1 x 2 mg tablet Condition: Tuesday Dose/Route: 5 mg Instruction: 1 x 5 mg tablet Condition: Tuesday Dose/Route: 5 mg Instruction: 1 x 5 mg tablet Protocol Text: Adjustment Start Date: Tuesday06/27/24 INR Value: 2.9 INR Date: 06/27/24 Recheck Date: 07/04/24 Dose Instruction: TAKE DIRECTED Rx Instructions: TAKE DIRECTED warfarin 2 mg tablet 2 mg PO DAILY Qty: 90 1RF Protocol: Dose Management Condition: Tuesday Dose/Route: 5 mg Instruction: 1 x 5 mg tablet Condition: Tuesday Dose/Route: 5 mg Instruction: 1 x 5 mg tablet Condition: Tuesday Dose/Route: 5 mg Instruction: 1 x 5 mg tablet Condition: Tuesday Dose/Route: 5 mg Instruction: 1 x 5 mg tablet Condition: Dose/Route: 3 mg Instruction: 1 x 1 mg tablet, 1 x 2 mg tablet Condition: Tuesday Dose/Route: 5 mg Instruction: 1 x 5 mg tablet Condition: Tuesday Dose/Route: 5 mg Instruction: 1 x 5 mg tablet Protocol Text: Adjustment Start Date: Tuesday06/27/24 INR Value: 2.9 INR Date: 06/27/24 Recheck Date: 07/04/24 warfarin 5 mg tablet 5 mg PO DAILY Qty: 90 3RF Protocol: Dose Management Condition: Tuesday Dose/Route: 5 mg Instruction: 1 x 5 mg tablet Condition: Tuesday Dose/Route: 5 mg Instruction: 1 x 5 mg tablet Condition: Tuesday Dose/Route: 5 mg Instruction: 1 x 5 mg tablet Condition: Tuesday Dose/Route: 5 mg Instruction: 1 x 5 mg tablet Condition: Dose/Route: 3 mg Instruction: 1 x 1 mg tablet, 1 x 2 mg tablet Condition: Tuesday Dose/Route: 5 mg Instruction: 1 x 5 mg tablet Condition: Tuesday Dose/Route: 5 mg Instruction: 1 x 5 mg tablet Protocol Text: Adjustment Start Date: Tuesday06/27/24 INR Value: 2.9 INR Date: 06/27/24 Recheck Date: 07/04/24 nitroglycerin [Nitrostat] 0.4 mg tablet, sublingual 0.4 mg SUBLINGUAL Q5M PRN (Reason: Chest Pain) Qty: 30 4RF Rx Instructions: do not exceed 3 doses per episode spironolactone 50 mg tablet 50 mg PO QAM Qty: 90 3RF rosuvastatin 20 mg tablet 20 mg PO DAILY Qty: 90 1RF valsartan 40 mg tablet 20 mg PO DAILY Qty: 90 3RF acetaminophen 325 mg capsule 325 mg PO QID PRN (Reason: Mild Pain (Scale Score 1-4)) warfarin 6 mg tablet 6 mg PO DAILY Qty: 90 2RF Protocol: Dose Management Condition: Tuesday Dose/Route: 5 mg Instruction: 1 x 5 mg tablet Condition: Tuesday Dose/Route: 5 mg Instruction: 1 x 5 mg tablet Condition: Tuesday Dose/Route: 5 mg Instruction: 1 x 5 mg tablet Condition: Tuesday Dose/Route: 5 mg Instruction: 1 x 5 mg tablet Condition: Dose/Route: 3 mg Instruction: 1 x 1 mg tablet, 1 x 2 mg tablet Condition: Tuesday Dose/Route: 5 mg Instruction: 1 x 5 mg tablet Condition: Tuesday Dose/Route: 5 mg Instruction: 1 x 5 mg tablet Protocol Text: Adjustment Start Date: Tuesday06/27/24 INR Value: 2.9 INR Date: 06/27/24 Recheck Date: 07/04/24 Rx Instructions: As directed; based on INR results furosemide 40 mg tablet 40 mg PO QAM Qty: 90 3RF metoprolol succinate 100 mg tablet extended release 24 hr 100 mg PO DAILY Qty: 90 3RF potassium gluconate 595 mg (99 mg) Tablet 1,190 mg PO QAM cholecalciferol (vitamin D3) [Vitamin D3] 125 mcg (5,000 unit) Tablet 125 mcg PO QAM trazodone 50 mg tablet 50 mg PO BEDTIME omeprazole 20 mg capsule,delayed release(DR/EC) 20 mg PO BID Qty: 20 0RF Discharge Orders: Discharge ED (Routine); Ordered 07/03/24 Ordered By: Anders Carbajal Referrals: Capo Ross MD [Primary Care Provider] - Patient Instructions: Tellez Cyst (ED), Diarrhea - Adult Print Language: Tongan Coding Level of Care Code ED Senior Net Web Developer for Kaila Miller
--- NOTE | 2024-07-03 11:17 | ECG_ITS ---
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 Measurements Intervals Murphy Rate: 59 P: 0 NH: 0 QRS: 73 QRSD: 113 T: 143 QT: 444 QTc: 443 Interpretive Statements ATRIAL FIBRILLATION WITH SLOW VENTRICULAR RESPONSE MODERATE INTRAVENTRICULAR CONDUCTION DELAY [105+ ms QRS DURATION, 80+ ms Q/S IN V1/V2, NO Q AND 60+ ms R IN I/aVL/V5/V6] ST DEVIATION AND MODERATE T-WAVE ABNORMALITY, CONSIDER LATERAL ISCHEMIA [-0.1+ mV T-WAVE IN I/aVL/V5/V6] Compared to ECG 09/12/2023 14:46:01 No significant changes Electronically Signed On 07-03-2024 21:20:29 CDT by Trent Blank M.D. [email or web address]
[2024-07-03 11:26] LABS: Basophils % 0.5 %; Eosinophils # 0.1 10^3/uL (0.0-0.8); Eosinophils % 1.7 %; Hematocrit 33.3 % (36-47); Lymphocytes # 1.1 10^3/uL (0.8-4.8); Lymphocytes % 17.4 %; Mean Corpuscular HGB Conc 34.2 g/dL (30-55); Mean Corpuscular Hemoglobin 33.3 pg (27-33); Mean Corpuscular Volume 97.4 fl (85-98); Mean Platelet Volume 8.5 fL (7.4-10.4); Monocytes # 0.5 10^3/uL (0.2-0.9); Monocytes % 7.8 %; Neutrophils # 4.61 10^3/uL (1.8-7.7); Neutrophils % 72.4 %; Nucleated Red Blood Cells % 0 %; Platelet Count 210 10^3/cmm (157-399); Red Blood Count 3.42 10^6/uL (3.85-5.65); Red Cell Distribution Width 12.4 % (12.1-15.1); White Blood Count 6.37 10^3/uL (3.29-11.43)
[2024-07-03] MEDS: sodium chloride 0.9% 1,000 ML 999 ML IV (11:28)
[2024-07-03 11:41] LABS: Partial Thromboplastin Time 46.9 SECONDS (23.9-36.7)
[2024-07-03 11:54] LABS: Troponin(5th) Baseline 30 ng/L (0-10)
[2024-07-03 11:56] LABS: Alanine Aminotransferase 21 U/L (0-33); Albumin Level 4.3 g/dL (3.5-5.2); Alkaline Phosphatase 80 U/L (35-105); Anion Gap 14.3 (5-19); Aspartate Amino Transferase 27 U/L (0-32); Blood Urea Nitrogen 10 mg/dL (8-23); Calcium 8.9 mg/dL (8.5-10.5); Carbon Dioxide 27 mmol/L (22-29); Chloride 106 mmol/L (98-107); Creatinine Clr Calc Pharmacy 51.0326; Globulin 1.9 g/dL (1.3-4.6); Glucose 125 mg/dL (65-115); Osmolality Calculated 297 mOsm/kg (285-295); Potassium 4.3 mmol/L (3.5-5.1); Sodium 143 mmol/L (136-145); Total Bilirubin 0.5 mg/dL (0.15-1.2); Total Protein 6.2 g/dL (6.6-8.7)
[2024-07-03 13:19] LABS: Bilirubin Urine Negative (Negative); Blood Urine Negative (Negative); Glucose Urine UA Negative (Normal); Ketones Urine Negative (Negative); Leukocyte Esterase Urine Negative (Negative); Nitrate Urine Negative (Negative); Protein Urine Negative (Negative); Specific Gravity, Urine 1.006 (1.005-1.030); Urine Appearance Clear (CLEAR); Urine Color Yellow (Yellow); Urobilinogen Urine 0.2 mg/dL (Negative); pH Urine 7.5 (5-7)
[2024-07-03 13:23] LABS: Bacteria Urine None Seen /hpf; Hyaline Casts Urine 3.71 /lpf; RBC Urine 0-2 /hpf (0-2); Squamous Epithelial Cell Urine 0-5 /hpf (0-5); WBC Urine 0-5 /hpf (0-5)
[2024-07-03 13:40] LABS: Troponin 5 2HR 23.74 ng/L (0-10)
[2024-07-03 13:41] LABS: Troponin 5 2HR Delta -6.26 ABS# (0-10)
--- NOTE | 2024-07-03 15:00 | PC.NURSE ---
called US, Paul states still not read will check up on report with radiologist.
== END 2024-07-03 16:31 | disposition home or self-care (01) ==
PROVIDERS: Emergency Provider Emergency Medicine; PCP Family Medicine
DX: E86.0 Dehydration (principal); M71.21 Synovial cyst of popliteal space [Baker], right knee; M79.604 Pain in right leg; Z79.01 Long term (current) use of anticoagulants; I25.10 Atherosclerotic heart disease of native coronary artery without angina pectoris; E11.9 Type 2 diabetes mellitus without complications; I11.0 Hypertensive heart disease with heart failure; I50.9 Heart failure, unspecified
CPT/HCPCS: 36415; 80053; 81001; 84484; 85025; 85610; 85730; 86850; 86900; 93005; 93971; 96360; 96361; 99285; J7030

== ENCOUNTER → 2024-08-13 10:06 | Outpatient (BNVA) | payer MEDICARE, SELFPAY | PROVIDERS: PCP Family Medicine; Visit Provider Podiatrist Foot & Ankle Surgery | DX: M79.671 Pain in right foot (principal); M20.41 Other hammer toe(s) (acquired), right foot; M20.42 Other hammer toe(s) (acquired), left foot; M21.611 Bunion of right foot; G57.61 Lesion of plantar nerve, right lower limb | CPT/HCPCS: 20550; 64455; 73630; 99213; J1100; J3301; J9999 ==

== ENCOUNTER 2024-09-27 06:20 | Outpatient (CLI) | payer MEDICARE, SELFPAY ==
[2024-09-27 06:58] VITALS: BMI 24.0
--- NOTE | 2024-09-27 07:06 | ECG_ITS ---
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 Interpretive Statements LEXISCAN SESTAMIBI STRESS TEST Procedure: At the baseline, the blood pressure was 144/82 mmHg with a heart rate of 75 bpm. The electrocardiogram showed normal atrial fibrillation, normal axis with normal ST and T's. The Lexiscan was infused over a period of 20 seconds. A total of 0.4 mg of Lexiscan was infused. The stress phase was continued for a total of 5 minutes. Heart rate was at the end of stress phase was 79 bpm and a blood pressure of 131/74 mmHg. The EKG at the peak infusion revealed atrial fibrillation with no significant ST-T wave changes. Sestamibi was injected 20 seconds after the Lexiscan infusion. Blood pressure at the end of recovery phase was 130/70 mmHg with a heart rate of 76 bpm. Conclusion: 1. Normal EKG response to Lexiscan infusion 2. No Lexiscan induced chest pain or cardiac arrhythmia. 3. Normal blood pressure and heart rate response. 4. Sestamibi/sestamibi perfusion scan pending; see separate report. Electronically Signed On 09-27-2024 12:37:26 CDT by Jacques Parks M.D. [email or web address]
--- NOTE | 2024-09-27 07:18 | NMCV_ITS ---
NM vega perf SPECT r/s* [id number] Jocelin Mcginnis Age: 74 Gender: F : 1950 Exam Date: 09/27/2024 07:27 Ordering Phys: Jacques Parks M.D ([email or web address]) Technologist: KOURTNEY Starr Exam Location: [facility] [place] Indications: cp STRESS TEST Please see separate stress test report in [facility] for full findings IMAGE PROTOCOL Rest/Stress 1 Lexiscan Day Radiopharmaceutical Dose (mCi) Administration Site Administered by Rest: Tc-99m 10.4 IV KOURTNEY Starr Sestamibi Stress:Tc-99m 32.5 IV Amira Jaragle, FINANCIAL ASSISTANCE SPECIALIST Sestamibi Rest: 27-Sep-2024 60 Discovery 630 Stress: 27-Sep-2024 30 Discovery 630 0.4mg Lexiscan. Images obtained in supine and prone position. SPECT RESULTS Technical Quality: Good Raw Data Analysis: Normal Image Corrections: No attenuation or motion correction applied Summed Stress Score: 5 Summed Rest Score: 2 Summed Difference Score: 3 PERFUSION FINDINGS There is small sized partially reversible perfusion defect seen in apical and apical lateral shen. This is consistent with small sized area of prior infarct with minimal ella-infarct ischemia in the apical and apical lateral shen. FUNCTIONAL RESULTS (calculated via Gated SPECT) Stress Image LV EF (%): 40 Stress EDV (mL):137 TID: 0.89 Stress ESV (mL):82 FUNCTIONAL FINDINGS: LV systolic function is mildly reduced with EF of 40% IMPRESSIONS 1. Abnormal myocardial perfusion imaging with small sized area of prior infarct with minimal ella-infarct ischemia in apical and apical lateral shen. 2. LV systolic function is mildly reduced with EF of 40% Jacques Parks MD (Electronically Signed) Final Date: 27 September 2024 10:29 S
[2024-09-27 08:16] VITALS: BP 130/70; PULSE 75
--- NOTE | 2024-09-27 10:00 | USCV_ITS ---
Jocelin Mcginnis Age: 74 Gender: F : 1950 Exam Date: 09/27/2024 09:39 Ordering Phys: Jacques Parks M.D ([email or web address]) Technologist: VAMSHI Exam Location: [facility] [place] Indication: SOB, CP BP: 130 / 80 HR: 59 Rhythm: Sinus Technical Quality: Adequate MEASUREMENTS (Male / Female) Normal Values 2D ECHO LV Diastolic Diameter PLAX 4.6 cm 4.2 - 5.9 / 3.9 - 5.3 cm IVS Diastolic Thickness 1.3 cm 0.6 - 1.0 / 0.6 - 0.9 cm IVS Systolic Thickness 1.7 cm LVPW Diastolic Thickness 1.3 cm 0.6 - 1.0 / 0.6 - 0.9 cm LVPW Systolic Thickness 1.3 cm LVOT Diameter 1.8 cm LV Ejection Fraction 2D Teich 49.8 % LV Ejection Fraction MOD 4C 28.5 % LV Ejection Fraction MOD 2C 45.8 % LV Ejection Fraction 2C AL 50.2 % LA Diameter 3.3 cm RA Systolic Volume 4C AL 50.8 ml RA Systolic Volume 4C MOD 51.1 ml LA Sys Volume AL 69.8 cm cubed LA Sys Volume Index AL 40.4 cm cubed/m squared Aorta at Sinotubular Diameter 2.2 cm IVC Diameter 1.9 cm M-MODE LA Ao Ratio MM 1.4 AV Cusp Separation MM 1.6 cm DOPPLER AV Peak Velocity 119.0 cm/s LVOT Peak Velocity 108.0 cm/s AV Area Cont Eq vti 2.6 cm squared AV Area Cont Eq pk 2.4 cm squared MV Peak Velocity 167.0 cm/s MV Area PHT 4.8 cm squared Mitral E to A Ratio 2.9 TR Peak Velocity 130.0 cm/s TR Peak Gradient 6.8 mmHg TV Peak E Velocity 165.0 cm/s PV Peak Velocity 85.0 cm/s FINDINGS Left Ventricle Technically limited quality echocardiogram. LV systolic function is moderately reduced with EF of 35 to 40%. Moderate global hypokinesis with apical akinesis Right Ventricle Mildly reduced RV function Right Atrium Normal in size Left Atrium Dilated Mitral Valve Mechanical mitral valve. Trace mitral regurgitation. Mean gradient across mitral valve is normal. Aortic Valve Not well-visualized. No significant stenosis or regurgitation Tricuspid Valve Grossly normal Pulmonic Valve Not visualized Pericardium Normal Aorta Normal in size IVC Appears to be normal CONCLUSIONS Technically limited quality echocardiogram because of poor ultrasonic windows. LV systolic function is moderately reduced with EF of 35-40%. Mildly reduced RV function Left atrial dilation Mechanical mitral valve. Trace mitral regurgitation. Mean gradient across mitral valve is normal. Compared to prior echocardiogram from 2023, no significant changes are seen. Jacques Parks MD (Electronically Signed) Final Date: 28 September 2024 10:51 S
== END 2024-09-27 06:21 | disposition home or self-care (01) ==
PROVIDERS: PCP Family Medicine; Visit Provider Internal Medicine
DX: R07.9 Chest pain, unspecified (principal); R06.02 Shortness of breath
CPT/HCPCS: 36415; 78452; 93017; 93306; 96374; A9500; J2785

== ENCOUNTER 2024-10-18 11:47 | Emergency (ER) | payer MEDICARE, SELFPAY ==
--- OUTSIDE RECORDS SUMMARY | 2024-09-12 03:10 | XMS_ITS ---
Author Organization [facility] Address [address] [place] [address] Care Team Providers Care Cardiac Catheterization Technician Name Role Phone Paris Griffiths Primary Care Provider [phone] Enrique Richardson Unavailable [phone] PARIS GRIFFITHS MD Unavailable Unavailable REASON FOR VISIT RIGHT KNEE DIAGNOSTIC ARTHROSCOPY Encounters Encounter Location Date Provider Diagnosis [facility] [address] [place] [id number] 09/12/2024 Enrique Moran Plan Of Treatment No Information Progress Notes * UBALDO AllieDOB: 0 (74 yo F)Acc No.[id number]:09/12/2024 Patient: Jocelin Phillips Provider: Sharonda Moran M.D. :1950 A ge:74 Y S ex:Female Date:09/12/2024 Address:[address] [place] [address] [place]-[id number] Pcp:Paris Griffiths Billing Information: * Procedure Codes: * Electronic signature of Kyle Moran MD on 10/18/2024 at 11:52 AM CDT Sign off status: Pending * Provider: Sharonda Moran M.D. Date: 09/12/2024 Generated for Printi ng/Faxing/eTransmitting on: 10/18/2024 11:52 AM CDT
[2024-10-18] VITALS (7 sets, daily range): BP systolic 130–143; BP diastolic 77–95; PULSE 69–96; RESP 16–18; TEMP 36.6; O2SAT 91–96; BMI 24.7
--- OUTSIDE RECORDS SUMMARY | 2024-10-18 11:52 | XMS_ITS | Encounter Summary ---
Author Organization [facility] Address [address] [place] [address] Care Team Providers Care Lockstitcher Name Role Phone Ang Pablo DO Primary Care Provider [phone] Encounter Details Date Type Department Care Team (Latest Contact Info) Description 05/25/2006 Outpatient Historical [facility] Cardiac Thoracic Vascular Surg [place] [address] [place] [phone] Ronald Moran MD NO ADDRESS ON FILE Mitral Valve Disorder (Primary Dx) Social History Tobacco Use Types Packs/Day Years Used Date Smoking Tobacco: Never Assessed Comments Unknown Sex and Gender Information Value Date Recorded Sex Assigned at Not on file 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
--- OUTSIDE RECORDS SUMMARY | 2024-10-18 11:52 | XMS_ITS | Encounter Summary ---
Author Organization [facility] Address [address] [place] [address] Care Team Providers Care Identification And Records Commander Name Role Phone Ang Pablo DO Primary Care Provider [phone] Encounter Details Date Type Department Care Team (Late st Contact Info) Description 04/13/2006 Outpatient Historical [facility] Cardiac Thoracic Vascular Surg [place] [address] [place] [address] Marguerite Wilder MD [address] [phone] Mitral Valve Disorder (Primary Dx) Social History Tobacco Use Types Packs/Day Years Used Date Smoking Tobacco: Never Assessed Comments Unknown Sex and Gender Information Value Date Recorded Sex Assigned at Not on file 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
--- OUTSIDE RECORDS SUMMARY | 2024-10-18 11:52 | XMS_ITS | Encounter Summary ---
Author Organization [facility] Address [address] 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
--- OUTSIDE RECORDS SUMMARY | 2024-10-18 11:52 | XMS_ITS | Encounter Summary ---
Author Organization [facility] Address [address] [facility] Attn: [place] [address] Care Team Providers Care Wastewater Treatment Supervisor Name Role Phone BevAng Primary Care Provider [phone] Encounter Details Date Type Department Care Team (Late st Contact Info) Description 05/25/2006 Outpatient Historical Marguerite Wilder MD [address] [phone] Social History Tobacco Use Types Packs/Day Years Used Date Smoking Tobacco: Never Assessed Comments Unknown Sex and Gender Information Value Date Recorded Sex Assigned at Not on file 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 INR 1.4 INTERFACE SYSTEM Comment: Expected Values for INR: DVT/PE Goal INR 2.5; range 2.0 - 3.0 Valve Replacement Tissue Goal INR 2.5; range 2.0 - 3.0 Mechanical Goal INR 3.0; range 2.5 - 3.5 POST-AL Goal INR 2.5; range 2.0 - 3.0 or Goal 3.0; range 2.5 - 3.5 Atrial Fibrillation Goal INR 2.5; range 2.0 - 3.0 Ischemic Stroke Goal INR 2.5; range 2.0 - 3.0 For additional information see Guidelines for Anticoagulation available from the pharmacy Rebecca Guerrier. 05/25/2006 10:3 0 AM CDT Marguerite Wilder MD HEMATOLOGY ORDERABLES Edited INTERFACE SYSTEM Refer to clinic/hospital department documented in this encounter Visit Diagnoses Not on filedocumented in this encounter Care Teams Wastewater Treatment Supervisor Relationship Specialty Start Date End Date Ang Pablo DO [address] [place] [address] PCP - General 04/28/06 documented as of this encounter
--- OUTSIDE RECORDS SUMMARY | 2024-10-18 11:53 | XMS_ITS | Encounter Summary ---
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) Social History Tobacco Use Types Packs/Day Years Used Date Smoking Tobacco: Never Assessed Comments Unknown Sex and Gender Information Value Date Recorded Sex Assigned at Not on file Legal Sex Female 3:35 AM PLUMBING DESIGNER Gender Identity Not on file Sexual Orientation Not on file documented as of this encounter Plan of Treatment Not on file documented as of this encounter Procedures Procedure Name Priority Date/Time Associated Diagnosis Comments POC GLUCOSE Routine 05/04/2006 12:52 PM PLUMBING DESIGNER POC GLUCOSE Routine 05/04/2006 6:21 AM PLUMBING DESIGNER PROTIME-INR Routine 05/04/2006 5:38 AM PLUMBING DESIGNER POC GLUCOSE Routine 05/03/2006 9:12 PM PLUMBING DESIGNER POC GLUCOSE Routine 05/03/2006 5:16 PM PLUMBING DESIGNER PROTIME-INR Routine 05/03/2006 3:15 PM PLUMBING DESIGNER POC GLUCOSE Routine 05/03/2006 12:11 PM PLUMBING DESIGNER POC GLUCOSE Routine 05/03/2006 6:27 AM PLUMBING DESIGNER POC GLUCOSE Routine 05/02/2006 9:09 PM PLUMBING DESIGNER POC GLUCOSE Routine 05/02/2006 5:45 PM PLUMBING DESIGNER POC GLUCOSE Routine 05/02/2006 11:31 AM PLUMBING DESIGNER POC GLUCOSE Routine 05/02/2006 6:22 AM PLUMBING DESIGNER POC GLUCOSE Routine 05/01/2006 10:33 PM PLUMBING DESIGNER POC GLUCOSE Routine 05/01/2006 6:02 PM PLUMBING DESIGNER POC GLUCOSE Routine 05/01/2006 5:18 AM PLUMBING DESIGNER CBC WITH DIFFERENTIAL Routine 05/01/2006 3:35 AM PLUMBING DESIGNER BASIC METABOLIC PANEL Routine 05/01/2006 3:35 AM PLUMBING DESIGNER POC GLUCOSE Routine 04/30/2006 9:09 PM PLUMBING DESIGNER POC GLUCOSE Routine 04/30/2006 5:02 PM PLUMBING DESIGNER POC GLUCOSE Routine 04/30/2006 8:32 AM PLUMBING DESIGNER POC GLUCOSE Routine 04/30/2006 7:32 AM PLUMBING DESIGNER POC GLUCOSE Routine 04/30/2006 6:05 AM PLUMBING DESIGNER POC GLUCOSE Routine 04/30/2006 4:42 AM PLUMBING DESIGNER POC GLUCOSE Routine 04/30/2006 3:41 AM PLUMBING DESIGNER CBC WITH DIFFERENTIAL Routine 04/30/2006 2:38 AM PLUMBING DESIGNER BASIC METABOLIC PANEL Routine 04/30/2006 2:38 AM PLUMBING DESIGNER POC GLUCOSE Routine 04/30/2006 2:33 AM PLUMBING DESIGNER POC GLUCOSE Routine 04/30/2006 1:40 AM PLUMBING DESIGNER POC GLUCOSE Routine 04/30/2006 12:26 AM PLUMBING DESIGNER POC GLUCOSE Routine 04/29/2006 11:30 PM PLUMBING DESIGNER POC GLUCOSE Routine 04/29/2006 10:23 PM PLUMBING DESIGNER POC GLUCOSE Routine 04/29/2006 9:18 PM PLUMBING DESIGNER POC BLOOD GAS, LYTES AND H+H Routine 04/29/2006 8:41 PM PLUMBING DESIGNER POC GLUCOSE Routine 04/29/2006 8:18 PM PLUMBING DESIGNER POC GLUCOSE Routine 04/29/2006 7:28 PM PLUMBING DESIGNER POC GLUCOSE Routine 04/29/2006 4:06 PM PLUMBING DESIGNER POC BLOOD GAS, LYTES AND H+H Routine 04/29/2006 4:03 PM PLUMBING DESIGNER POC GLUCOSE Routine 04/29/2006 3:36 PM PLUMBING DESIGNER POC GLUCOSE Routine 04/29/2006 2:49 PM PLUMBING DESIGNER POC GLUCOSE Routine 04/29/2006 2:01 PM PLUMBING DESIGNER POC GLUCOSE Routine 04/29/2006 1:50 PM PLUMBING DESIGNER POC GLUCOSE Routine 04/29/2006 1:24 PM PLUMBING DESIGNER POC GLUCOSE Routine 04/29/2006 12:47 PM PLUMBING DESIGNER documented in this encounter Results * (ABNORMAL) POC GLUCOSE (05/04/2006 12:52 PM PLUMBING DESIGNER) GLUCOSE POC 101(H) 60 - 100 mg/dL INTERFACE SYSTEM 05/04/2006 12:5 2 PM PLUMBING DESIGNER Result Lalita Wilder MD POINT OF CARE TESTING Edited Performing Organization Address [facility] de Phone Number INTERFACE SYSTEM Refer to clinic/hospital department * (ABNORMAL) POC GLUCOSE (05/04/2006 6:21 AM PLUMBING DESIGNER) GLUCOSE POC 134(H) 60 - 100 mg/dL INTERFACE SYSTEM 05/04/2006 6:21 AM PLUMBING DESIGNER Result Lalita Wilder MD POINT OF CARE TESTING Edited Performing Organization Address [facility] Phone Number INTERFACE SYSTEM Refer to clinic/hospital department * (ABNORMAL) PROTIME-INR (05/04/2006 5:38 AM PLUMBING DESIGNER) PROTIME 24.6(H) 13.0 - 15.7 Secs INTERFACE SYSTEM Comment: As of 06 note change in normal range. INR 2.0 INTERFACE SYSTEM Comment: Expected Values for INR: DVT/PE Goal INR 2.5; range 2.0 - 3.0 Valve Replacement Tissue Goal INR 2.5; range 2.0 - 3.0 Mechanical Goal INR 3.0; range 2.5 - 3.5 POST-DC Goal INR 2.5; range 2.0 - 3.0 or Goal 3.0; range 2.5 - 3.5 Atrial Fibrillation Goal INR 2.5; range 2.0 - 3.0 Ischemic Stroke Goal INR 2.5; range 2.0 - 3.0 For additional information see Guidelines for Anticoagulation available from the pharmacy Gavi Hamlin Pharm D. 05/04/2006 5:38 AM PLUMBING DESIGNER Result aLlita Wilder MD HEMATOLOGY ORDERABLES Edited Performing Organization Address [facility] Co de Phone Number INTERFACE SYSTEM Refer to clinic/hospital department * (ABNORMAL) POC GLUCOSE (05/03/2006 9:12 PM PLUMBING DESIGNER) GLUCOSE POC 134(H) 60 - 100 mg/dL INTERFACE SYSTEM 05/03/2006 9:12 PM PLUMBING DESIGNER Result Lalita Wilder MD POINT OF CARE TESTING Edited Performing Organization Address [facility] de Phone Number INTERFACE SYSTEM Refer to clinic/hospital department * (ABNORMAL) POC GLUCOSE (05/03/2006 5:16 PM PLUMBING DESIGNER) GLUCOSE POC 111(H) 60 - 100 mg/dL INTERFACE SYSTEM 05/03/2006 5:16 PM PLUMBING DESIGNER Result Lalita Wilder MD POINT OF CARE TESTING Edited Performing Organization Address [facility] Phone Number INTERFACE SYSTEM Refer to clinic/hospital department * (ABNORMAL) PROTIME-INR (05/03/2006 3:15 PM PLUMBING DESIGNER) PROTIME 21.3(H) 13.0 - 15.7 Secs INTERFACE SYSTEM Comment: As of 06 note change in normal range. INR 1.7 INTERFACE SYSTEM Comment: Expected Values for INR: DVT/PE Goal INR 2.5; range 2.0 - 3.0 Valve Replacement Tissue Goal INR 2.5; range 2.0 - 3.0 Mechanical Goal INR 3.0; range 2.5 - 3.5 POST-DC Goal INR 2.5; range 2.0 - 3.0 or Goal 3.0; range 2.5 - 3.5 Atrial Fibrillation Goal INR 2.5; range 2.0 - 3.0 Ischemic Stroke Goal INR 2.5; range 2.0 - 3.0 For additional information see Guidelines for Anticoagulation available from the pharmacy Gavi Hamlin Pharm D. 05/03/2006 3:15 PM PLUMBING DESIGNER Result Lalita Wilder MD HEMATOLOGY ORDERABLES Edited Performing Organization Address [facility] Co de Phone Number INTERFACE SYSTEM Refer to clinic/hospital department * (ABNORMAL) POC GLUCOSE (05/03/2006 12:11 PM PLUMBING DESIGNER) GLUCOSE POC 135(H) 60 - 100 mg/dL INTERFACE SYSTEM 05/03/2006 12:1 1 PM PLUMBING DESIGNER Result Lalita Wilder MD POINT OF CARE TESTING Edited Performing Organization Address [facility] Co de Phone Number INTERFACE SYSTEM Refer to clinic/hospital department * (ABNORMAL) POC GLUCOSE (05/03/2006 6:27 AM PLUMBING DESIGNER) GLUCOSE POC 101(H) 60 - 100 mg/dL INTERFACE SYSTEM 05/03/2006 6:27 AM PLUMBING DESIGNER Result Lalita Wilder MD POINT OF CARE TESTING Edited Performing Organization Address [facility] de Phone Number INTERFACE SYSTEM Refer to clinic/hospital department * (ABNORMAL) POC GLUCOSE (05/02/2006 9:09 PM PLUMBING DESIGNER) GLUCOSE POC 194(H) 60 - 100 mg/dL INTERFACE SYSTEM 05/02/2006 9:09 PM PLUMBING DESIGNER Result Lalita Wilder MD POINT OF CARE TESTING Edited Performing Organization Address [facility] Phone Number INTERFACE SYSTEM Refer to clinic/hospital department * (ABNORMAL) POC GLUCOSE (05/02/2006 5:45 PM PLUMBING DESIGNER) GLUCOSE POC 101(H) 60 - 100 mg/dL INTERFACE SYSTEM 05/02/2006 5:45 PM PLUMBING DESIGNER Result Lalita Wilder MD POINT OF CARE TESTING Edited Performing Organization Address [facility] Co de Phone Number INTERFACE SYSTEM Refer to clinic/hospital department * (ABNORMAL) POC GLUCOSE (05/02/2006 11:31 AM PLUMBING DESIGNER) GLUCOSE POC 162(H) 60 - 100 mg/dL INTERFACE SYSTEM 05/02/2006 11:3 1 AM PLUMBING DESIGNER us Marguerite Wilder MD POINT OF CARE TESTING Edited Performing Organization Address [facility] Co de Phone Number INTERFACE SYSTEM Refer to clinic/hospital department * (ABNORMAL) POC GLUCOSE (05/02/2006 6:22 AM PLUMBING DESIGNER) GLUCOSE POC 105(H) 60 - 100 mg/dL INTERFACE SYSTEM 05/02/2006 6:22 AM PLUMBING DESIGNER us Marguerite Wilder MD POINT OF CARE TESTING Edited Performing Organization Address [facility] de Phone Number INTERFACE SYSTEM Refer to clinic/hospital department * (ABNORMAL) POC GLUCOSE (05/01/2006 10:33 PM PLUMBING DESIGNER) GLUCOSE POC 143(H) 60 - 100 mg/dL INTERFACE SYSTEM COMMENT POC Follow Protocol INTERFACE SYSTEM 05/01/2006 10:3 3 PM PLUMBING DESIGNER us Marguerite Wilder MD POINT OF CARE TESTING Edited Performing Organization Address [facility] Phone Number INTERFACE SYSTEM Refer to clinic/hospital department * (ABNORMAL) POC GLUCOSE (05/01/2006 6:02 PM PLUMBING DESIGNER) GLUCOSE POC 126(H) 60 - 100 mg/dL INTERFACE SYSTEM 05/01/2006 6:02 PM PLUMBING DESIGNER us Marguerite Wilder MD POINT OF CARE TESTING Edited Performing Organization Address [facility] de Phone Number INTERFACE SYSTEM Refer to clinic/hospital department * (ABNORMAL) POC GLUCOSE (05/01/2006 5:18 AM PLUMBING DESIGNER) GLUCOSE POC 131(H) 60 - 100 mg/dL INTERFACE SYSTEM 05/01/2006 5:18 AM PLUMBING DESIGNER us Marguerite Wilder MD POINT OF CARE TESTING Edited Performing Organization Address [facility] Co de Phone Number INTERFACE SYSTEM Refer to clinic/hospital department * (ABNORMAL) CBC WITH DIFFERENTIAL (05/01/2006 3:35 AM PLUMBING DESIGNER) WBC 13.6(H) 4.8 - 10.8 K/ul INTERFACE SYSTEM RBC 2.99(L) 4.20 - 5.40 Mil/ul INTERFACE SYSTEM HEMOGLOBIN 9.4(L) 12.0 - 16.0 g/dL INTERFACE SYSTEM HEMATOCRIT 28.0(L) 36.0 - 46.0 % INTERFACE SYSTEM MCV 93.6 84.0 - 103.0 Fl INTERFACE SYSTEM MCH 31.4 27.0 - 34.0 pg INTERFACE SYSTEM MCHC 33.6 30.0 - 35.0 g/dL INTERFACE SYSTEM RDW 12.6 11.0 - 14.5 % INTERFACE SYSTEM PLATELETS 118(L) 140 - 440 K/ul INTERFACE SYSTEM MPV 9.3 8.9 - 12.8 Fl INTERFACE SYSTEM NEUTROPHILS 79.4(H) 42.2 - 75.2 % INTERFACE SYSTEM LYMPHOCYTES 13.5(L) 24.0 - 44.0 % INTERFACE SYSTEM MONOCYTES 6.7 2.0 - 10.0 % INTERFACE SYSTEM EOSINOPHILS 0.3 0.0 - 7.0 % INTERFACE SYSTEM BASOPHILS 0.1 0.0 - 1.0 % INTERFACE SYSTEM NEUTROPHIL ABSOLUTE 10.8(H) 2.0 - 8.0 K/uL INTERFACE SYSTEM LYMPHOCYTE ABSOLUTE 1.8 1.2 - 4.0 K/ul INTERFACE SYSTEM MONOCYTE ABSOLUTE 0.9(H) 0.1 - 0.6 K/ul INTERFACE SYSTEM EOSINOPHIL ABSOLUTE 0.0 0.0 - 0.7 K/ul INTERFACE SYSTEM BASOPHILS ABSOLUTE 0.0 0.0 - 0.2 K/ul INTERFACE SYSTEM 05/01/2006 3:35 AM PLUMBING DESIGNER us Marguerite Wilder MD HEMATOLOGY ORDERABLES Edited INTERFACE SYSTEM Refer to clinic/hospital department * (ABNORMAL) BASIC METABOLIC PANEL (05/01/2006 3:35 AM PLUMBING DESIGNER) GLUCOSE 183(H) 70 - 110 mg/dL INTERFACE SYSTEM BUN 12 7 - 17 mg/dL INTERFACE SYSTEM CREATININE 0.7 0.7 - 1.2 mg/dL INTERFACE SYSTEM SODIUM 142 136 - 145 mEq/L INTERFACE SYSTEM POTASSIUM 5.0 3.5 - 5.0 mEq/L INTERFACE SYSTEM CHLORIDE 108 95 - 110 mEq/L INTERFACE SYSTEM CO2 28 22 - 32 mmol/l INTERFACE SYSTEM CALCIUM 8.7 8.4 - 10.5 mg/dL INTERFACE SYSTEM ANION GAP 11 9 - 20 mEq/L INTERFACE SYSTEM OSMOLALITY, CALCULATED 298(H) 275 - 295 mOsm/Kg INTERFACE SYSTEM 05/01/2006 3:35 AM PLUMBING DESIGNER Result Lalita Wilder MD CHEMISTRY ORDERABLES Edited Performing Organization Address [facility] de Phone Number INTERFACE SYSTEM Refer to clinic/hospital department * (ABNORMAL) POC GLUCOSE (04/30/2006 9:09 PM PLUMBING DESIGNER) GLUCOSE POC 140(H) 60 - 100 mg/dL INTERFACE SYSTEM 04/30/2006 9:09 PM PLUMBING DESIGNER Result Lalita Wilder MD POINT OF CARE TESTING Edited Performing Organization Address [facility] Phone Number INTERFACE SYSTEM Refer to clinic/hospital department * (ABNORMAL) POC GLUCOSE (04/30/2006 5:02 PM PLUMBING DESIGNER) GLUCOSE POC 157(H) 60 - 100 mg/dL INTERFACE SYSTEM 04/30/2006 5:02 PM PLUMBING DESIGNER Result Lalita Wilder MD POINT OF CARE TESTING Edited Performing Organization Address [facility] Phone Number INTERFACE SYSTEM Refer to clinic/hospital department * POC GLUCOSE (04/30/2006 8:32 AM PLUMBING DESIGNER) GLUCOSE POC 96 60 - 100 mg/dL INTERFACE SYSTEM 04/30/2006 8:32 AM PLUMBING DESIGNER us Marguerite Wilder MD POINT OF CARE TESTING Edited Performing Organization Address [facility] de Phone Number INTERFACE SYSTEM Refer to clinic/hospital department * POC GLUCOSE (04/30/2006 7:32 AM PLUMBING DESIGNER) GLUCOSE POC 97 60 - 100 mg/dL INTERFACE SYSTEM 04/30/2006 7:32 AM PLUMBING DESIGNER Result Lalita Wilder MD POINT OF CARE TESTING Edited Performing Organization Address [facility] Phone Number INTERFACE SYSTEM Refer to clinic/hospital department * POC GLUCOSE (04/30/2006 6:05 AM PLUMBING DESIGNER) GLUCOSE POC 88 60 - 100 mg/dL INTERFACE SYSTEM 04/30/2006 6:05 AM PLUMBING DESIGNER us Marguerite Wilder MD POINT OF CARE TESTING Edited Performing Organization Address [facility] Phone Number INTERFACE SYSTEM Refer to clinic/hospital department * (ABNORMAL) POC GLUCOSE (04/30/2006 4:42 AM PLUMBING DESIGNER) GLUCOSE POC 111(H) 60 - 100 mg/dL INTERFACE SYSTEM 04/30/2006 4:42 AM PLUMBING DESIGNER us Marguerite Wilder MD POINT OF CARE TESTING Edited Performing Organization Address [facility] Phone Number INTERFACE SYSTEM Refer to clinic/hospital department * (ABNORMAL) POC GLUCOSE (04/30/2006 3:41 AM PLUMBING DESIGNER) GLUCOSE POC 114(H) 60 - 100 mg/dL INTERFACE SYSTEM 04/30/2006 3:41 AM PLUMBING DESIGNER us Marguerite Wilder MD POINT OF CARE TESTING Edited Performing Organization Address [facility] Phone Number INTERFACE SYSTEM Refer to clinic/hospital department * (ABNORMAL) CBC WITH DIFFERENTIAL (04/30/2006 2:38 AM PLUMBING DESIGNER) WBC 11.2(H) 4.8 - 10.8 K/ul INTERFACE SYSTEM RBC 3.09(L) 4.20 - 5.40 Mil/ul INTERFACE SYSTEM HEMOGLOBIN 9.7(L) 12.0 - 16.0 g/dL INTERFACE SYSTEM HEMATOCRIT 28.0(L) 36.0 - 46.0 % INTERFACE SYSTEM MCV 90.6 84.0 - 103.0 Fl INTERFACE SYSTEM MCH 31.4 27.0 - 34.0 pg INTERFACE SYSTEM MCHC 34.6 30.0 - 35.0 g/dL INTERFACE SYSTEM RDW 12.6 11.0 - 14.5 % INTERFACE SYSTEM PLATELETS 138(L) 140 - 440 K/ul INTERFACE SYSTEM MPV 9.7 8.9 - 12.8 Fl INTERFACE SYSTEM NEUTROPHILS 88.7(H) 42.2 - 75.2 % INTERFACE SYSTEM LYMPHOCYTES 4.5(L) 24.0 - 44.0 % INTERFACE SYSTEM MONOCYTES 6.8 2.0 - 10.0 % INTERFACE SYSTEM NEUTROPHIL ABSOLUTE 10.0(H) 2.0 - 8.0 K/uL INTERFACE SYSTEM LYMPHOCYTE ABSOLUTE 0.5(L) 1.2 - 4.0 K/ul INTERFACE SYSTEM MONOCYTE ABSOLUTE 0.8(H) 0.1 - 0.6 K/ul INTERFACE SYSTEM 04/30/2006 2:38 AM PLUMBING DESIGNER Marguerite Wilder MD HEMATOLOGY ORDERABLES Edited Performing Organization Address [facility] Phone Number INTERFACE SYSTEM Refer to clinic/hospital department * (ABNORMAL) BASIC METABOLIC PANEL (04/30/2006 2:38 AM PLUMBING DESIGNER) GLUCOSE 133(H) 70 - 110 mg/dL INTERFACE SYSTEM BUN 15 7 - 17 mg/dL INTERFACE SYSTEM CREATININE 0.9 0.7 - 1.2 mg/dL INTERFACE SYSTEM SODIUM 142 136 - 145 mEq/L INTERFACE SYSTEM POTASSIUM 4.4 3.5 - 5.0 mEq/L INTERFACE SYSTEM CHLORIDE 108 95 - 110 mEq/L INTERFACE SYSTEM CO2 28 22 - 32 mmol/l INTERFACE SYSTEM CALCIUM 9.0 8.4 - 10.5 mg/dL INTERFACE SYSTEM ANION GAP 10 9 - 20 mEq/L INTERFACE SYSTEM OSMOLALITY, CALCULATED 295 275 - 295 mOsm/Kg INTERFACE SYSTEM 04/30/2006 2:38 AM PLUMBING DESIGNER Marguerite Wilder MD CHEMISTRY ORDERABLES Edited Performing Organization Address [facility] Co de Phone Number INTERFACE SYSTEM Refer to clinic/hospital department * (ABNORMAL) POC GLUCOSE (04/30/2006 2:33 AM PLUMBING DESIGNER) GLUCOSE POC 145(H) 60 - 100 mg/dL INTERFACE SYSTEM 04/30/2006 2:33 AM PLUMBING DESIGNER Result Lalita Wilder MD POINT OF CARE TESTING Edited Performing Organization Address [facility] Co de Phone Number INTERFACE SYSTEM Refer to clinic/hospital department * (ABNORMAL) POC GLUCOSE (04/30/2006 1:40 AM PLUMBING DESIGNER) GLUCOSE POC 120(H) 60 - 100 mg/dL INTERFACE SYSTEM 04/30/2006 1:40 AM PLUMBING DESIGNER Result Lalita Wilder MD POINT OF CARE TESTING Edited Performing Organization Address [facility] de Phone Number INTERFACE SYSTEM Refer to clinic/hospital department * POC GLUCOSE (04/30/2006 12:26 AM PLUMBING DESIGNER) GLUCOSE POC 90 60 - 100 mg/dL INTERFACE SYSTEM 04/30/2006 12:2 6 AM PLUMBING DESIGNER Result Lalita Wilder MD POINT OF CARE TESTING Edited Performing Organization Address [facility] de Phone Number INTERFACE SYSTEM Refer to clinic/hospital department * (ABNORMAL) POC GLUCOSE (04/29/2006 11:30 PM PLUMBING DESIGNER) GLUCOSE POC 102(H) 60 - 100 mg/dL INTERFACE SYSTEM 04/29/2006 11:3 0 PM PLUMBING DESIGNER us Marguerite Wilder MD POINT OF CARE TESTING Edited Performing Organization Address [facility] de Phone Number INTERFACE SYSTEM Refer to clinic/hospital department * (ABNORMAL) POC GLUCOSE (04/29/2006 10:23 PM PLUMBING DESIGNER) GLUCOSE POC 132(H) 60 - 100 mg/dL INTERFACE SYSTEM 04/29/2006 10:2 3 PM PLUMBING DESIGNER Result Lalita Wilder MD POINT OF CARE TESTING Edited Performing Organization Address [facility] Co de Phone Number INTERFACE SYSTEM Refer to clinic/hospital department * (ABNORMAL) POC GLUCOSE (04/29/2006 9:18 PM PLUMBING DESIGNER) GLUCOSE POC 171(H) 60 - 100 mg/dL INTERFACE SYSTEM 04/29/2006 9:18 PM PLUMBING DESIGNER Marguerite Wilder MD POINT OF CARE TESTING Edited INTERFACE SYSTEM Refer to clinic/hospital department * (ABNORMAL) POC ISTAT EG 7+ (04/29/2006 8:41 PM PLUMBING DESIGNER) SPECIMEN TYPE Arterial INTERF YUMIKO SYSTEM Comment: PEEP: 08 Pulse OX: 100 Hemoglobin calculated from Hematocrit result FIO2 40 INTERFACE SYSTEM PH 7.35 7.35 - 7.45 Unit INTERFACE SYSTEM PH TEMP CORRECT 7.35 7.35 - 7.45 Unit INTERFACE SYSTEM PCO2 POC 43 35 - 45 mmHg INTERFACE SYSTEM PCO2 TEMP CORRECT 43 35 - 45 mmHg INTERFACE SYSTEM PO2 137(H) 80 - 105 mmHg INTERFACE SYSTEM PO2 TEMP CORRECT 137(H) 80 - 105 mmHg INTERFACE SYSTEM HCO3 (CALC) POC 23.7 22.0 - 26.0 mmol/l INTERFACE SYSTEM BASE EXCESS -2 -2 - 3 mmol/l INTERFACE SYSTEM HEMOGLOBIN POC 9.9 3 g/dL 12.0 - 16.0 g/dL INTERFACE SYSTEM HEMATOCRIT ABG 29(L) 38 - 51 % INTER FACE SYSTEM O2 SATURATION 99(H) 95 - 98 % INTERF YUMIKO SYSTEM TCO2 (CALC) POC 25 23 - 27 mmol/l INTERFACE SYSTEM SODIUM 141 138 - 146 mEq/L INTERFACE SYSTEM POTASSIUM 5.3(H) 3.5 - 4.9 mEq/L INTERFACE SYSTEM CALCIUM IONIZED 1.20 1.12 - 1.32 mmol/l INTERFACE SYSTEM 04/29/2006 8:41 PM PLUMBING DESIGNER Marguerite Wilder MD POINT OF CARE TESTING COM Edite d INTERFACE SYSTEM Refer to clinic/hospital department * (ABNORMAL) POC GLUCOSE (04/29/2006 8:18 PM PLUMBING DESIGNER) GLUCOSE POC 201(H) 60 - 100 mg/dL INTERFACE SYSTEM 04/29/2006 8:18 PM PLUMBING DESIGNER Marguerite Wilder MD POINT OF CARE TESTING Edited Performing Organization Address [facility] Co de Phone Number INTERFACE SYSTEM Refer to clinic/hospital department * (ABNORMAL) POC GLUCOSE (04/29/2006 7:28 PM PLUMBING DESIGNER) GLUCOSE POC 182(H) 60 - 100 mg/dL INTERFACE SYSTEM 04/29/2006 7:28 PM PLUMBING DESIGNER Marguerite Wilder MD POINT OF CARE TESTING Edited Performing Organization Address [facility] de Phone Number INTERFACE SYSTEM Refer to clinic/hospital department * (ABNORMAL) POC GLUCOSE (04/29/2006 4:06 PM PLUMBING DESIGNER) GLUCOSE POC 120(H) 60 - 100 mg/dL INTERFACE SYSTEM 04/29/2006 4:06 PM PLUMBING DESIGNER Marguerite Wilder MD POINT OF CARE TESTING Edited Performing Organization Address [facility] Phone Number INTERFACE SYSTEM Refer to clinic/hospital department * (ABNORMAL) POC ISTAT EG 7+ (04/29/2006 4:03 PM PLUMBING DESIGNER) SPECIMEN TYPE Arterial INTERF YUMIKO SYSTEM Comment: Tidal volume: 550 PEEP: 08 Rate: 10 Pulse OX: 100 Hemoglobin calculated from Hematocrit result FIO2 60 INTERFACE SYSTEM PH 7.39 7.35 - 7.45 Unit INTERFACE SYSTEM PH TEMP CORRECT 7.39 7.35 - 7.45 Unit INTERFACE SYSTEM PCO2 POC 42 35 - 45 mmHg INTERFACE SYSTEM PCO2 TEMP CORRECT 42 35 - 45 mmHg INTERFACE SYSTEM PO2 293(H) 80 - 105 mmHg INTERFACE SYSTEM PO2 TEMP CORRECT 293(H) 80 - 105 mmHg INTERFACE SYSTEM HCO3 (CALC) POC 25.3 22.0 - 26.0 mmol/l INTERFACE SYSTEM BASE EXCESS 0 -2 - 3 mmol/l INTERFACE SYSTEM HEMOGLOBIN POC 9.5 3 g/dL 12.0 - 16.0 g/dL INTERFACE SYSTEM HEMATOCRIT ABG 28(L) 38 - 51 % INTER FACE SYSTEM O2 SATURATION 100(H) 95 - 98 % INTERF YUMIKO SYSTEM TCO2 (CALC) POC 27 23 - 27 mmol/l INTERFACE SYSTEM SODIUM 141 138 - 146 mEq/L INTERFACE SYSTEM POTASSIUM 4.0 3.5 - 4.9 mEq/L INTERFACE SYSTEM CALCIUM IONIZED 1.29 1.12 - 1.32 mmol/l INTERFACE SYSTEM 04/29/2006 4:03 PM PLUMBING DESIGNER us Marguerite Wilder MD POINT OF CARE TESTING COM Edite d Performing Organization Address [facility] Co de Phone Number INTERFACE SYSTEM Refer to clinic/hospital department * (ABNORMAL) POC GLUCOSE (04/29/2006 3:36 PM PLUMBING DESIGNER) GLUCOSE POC 139(H) 60 - 100 mg/dL INTERFACE SYSTEM 04/29/2006 3:36 PM PLUMBING DESIGNER Result Lalita Wilder MD POINT OF CARE TESTING Edited Performing Organization Address [facility] Phone Number INTERFACE SYSTEM Refer to clinic/hospital department * (ABNORMAL) POC GLUCOSE (04/29/2006 2:49 PM PLUMBING DESIGNER) GLUCOSE POC 128(H) 60 - 100 mg/dL INTERFACE SYSTEM 04/29/2006 2:49 PM PLUMBING DESIGNER Result Lalita Wilder MD POINT OF CARE TESTING Edited Performing Organization Address [facility] de Phone Number INTERFACE SYSTEM Refer to clinic/hospital department * (ABNORMAL) POC GLUCOSE (04/29/2006 2:01 PM PLUMBING DESIGNER) GLUCOSE POC 190(H) 60 - 100 mg/dL INTERFACE SYSTEM COMMENT POC Follow Protocol INTERFACE SYSTEM 04/29/2006 2:01 PM PLUMBING DESIGNER Result Lalita Wilder MD POINT OF CARE TESTING Edited Performing Organization Address [facility] Co de Phone Number INTERFACE SYSTEM Refer to clinic/hospital department * (ABNORMAL) POC GLUCOSE (04/29/2006 1:50 PM PLUMBING DESIGNER) GLUCOSE POC 202(H) 60 - 100 mg/dL INTERFACE SYSTEM COMMENT POC Follow Protocol INTERFACE SYSTEM 04/29/2006 1:5 0 PM PLUMBING DESIGNER us Marguerite Wilder MD POINT OF CARE TESTING Edited Performing Organization Address [facility] de Phone Number INTERFACE SYSTEM Refer to clinic/hospital department * (ABNORMAL) POC GLUCOSE (04/29/2006 1:24 PM PLUMBING DESIGNER) GLUCOSE POC 200(H) 60 - 100 mg/dL INTERFACE SYSTEM COMMENT POC Follow Protocol INTERFACE SYSTEM 04/29/2006 1:24 PM PLUMBING DESIGNER us Marguerite Wilder MD POINT OF CARE TESTING Edited Performing Organization Address [facility] de Phone Number INTERFACE SYSTEM Refer to clinic/hospital department * (ABNORMAL) POC GLUCOSE (04/29/2006 12:47 PM PLUMBING DESIGNER) GLUCOSE POC 172(H) 60 - 100 mg/dL INTERFACE SYSTEM COMMENT POC Follow Protocol INTERFACE SYSTEM 04/29/2006 12:4 7 PM PLUMBING DESIGNER us Marguerite Wilder MD POINT OF CARE TESTING Edited Performing Organization Address [facility] de Phone Number INTERFACE SYSTEM Refer to clinic/hospital department documented in this encounter Visit Diagnoses Diagnosis 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
--- OUTSIDE RECORDS SUMMARY | 2024-10-18 11:53 | XMS_ITS | Encounter Summary ---
Author Organization [facility] Address [address] [place] [address] Care Team Providers Care Tennis Ball Coverer Hand Name Role Phone Ang Pablo DO Primary Care Provider [phone] Encounter Details Date Type Department Care Team (Late st Contact Info) Description 05/01/2007 Outpatient Historical [facility] Cardiology- [place] [address] [place] [address] Carmen Rodríguez MD [address] [facility] [address] [place] [address] Social History Tobacco Use Types Packs/Day Years Used Date Smoking Tobacco: Never Assessed Comments Unknown Sex and Gender Information Value Date Recorded Sex Assigned at Not on file Legal Sex Female 3:35 AM DIRECTOR PATIENT Gender Identity Not on file Sexual Orientation Not on file documented as of this encounter Plan of Treatment Not on file documented as of this encounter Visit Diagnoses Not on filedocumented in this encounter Care Teams Tennis Ball Coverer Hand Relationship Specialty Start Date End Date Ang Pablo DO [address] [place] [address] PCP - General 04/28/06 documented as of this encounter
--- OUTSIDE RECORDS SUMMARY | 2024-10-18 11:53 | XMS_ITS | Clinical Summary ---
Author Organization [facility] Address [address] Attn: Epic Prelude ADT AILYN RUSSELL [address] Care Team Providers Care Director Corporate Security Name Role Phone Ang Pablo DO Primary Care Provider [phone] Allergies Active Allergy Reactions Criticality Noted Date Comments Iodine Anaphylaxis High 01/08/2019 Medications docusate sodium (COLACE) 50 mg capsule Take 1 Capsule (50 mg) by mouth 2 times daily as needed for Constipation . 30 Capsule 0 01/11/2019 Active clopidogreL (PLAVIX) 75 mg Tablet Take 50 mg by mouth daily. 01/09/2019 Active lisinopriL (PRINIVIL) 40 mg tablet Take 40 mg by mouth daily. 01/09/2019 Active warfarin (COUMADIN) 7.5 mg tablet Take 7.5 mg by mouth daily. 01/09/2019 Active furosemide (LASIX) 40 mg tablet Take 40 mg by mouth daily. 01/09/2019 Active Magnesium Oxide 420 mg Tablet Take by mouth. 01/09/2019 Active acetaminophen (TYLENOL) 325 mg tablet Take 650 mg by mouth every 6 hours as needed for Pain. 01/09/2019 Active rosuvastatin (CRESTOR) 40 mg tablet Take 40 mg by mouth daily. 01/09/2019 Active Cholecalciferol , Vitamin D3, (VITAMIN D3) 10 mcg (400 unit) capsule Take 400 Units by mouth. 01/09/2019 Active traZODone (DESYREL) 50 mg tablet Take 50 mg by mouth daily at bedtime. 01/09/2019 Active potassium chloride (KLOR-CON) 10 mEq Extended Release tablet Take 10 mEq by mouth. 01/09/2019 Active Active Problems Problem Noted Date Diagnosed Date Bright red blood per rectum 01/08/2019 Chronic blood loss anemia 01/08/2019 Atherosclerosis of [place] coronary artery of t[place]re [place] heart 01/08/2019 Rectal bleeding Chronic anticoagulation Immunizations Immunization Administration Dates Next Due Influenza Vaccine High Dose 65+ Yrs IM 9 Family History Medical History Relation Name Comments Hypertension Father Relation Name Status Comments Father Social History Tobacco Use Types Packs/Day Years Used Date Smoking Tobacco: Never Smokeless Tobacco: Never Comments Unknown Sex and Gender Information Value Date Recorded Sex Assigned at Not on file 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 Gender Identity Not on file Sexual Orientation Not on file Last Filed Vital Signs Vital Sign Reading Time Taken Comments Blood Pressure 144/76 01/11/2019 11:57 AM CDT Pulse 75 01/11/2019 11:57 AM CDT Temperature 36.4 C (97.6 F) 01/11/2019 11:57 AM CDT Respiratory Rate 20 01/11/2019 11:57 AM CDT Oxygen Saturation - - Inhaled Oxygen Concentration - - Weight 59.1 kg (130 lb 4.7 oz) 01/11/2019 4:00 A M CDT Height 162.6 cm (5' 4 ) 01/08/2019 8:11 PM CDT Body Mass Index 22.36 01/08/2019 8:11 PM CDT Plan of Treatment Health Maintenance Due Date Last Done Comments DTAP/TDAP/TD VACCINES (1 - Tdap) 1968 FIT-DNA Q 3 years 1994 FIT/FOBT Q 1 year 1994 Flex Sig/CT Colonography Q 5 years 1994 PNEUMOCOCCAL VACCINE 50+ YEA RS (1 of 1 - PCV) 09/05/1999 ZOSTER VACCINE (1 of 2) 09/05/1999 OSTEOPOROSIS SCREENING 2014 RSV VACCINE (60+ or ) (1 - 1-dose 75+ series) 2024 INFLUENZA VACCINE (#1) 2024 01/11/2019 COLORECTAL SCREENING 01/10/2029 01/10/2019, 01/11/20 19 Colorectal Cancer Screening 01/10/2029 Procedures Procedure Name Priority Date/Time Associated Diagnosis Comments COLONOSCOPY REPORT 01/10/2019 12:04 PM CDT from Last 3 Months or Most Recently Relevant to Health Maintenance Results * COLONOSCOPY REPORT (01/10/2019 12:04 PM CDT) us Yaron Randolph MD GI PROCEDURE ORDERABLES F inal Result from Last 3 Months or Most Recently Relevant to Health Maintenance Care Teams Director Corporate Security Relationship Specialty Start Date End Date Ang Pablo DO [address] [place] [address] PCP - General 04/28/06
--- OUTSIDE RECORDS SUMMARY | 2024-10-18 11:53 | XMS_ITS | Clinical Summary ---
Author Organization [facility] Address [address] [place] [address] Care Team Providers Care Assistant Professor Of Music Name Role Phone Ang Pablo DO Primary Care Provider [phone] Allergies Active Allergy Reactions Criticality Noted Date Comments Iodine Anaphylaxis High 01/08/2019 Medications lisinopril (PRINIVIL) 40 mg tablet Take 40 mg by mouth daily. Active clopidogrel (PLAVIX) 75 mg Tablet Take 50 mg by mouth daily. Active rosuvastatin (CRESTOR) 40 mg tablet Take 40 mg by mouth daily. Active furosemide (LASIX) 40 mg tablet Take 40 mg by mouth daily. Active potassium chloride (KLOR-CON) 10 mEq Extended Release tablet Take 10 mEq by mouth. Active Magnesium Oxide 420 mg Tablet Take by mouth. Active Cholecalciferol , Vitamin D3, (VITAMIN D3) 400 unit capsule Take 400 Units by mouth. Active traZODone (DESYREL) 50 mg tablet Take 50 mg by mouth daily at bedtime. Active warfarin (COUMADIN) 7.5 mg tablet Take 7.5 mg by mouth daily. Active acetaminophen (TYLENOL) 325 mg tablet Take 650 mg by mouth every 6 hours as needed for Pain. Active docusate sodium (COLACE) 50 mg capsule Take 1 Capsule (50 mg) by mouth 2 times daily as needed for Constipation . 30 Capsule 01/11/2019 Active Active Problems Problem Noted Date Diagnosed Date Bright red blood per rectum 01/08/2019 Chronic blood loss anemia 01/08/2019 Atherosclerosis of [place] coronary artery of tigre mansi heart 01/08/2019 Rectal bleeding Chronic anticoagulation Immunizations Immunization Administration Dates Next Due Influenza Vaccine High Dose 65+ Yrs IM 9 Family History Medical History Relation Name Comments Hypertension Father Relation Name Status Comments Father Social History Tobacco Use Types Packs/Day Years Used Date Smoking Tobacco: Never Smokeless Tobacco: Never Comments No Sex and Gender Information Value Date Recorded Sex Assigned at Not on file 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 Gender Identity Not on file Sexual Orientation Not on file Last Filed Vital Signs Vital Sign Reading Time Taken Comments Blood Pressure 144/76 01/11/2019 11:57 AM CDT Pulse 75 01/11/2019 11:57 AM CDT Temperature 36.4 C (97.6 F) 01/11/2019 11:57 AM CDT Respiratory Rate 20 01/11/2019 11:57 AM CDT Oxygen Saturation 97% 01/11/2019 11:57 AM CDT Inhaled Oxygen Concentration - - Weight 59.1 [...] Date/Time Associated Diagnosis Comments COLONOSCOPY REPORT 01/10/2019 12 :04 PM CDT from Last 3 Months or Most Recently Relevant to Health Maintenance Results * COLONOSCOPY REPORT (01/10/2019 12:04 PM CDT) Narrative Procedure Note Yaron Randolph MD - 01/10/2019 12:03 PM CDT [facility] GI Patient Name: Jocelin Mcginnis Procedure Date: 01/10/2019 Date of : 1950 Admit Type: Outpatient Age: 68 Attending MD: Yaron Randolph MD Procedure: Colonoscopy Indications: GI bleed Providers: Yaron Randolph MD Referring MD: Medicines: Monitored Anesthesia Care Complications: No immediate complications. Estimated blood loss: Minimal. Procedure: Pre-Anesthesia Assessment: - Prior to the procedure, a History and Physical was performed, and patient medications, allergies and sensitivities were reviewed. The patient's tolerance of previous anesthesia was reviewed. - The risks and benefits of the procedure and the sedation options and risks were discussed with the patient. All questions were answered and informed consent was obtained. After I obtained informed consent, the scope was passed under direct vision. Throughout the procedure, the patient's blood pressure, pulse, and oxygen saturations were monitored continuously. The Colonoscope was introduced through the anus and advanced to the terminal ileum. The entire colon was examined. Estimated Blood Loss: Estimated blood loss was minimal. Findings: Scattered small-mouthed diverticula were found in the sigmoid colon and descending colon. There was no evidence of diverticular bleeding. Non-bleeding internal hemorrhoids were found. The hemorrhoids were Grade I (internal hemorrhoids that do not prolapse). The terminal ileum appeared normal. Impression: - Diverticulosis in the sigmoid colon and in the descending colon. There was no evidence of diverticular bleeding. - Non-bleeding internal hemorrhoids. - The examined portion of the ileum was normal. - No specimens collected. Recommendation: -Continue stool softeners and laxatives as needed for constipation -Maximum strength Preparation H as needed for hemorrhoids -No objection to resuming anticoagulation Yaron Randolph MD 01/10/2019 12:03:07 PM Number of Addenda: 0 Note Initiated On: 01/10/2019 11:45 AM Scope Withdrawal Time 0 hours 7 minutes 4 seconds Scope In: 11:48:51 AM Scope Out: 11:58:45 AM [address] [place], [place] us Yaron Randolph MD GI PROCEDURE ORDERABLES F inal Result from Last 3 Months or Most Recently Relevant to Health Maintenance [place] [address] Advance Directives For more information, please contact: [phone] * Full Code (Latest Code Status on File) Date Activated Date Inactivated Comments 01/08/2019 8:14 PM 01/11/2019 4:58 PM Care Teams Assistant Professor Of Music Relationship Specialty Start Date End Date Ang Pablo DO [address] [place] [address] PCP - General 04/28/06
--- OUTSIDE RECORDS SUMMARY | 2024-10-18 11:53 | XMS_ITS | Encounter Summary ---
Author Organization [facility] Address [address] [place] [address] Care Team Providers Care First Officer Name Role Phone Ang Pablo DO Primary Care Provider [phone] Encounter Details Date Type Department Care Team (Late st Contact Info) Description 03/16/2007 Outpatient Historical [facility] Cardiovascular Services [address] [place] [address] Carmen Rodríguez MD [address] [facility] [address] [place] [address] Social History Tobacco Use Types Packs/Day Years Used Date Smoking Tobacco: Never Assessed Comments Unknown Sex and Gender Information Value Date Recorded Sex Assigned at Not on file 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
--- OUTSIDE RECORDS SUMMARY | 2024-10-18 11:53 | XMS_ITS | Encounter Summary ---
Author Organization [facility] Address [address] [place] [address] Care Team Providers Care Water Service Supervisor Name Role Phone Ang Pablo DO Primary Care Provider [phone] Encounter Details Date Type Department Care Team (Latest Contact Info) Description 04/28/2006 Outpatient Historical [facility] [address] [place] [address] Marguerite Wilder MD [address] [address] Pre-Operative Cardiovascular Examination (Primary Dx) Social History Tobacco Use Types Packs/Day Years Used Date Smoking Tobacco: Never Assessed Comments Unknown Sex and Gender Information Value Date Recorded Sex Assigned at Not on file 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 Gender Identity Not on file Sexual Orientation Not on file documented as of this encounter Plan of Treatment Not on file documented as of this encounter Procedures Procedure Name Priority Date/Time Associated Diagnosis Comments CBC WITH DIFFERENTIAL Routine 04/28/2006 3:25 PM BALANCE AND HAIRSPRING ASSEMBLER BASIC METABOLIC PANEL Routine 04/28/2006 3:25 PM BALANCE AND HAIRSPRING ASSEMBLER XR CHEST PA AND LATERAL 2 VW Routine 04/28/2006 3:03 PM BALANCE AND HAIRSPRING ASSEMBLER documented in this encounter Results * (ABNORMAL) BASIC METABOLIC PANEL (04/28/2006 3:25 PM BALANCE AND HAIRSPRING ASSEMBLER) GLUCOSE 209(H) 70 - 110 mg/dL INTERFACE SYSTEM BUN 18(H) 7 - 17 mg/dL INTERFACE SYSTEM CREATININE 1.1 0.7 - 1.2 mg/dL INTERFACE SYSTEM SODIUM 141 136 - 145 mEq/L INTERFACE SYSTEM POTASSIUM 3.5 3.5 - 5.0 mEq/L INTERFACE SYSTEM CHLORIDE 105 95 - 110 mEq/L INTERFACE SYSTEM CO2 30 22 - 32 mmol/l INTERFACE SYSTEM CALCIUM 9.9 8.4 - 10.5 mg/dL INTERFACE SYSTEM ANION GAP 10 9 - 20 mEq/L INTERFACE SYSTEM OSMOLALITY, CALCULATED 297(H) 275 - 295 mOsm/Kg INTERFACE SYSTEM 04/28/2006 3:25 PM BALANCE AND HAIRSPRING ASSEMBLER us Marguerite Wilder MD CHEMISTRY ORDERABLES Edited INTERFACE SYSTEM Refer to clinic/hospital department * (ABNORMAL) CBC WITH DIFFERENTIAL (04/28/2006 3:25 PM BALANCE AND HAIRSPRING ASSEMBLER) Pathologist [facility] WBC 6.1 4.8 - 10.8 K/ul INTERFACE SYSTEM RBC 4.39 4.20 - 5.40 Mil/ul INTERFACE SYSTEM HEMOGLOBIN 13.8 12.0 - 16.0 g/dL INTERFACE SYSTEM HEMATOCRIT 39.1 36.0 - 46.0 % INTERFACE SYSTEM MCV 89.1 84.0 - 103.0 Fl INTERFACE SYSTEM MCH 31.4 27.0 - 34.0 pg INTERFACE SYSTEM MCHC 35.3(H) 30.0 - 35.0 g/dL INTERFACE SYSTEM RDW 12.1 11.0 - 14.5 % INTERFACE SYSTEM PLATELETS 202 140 - 440 K/ul INTERFACE SYSTEM MPV 9.4 8.9 - 12.8 Fl INTERFACE SYSTEM NEUTROPHILS 57.5 42.2 - 75.2 % INTERFACE SYSTEM LYMPHOCYTES 37.5 24.0 - 44.0 % INTERFACE SYSTEM MONOCYTES 3.8 2.0 - 10.0 % INTERFACE SYSTEM EOSINOPHILS 1.0 0.0 - 7.0 % INTERFACE SYSTEM BASOPHILS 0.2 0.0 - 1.0 % INTERFACE SYSTEM NEUTROPHIL ABSOLUTE 3.5 2.0 - 8.0 K/uL INTERFACE SYSTEM LYMPHOCYTE ABSOLUTE 2.3 1.2 - 4.0 K/ul INTERFACE SYSTEM MONOCYTE ABSOLUTE 0.2 0.1 - 0.6 K/ul INTERFACE SYSTEM EOSINOPHIL ABSOLUTE 0.1 0.0 - 0.7 K/ul INTERFACE SYSTEM BASOPHILS ABSOLUTE 0.0 0.0 - 0.2 K/ul INTERFACE SYSTEM 04/28/2006 3:25 PM BALANCE AND HAIRSPRING ASSEMBLER us Marguerite Wilder MD HEMATOLOGY ORDERABLES Edited INTERFACE SYSTEM Refer to clinic/hospital department * XR CHEST PA AND LATERAL (04/28/2006 3:03 PM BALANCE AND HAIRSPRING ASSEMBLER) Anatomical Region Laterality Modality Chest Other 04/28/2006 3:03 PM BALANCE AND HAIRSPRING ASSEMBLER Narrative 04/28/2006 3:03 PM BALANCE AND HAIRSPRING ASSEMBLER CHEST PA AND LATERAL: FINDINGS: Lung moore are clear of confluent infiltrates and effusions. Scattered granulomatouschanges are present. Postsurgical sternotomy sutures and valve prosthesis are in place. Cardiacsilhouette is within normal limits in size. Lateral projection shows no silhouetting of thehemidiaphragms. Dorsothoracic spine is intact. IMPRESSION: Nonspecific study. - Dictated By: Joe Luciano M.D. Electronically Signed By: Joe Luciano M.D. Date Signed: 04/29/06 Procedure Note 01/31/2009 CHEST PA AND LATERAL: FINDINGS: Lung moore are clear of confluent infiltrates and effusions. Scatteredgranulomatouschanges are present. Postsurgical sternotomy sutures and valve prosthesis are in place.Cardiacsilhouette is within normal limits in size. Lateral projection shows no silhouetting ofthehemidiaphragms. Dorsothoracic spine is intact. IMPRESSION: Nonspecific study. - Dictated By: Joe Luciano M.D. Electronically Signed By: Joe Luciano M.D. Date Signed: 04/29/06 us Historical Provider DIAGNOSTIC IMAGING ORDERABLE S Final Result documented in this encounter Visit Diagnoses Diagnosis Pre-operative cardiovascular examination- Primary documented in this encounter Care Teams Water Service Supervisor Relationship Specialty Start Date End Date Ang Pablo DO [address] [place] [address] PCP - General 04/28/06 documented as of this encounter
--- OUTSIDE RECORDS SUMMARY | 2024-10-18 11:53 | XMS_ITS | Patient Health Record ---
Author Organization [facility] Address [address] [place] [address] Care Team Providers Care Baggage Smasher Name Role Phone Paris Griffiths Primary Care Provider [phone] Enrique Moran Unavailable [phone] PARIS GRIFFITHS MD Unavailable Unavailable Allergies Allergen (clinical drug ingredient) Drug/Non Drug Allergy documented on EMR Reaction Allergy Type Onset Date Status Iodine Unknown Drug Allergy Active Latex Latex Unknown Allergy Active Reason For Referral No Information Medications Medication SIG (Take, Route, Frequency, Duration) Notes Start Date End Date Status Vitamin B12 Active Vitamin D Active Valsartan 160 MG Tablet 1 tablet Orally Once a day Active traZODone HCl 50 MG Tablet Oral; Duratio n: 30 Days Active tiZANidine HCl 4 MG Tablet 1 tablet as n eeded Orally Three times a day Active Spironolactone 50 MG Tablet 1 tablet Ora lly Once a day Active Rosuvastatin Calcium 20 MG Tablet 1 tablet Orally Once a day Active Metoprolol Succinate 50 MG Capsule ER 24 Hour Sprinkle 1 capsule Orally Once a day Active methylPREDNISolone 4 MG Tablet Therapy Pack Oral; Duration: 6 Days Active Furosemide 40 MG Tablet 1 tablet Orally Once a day Active Potassium Active Omeprazole 40 MG Capsule Delayed Release 1 capsule 30 minutes before morning meal Orally Once a day Not-Taking Magnesium Active Clopidogrel Bisulfate 75 MG Tablet 1 tablet Orally Once a day Not-Taking Warfarin Sodium 4 MG Tablet 1 tablet Ora lly Once a day Active Social History Tobacco Use: Social History Observation Description Date Details (start date - stop date) Never Smoker NA - NA Social History Drugs/Alcohol: Social Info Question Answer Notes Caffeine Intake: 1-2 cups per day Tobacco Use: Social Info Question Answer Notes xTobacco Use/Smoking Are you a nonsmoker Additional Details Category Social Info Options Details Drugs/Alcohol: Do you smoke marijuana? De nies Do you drink alcohol? No Section Notes: Negative x3, lives with husb and, safe, denies h/o abuse, retired Negative x3, lives with husb and, safe, denies h/o abuse, retired Problems Problem Type SNOMED Code ICD Code Onset Dates Problem Status W/U Status Risk Notes Problem Type II diabetes mellitus without complication (196800730) Type 2 diabetes mellitus without complication, without long-term current use of insulin (E11.9) Active confirmed Vital Signs Heart Rate 72 /min 07/13/2024 Blood pressure diastolic 78 mm Hg 07/13/2024 Oximetry 97 % 07/13/2024 Height-cm 165.1 cm 07/13/2024 Height 65 in 07/13/2024 Blood pressure systolic 122 mm Hg 07/13/2024 Encounters Encounter Location Date Provider Diagnosis [facility] [address] [place] [address] 07/13/2024 Enrique Moran Tear of lateral meniscus of right knee, current, unspecified tear type, initial encounter S83.281A and Synovial cyst of right popliteal space M71.21 [facility] [address] [place] [address] 09/12/2024 [facility] [address] [place] [address] 07/16/2024 [facility] [address] [place] [address] 09/13/2024 [facility] [address] [place] [address] 08/16/2024 [facility] [address] [place] [address] 07/19/2024 Enrique Moran Assessments Encounter Date Diagnosis (ICD Code) Assessment Notes Treatment Notes Treatment Clinical Notes Section Notes 07/13/2024 Tear of lateral meniscus of right knee, current, unspecified tear type, initial encounter (ICD-10 - S83.281A) It is my feeling this individual is probably had a Tellez's cyst and a lateral meniscus tear coinciding. I suspect the Tellez's cyst ruptured. The extensive bruising she has I think is related to the fact that she is on Coumadin as well as Plavix as an anticoagulation medication. At this point in time I would like to do the following. And patient is in agreement with this as well. Am going to place an intra-articular cortisone injection to the right knee. I am also going to get an MRI scan of her right knee. Procedure: ChloraPrep was applied to the right knee. Mixture of 2 cc plain lidocaine +1 cc Depo-Medrol injected intra-articular without difficulty. Patient tolerates the procedure well. We will recheck in 2 weeks after MRI scan has been completed. 07/13/2024 Synovial cyst of right popliteal space (ICD-10 - M71.21) Plan Of Treatment Pending Test Test Name Order Date MRI LE JT w/o Cont [id number] 07/13/2024 Insurance Providers Payer Name Payer Address Payer Phone Subscriber Number Group Number Insured Name Patient Relationship to Insured Coverage Start Date Coverage End Date [facility] Medicare Replacement [address] [place] [address] [id number] Jocelin Ayon Self - patient is the insured Medications Administered Medication Instructions Date of Administration Dosage Notes DEPO-Medrol 07/13/2024 1 mL Lidocaine 07/13/2024 2 mL Medical (General) History Medical History History ICD Code type 2 diabetes mellitus HTN Chicken Pox Pneumonia Heart Disease Arthritis anemia bladder infections migraine headaches Back Trouble High Blood Pressure Low Blood Pressure hemorrhoids mitral valve prolapse measles Surgical History Surgery Date(Month/Year) mitral valve replacement 2002 mitral valve replacement 2007 hysterectomy/BSO 1988 heart stent 2019 cholecystectomy Hospitalization History Reason Date(Month/Year) see surgery
--- NOTE | 2024-10-18 11:56 | ECG_ITS ---
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 Measurements Intervals [place] Rate: 75 P: 0 FL: 0 QRS: 93 QRSD: 118 T: -53 QT: 397 QTc: 446 Interpretive Statements ATRIAL FIBRILLATION LATERAL MYOCARDIAL INFARCTION , PROBABLY RECENT [40+ ms Q WAVE AND/OR ST/T ABNORMALITY IN I/aVL/V5/V6] ACUTE [place] Compared to ECG 07/03/2024 11:25:00 Myocardial infarct finding now present Intraventricular conduction delay no longer present T-wave abnormality no longer present Possible ischemia no longer present Electronically Signed On 10-19-2024 13:52:31 CDT by Trent Blank M.D. [email or web address]
--- NOTE | 2024-10-18 12:04 | W.ED.CHESTPA ---
HPI - Chest Pain General: Chief Complaint: Chest Pain Stated Complaint: dr weldon, chest pressure, L arm feels heavy Time Seen by Provider: 10/18/24 12:01 History of Present Illness: 74-year-old female with a history of atrial fibrillation, mechanical mitral valve on chronic warfarin anticoagulation, ischemic cardiomyopathy, hypothyroidism, diabetes, coronary artery disease and hypertension who presents to the emergency room with chest pain. She reports she had an echo and stress test done recently but has not had follow-up with cardiology. She tells me that she is been having chest pressure in the center of her chest going into her shoulder blades. Worse in her shoulder blades. This is worse at night when she flares to lay down. She has had some mild weight gain. She also tells me her most recent INR was 1.95 and her goal is 2.5-3.5 with her mechanical valve. They did increase her warfarin at that time. No significant edema. No altered mental status. No nausea or vomiting. She says she called cardiology clinic and they told her to come to the emergency room. Related Data Home Medications ?Medication ?Instructions ?Recorded ?Confirmed tizanidine 4 mg tablet 4 mg PO BID PRN muscle spasticity 10/09/19 08/13/24 cholecalciferol (vitamin D3) 125 125 mcg PO QAM 03/22/22 08/13/24 mcg (5,000 unit) tablet (Vitamin D3) potassium gluconate 595 mg (99 mg) 1,190 mg PO QAM 03/22/22 08/13/24 tablet acetaminophen 325 mg capsule 325 mg PO QID PRN Mild Pain (Scale 04/05/22 08/13/24 Score 1-4) trazodone 50 mg tablet 50 mg PO BEDTIME 05/03/23 08/13/24 Previous Rx's ?Medication ?Instructions ?Recorded warfarin 6 mg tablet 6 mg PO DAILY #90 tabs 04/05/22 omeprazole 20 mg capsule,delayed 20 mg PO BID #20 caps 05/03/23 release rosuvastatin 20 mg tablet 20 mg PO DAILY #90 tabs 07/14/23 aspirin 81 mg tablet,delayed 81 mg PO DAILY #90 tabs 12/26/23 release (Adult Aspirin Regimen) furosemide 40 mg tablet 40 mg PO QAM #90 tabs 01/12/24 metoprolol succinate 100 mg 100 mg PO DAILY #90 tabs 05/22/24 tablet,extended release 24 hr warfarin 2 mg tablet 2 mg PO DAILY #90 tabs 07/04/24 warfarin 5 mg tablet 5 mg PO DAILY #90 tabs 07/04/24 spironolactone 50 mg tablet See Rx Instructions .Route 07/23/24 .COMPLEX #90 tabs warfarin 1 mg tablet See Rx Instructions .Route 08/13/24 .COMPLEX #30 tabs nitroglycerin 0.4 mg sublingual 0.4 mg sublingual Q5M PRN Chest 08/21/24 tablet (Nitrostat) Pain #30 tabs valsartan 40 mg tablet 20 mg (1/2 x 40 mg) PO DAILY #90 09/03/24 tabs Allergies Allergy/AdvReac Type Severity Reaction Status Date / Time Iodine and Iodide Containing Allergy rash Verified 10/18/24 11:55 Produc latex Allergy rash Verified 10/18/24 11:55 Review of Systems Narrative: Constitutional symptoms: Negative except as documented in HPI. Skin symptoms: Negative except as documented in HPI. Eye symptoms: Negative except as documented in HPI. ENMT symptoms: Negative except as documented in HPI. Respiratory symptoms: Negative except as documented in HPI. Cardiovascular symptoms: Negative except as documented in HPI. Gastrointestinal symptoms: Negative except as documented in HPI. Genitourinary symptoms: Negative except as documented in HPI. Musculoskeletal symptoms: Negative except as documented in HPI. Neurologic symptoms: Negative except as documented in HPI. Psychiatric symptoms: Negative except as documented in HPI. Endocrine symptoms: Negative except as documented in HPI. PFS ED PFSH: Medical History (Updated 10/18/24 @ 15:25 by Isabela Garcia MD) Cyst of left Bartholin's gland Abscess of vagina Fever Atrial fibrillation Chronic diarrhea Subtherapeutic international normalized ratio (INR) Non-ST elevation NV (NSTEMI) Chest pain Intermittent atrial fibrillation Cardiomyopathy, ischemic Osteoporosis Hypothyroidism Diabetes mellitus diagnosed in 2017 HTN (hypertension) with goal to be determined CHF (congestive heart failure) CAD (coronary artery disease) stent to mid LAD 11/02/2018 Surgical History Hx of mitral valve replacement with mechanical valve S/P hysterectomy S/P cholecystectomy S/P mitral valve replacement [facility] [place] valve by Dr. Wilder Coolidge 2006 Mitral valve replaced Family History Father CAD (coronary artery disease) Stroke Mother CAD (coronary artery disease) Diabetes Hypertension Sister CAD (coronary artery disease) Hypertension Lung disease Psychiatric illness Son Lung disease Denies family history of Clotting disorder Dementia Hyperlipidemia Chronic kidney disease (CKD) Suicide Anesthesia complication Bleeding disorder Family history of premature coronary artery disease Cancer Social History Smoking and tobacco/nicotine status: never used tobacco/nicotine Second hand smoke exposure: Yes Alcohol intake: never Substance/Drug Use: never Physical Exam Narrative: EXAM NARRATIVE: General: Alert, no acute distress. Skin: Warm, dry. Head: Normocephalic, atraumatic. Neck: Supple, trachea midline. Eye: Extraocular movements are intact. Ears, nose, mouth and throat: mucosa moist. Cardiovascular: Regular, Normal peripheral perfusion. Respiratory: Lungs are clear to auscultation, respirations are non-labored, breath sounds are equal, Symmetrical chest wall expansion. Mechanical valve click Gastrointestinal: Soft, Nontender, Non distended Musculoskeletal: Normal ROM, no deformity. Neurological: Alert and oriented, No focal neurological deficit observed. Psychiatric: Cooperative, appropriate mood & affect. Course Vital Signs: Vital signs: Vital Signs Temperature 97.8 F 10/18/24 11:52 Pulse Rate 71 10/18/24 15:15 Respiratory Rate 16 10/18/24 15:15 Blood Pressure 137/77 10/18/24 15:15 Pulse Oximetry 94 10/18/24 15:15 Oxygen Delivery Me thod Room Air 10/18/24 15:15 MDM - Chest Pain Medical Decision Making Differential diagnosis for patient with chest pain includes but is not limited to and based on the above HPI, review of systems and physical exam: Pneumonia. unstable angina. angina. Acute coronary syndrome / NV. Pulmonary embolism. Costochondritis / musculoskeletal. Pleurisy. Pericarditis. Esophageal spasm. Pancreatis. Cholecystitis. Orders placed to evaluate differential diagnosis based on the above differential, HPI and physical exam EKG: Time 1156. Rate 75. Atrial fibrillation with controlled rate, diffuse ST changes but appears relatively unchanged from previous, no ectopy, This was reviewed and interpreted by myself the ER physician at 1200 Repeat EKG: Time 1419. Rate 70. Atrial fibrillation with controlled rate, No ST-T changes, no ectopy, This was reviewed and interpreted by myself the ER physician at 1425. No significant changes from previous. Chest x-ray: Mechanical mitral valve. Sternotomy wires. No acute process. No infiltrate. No pneumothorax. Films were interpreted by myself the emergency room provider and pending final radiology review. Lab Review: Laboratory results were reviewed and interpreted by myself the emergency room physician. No leukocytosis. No anemia. No renal failure. Initial troponin is 20. Repeat is 18. Nonsignificant delta. Of note her INR is significantly lower than therapeutic at 1.75. I reviewed the patient's medical record. 74-year-old female with a history of atrial fibrillation, mechanical mitral valve on chronic warfarin anticoagulation, ischemic cardiomyopathy, hypothyroidism, diabetes, coronary artery disease and hypertension. Echo done recently shows an EF of 35 to 40% with mildly reduced RV function. Left atrial dilatation. Mechanical mitral valve. With no significant change from 2023. Stress test done same time was normal. Reexamination: Patient remained stable. No increased work of breathing. No altered mental status. No focal motor deficits. We discussed that she had moved some heavy furniture and done some housecleaning and since then she has been having pain and it is more in her back and shoulders. This seems to be musculoskeletal not cardiac. We also discussed her INR being low and she said they just changed/increase her Coumadin dose yesterday. Consultation: I spoke with Dr. Blank who is on-call for cardiology who reviewed the EKGs and does not see anything acute and agrees that the EKG appears similar to previous. Assessment and plan: Noncardiac chest pain Subtherapeutic INR Mechanical mitral valve - Discharged home - Discussed plan with patient. Answered any questions. - Evaluation and treatment of this problem were appropriate in the emergency setting. Lab Data 10/18/24 12:10 10/18/24 12:10 Laboratory Results WBC 6.60 10^3/uL (3.29-11.43) 10/18/24 12:10 RBC 4.04 10^6/uL (3.85-5.65) 10/18/24 12:10 Hgb 13.40 g/dL (11.27-16.99) 10/18/24 12:10 Hct 38.7 % (36-47) 10/18/24 12:10 MCV 95.8 fl (85-98) 10/18/24 12:10 MCH 33.2 pg (27-33) H 10/18/24 12:10 MCHC 34.6 g/dL (30-55) 10/18/24 12:10 RDW 12.1 % (12.1-15.1) 10/18/24 12:10 Plt Count 192 10^3/cmm (157-399) 10/18/24 12:10 MPV 9.1 fL (7.4-10.4) 10/18/24 12:10 Neut % (Auto) 64.7 % 10/18/24 12:10 Lymph % (Auto) 25.9 % 10/18/24 12:10 Coleman % (Auto) 6.8 % 10/18/24 12:10 Eos % (Auto) 1.7 % 10/18/24 12:10 Baso % (Auto) 0.6 % 10/18/24 12:10 Neut # (Auto) 4.27 10^3/uL (1.8-7.7) 10/18/24 12:10 Lymph # (Auto) 1.7 10^3/uL (0.8-4.8) 10/18/24 12:10 Coleman # (Auto) 0.5 10^3/uL (0.2-0.9) 10/18/24 12:10 Eos # (Auto) 0.1 10^3/uL (0.0-0.8) 10/18/24 12:10 Baso # (Auto) 0.0 10^3/uL (0.0-0.1) 10/18/24 12:10 Nucleated RBC % (auto) 0 % 10/18/24 12:10 Nucleated RBCs # 0.0 /100WBC 10/18/24 12:10 PT 21.50 SECONDS (12.1-14.9) H 10/18/24 12:10 INR 1.75 (0.8-1.2) H 10/18/24 12:10 APTT 34.6 SECONDS (23.9-36.7) 10/18/24 12:10 Sodium 140 mmol/L (136-145) 10/18/24 12:10 Potassium 4.0 mmol/L (3.5-5.1) 10/18/24 12:10 Chloride 102 mmol/L (98-107) 10/18/24 12:10 Carbon Dioxide 26 mmol/L (22-29) 10/18/24 12:10 Anion Gap 16.0 (5-19) 10/18/24 12:10 BUN 15 mg/dL (8-23) 10/18/24 12:10 Creatinine 1.0 mg/dL (0.5-0.9) H 10/18/24 12:10 GFR Calculation Not Reportable 10/18/24 12:10 Glucose 124 mg/dL (65-115) H 10/18/24 12:10 Calculated Osmolality 292 mOsm/kg (285-295) 10/18/24 12:10 Calcium 9.8 mg/dL (8.5-10.5) 10/18/24 12:10 Total Bilirubin 0.5 mg/dL (0.15-1.2) 10/18/24 12:10 AST 42 U/L (0-32) H 10/18/24 12:10 ALT 47 U/L (0-33) H 10/18/24 12:10 Alkaline Phosphatase 110 U/L (35-105) H 10/18/24 12:10 Troponin T Baseline 20 ng/L (0-10) H 10/18/24 12:10 Troponin T 120 Minute 18.31 ng/L (0-10) H 10/18/24 12:46 Delta Troponin T -1.69 ABS# (0-10) L 10/18/24 12:46 NT-Pro-B Natriuret Pep 1436 pg/mL (0-450) H 10/18/24 12:10 Total Protein 7.7 g/dL (6.6-8.7) 10/18/24 12:10 Albumin 4.6 g/dL (3.5-5.2) 10/18/24 12:10 Globulin 3.1 g/dL (1.3-4.6) 10/18/24 12:10 Lipase 21 U/L (13-60) 10/18/24 12:10 All radiology interpretation(s) finalized by discharge Discharge Plan Discharge Patient Disposition: Home Clinical Impression: Non-cardiac chest pain, Subtherapeutic international normalized ratio (INR) Atrial fibrillation Qualifiers: Atrial fibrillation type: paroxysmal Qualified Code(s): I48.0 - Paroxysmal atrial fibrillation Condition: Stable Prescriptions: No Action tizanidine 4 mg tablet 4 mg PO BID PRN (Reason: muscle spasticity) aspirin [Adult Aspirin Regimen] 81 mg tablet,delayed release (DR/EC) 81 mg PO DAILY Qty: 90 3RF rosuvastatin 20 mg tablet 20 mg PO DAILY Qty: 90 1RF acetaminophen 325 mg capsule 325 mg PO QID PRN (Reason: Mild Pain (Scale Score 1-4)) warfarin 6 mg tablet 6 mg PO DAILY Qty: 90 2RF Protocol: Dose Management Condition: Tuesday Dose/Route: 6 mg Instruction: 1 x 6 mg tablet Condition: Tuesday Dose/Route: 5 mg Instruction: 1 x 5 mg tablet Condition: Tuesday Dose/Route: 6 mg Instruction: 1 x 6 mg tablet Condition: Tuesday Dose/Route: 5 mg Instruction: 1 x 5 mg tablet Condition: Dose/Route: 6 mg Instruction: 1 x 6 mg tablet Condition: Tuesday Dose/Route: 5 mg Instruction: 1 x 5 mg tablet Condition: Tuesday Dose/Route: 6 mg Instruction: 1 x 6 mg tablet Protocol Text: Adjustment Start Date: Tuesday10/16/24 INR Value: 1.9 INR Date: 10/16/24 Recheck Date: 10/23/24 Rx Instructions: As directed; based on INR results furosemide 40 mg tablet 40 mg PO QAM Qty: 90 3RF metoprolol succinate 100 mg tablet extended release 24 hr 100 mg PO DAILY Qty: 90 3RF warfarin 5 mg tablet 5 mg PO DAILY Qty: 90 3RF Protocol: Dose Management Condition: Tuesday Dose/Route: 6 mg Instruction: 1 x 6 mg tablet Condition: Tuesday Dose/Route: 5 mg Instruction: 1 x 5 mg tablet Condition: Tuesday Dose/Route: 6 mg Instruction: 1 x 6 mg tablet Condition: Tuesday Dose/Route: 5 mg Instruction: 1 x 5 mg tablet Condition: Dose/Route: 6 mg Instruction: 1 x 6 mg tablet Condition: Tuesday Dose/Route: 5 mg Instruction: 1 x 5 mg tablet Condition: Tuesday Dose/Route: 6 mg Instruction: 1 x 6 mg tablet Protocol Text: Adjustment Start Date: Tuesday10/16/24 INR Value: 1.9 INR Date: 10/16/24 Recheck Date: 10/23/24 warfarin 2 mg tablet 2 mg PO DAILY Qty: 90 1RF Protocol: Dose Management Condition: Tuesday Dose/Route: 6 mg Instruction: 1 x 6 mg tablet Condition: Tuesday Dose/Route: 5 mg Instruction: 1 x 5 mg tablet Condition: Tuesday Dose/Route: 6 mg Instruction: 1 x 6 mg tablet Condition: Tuesday Dose/Route: 5 mg Instruction: 1 x 5 mg tablet Condition: Dose/Route: 6 mg Instruction: 1 x 6 mg tablet Condition: Tuesday Dose/Route: 5 mg Instruction: 1 x 5 mg tablet Condition: Tuesday Dose/Route: 6 mg Instruction: 1 x 6 mg tablet Protocol Text: Adjustment Start Date: Tuesday10/16/24 INR Value: 1.9 INR Date: 10/16/24 Recheck Date: 10/23/24 spironolactone 50 mg tablet See Rx Instructions .ROUTE .COMPLEX Qty: 90 3RF Dose Instruction: TAKE 1 TABLET BY MOUTH EVERY MORNING Rx Instructions: TAKE 1 TABLET BY MOUTH EVERY MORNING warfarin 1 mg tablet See Rx Instructions .ROUTE .COMPLEX Qty: 30 0RF Protocol: Dose Management Condition: Tuesday Dose/Route: 6 mg Instruction: 1 x 6 mg tablet Condition: Tuesday Dose/Route: 5 mg Instruction: 1 x 5 mg tablet Condition: Tuesday Dose/Route: 6 mg Instruction: 1 x 6 mg tablet Condition: Tuesday Dose/Route: 5 mg Instruction: 1 x 5 mg tablet Condition: Dose/Route: 6 mg Instruction: 1 x 6 mg tablet Condition: Tuesday Dose/Route: 5 mg Instruction: 1 x 5 mg tablet Condition: Tuesday Dose/Route: 6 mg Instruction: 1 x 6 mg tablet Protocol Text: Adjustment Start Date: Tuesday10/16/24 INR Value: 1.9 INR Date: 10/16/24 Recheck Date: 10/23/24 Dose Instruction: TAKE DIRECTED Rx Instructions: TAKE DIRECTED nitroglycerin [Nitrostat] 0.4 mg tablet, sublingual 0.4 mg SUBLINGUAL Q5M PRN (Reason: Chest Pain) Qty: 30 4RF Rx Instructions: do not exceed 3 doses per episode valsartan 40 mg tablet 20 mg PO DAILY Qty: 90 3RF potassium gluconate 595 mg (99 mg) Tablet 1,190 mg PO QAM cholecalciferol (vitamin D3) [Vitamin D3] 125 mcg (5,000 unit) Tablet 125 mcg PO QAM trazodone 50 mg tablet 50 mg PO BEDTIME omeprazole 20 mg capsule,delayed release(DR/EC) 20 mg PO BID Qty: 20 0RF Discharge Orders: Discharge ED (Routine); Ordered 10/18/24 Ordered By: Isabela Garcia Referrals: Capo Ross MD [Primary Care Provider, Family Practice] Patient Instructions: Thoracic Pain (ED), Opioid Safety, Pain Management, Patient Portal & Navneet Instructions Activity Restrictions/Additional Instructions: Thank you for choosing [facility] for your healthcare needs today. You have been screened and evaluated and felt safe for discharge. Health conditions do change or evolve sometimes and as such it is important that you follow up with your Primary Doctor to be re checked, 3-5 days is a general good time frame for follow up. You are always welcome to return to the ED for re assessment if your symptoms are worsening or you have new concerns Print Language: Ghanaian Coding Level of Care Code ED Alum Mixer for Kaila Miller
[2024-10-18 12:20] LABS: Hematocrit 38.7 % (36-47); Hemoglobin 13.40 g/dL (11.27-16.99); Mean Corpuscular HGB Conc 34.6 g/dL (30-55); Mean Corpuscular Hemoglobin 33.2 pg (27-33); Mean Corpuscular Volume 95.8 fl (85-98); Nucleated Red Blood Cells % 0 %; Platelet Count 192 10^3/cmm (157-399); Red Blood Count 4.04 10^6/uL (3.85-5.65); White Blood Count 6.60 10^3/uL (3.29-11.43)
[2024-10-18 12:32] LABS: INR 1.75 (0.8-1.2); Prothrombin Time 21.50 SECONDS (12.1-14.9)
[2024-10-18 12:33] LABS: Partial Thromboplastin Time 34.6 SECONDS (23.9-36.7)
[2024-10-18 12:39] LABS: Troponin(5th) Baseline 20 ng/L (0-10)
[2024-10-18 12:46] LABS: Alanine Aminotransferase 47 U/L (0-33); Albumin Level 4.6 g/dL (3.5-5.2); Alkaline Phosphatase 110 U/L (35-105); Anion Gap 16.0 (5-19); Aspartate Amino Transferase 42 U/L (0-32); Blood Urea Nitrogen 15 mg/dL (8-23); Calcium 9.8 mg/dL (8.5-10.5); Carbon Dioxide 26 mmol/L (22-29); Chloride 102 mmol/L (98-107); Creatinine Clr Calc Pharmacy 45.2335; Globulin 3.1 g/dL (1.3-4.6); Glucose 124 mg/dL (65-115); Lipase 21 U/L (13-60); NT Pro B Type Natriuretic Pept 1436 pg/mL (0-450); Osmolality Calculated 292 mOsm/kg (285-295); Potassium 4.0 mmol/L (3.5-5.1); Sodium 140 mmol/L (136-145); Total Protein 7.7 g/dL (6.6-8.7)
[2024-10-18 14:11] LABS: Troponin 5 2HR 18.31 ng/L (0-10)
[2024-10-18 14:12] LABS: Troponin 5 2HR Delta -1.69 ABS# (0-10)
--- NOTE | 2024-10-18 14:19 | ECG_ITS ---
[facility] [employer] Test Date: 2024-10-18 Pat Name: Jocelin Mcginnis Department: Room: Gender: Female Accounting Reconciliation Clerk: : [id number] Requested By: Isabela Hughes Order Number: [id number] Jyoti MD: VLADISLAV STEWART Measurements Intervals Ada Rate: 70 P: 0 MO: 0 QRS: 83 QRSD: 113 T: 246 QT: 417 QTc: 453 Interpretive Statements ATRIAL FIBRILLATION MODERATE INTRAVENTRICULAR CONDUCTION DELAY [105+ ms QRS DURATION, 80+ ms Q/S IN V1/V2, NO Q AND 60+ ms R IN I/aVL/V5/V6] ST DEVIATION AND MODERATE T-WAVE ABNORMALITY, CONSIDER LATERAL ISCHEMIA [-0.1+ mV T-WAVE IN I/aVL/V5/V6] ST DEVIATION AND MODERATE T-WAVE ABNORMALITY, CONSIDER INFERIOR ISCHEMIA [-0.1+ mV T-WAVE IN II/aVF] Compared to ECG 10/18/2024 11:56:01 Intraventricular conduction delay now present T-wave abnormality now present Possible ischemia now present Myocardial infarct finding no longer present Electronically Signed On 10-23-2024 18:57:26 CDT by VLADISLAV STEWART [email or web address]
--- NOTE | 2024-10-18 14:53 | XR_ITS ---
WS: [id number] XR chest 1V portable [id number] REASON FOR EXAM: Chest pain FINDINGS: Chest is unchanged compared to the previous examination of 06/20/2023. Sternal sutures with porcine mitral valve. Extensive calcification in the left ventricle epicardium. Coronary artery stent/stents. Mild cardiomegaly. Calcified granulomatous disease bilaterally. No acute pulmonary parenchymal or pleural abnormality. Mild thoracic scoliosis and degenerative spondylosis. XR/XR chest 1V portable [id number] IMPRESSION: Stable abnormal chest as above without acute abnormality.
== END 2024-10-18 15:52 | disposition home or self-care (01) ==
PROVIDERS: Emergency Provider Emergency Medicine; PCP Family Medicine
DX: R07.89 Other chest pain (principal); R79.1 Abnormal coagulation profile; I48.0 Paroxysmal atrial fibrillation; Z79.01 Long term (current) use of anticoagulants; I25.10 Atherosclerotic heart disease of native coronary artery without angina pectoris; E11.9 Type 2 diabetes mellitus without complications; I11.0 Hypertensive heart disease with heart failure; I50.9 Heart failure, unspecified
CPT/HCPCS: 36415; 71045; 80053; 83690; 83880; 84484; 85025; 85610; 85730; 93005; 99285

== ENCOUNTER 2024-11-05 09:51 | Emergency (ER) | payer MEDICARE, SELFPAY ==
--- OUTSIDE RECORDS SUMMARY | 2024-09-12 03:10 | XMS_ITS ---
Author Organization [facility] Address [address] [place] [address] Care Team Providers Care Firer Kiln Name Role Phone Paris Griffiths Primary Care Provider [phone] Enrique Richardson Unavailable [phone] PARIS GRIFFITHS MD Unavailable Unavailable REASON FOR VISIT RIGHT KNEE DIAGNOSTIC ARTHROSCOPY Encounters Encounter Location Date Provider Diagnosis [facility] [address] [place] [id number] 09/12/2024 Enrique Moran Plan Of Treatment No Information Progress Notes * UBALDO AllieDOB: 0 (74 yo F)Acc No.[id number]:09/12/2024 Patient: Jocelin Phillips Provider: Sharonda Moran M.D. :1950 A ge:74 Y S ex:Female Date:09/12/2024 Address:[address] [place] [address] [place]-[id number] Pcp:Paris Griffiths Billing Information: * Procedure Codes: * Electronic signature of Kyle Moran MD on 11/05/2024 at 09:57 AM CDT Sign off status: Pending * Provider: Sharonda Moran M.D. Date: 09/12/2024 Generated for Printi ng/Faxing/eTransmitting on: 11/05/2024 09:57 AM CDT
--- OUTSIDE RECORDS SUMMARY | 2024-11-05 09:56 | XMS_ITS | Encounter Summary ---
Author Organization [facility] Address [address] [place] [address] Care Team Providers Care Piercing Specialist Name Role Phone Ang Pablo DO Primary Care Provider [phone] Encounter Details Date Type Department Care Team (Late st Contact Info) Description 03/16/2007 Outpatient Historical [facility] [address] [place] [address] Carmen Rodríguez MD [address] [facility] [address] [place] [id number] Social History Tobacco Use Types Packs/Day Years Used Date Smoking Tobacco: Never Assessed Comments Unknown Sex and Gender Information Value Date Recorded Sex Assigned at Not on file 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
--- OUTSIDE RECORDS SUMMARY | 2024-11-05 09:56 | XMS_ITS | Clinical Summary ---
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
--- OUTSIDE RECORDS SUMMARY | 2024-11-05 09:56 | XMS_ITS | Encounter Summary ---
Author Organization [facility] Address [address] [place] [address] Care Team Providers Care Show Operations Supervisor Name Role Phone Ang Pablo DO Primary Care Provider [phone] Encounter Details Date Type Department Care Team (Latest Contact Info) Description 04/28/2006 Outpatient Historical [facility] [address] [place] [address] Marguerite Wilder MD [address] [address] Pre-Operative Cardiovascular Examination (Primary Dx) Social History Tobacco Use Types Packs/Day Years Used Date Smoking Tobacco: Never Assessed Comments Unknown Sex and Gender Information Value Date Recorded Sex Assigned at Not on file Legal 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 Gender Identity Not on file Sexual Orientation Not on file documented as of this encounter Plan of Treatment Not on file documented as of this encounter Procedures Procedure Name Priority Date/Time Associated Diagnosis Comments CBC WITH DIFFERENTIAL Routine 04/28/2006 3:25 PM AIRCRAFT PNEUDRAULICS REPAIRER BASIC METABOLIC PANEL Routine 04/28/2006 3:25 PM AIRCRAFT PNEUDRAULICS REPAIRER XR CHEST PA AND LATERAL 2 VW Routine 04/28/2006 3:03 PM AIRCRAFT PNEUDRAULICS REPAIRER documented in this encounter Results * (ABNORMAL) BASIC METABOLIC PANEL (04/28/2006 3:25 PM AIRCRAFT PNEUDRAULICS REPAIRER) GLUCOSE 209(H) 70 - 110 mg/dL INTERFACE [...] 295 mOsm/Kg INTERFACE SYSTEM 04/28/2006 3:25 PM AIRCRAFT PNEUDRAULICS REPAIRER us Marguerite Wilder MD CHEMISTRY ORDERABLES Edited INTERFACE SYSTEM Refer to clinic/hospital department * (ABNORMAL) CBC WITH DIFFERENTIAL (04/28/2006 3:25 PM AIRCRAFT PNEUDRAULICS REPAIRER) Pathologist [facility] WBC 6.1 4.8 - 10.8 K/ul INTERFACE [...] 0.2 K/ul INTERFACE SYSTEM 04/28/2006 3:25 PM AIRCRAFT PNEUDRAULICS REPAIRER us Marguerite Wilder MD HEMATOLOGY ORDERABLES Edited INTERFACE SYSTEM Refer to clinic/hospital department * XR CHEST PA AND LATERAL (04/28/2006 3:03 PM AIRCRAFT PNEUDRAULICS REPAIRER) Anatomical Region Laterality Modality Chest Other 04/28/2006 3:03 PM AIRCRAFT PNEUDRAULICS REPAIRER Narrative 04/28/2006 3:03 PM AIRCRAFT PNEUDRAULICS REPAIRER CHEST PA AND LATERAL: FINDINGS: Lung moore [...] Primary documented in this encounter Care Teams Show Operations Supervisor Relationship Specialty Start Date End Date Ang Pablo DO [address] [place] [id number] PCP - General 04/28/06 documented as of this encounter
--- OUTSIDE RECORDS SUMMARY | 2024-11-05 09:56 | XMS_ITS | Encounter Summary ---
Author Organization [facility] Address [address] [facility] Attn: Epic Prelude ADT AILYN RUSSELL [address] Care Team Providers Care Klystrom Tube Tester Name Role Phone Ang Pablo DO Primary Care Provider [phone] Encounter Details Date Type Department Care Team (Late st Contact Info) Description 05/25/2006 Outpatient Historical Marguerite Wilder MD [address] [phone] Social History Tobacco Use Types Packs/Day Years Used Date Smoking Tobacco: Never Assessed Comments Unknown Sex and Gender Information Value Date Recorded Sex Assigned at Not on file Legal Sex Female 3:35 AM FELTER TENNIS BALLS Gender Identity Not on file Sexual Orientation Not on file documented as of this encounter Plan of Treatment Not on file documented as of this encounter Visit Diagnoses Not on filedocumented in this encounter Care Teams Klystrom Tube Tester Relationship Specialty Start Date End Date Ang Pablo DO [address] [place] [address] PCP - General 04/28/06 documented as of this encounter
--- OUTSIDE RECORDS SUMMARY | 2024-11-05 09:56 | XMS_ITS | Encounter Summary ---
Author Organization [facility] Address [address] [place] [address] Care Team Providers Care Senior Recruitment Consultant Name Role Phone Ang Pablo DO Primary Care Provider [phone] Encounter Details Date Type Department Care Team (Latest Contact Info) Description 05/25/2006 Outpatient Historical [facility] Cardiac Thoracic Vascular Surg [place] [address] [place] [id number] Ronald Moran MD NO ADDRESS ON FILE Mitral Valve Disorder (Primary Dx) Social History Tobacco Use Types Packs/Day Years Used Date Smoking Tobacco: Never Assessed Comments Unknown Sex and Gender Information Value Date Recorded Sex Assigned at Not on file Legal Sex 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
--- OUTSIDE RECORDS SUMMARY | 2024-11-05 09:56 | XMS_ITS | Encounter Summary ---
Author Organization [facility] Address [address] [place] [address] Care Team Providers Care Branch Operation Evaluation Manager Name Role Phone Ang Pablo DO Primary Care Provider [phone] Encounter Details Date Type Department Care Team (Late st Contact Info) Description 04/13/2006 Outpatient Historical [facility] Cardiac Thoracic Vascular Surg [place] [address] [place] [address] Marguerite Wiledr MD [address] [phone] Mitral Valve Disorder (Primary Dx) Social History Tobacco Use Types Packs/Day Years Used Date Smoking Tobacco: Never Assessed Comments Unknown Sex and Gender Information Value Date Recorded Sex Assigned at Not on file 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
--- OUTSIDE RECORDS SUMMARY | 2024-11-05 09:56 | XMS_ITS | Encounter Summary ---
Author Organization [facility] Address [address] [facility] Attn: [place] [address] Care Team Providers Care Cash Controller Name Role Phone BevAng Primary Care Provider [phone] Encounter Details Date Type Department Care Team (Late st Contact Info) Description 05/25/2006 Outpatient Historical Marguerite Wilder MD [address] [id number] Social History Tobacco Use Types Packs/Day Years Used Date Smoking Tobacco: Never Assessed Comments Unknown Sex and Gender Information Value Date Recorded Sex Assigned at Not on file 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
--- OUTSIDE RECORDS SUMMARY | 2024-11-05 09:56 | XMS_ITS | Encounter Summary ---
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) Social History Tobacco Use Types Packs/Day Years Used Date Smoking Tobacco: Never Assessed Comments Unknown Sex and Gender Information Value Date Recorded Sex Assigned at Not on file Legal Sex Female 3:[address]ENTIST Gender Identity Not on file Sexual Orientation Not on file documented as of this encounter Plan of Treatment Not on file documented as of this encounter Procedures Procedure Name Priority Date/Time Associated Diagnosis Comments POC GLUCOSE Routine 05/04/2006 12:[address] SCIENTIST POC GLUCOSE Routine 05/04/2006 6:[address] SCIENTIST PROTIME-INR Routine 05/04/2006 5:[address] SCIENTIST POC GLUCOSE Routine 05/03/2006 9:[address] SCIENTIST POC GLUCOSE Routine 05/03/2006 5:[address] SCIENTIST PROTIME-INR Routine 05/03/2006 3:[address] SCIENTIST POC GLUCOSE Routine 05/03/2006 12:[address] SCIENTIST POC GLUCOSE Routine 05/03/2006 6:[address] SCIENTIST POC GLUCOSE Routine 05/02/2006 9:[address] SCIENTIST POC GLUCOSE Routine 05/02/2006 5:[address] SCIENTIST POC GLUCOSE Routine 05/02/2006 11:[address] SCIENTIST POC GLUCOSE Routine 05/02/2006 6:[address] SCIENTIST POC GLUCOSE Routine 05/01/2006 10:[address] SCIENTIST POC GLUCOSE Routine 05/01/2006 6:[address] SCIENTIST POC GLUCOSE Routine 05/01/2006 5:[address] SCIENTIST CBC WITH DIFFERENTIAL Routine 05/01/2006 3:[address] SCIENTIST BASIC METABOLIC PANEL Routine 05/01/2006 3:[address] SCIENTIST POC GLUCOSE Routine 04/30/2006 9:[address] SCIENTIST POC GLUCOSE Routine 04/30/2006 5:[address] SCIENTIST POC GLUCOSE Routine 04/30/2006 8:[address] SCIENTIST POC GLUCOSE Routine 04/30/2006 7:[address] SCIENTIST POC GLUCOSE Routine 04/30/2006 6:[address] SCIENTIST POC GLUCOSE Routine 04/30/2006 4:[address] SCIENTIST POC GLUCOSE Routine 04/30/2006 3:[address] SCIENTIST CBC WITH DIFFERENTIAL Routine 04/30/2006 2:[address] SCIENTIST BASIC METABOLIC PANEL Routine 04/30/2006 2:[address] SCIENTIST POC GLUCOSE Routine 04/30/2006 2:[address] SCIENTIST POC GLUCOSE Routine 04/30/2006 1:[address] SCIENTIST POC GLUCOSE Routine 04/30/2006 12:[address] SCIENTIST POC GLUCOSE Routine 04/29/2006 11:[address] SCIENTIST POC GLUCOSE Routine 04/29/2006 10:[address] SCIENTIST POC GLUCOSE Routine 04/29/2006 9:[address] SCIENTIST POC BLOOD GAS, LYTES AND H+H Routine 04/29/2006 8:[address] SCIENTIST POC GLUCOSE Routine 04/29/2006 8:[address] SCIENTIST POC GLUCOSE Routine 04/29/2006 7:[address] SCIENTIST POC GLUCOSE Routine 04/29/2006 4:[address] SCIENTIST POC BLOOD GAS, LYTES AND H+H Routine 04/29/2006 4:[address] SCIENTIST POC GLUCOSE Routine 04/29/2006 3:[address] SCIENTIST POC GLUCOSE Routine 04/29/2006 2:[address] SCIENTIST POC GLUCOSE Routine 04/29/2006 2:[address] SCIENTIST POC GLUCOSE Routine 04/29/2006 1:[address] SCIENTIST POC GLUCOSE Routine 04/29/2006 1:[address] SCIENTIST POC GLUCOSE Routine 04/29/2006 12:[address] SCIENTIST documented in this encounter Results * (ABNORMAL) POC GLUCOSE (05/04/2006 12:[address] SCIENTIST) GLUCOSE POC 101(H) 60 - 100 mg/dL INTERFACE SYSTEM 05/04/2006 12:[address] SCIENTIST Result Lalita Wilder MD POINT OF CARE TESTING Edited Performing Organization Address [facility] de Phone Number INTERFACE SYSTEM Refer to clinic/hospital department * (ABNORMAL) POC GLUCOSE (05/04/2006 6:[address] SCIENTIST) GLUCOSE POC 134(H) 60 - 100 mg/dL INTERFACE SYSTEM 05/04/2006 6:[address] SCIENTIST Result Lalita Wilder MD POINT OF CARE TESTING Edited Performing Organization Address [facility] Phone Number INTERFACE SYSTEM Refer to clinic/hospital department * (ABNORMAL) PROTIME-INR (05/04/2006 5:[address] SCIENTIST) PROTIME 24.6(H) 13.0 - 15.7 Secs INTERFACE SYSTEM Comment: As of 06 note change in normal range. INR 2.0 INTERFACE SYSTEM Comment: Expected Values for INR: DVT/PE Goal INR 2.5; range 2.0 - 3.0 Valve Replacement Tissue Goal INR 2.5; range 2.0 - 3.0 Mechanical Goal INR 3.0; range 2.5 - 3.5 POST-DE Goal INR 2.5; range 2.0 - 3.0 or Goal 3.0; range 2.5 - 3.5 Atrial Fibrillation Goal INR 2.5; range 2.0 - 3.0 Ischemic Stroke Goal INR 2.5; range 2.0 - 3.0 For additional information see Guidelines for Anticoagulation available from the pharmacy Gavi Hamlin Pharm D. 05/04/2006 5:[address] SCIENTIST Result Lalita Wilder MD HEMATOLOGY ORDERABLES Edited Performing Organization Address [facility] Co de Phone Number INTERFACE SYSTEM Refer to clinic/hospital department * (ABNORMAL) POC GLUCOSE (05/03/2006 9:[address] SCIENTIST) GLUCOSE POC 134(H) 60 - 100 mg/dL INTERFACE SYSTEM 05/03/2006 9:[address] SCIENTIST Result Lalita Wilder MD POINT OF CARE TESTING Edited Performing Organization Address [facility] de Phone Number INTERFACE SYSTEM Refer to clinic/hospital department * (ABNORMAL) POC GLUCOSE (05/03/2006 5:[address] SCIENTIST) GLUCOSE POC 111(H) 60 - 100 mg/dL INTERFACE SYSTEM 05/03/2006 5:[address] SCIENTIST Result Lalita Wilder MD POINT OF CARE TESTING Edited Performing Organization Address [facility] Phone Number INTERFACE SYSTEM Refer to clinic/hospital department * (ABNORMAL) PROTIME-INR (05/03/2006 3:[address] SCIENTIST) PROTIME 21.3(H) 13.0 - 15.7 Secs INTERFACE SYSTEM Comment: As of 06 note change in normal range. INR 1.7 INTERFACE SYSTEM Comment: Expected Values for INR: DVT/PE Goal INR 2.5; range 2.0 - 3.0 Valve Replacement Tissue Goal INR 2.5; range 2.0 - 3.0 Mechanical Goal INR 3.0; range 2.5 - 3.5 POST-DE Goal INR 2.5; range 2.0 - 3.0 or Goal 3.0; range 2.5 - 3.5 Atrial Fibrillation Goal INR 2.5; range 2.0 - 3.0 Ischemic Stroke Goal INR 2.5; range 2.0 - 3.0 For additional information see Guidelines for Anticoagulation available from the pharmacy Gavi Hamlin Pharm D. 05/03/2006 3:[address] SCIENTIST Result Lalita Wilder MD HEMATOLOGY ORDERABLES Edited Performing Organization Address City/[facility] Co de Phone Number INTERFACE SYSTEM Refer to clinic/hospital department * (ABNORMAL) POC GLUCOSE (05/03/2006 12:[address] SCIENTIST) GLUCOSE POC 135(H) 60 - 100 mg/dL INTERFACE SYSTEM 05/03/2006 12:[address] SCIENTIST Result Lalita Wilder MD POINT OF CARE TESTING Edited Performing Organization Address City/[facility] Co de Phone Number INTERFACE SYSTEM Refer to clinic/hospital department * (ABNORMAL) POC GLUCOSE (05/03/2006 6:[address] SCIENTIST) GLUCOSE POC 101(H) 60 - 100 mg/dL INTERFACE SYSTEM 05/03/2006 6:[address] SCIENTIST Result Lalita Wilder MD POINT OF CARE TESTING Edited Performing Organization Address [facility] de Phone Number INTERFACE SYSTEM Refer to clinic/hospital department * (ABNORMAL) POC GLUCOSE (05/02/2006 9:[address] SCIENTIST) GLUCOSE POC 194(H) 60 - 100 mg/dL INTERFACE SYSTEM 05/02/2006 9:[address] SCIENTIST Result Lalita Wilder MD POINT OF CARE TESTING Edited Performing Organization Address [facility] Phone Number INTERFACE SYSTEM Refer to clinic/hospital department * (ABNORMAL) POC GLUCOSE (05/02/2006 5:[address] SCIENTIST) GLUCOSE POC 101(H) 60 - 100 mg/dL INTERFACE SYSTEM 05/02/2006 5:[address] SCIENTIST Result Lalita Wilder MD POINT OF CARE TESTING Edited Performing Organization Address City/[facility] Co de Phone Number INTERFACE SYSTEM Refer to clinic/hospital department * (ABNORMAL) POC GLUCOSE (05/02/2006 11:[address] SCIENTIST) GLUCOSE POC 162(H) 60 - 100 mg/dL INTERFACE SYSTEM 05/02/2006 11:[address] SCIENTIST us Marguerite Wilder MD POINT OF CARE TESTING Edited Performing Organization Address City/[facility] Co de Phone Number INTERFACE SYSTEM Refer to clinic/hospital department * (ABNORMAL) POC GLUCOSE (05/02/2006 6:[address] SCIENTIST) GLUCOSE POC 105(H) 60 - 100 mg/dL INTERFACE SYSTEM 05/02/2006 6:[address] SCIENTIST us Marguerite Wilder MD POINT OF CARE TESTING Edited Performing Organization Address City/[facility] de Phone Number INTERFACE SYSTEM Refer to clinic/hospital department * (ABNORMAL) POC GLUCOSE (05/01/2006 10:[address] SCIENTIST) GLUCOSE POC 143(H) 60 - 100 mg/dL INTERFACE SYSTEM COMMENT POC Follow Protocol INTERFACE SYSTEM 05/01/2006 10:[address] SCIENTIST us Marguerite Wilder MD POINT OF CARE TESTING Edited Performing Organization Address [facility] Phone Number INTERFACE SYSTEM Refer to clinic/hospital department * (ABNORMAL) POC GLUCOSE (05/01/2006 6:[address] SCIENTIST) GLUCOSE POC 126(H) 60 - 100 mg/dL INTERFACE SYSTEM 05/01/2006 6:[address] SCIENTIST us Marguerite Wilder MD POINT OF CARE TESTING Edited Performing Organization Address [facility] de Phone Number INTERFACE SYSTEM Refer to clinic/hospital department * (ABNORMAL) POC GLUCOSE (05/01/2006 5:[address] SCIENTIST) GLUCOSE POC 131(H) 60 - 100 mg/dL INTERFACE SYSTEM 05/01/2006 5:[address] SCIENTIST us Marguerite Wilder MD POINT OF CARE TESTING Edited Performing Organization Address City/[facility] Co de Phone Number INTERFACE SYSTEM Refer to clinic/hospital department * (ABNORMAL) CBC WITH DIFFERENTIAL (05/01/2006 3:[address] SCIENTIST) WBC 13.6(H) 4.8 - 10.8 K/ul INTERFACE [...] 0.2 K/ul INTERFACE SYSTEM 05/01/2006 3:[address] SCIENTIST us Marguerite Wilder MD HEMATOLOGY ORDERABLES Edited INTERFACE SYSTEM Refer to clinic/hospital department * (ABNORMAL) BASIC METABOLIC PANEL (05/01/2006 3:[address] SCIENTIST) GLUCOSE 183(H) 70 - 110 mg/dL INTERFACE [...] 295 mOsm/Kg INTERFACE SYSTEM 05/01/2006 3:[address] SCIENTIST Result Lalita Wilder MD CHEMISTRY ORDERABLES Edited Performing Organization Address [facility] de Phone Number INTERFACE SYSTEM Refer to clinic/hospital department * (ABNORMAL) POC GLUCOSE (04/30/2006 9:[address] SCIENTIST) GLUCOSE POC 140(H) 60 - 100 mg/dL INTERFACE SYSTEM 04/30/2006 9:[address] SCIENTIST Result Lalita Wilder MD POINT OF CARE TESTING Edited Performing Organization Address [facility] Phone Number INTERFACE SYSTEM Refer to clinic/hospital department * (ABNORMAL) POC GLUCOSE (04/30/2006 5:[address] SCIENTIST) GLUCOSE POC 157(H) 60 - 100 mg/dL INTERFACE SYSTEM 04/30/2006 5:[address] SCIENTIST Result Lalita Wilder MD POINT OF CARE TESTING Edited Performing Organization Address [facility] Phone Number INTERFACE SYSTEM Refer to clinic/hospital department * POC GLUCOSE (04/30/2006 8:[address] SCIENTIST) GLUCOSE POC 96 60 - 100 mg/dL INTERFACE SYSTEM 04/30/2006 8:[address] SCIENTIST us Marguerite Wilder MD POINT OF CARE TESTING Edited Performing Organization Address City/[facility] de Phone Number INTERFACE SYSTEM Refer to clinic/hospital department * POC GLUCOSE (04/30/2006 7:[address] SCIENTIST) GLUCOSE POC 97 60 - 100 mg/dL INTERFACE SYSTEM 04/30/2006 7:[address] SCIENTIST Result Lalita Wilder MD POINT OF CARE TESTING Edited Performing Organization Address [facility] Phone Number INTERFACE SYSTEM Refer to clinic/hospital department * POC GLUCOSE (04/30/2006 6:[address] SCIENTIST) GLUCOSE POC 88 60 - 100 mg/dL INTERFACE SYSTEM 04/30/2006 6:[address] SCIENTIST us Marguerite Wilder MD POINT OF CARE TESTING Edited Performing Organization Address [facility] Phone Number INTERFACE SYSTEM Refer to clinic/hospital department * (ABNORMAL) POC GLUCOSE (04/30/2006 4:[address] SCIENTIST) GLUCOSE POC 111(H) 60 - 100 mg/dL INTERFACE SYSTEM 04/30/2006 4:[address] SCIENTIST us Marguerite Wilder MD POINT OF CARE TESTING Edited Performing Organization Address [facility] Phone Number INTERFACE SYSTEM Refer to clinic/hospital department * (ABNORMAL) POC GLUCOSE (04/30/2006 3:[address] SCIENTIST) GLUCOSE POC 114(H) 60 - 100 mg/dL INTERFACE SYSTEM 04/30/2006 3:[address] SCIENTIST us Marguerite Wilder MD POINT OF CARE TESTING Edited Performing Organization Address [facility] Phone Number INTERFACE SYSTEM Refer to clinic/hospital department * (ABNORMAL) CBC WITH DIFFERENTIAL (04/30/2006 2:[address] SCIENTIST) WBC 11.2(H) 4.8 - 10.8 K/ul INTERFACE [...] 0.6 K/ul INTERFACE SYSTEM 04/30/2006 2:[address] SCIENTIST Marguerite Wilder MD HEMATOLOGY ORDERABLES Edited Performing Organization Address City/[facility] Phone Number INTERFACE SYSTEM Refer to clinic/hospital department * (ABNORMAL) BASIC METABOLIC PANEL (04/30/2006 2:[address] SCIENTIST) GLUCOSE 133(H) 70 - 110 mg/dL INTERFACE [...] 295 mOsm/Kg INTERFACE SYSTEM 04/30/2006 2:[address] SCIENTIST Marguerite Wilder MD CHEMISTRY ORDERABLES Edited Performing Organization Address [facility] Co de Phone Number INTERFACE SYSTEM Refer to clinic/hospital department * (ABNORMAL) POC GLUCOSE (04/30/2006 2:[address] SCIENTIST) GLUCOSE POC 145(H) 60 - 100 mg/dL INTERFACE SYSTEM 04/30/2006 2:[address] SCIENTIST Result Lalita Wilder MD POINT OF CARE TESTING Edited Performing Organization Address City/[facility] Co de Phone Number INTERFACE SYSTEM Refer to clinic/hospital department * (ABNORMAL) POC GLUCOSE (04/30/2006 1:[address] SCIENTIST) GLUCOSE POC 120(H) 60 - 100 mg/dL INTERFACE SYSTEM 04/30/2006 1:[address] SCIENTIST Result Lalita Wilder MD POINT OF CARE TESTING Edited Performing Organization Address City/[facility] de Phone Number INTERFACE SYSTEM Refer to clinic/hospital department * POC GLUCOSE (04/30/2006 12:[address] SCIENTIST) GLUCOSE POC 90 60 - 100 mg/dL INTERFACE SYSTEM 04/30/2006 12:[address] SCIENTIST Result Lalita Wilder MD POINT OF CARE TESTING Edited Performing Organization Address [facility] de Phone Number INTERFACE SYSTEM Refer to clinic/hospital department * (ABNORMAL) POC GLUCOSE (04/29/2006 11:[address] SCIENTIST) GLUCOSE POC 102(H) 60 - 100 mg/dL INTERFACE SYSTEM 04/29/2006 11:[address] SCIENTIST us Marguerite Wilder MD POINT OF CARE TESTING Edited Performing Organization Address [facility] de Phone Number INTERFACE SYSTEM Refer to clinic/hospital department * (ABNORMAL) POC GLUCOSE (04/29/2006 10:[address] SCIENTIST) GLUCOSE POC 132(H) 60 - 100 mg/dL INTERFACE SYSTEM 04/29/2006 10:[address] SCIENTIST Result Lalita Wilder MD POINT OF CARE TESTING Edited Performing Organization Address City/[facility] Co de Phone Number INTERFACE SYSTEM Refer to clinic/hospital department * (ABNORMAL) POC GLUCOSE (04/29/2006 9:[address] SCIENTIST) GLUCOSE POC 171(H) 60 - 100 mg/dL INTERFACE SYSTEM 04/29/2006 9:[address] SCIENTIST Marguerite Wilder MD POINT OF CARE TESTING Edited INTERFACE SYSTEM Refer to clinic/hospital department * (ABNORMAL) POC ISTAT EG 7+ (04/29/2006 8:[address] SCIENTIST) SPECIMEN TYPE Arterial INTERF YUMIKO SYSTEM Comment: [...] 1.32 mmol/l INTERFACE SYSTEM 04/29/2006 8:[address] SCIENTIST Marguerite Wilder MD POINT OF CARE TESTING COM Edite d INTERFACE SYSTEM Refer to clinic/hospital department * (ABNORMAL) POC GLUCOSE (04/29/2006 8:[address] SCIENTIST) GLUCOSE POC 201(H) 60 - 100 mg/dL INTERFACE SYSTEM 04/29/2006 8:[address] SCIENTIST Marguerite Wilder MD POINT OF CARE TESTING Edited Performing Organization Address City/[facility] Co de Phone Number INTERFACE SYSTEM Refer to clinic/hospital department * (ABNORMAL) POC GLUCOSE (04/29/2006 7:[address] SCIENTIST) GLUCOSE POC 182(H) 60 - 100 mg/dL INTERFACE SYSTEM 04/29/2006 7:[address] SCIENTIST Marguerite Wilder MD POINT OF CARE TESTING Edited Performing Organization Address [facility] de Phone Number INTERFACE SYSTEM Refer to clinic/hospital department * (ABNORMAL) POC GLUCOSE (04/29/2006 4:[address] SCIENTIST) GLUCOSE POC 120(H) 60 - 100 mg/dL INTERFACE SYSTEM 04/29/2006 4:[address] SCIENTIST Marguerite Wilder MD POINT OF CARE TESTING Edited Performing Organization Address [facility] Phone Number INTERFACE SYSTEM Refer to clinic/hospital department * (ABNORMAL) POC ISTAT EG 7+ (04/29/2006 4:[address] SCIENTIST) SPECIMEN TYPE Arterial INTERF YUMIKO SYSTEM Comment: [...] 1.32 mmol/l INTERFACE SYSTEM 04/29/2006 4:[address] SCIENTIST us Marguerite Wilder MD POINT OF CARE TESTING COM Edite d Performing Organization Address City/[facility] Co de Phone Number INTERFACE SYSTEM Refer to clinic/hospital department * (ABNORMAL) POC GLUCOSE (04/29/2006 3:[address] SCIENTIST) GLUCOSE POC 139(H) 60 - 100 mg/dL INTERFACE SYSTEM 04/29/2006 3:[address] SCIENTIST Result Lalita Wilder MD POINT OF CARE TESTING Edited Performing Organization Address [facility] Phone Number INTERFACE SYSTEM Refer to clinic/hospital department * (ABNORMAL) POC GLUCOSE (04/29/2006 2:[address] SCIENTIST) GLUCOSE POC 128(H) 60 - 100 mg/dL INTERFACE SYSTEM 04/29/2006 2:[address] SCIENTIST Result Lalita Wilder MD POINT OF CARE TESTING Edited Performing Organization Address [facility] de Phone Number INTERFACE SYSTEM Refer to clinic/hospital department * (ABNORMAL) POC GLUCOSE (04/29/2006 2:[address] SCIENTIST) GLUCOSE POC 190(H) 60 - 100 mg/dL INTERFACE SYSTEM COMMENT POC Follow Protocol INTERFACE SYSTEM 04/29/2006 2:[address] SCIENTIST Result Lalita Wilder MD POINT OF CARE TESTING Edited Performing Organization Address City/[facility] Co de Phone Number INTERFACE SYSTEM Refer to clinic/hospital department * (ABNORMAL) POC GLUCOSE (04/29/2006 1:[address] SCIENTIST) GLUCOSE POC 202(H) 60 - 100 mg/dL INTERFACE SYSTEM COMMENT POC Follow Protocol INTERFACE SYSTEM 04/29/2006 1:[address] SCIENTIST us Marguerite Wilder MD POINT OF CARE TESTING Edited Performing Organization Address [facility] de Phone Number INTERFACE SYSTEM Refer to clinic/hospital department * (ABNORMAL) POC GLUCOSE (04/29/2006 1:[address] SCIENTIST) GLUCOSE POC 200(H) 60 - 100 mg/dL INTERFACE SYSTEM COMMENT POC Follow Protocol INTERFACE SYSTEM 04/29/2006 1:[address] SCIENTIST us Marguerite Wilder MD POINT OF CARE TESTING Edited Performing Organization Address [facility] de Phone Number INTERFACE SYSTEM Refer to clinic/hospital department * (ABNORMAL) POC GLUCOSE (04/29/2006 12:[address] SCIENTIST) GLUCOSE POC 172(H) 60 - 100 mg/dL INTERFACE SYSTEM COMMENT POC Follow Protocol INTERFACE SYSTEM 04/29/2006 12:[address] SCIENTIST us Marguerite Wilder MD POINT OF CARE TESTING Edited Performing Organization Address [facility] de Phone Number INTERFACE SYSTEM Refer to clinic/hospital department documented in this encounter Visit Diagnoses Diagnosis Mechanical complication due to heart valve prosthesis- Primary documented in this encounter Care Teams Softball Player Relationship Specialty Start Date End Date Ang Pablo DO [address] [place] [address] PCP - General 04/28/06 documented as of this encounter
--- OUTSIDE RECORDS SUMMARY | 2024-11-05 09:56 | XMS_ITS | Clinical Summary ---
Author Organization [facility] [place] Address [address] 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 Gender Identity Not on file Sexual Orientation [...] Randolph MD - 01/10/2019 12:03 PM CDT [facility] GI Patient Name: Jocelin Mcginnis Procedure Date: [...] Scope Out: 11:58:45 AM [address] [place], [place] us Yaron Randolph MD GI PROCEDURE ORDERABLES F inal Result from Last 3 Months or Most Recently Relevant to Health Maintenance Insurance [address] [address] [address] Advance Directives For more information, please contact: [phone] * Full Code (Latest Code Status on File) Date Activated Date Inactivated Comments 01/08/2019 8:14 PM 01/11/2019 4:58 PM Care Teams Wall Taper Relationship Specialty Start Date End Date Ang Pablo DO [address] [place] [address] PCP - General 04/28/06
--- OUTSIDE RECORDS SUMMARY | 2024-11-05 09:57 | XMS_ITS | Encounter Summary ---
Author Organization [facility] Address [address] [place] [address] Care Team Providers Care [employer] Vice President Name Role Phone Ang Pbalo DO Primary Care Provider [phone] Encounter Details Date Type Department Care Team (Late st Contact Info) Description 05/01/2007 Outpatient Historical [facility] Cardiology- [place] [address] [place] [address] Carmen Rodríguez MD [address] [place] [address] Social History Tobacco Use Types Packs/Day Years Used Date Smoking Tobacco: Never Assessed Comments Unknown Sex and Gender Information Value Date Recorded Sex Assigned at Not on file Legal Sex Female 3:35 AM [employer]IL[employer] Gender Identity Not on file Sexual Orientation Not on file documented as of this encounter Plan of Treatment Not on file documented as of this encounter Visit Diagnoses Not on filedocumented in this encounter Care Teams [employer] Vice President Relationship Specialty Start Date End Date Ang Pablo DO [address] [place] [address] PCP - General 04/28/06 documented as of this encounter
[2024-11-05 10:03] VITALS: BP 93/60; PULSE 61; TEMP 36.6; O2SAT 96; BMI 24.9
[2024-11-05 10:22] LABS: Hematocrit 36.2 % (36-47); Hemoglobin 12.50 g/dL (11.27-16.99); Mean Corpuscular HGB Conc 34.5 g/dL (30-55); Mean Corpuscular Hemoglobin 33.3 pg (27-33); Mean Corpuscular Volume 96.5 fl (85-98); Nucleated Red Blood Cells % 0 %; Platelet Count 185 10^3/cmm (157-399); Red Blood Count 3.75 10^6/uL (3.85-5.65); White Blood Count 7.77 10^3/uL (3.29-11.43)
[2024-11-05 10:49] LABS: Alanine Aminotransferase 41 U/L (0-33); Albumin Level 4.4 g/dL (3.5-5.2); Alkaline Phosphatase 91 U/L (35-105); Anion Gap 13.9 (5-19); Aspartate Amino Transferase 43 U/L (0-32); Blood Urea Nitrogen 19 mg/dL (8-23); Calcium 9.6 mg/dL (8.5-10.5); Carbon Dioxide 28 mmol/L (22-29); Chloride 98 mmol/L (98-107); Creatinine Clr Calc Pharmacy 30.2486; Globulin 2.6 g/dL (1.3-4.6); Glucose 99 mg/dL (65-115); Lipase 25 U/L (13-60); Osmolality Calculated 284 mOsm/kg (285-295); Potassium 3.9 mmol/L (3.5-5.1); Sodium 136 mmol/L (136-145); Total Protein 7.0 g/dL (6.6-8.7)
--- NOTE | 2024-11-05 11:21 | W.ED.GENADLT ---
HPI - General Adult General: Chief complaint: General Medical Stated complaint: dr weldon, dehydration, abd pain, L side neck pain Time Seen by Provider: 11/05/24 09:54 History of Present Illness: 74-year-old female presents emergency room with left-sided abdominal pain. She was presumptively treated for diverticulitis as gastrointestinal bleeding stopped but able to eat or drink because of abdominal discomfort and generalized abdominal pain. She was on Cipro and metronidazole. Patient dates she had multiple episodes of diarrhea this morning but none since she arrived here. Associated symptoms: Reports malaise, nausea and vomiting; Deny chest pain, dyspnea or rash Related Data Home Medications ?Medication ?Instructions ?Recorded ?Confirmed tizanidine 4 mg tablet 4 mg PO BID PRN muscle spasticity 10/09/19 11/05/24 cholecalciferol (vitamin D3) 125 125 mcg PO QAM 03/22/22 11/05/24 mcg (5,000 unit) tablet (Vitamin D3) potassium gluconate 595 mg (99 mg) 1,190 mg PO QPM 03/22/22 11/05/24 tablet acetaminophen 325 mg capsule 325 mg PO QID PRN Mild Pain (Scale 04/05/22 11/05/24 Score 1-4) trazodone 50 mg tablet 50 mg PO BEDTIME 05/03/23 11/05/24 ciprofloxacin HCl 500 mg tablet 500 mg PO Q12H 11/05/24 11/05/24 ibuprofen 200 mg tablet (Advil) 400 mg PO Q6H PRN Fever Or Pain 11/05/24 11/05/24 metronidazole 500 mg tablet 500 mg PO TID 11/05/24 11/05/24 Previous Rx's ?Medication ?Instructions ?Recorded omeprazole 20 mg capsule,delayed 20 mg PO BID #20 caps 05/03/23 release rosuvastatin 20 mg tablet 20 mg PO DAILY #90 tabs 07/14/23 aspirin 81 mg tablet,delayed 81 mg PO DAILY #90 tabs 12/26/23 release (Adult Aspirin Regimen) furosemide 40 mg tablet 40 mg PO QAM #90 tabs 01/12/24 metoprolol succinate 100 mg 100 mg PO DAILY #90 tabs 05/22/24 tablet,extended release 24 hr warfarin 2 mg tablet 2 mg PO DAILY #90 tabs 07/04/24 warfarin 5 mg tablet 5 mg PO DAILY #90 tabs 07/04/24 spironolactone 50 mg tablet See Rx Instructions .Route 07/23/24 .COMPLEX #90 tabs warfarin 1 mg tablet See Rx Instructions .Route 08/13/24 .COMPLEX #30 tabs nitroglycerin 0.4 mg sublingual 0.4 mg sublingual Q5M PRN Chest 08/21/24 tablet (Nitrostat) Pain #30 tabs valsartan 40 mg tablet 20 mg (1/2 x 40 mg) PO DAILY #90 09/03/24 tabs tizanidine 4 mg tablet 4 mg PO Q6H PRN muscle spasticity 11/05/24 #10 tabs Allergies Allergy/AdvReac Type Severity Reaction Status Date / Time Iodine and Iodide Containing Allergy rash Verified 11/05/24 10:08 Produc latex Allergy rash Verified 11/05/24 10:08 Review of Systems Const: Reports: fatigue and malaise; Denies: fever(s) or chills Card: Denies: chest pain Resp: Denies: dyspnea GI: Reports: abdominal pain, nausea, vomiting and diarrhea : Denies: dysuria, urinary frequency or urinary urgency Musc: Denies: neck pain or back pain Skin/Breast: Denies: rash PFSH ED PFSH: Medical History Cyst of left Bartholin's gland Abscess of vagina Fever Atrial fibrillation Chronic diarrhea Subtherapeutic international normalized ratio (INR) Non-ST elevation IA (NSTEMI) Chest pain Intermittent atrial fibrillation Cardiomyopathy, ischemic Osteoporosis Hypothyroidism Diabetes mellitus diagnosed in 2017 HTN (hypertension) with goal to be determined CHF (congestive heart failure) CAD (coronary artery disease) stent to mid LAD 11/02/2018 Surgical History Hx of mitral valve replacement with mechanical valve S/P hysterectomy S/P cholecystectomy S/P mitral valve replacement [place] valve by Dr. Wilder [place] 2006 Mitral valve replaced Family History Father CAD (coronary artery disease) Stroke Mother CAD (coronary artery disease) Diabetes Hypertension Sister CAD (coronary artery disease) Hypertension Lung disease Psychiatric illness Son Lung disease Denies family history of Clotting disorder Dementia Hyperlipidemia Chronic kidney disease (CKD) Suicide Anesthesia complication Bleeding disorder Family history of premature coronary artery disease Cancer Social History Smoking and tobacco/nicotine status: never used tobacco/nicotine Second hand smoke exposure: Yes Alcohol intake: never Substance/Drug Use: never Physical Exam Const: GENERAL APPEARANCE: cooperative ORIENTATION/CONSCIOUSNESS: Yes awake, Yes oriented to person, Yes oriented to place and Yes oriented to time HENMT: COMMON NORMALS: normocephalic, atraumatic and hearing grossly normal bilaterally HEAD & SCALP: normocephalic and atraumatic Resp: COMMON NORMALS: normal respiratory effort, No retractions, No use of accessory muscles and clear to auscultation bilaterally AUSCULTATION: clear to auscultation bilaterally Cardio: COMMON NORMALS: regular rate, regular rhythm and No murmurs present (Cardio) RATE: regular rate RHYTHM: regular rhythm GI: COMMON NORMALS: Soft to palpation and No hepatosplenomegaly present AUSCULTATION: Yes normoactive bowel sounds PALPATION: Yes Soft to palpation, No Tenderness to palpation present (GI), No Guarding due to palpation present (GI) and Yes No hepatosplenomegaly present OTHER: Visual inspection of rectal area no fissures noninflamed hemorrhoids. Rectal exam normal rectal sphincter tone no masses no bright red blood mucus on the glove is Hemoccult negative Extremity: COMMON NORMALS: normal to inspection, capillary refill normal, no clubbing, cyanosis or edema, no calf tenderness and no pedal edema Neuro: SENSORIUM/ORIENTATION: Yes oriented to person, Yes oriented to place and Yes oriented to time Skin: COMMON NORMALS: no rashes or lesions noted GENERAL SKIN EXAM: no rashes or lesions noted Course Vital Signs: Vital signs: Vital Signs Temperature 97.9 F 11/05/24 10:03 Pulse Rate 61 11/05/24 15:48 Blood Pressure 119/58 11/05/24 15:48 Pulse Oximetry 96 11/05/24 15:48 Oxygen Delivery Me thod Room Air 11/05/24 15:48 MDM - General Adult Medical Decision Making Patient is slightly supratherapeutic asked her not to take her Coumadin today and recheck her INR tomorrow with Dr. Ross's office. Creatinine is 1.5 she is given a liter of fluids that she states she feels much better and like to go. CT did not show any acute diverticulitis rectal exam was negative for blood grossly and for occult blood. Patient would like to go with nothing at this point which to admit her. Will discharge her home discussed with the importance of follow-up with Dr. Ross to get her back into a therapeutic range on her INR. Patient is complaining of bilateral hip pain but only when she lays on her hips no recent trauma. She states when she is sitting or laying on her back they do not bother her she tends to sleep on her side makes a very difficult for her to sleep and is quite uncomfortable she has that we give her something for that she wanted to try muscle relaxer. Gave her tizanidine to use as needed. Medical Records I reviewed the patient's medical records. Lab Data I reviewed the patient's lab results. 11/05/24 10:17 11/05/24 10:17 Radiology Impressions Abdomen/Pelvis CT 11/05/24 11:35 IMPRESSION: 1. Sigmoid diverticulosis. No evidence of acute diverticulitis. 2. Prior hysterectomy. 3. Prior cholecystectomy. 4. No other suspicious findings. Laboratory Results WBC 7.77 10^3/uL (3.29-11.43) 11/05/24 10:17 RBC 3.75 10^6/uL (3.85-5.65) L 11/05/24 10:17 Hgb 12.50 g/dL (11.27-16.99) 11/05/24 10:17 Hct 36.2 % (36-47) 11/05/24 10:17 MCV 96.5 fl (85-98) 11/05/24 10:17 MCH 33.3 pg (27-33) H 11/05/24 10:17 MCHC 34.5 g/dL (30-55) 11/05/24 10:17 RDW 12.1 % (12.1-15.1) 11/05/24 10:17 Plt Count 185 10^3/cmm (157-399) 11/05/24 10:17 MPV 9.1 fL (7.4-10.4) 11/05/24 10:17 Neut % (Auto) 77.1 % 11/05/24 10:17 Lymph % (Auto) 13.8 % 11/05/24 10:17 Kleberg % (Auto) 6.9 % 11/05/24 10:17 Eos % (Auto) 1.3 % 11/05/24 10:17 Baso % (Auto) 0.5 % 11/05/24 10:17 Neut # (Auto) 5.99 10^3/uL (1.8-7.7) 11/05/24 10:17 Lymph # (Auto) 1.1 10^3/uL (0.8-4.8) 11/05/24 10:17 Kleberg # (Auto) 0.5 10^3/uL (0.2-0.9) 11/05/24 10:17 Eos # (Auto) 0.1 10^3/uL (0.0-0.8) 11/05/24 10:17 Baso # (Auto) 0.0 10^3/uL (0.0-0.1) 11/05/24 10:17 Nucleated RBC % (auto) 0 % 11/05/24 10:17 Nucleated RBCs # 0.0 /100WBC 11/05/24 10:17 PT 40.10 SECONDS (12.1-14.9) H 11/05/24 10:17 INR 3.88 (0.8-1.2) H 11/05/24 10:17 Sodium 136 mmol/L (136-145) 11/05/24 10:17 Potassium 3.9 mmol/L (3.5-5.1) 11/05/24 10:17 Chloride 98 mmol/L (98-107) 11/05/24 10:17 Carbon Dioxide 28 mmol/L (22-29) 11/05/24 10:17 Anion Gap 13.9 (5-19) 11/05/24 10:17 BUN 19 mg/dL (8-23) 11/05/24 10:17 Creatinine 1.5 mg/dL (0.5-0.9) H 11/05/24 10:17 GFR Calculation Not Reportable 11/05/24 10:17 Glucose 99 mg/dL (65-115) 11/05/24 10:17 Calculated Osmolality 284 mOsm/kg (285-295) L 11/05/24 10:17 Calcium 9.6 mg/dL (8.5-10.5) 11/05/24 10:17 Total Bilirubin 0.5 mg/dL (0.15-1.2) 11/05/24 10:17 AST 43 U/L (0-32) H 11/05/24 10:17 ALT 41 U/L (0-33) H 11/05/24 10:17 Alkaline Phosphatase 91 U/L (35-105) 11/05/24 10:17 Total Protein 7.0 g/dL (6.6-8.7) 11/05/24 10:17 Albumin 4.4 g/dL (3.5-5.2) 11/05/24 10:17 Globulin 2.6 g/dL (1.3-4.6) 11/05/24 10:17 Lipase 25 U/L (13-60) 11/05/24 10:17 Urine Color Dark yellow (Yellow) A 11/05/24 11:30 Urine Appearance Clear (CLEAR) 11/05/24 11:30 Urine pH 8.0 (5-7) A 11/05/24 11:30 Ur Specific Malo 1.026 (1.005-1.030) 11/05/24 11:30 Urine Protein 1+ (Negative) A 11/05/24 11:30 Urine Glucose (UA) Negative (Normal) 11/05/24 11:30 Urine Ketones Trace (Negative) 11/05/24 11:30 Urine Blood Negative (Negative) 11/05/24 11:30 Urine Nitrate Positive (Negative) A 11/05/24 11:30 Urine Bilirubin 1+ (Negative) H 11/05/24 11:30 Urine Urobilinogen 1.0 mg/dL (Negative) 11/05/24 11:30 Ur Leukocyte Esterase 1+ (Negative) A 11/05/24 11:30 Urine RBC 3-5 /hpf (0-2) 11/05/24 11:30 Urine WBC 0-5 /hpf (0-5) 11/05/24 11:30 Ur Squamous Epith Cells 0-5 /hpf (0-5) 11/05/24 11:30 Amorphous Sediment Not Reportable 11/05/24 11:30 Urine Bacteria None seen /hpf (NONE) 11/05/24 11:30 Hyaline Casts 29.78 /lpf 11/05/24 11:30 All radiology interpretation(s) finalized by discharge Discharge Plan Discharge Patient Disposition: Home Clinical Impression: Bright red rectal bleeding, Over-anticoagulated, Bilateral hip pain, Hx of mitral valve replacement with mechanical valve Condition: Stable Prescriptions: New tizanidine 4 mg tablet 4 mg PO Q6H PRN (Reason: muscle spasticity) Qty: 10 0RF Rx Instructions: do not exceed 3 doses per 24 hrs No Action tizanidine 4 mg tablet 4 mg PO BID PRN (Reason: muscle spasticity) aspirin [Adult Aspirin Regimen] 81 mg tablet,delayed release (DR/EC) 81 mg PO DAILY Qty: 90 3RF rosuvastatin 20 mg tablet 20 mg PO DAILY Qty: 90 1RF acetaminophen 325 mg capsule 325 mg PO QID PRN (Reason: Mild Pain (Scale Score 1-4)) furosemide 40 mg tablet 40 mg PO QAM Qty: 90 3RF metoprolol succinate 100 mg tablet extended release 24 hr 100 mg PO DAILY Qty: 90 3RF warfarin 5 mg tablet 5 mg PO DAILY Qty: 90 3RF Protocol: Dose Management Condition: Tuesday Dose/Route: 6 mg Instruction: 1 x 6 mg tablet Condition: Tuesday Dose/Route: 5 mg Instruction: 1 x 5 mg tablet Condition: Tuesday Dose/Route: 6 mg Instruction: 1 x 6 mg tablet Condition: Tuesday Dose/Route: 5 mg Instruction: 1 x 5 mg tablet Condition: Dose/Route: 6 mg Instruction: 1 x 6 mg tablet Condition: Tuesday Dose/Route: 5 mg Instruction: 1 x 5 mg tablet Condition: Tuesday Dose/Route: 6 mg Instruction: 1 x 6 mg tablet Protocol Text: Adjustment Start Date: 11/01/24 INR Value: 2.8 INR Date: 11/01/24 Recheck Date: 11/08/24 warfarin 2 mg tablet 2 mg PO DAILY Qty: 90 1RF Protocol: Dose Management Condition: Tuesday Dose/Route: 6 mg Instruction: 1 x 6 mg tablet Condition: Tuesday Dose/Route: 5 mg Instruction: 1 x 5 mg tablet Condition: Tuesday Dose/Route: 6 mg Instruction: 1 x 6 mg tablet Condition: Tuesday Dose/Route: 5 mg Instruction: 1 x 5 mg tablet Condition: Dose/Route: 6 mg Instruction: 1 x 6 mg tablet Condition: Tuesday Dose/Route: 5 mg Instruction: 1 x 5 mg tablet Condition: Tuesday Dose/Route: 6 mg Instruction: 1 x 6 mg tablet Protocol Text: Adjustment Start Date: 11/01/24 INR Value: 2.8 INR Date: 11/01/24 Recheck Date: 11/08/24 spironolactone 50 mg tablet See Rx Instructions .ROUTE .COMPLEX Qty: 90 3RF Dose Instruction: TAKE 1 TABLET BY MOUTH EVERY MORNING Rx Instructions: TAKE 1 TABLET BY MOUTH EVERY MORNING warfarin 1 mg tablet See Rx Instructions .ROUTE .COMPLEX Qty: 30 0RF Protocol: Dose Management Condition: Tuesday Dose/Route: 6 mg Instruction: 1 x 6 mg tablet Condition: Tuesday Dose/Route: 5 mg Instruction: 1 x 5 mg tablet Condition: Tuesday Dose/Route: 6 mg Instruction: 1 x 6 mg tablet Condition: Tuesday Dose/Route: 5 mg Instruction: 1 x 5 mg tablet Condition: Dose/Route: 6 mg Instruction: 1 x 6 mg tablet Condition: Tuesday Dose/Route: 5 mg Instruction: 1 x 5 mg tablet Condition: Tuesday Dose/Route: 6 mg Instruction: 1 x 6 mg tablet Protocol Text: Adjustment Start Date: 11/01/24 INR Value: 2.8 INR Date: 11/01/24 Recheck Date: 11/08/24 Dose Instruction: TAKE DIRECTED Rx Instructions: TAKE DIRECTED nitroglycerin [Nitrostat] 0.4 mg tablet, sublingual 0.4 mg SUBLINGUAL Q5M PRN (Reason: Chest Pain) Qty: 30 4RF Rx Instructions: do not exceed 3 doses per episode valsartan 40 mg tablet 20 mg PO DAILY Qty: 90 3RF potassium gluconate 595 mg (99 mg) Tablet 1,190 mg PO QPM cholecalciferol (vitamin D3) [Vitamin D3] 125 mcg (5,000 unit) Tablet 125 mcg PO QAM metronidazole 500 mg tablet 500 mg PO TID ciprofloxacin HCl 500 mg tablet 500 mg PO Q12H ibuprofen [Advil] 200 mg Tablet 400 mg PO Q6H PRN (Reason: Fever Or Pain) trazodone 50 mg tablet 50 mg PO BEDTIME omeprazole 20 mg capsule,delayed release(DR/EC) 20 mg PO BID Qty: 20 0RF Discharge Orders: Discharge ED (Routine); Ordered 11/05/24 Ordered By: Lalo Ribera Referrals: Capo Ross MD [Primary Care Provider, Family Practice] Discharge Diet: Usual diet Discharge Activity: Resume usual activity Patient Instructions: Opioid Safety, Pain Management, Patient Portal & Navneet Instructions Activity Restrictions/Additional Instructions: [facility] needs today. It is very important that you follow up as instructed or that you return to the Emergency Department should you have concerns or if your condition changes or worsens in any way. You are seen in the emergency room with complaints of rectal bleeding. Your INR is slightly elevated above therapeutic for your mechanical valve. At 3.88 it should be between 2.5 and 3.5. Recommend you hold x 1 day and recheck in the office tomorrow. Your hemoglobin is stable. CT did not show any signs of acute diverticulitis. Kidney function is slightly worse than usual you are given some IV fluids. Your INR and your creatinine should be rechecked tomorrow in the office. Print Language: Cook Islander Coding Level of Care Code ED Bundle Breaker for Kaila Miller
--- NOTE | 2024-11-05 11:35 | CT_ITS ---
WS: [id number] CT ABDOMEN PELVIS TECHNIQUE: Noncontrast CT of the abdomen and pelvis with coronal and sagittal reformatted images. CLINICAL INFORMATION: Abdominal pain COMPARISON: 2023 DLP: 412.[address] scans at [facility] use at least one of these dose optimization techniques: automated exposure control; mA and/or kV adjustment per patient size (includes targeted exams where dose is matched to clinical indication); or iterative reconstruction. FINDINGS: Normal noncontrast liver and spleen. Prior hysterectomy. Cholecystectomy. Small esophageal hiatal hernia. Lung bases are well aerated. Fatty atrophy of the pancreas. Adrenal glands are normal. No hydronephrosis in either kidney. Normal caliber abdominal aorta. Aortic calcification. Small fat-containing umbilical hernia. Sigmoid diverticulosis. No evidence of acute diverticulitis. CT/CT abdomen pelvis wo con [id number] IMPRESSION: 1. Sigmoid diverticulosis. No evidence of acute diverticulitis. 2. Prior hysterectomy. 3. Prior cholecystectomy. 4. No other suspicious findings.
[2024-11-05 11:46] VITALS: BP 118/78; PULSE 71; O2SAT 99
[2024-11-05 11:49] LABS: Glucose Urine UA Negative (Normal); Nitrate Urine Positive (Negative); Specific Gravity, Urine 1.026 (1.005-1.030)
[2024-11-05 11:54] LABS: Add Urine Microscopic? YES
[2024-11-05 12:33] VITALS: BP 118/63; PULSE 88; O2SAT 96
[2024-11-05 13:56] VITALS: BP 126/65; PULSE 68; O2SAT 97
[2024-11-05 15:31] LABS: INR 3.88 (0.8-1.2); Prothrombin Time 40.10 SECONDS (12.1-14.9)
[2024-11-05 15:48] VITALS: BP 119/58; PULSE 61; O2SAT 96
== END 2024-11-05 16:56 | disposition home or self-care (01) ==
PROVIDERS: Emergency Provider Family Medicine; PCP Family Medicine
DX: K62.5 Hemorrhage of anus and rectum (principal); M25.552 Pain in left hip; M25.551 Pain in right hip; E11.9 Type 2 diabetes mellitus without complications; I25.10 Atherosclerotic heart disease of native coronary artery without angina pectoris; I11.0 Hypertensive heart disease with heart failure; I48.91 Unspecified atrial fibrillation; I25.2 Old myocardial infarction; Z95.4 Presence of other heart-valve replacement; Z79.01 Long term (current) use of anticoagulants; Z79.82 Long term (current) use of aspirin
CPT/HCPCS: 36415; 74176; 80053; 81001; 83690; 85025; 85610; 99284; J7030

== ENCOUNTER → 2024-12-26 13:15 | Outpatient (BNVA) | payer MEDICARE, SELFPAY | PROVIDERS: PCP Family Medicine; Visit Provider Internal Medicine | DX: I11.0 Hypertensive heart disease with heart failure (principal); I50.9 Heart failure, unspecified; I48.0 Paroxysmal atrial fibrillation; Z95.2 Presence of prosthetic heart valve; I25.10 Atherosclerotic heart disease of native coronary artery without angina pectoris; E11.9 Type 2 diabetes mellitus without complications; Z79.01 Long term (current) use of anticoagulants | CPT/HCPCS: 99214 ==

== ENCOUNTER 2025-02-11 13:30 | Outpatient (CLI) | payer MEDICARE, SELFPAY ==
--- NOTE | 2025-02-11 13:44 | XR_ITS ---
WS: [id number] Exam: XR chest 2V* [id number] Date/Time of Exam: 02/11/2025 1:57 PM Reason For Exam: ACUTE COUGH Comparison 10/18/2024. Lungs are hyperinflated and clear. Mild cardiac enlargement unchanged. Signs of cardiac valve replacement and coronary artery stenting. LEFT cardiac calcification noted unchanged. Bony structures are intact. XR/XR chest 2V* [id number] IMPRESSION: 1. Mild cardiac enlargement unchanged. Postop changes. 2. Pulmonary hyperinflation but no acute cardiopulmonary process noted.
== END 2025-02-11 13:31 | disposition home or self-care (01) ==
PROVIDERS: PCP Family Medicine; Visit Provider Family Medicine
DX: R05.1 Acute cough (principal); I51.7 Cardiomegaly; Z95.5 Presence of coronary angioplasty implant and graft; Z95.2 Presence of prosthetic heart valve
CPT/HCPCS: 71046